=== PATIENT | female | born 1995 | race Caucasian/White ===

== ENCOUNTER 2023-04-28 04:08 | Emergency (ER) | payer MEDICAID, SELFPAY ==
--- NOTE | 2023-04-28 | ECG_ITS ---
Test Reason : CHEST PAIN Blood Pressure : / mmHG Vent. Rate : 073 BPM Atrial Rate : 073 BPM P-R Int : 162 ms QRS Dur : 076 ms QT Int : 374 ms P-R-T Axes : 048 074 026 degrees QTc Int : 412 ms Normal sinus rhythm Normal ECG No previous ECGs available Referred By: Generic ED Physician Electronically Signed By:Joel Awad
--- NOTE | ~2023-04-28 | XR_ITS ---
EXAMINATION: XR CHEST CLINICAL INFORMATION: Chest pain. COMPARISON: None available. TECHNIQUE: 2 views of the chest were obtained. FINDINGS: The cardiomediastinal silhouette is within normal limits. There is no focal lung consolidation or pleural effusion. The bony structures and soft tissues are unremarkable. XR/XR chest 2V IMPRESSION: No active cardiopulmonary disease.
[2023-04-28 04:10] VITALS: BP 114/70; BP 117/53; PULSE 74; PULSE 85; RESP 17; TEMP 36.4; O2SAT 99; BMI 36.6
[2023-04-28 04:40] LABS: MANUAL DIFF FLAG NO
[2023-04-28 04:41] LABS: Basophils Percent Auto 0.5 % (0-2); Eosinophils Absolute Auto 0.1 X10*3/uL (0.0-0.4); Eosinophils Percent Auto 0.9 % (0-4); Hemoglobin 9.5 g/dl (12.0-16.0); Imm Gran Abs Auto 0.03 X10*3/uL (0.00-0.03); Imm Gran Pct Auto 0.5 % (0.0-0.4); Lymphocytes Absolute Auto 2.3 X10*3/uL (1.2-4.9); Mean Corpuscular HGB Conc 30.6 g/dl (31.0-35.0); Mean Corpuscular Hemoglobin 21.9 pg (27.0-33.0); Mean Corpuscular Volume 71.4 fL (80.0-98.0); Monocytes Absolute Auto 0.6 X10*3/uL (0.1-1.2); Monocytes Percent Auto 9.7 % (2-11); Neutrophils Absolute Auto 3.4 x10*3/uL (2.0-8.3); Neutrophils Percent Auto 52.4 % (45-73); Platelet Count 263 X10*3/uL (160-400); Red Blood Count 4.34 X10*6/uL (4.20-5.50); Red Cell Distribution Width 16.4 % (11.0-16.0); White Blood Count 6.5 X10*3/uL (4.8-10.8)
[2023-04-28 05:01] LABS: Alanine Aminotransferase 15 U/L (0-31); Albumin Level 3.8 g/dL (3.5-5.0); Alkaline Phosphatase 89 U/L (39-117); Anion Gap 10 (12-20); Aspartate Amino Transferase 19 U/L (5-31); Bilirubin Total 0.3 mg/dL (0.0-1.0); Blood Urea Nitrogen 9 mg/dL (9-16); Calcium 9.4 mg/dL (8.4-10.2); Carbon Dioxide 26 mmol/L (22-29); Chloride 108 mmol/L (96-108); Creatinine Clr Calc Pharmacy 103.4; Estimated Glomerular Filt Rate > 60; Glucose Random 120 mg/dL (60-115); Lipase 17 U/L (8-78); Potassium 4.2 mmol/L (3.3-5.1); Sodium 140 mmol/L (135-145); Total Protein 6.9 g/dL (6.5-8.0)
[2023-04-28 05:07] LABS: Troponin-I High Sensitivity < 2.7 ng/L (<3.5-17.0)
--- NOTE | 2023-04-28 06:32 | ED_ITS ---
HPI - General Adult General Chief complaint: General Medical Stated complaint: Chest pain Time Seen by Provider: 04/28/23 06:30 Source: patient Mode of arrival: ambulatory Limitations: no limitations History of Present Illness HPI narrative: 27 yo female with history of obesity, cardiac abnormality in childhood who presents to the ER for evaluation of chest pain and abdominal pain. She states last night she developed central, non-radiating chest pain that started about 8 hours ago. It was worse with palpation and movement. About 30 mins later she developed upper abdominal pain and lower back pain. The abdominal pain radiated to the back and is ongoing. She then started vomiting. Last BM yesterday 6pm and was normal. No known sick contacts. No fever or chills. No urinary symptoms. She states the chest pain is better but her upper abdominal pain and back pain persist. Pain is mostly in the LUQ and comes and goes. MD complaint: chest pain, abd pain, vomiting Onset (ago): hour(s) Location: chest, back and abdomen Radiation: back Severity: moderate Quality: stabbing and aching Pain Consistency: intermittent Relieving factors: none Exacerbating factors: none Associated symptoms: headaches, loss of appetite, malaise, nausea/vomiting and weakness Treatments prior to arrival: none Related Data Previous Rx's Medication Instructions Recorded cefuroxime axetil 250 mg tablet 250 mg PO BID #10 tabs 04/28/23 ondansetron 4 mg disintegrating 4 mg PO Q8H PRN nausea and 04/28/23 tablet vomiting #7 tabs Allergies Allergy/AdvReac Type Severity Reaction Status Date / Time acetaminophen Allergy Unknown VOMITING Verified 04/28/23 04:40 [From DOLOGESIC] phenyltoloxamine Allergy Unknown VOMITING Verified 04/28/23 04:40 [From DOLOGESIC] Dologesic Allergy Unknown rash Uncoded 04/28/23 04:40 Review of Systems Review of Systems: Yes all other systems are reviewed and are negative PMFSH Social History Social History Alcohol intake: never Smoked in Last 30 Days: No Use of substances other than those prescribed or required for medical reasons: No Advance Directives: No Physical Exam ED Vital Signs: Vital Signs - 24 hr 04/28/23 04:10 04/28/23 07:39 Temperature 97.5 F 98.0 F Pulse Rate 74 65 Respiratory Rate 17 19 Blood Pressure 117/53 L 105/62 Pulse Oximetry 99 98 Oxygen Delivery Method Room Air Room Air BMI result Body Mass Index 36.6 Appearance: Alert. Oriented X3. No acute distress. Head: normocephalic, atraumatic. Eyes: Pupils equal, round and reactive to light. ENT: Pharynx normal. No tonsillar swelling or exudate. Neck: Normal inspection. Neck supple. CVS: Normal heart rate and rhythm. Pulses normal. tender parasternal area Respiratory: No respiratory distress. Breath sounds normal. Abdomen: Obese, Soft and nontender. +BS x4 Skin: Skin warm and dry. Normal skin color. Normal skin turgor. No rashes. Extremities: No lower extremity edema. No joint swelling. Neuro/psych: Oriented X 3. No motor deficit. No sensory deficit. CN II-XII intact. Normal speech and cognition. Medications Administered Discontinued Medications Generic Name Dose Route Start Last Admin Trade Name Freq PRN Reason Stop Dose Admin Al Hydroxide/Mg Hydroxide 30 ml 04/28/23 06:51 04/28/23 07:34 Magnesium Hydrox/Alum Hydrox 30 Ml Oral.Susp PO 04/28/23 06:52 30 ml ONCE ONE Administration Belladonna Alkaloids/Phenobarbital 10 ml 04/28/23 06:51 04/28/23 07:34 Phenobarb/Hyoscy/Atropine/Scop 10 Ml Elixir PO 04/28/23 06:52 10 ml ONCE ONE Administration Famotidine 20 mg 04/28/23 06:51 04/28/23 07:34 Famotidine 20 Mg Tablet PO 04/28/23 06:52 20 mg ONCE ONE Administration Ondansetron HCl 4 mg 04/28/23 07:09 04/28/23 07:34 Ondansetron Odt 4 Mg Tab.Rapdis TRANSLINGU 04/28/23 07:10 4 mg ONCE ONE Administration Medical Decision Making Medical Decision Making MDM Narrative: 19-year-old female presents to the ER for evaluation of chest pain, abdominal pain, back pain this started last night. She is also vomiting. She reports chest pain has resolved. She has some parasternal tenderness which is reass uring against any cardiac etiology. She has history of a ?hole in her heart, question PFO verses septal defect. No appreciated murmurs on examination. On arrival to the ER her vital signs are stable. Her lab workup is unremarkable. Her EKG did not show any ischemic changes. Chest x-ray is norm al. Troponin is negative. She was treated with a GI cocktail for some ongoing upper abdominal pain and nausea. This improved her symptoms. She was able to tolerate p.o.. Her abdomen was soft with no significant tenderness. Her urinalysis did show that she most likely has a UTI. Negative for . Will plan to treat her with antibiotics and antiemetics. At this time she is stable for discharge home. Return precautions were discussed. Results and plan were discussed with patient. All questions were answered. Stable for discharge. Differential Diagnosis Differential Diagnoses: The differential diagnosis associated with the presentation includes Gastroenteritis, viral illness, pneumonia, pyelonephritis, cholecystitis, appendicitis, myocarditis, pericarditis, doubt ACS or PE Admission/Observation Consideration of admission/observation: Escalation of care including admission/observation considered considered observation of patient with chest and abd pain Lab Data MDM Lab Attestation statement: I reviewed the patient's lab results. No leukocytosis, mild anemia, no major metabolic derangement, UA consistent with infection 04/28/23 04:35 04/28/23 04:35 Labs: Lab Results 04/28/23 04/28/23 04/28/23 Range/Units 04:35 04:35 04:35 WBC 6.5 (4.8-10.8) X10*3/uL RBC 4.34 (4.20-5.50) X10*6/uL Hgb 9.5 L (12.0-16.0) g/dl Hct 31.0 L (37.0-47.0) % MCV 71.4 L (80.0-98.0) fL MCH 21.9 L (27.0-33.0) pg MCHC 30.6 L (31.0-35.0) g/dl RDW 16.4 H (11.0-16.0) % Plt Count 263 (160-400) X10*3/uL MPV 11.0 (9.4-12.3) fL Immature Gran % (Auto) 0.5 H (0.0-0.4) % Neut % (Auto) 52.4 (45-73) % Lymph % (Auto) 36.0 (20-40) % Mitchell % (Auto) 9.7 (2-11) % Eos % (Auto) 0.9 (0-4) % Baso % (Auto) 0.5 (0-2) % Lymph # (Auto) 2.3 (1.2-4.9) X10*3/uL Mitchell # (Auto) 0.6 (0.1-1.2) X10*3/uL Eos # (Auto) 0.1 (0.0-0.4) X10*3/uL Baso # (Auto) 0.0 (0.0-0.2) X10*3/uL Abs Immat Gran (auto) 0.03 (0.00-0.03) X10*3/uL Absolute Neuts (auto) 3.4 (2.0-8.3) x10*3/uL Absolute Nucleated RBC 0.000 (0.0-0.012) X10*3/uL Nucleated RBC % (auto) 0.0 (0.0-0.2) /100WBC Sodium 140 (135-145) mmol/L Potassium 4.2 (3.3-5.1) mmol/L Chloride 108 (96-108) mmol/L Carbon Dioxide 26 (22-29) mmol/L Anion Gap 10 L (12-20) BUN 9 (9-16) mg/dL Creatinine 0.72 (0.5-1.4) mg/dL Estim Creat Clear Calc 103.4 Estimated GFR > 60 Random Glucose 120 H (60-115) mg/dL Calcium 9.4 (8.4-10.2) mg/dL Total Bilirubin 0.3 (0.0-1.0) mg/dL AST 19 (5-31) U/L ALT 15 (0-31) U/L Alkaline Phosphatase 89 (39-117) U/L Troponin I High Sens < 2.7 (<3.5-17.0) ng/L Total Protein 6.9 (6.5-8.0) g/dL Albumin 3.8 (3.5-5.0) g/dL Lipase 17 (8-78) U/L Urine Color Urine Appearance Urine pH (5.0-9.0) Ur Specific [place] (1.005-1.025) Urine Protein (Neg-Trace) mg/dL Urine Glucose (UA) (Negative) mg/dL Urine Ketones (Negative) mg/dL Urine Blood (Negative) Urine Nitrite (Negative) Ur Leukocyte Esterase (Negative) Urine RBC (0-2) /HPF Urine WBC (0-5) /HPF Ur Squamous Epith Cells (0-2) /HPF Urine Bacteria (None Seen) Hyaline Casts (0-2) /LPF Urine Test (NEGATIVE) 04/28/23 04/28/23 Range/Units 09:11 09:11 WBC (4.8-10.8) X10*3/uL RBC (4.20-5.50) X10*6/uL Hgb (12.0-16.0) g/dl Hct (37.0-47.0) % MCV (80.0-98.0) fL MCH (27.0-33.0) pg MCHC (31.0-35.0) g/dl RDW (11.0-16.0) % Plt Count (160-400) X10*3/uL MPV (9.4-12.3) fL Immature Gran % (Auto) (0.0-0.4) % Neut % (Auto) (45-73) % Lymph % (Auto) (20-40) % Mitchell % (Auto) (2-11) % Eos % (Auto) (0-4) % Baso % (Auto) (0-2) % Lymph # (Auto) (1.2-4.9) X10*3/uL Mitchell # (Auto) (0.1-1.2) X10*3/uL Eos # (Auto) (0.0-0.4) X10*3/uL Baso # (Auto) (0.0-0.2) X10*3/uL Abs Immat Gran (auto) (0.00-0.03) X10*3/uL Absolute Neuts (auto) (2.0-8.3) x10*3/uL Absolute Nucleated RBC (0.0-0.012) X10*3/uL Nucleated RBC % (auto) (0.0-0.2) /100WBC Sodium (135-145) mmol/L Potassium (3.3-5.1) mmol/L Chloride (96-108) mmol/L Carbon Dioxide (22-29) mmol/L Anion Gap (12-20) BUN (9-16) mg/dL Creatinine (0.5-1.4) mg/dL Estim Creat Clear Calc Estimated GFR Random Glucose (60-115) mg/dL Calcium (8.4-10.2) mg/dL Total Bilirubin (0.0-1.0) mg/dL AST (5-31) U/L ALT (0-31) U/L Alkaline Phosphatase (39-117) U/L Troponin I High Sens (<3.5-17.0) ng/L Total Protein (6.5-8.0) g/dL Albumin (3.5-5.0) g/dL Lipase (8-78) U/L Urine Color Other A Urine Appearance Hazy Urine pH 5.5 (5.0-9.0) Ur Specific [place] 1.020 (1.005-1.025) Urine Protein 30 (1+) H (Neg-Trace) mg/dL Urine Glucose (UA) Negative (Negative) mg/dL Urine Ketones Negative (Negative) mg/dL Urine Blood Large (3+) H (Negative) Urine Nitrite Negative (Negative) Ur Leukocyte Esterase Small (1+) H (Negative) Urine RBC >20 H (0-2) /HPF Urine WBC 21-50 H (0-5) /HPF Ur Squamous Epith Cells 3-5 (0-2) /HPF Urine Bacteria 4+ (None Seen) Hyaline Casts 0-2 (0-2) /LPF Urine Test NEGATIVE (NEGATIVE) Independent Interpretation I performed an independent interpretation of an: EKG and Plain X-Ray Interpretation: Chest x-ray reviewed, no focal infiltrate appreciated. Agree with radiologist read. EKG with normal sinus rhythm, ventricular rate 73 beats per minute, normal OR interval, normal QTC, no ST segment elevations or depressions. Radiology Impression Discussion of test interpretation with radiology: I have reviewed the radiologist's reading. Radiologist Impression: EXAMINATION: XR CHEST CLINICAL INFORMATION: Chest pain. COMPARISON: None available. TECHNIQUE: 2 views of the chest were obtained. FINDINGS: The cardiomediastinal silhouette is within normal limits. There is no focal lung consolidation or pleural effusion. The bony structures and soft tissues are unremarkable. XR/XR chest 2V IMPRESSION: No active cardiopulmonary disease. Prescription Management I considered prescription management with: Pain Medication, Antibiotic and Other (Antiemetic) Discharge Plan Discharge Clinical Impression: UTI (urinary tract infection) Patient Disposition: Home, Self-Care Instructions: Urinary Tract Infection in Women (DC) Additional Instructions: You lab workup today was unremarkable. Your urine test was positive for infection and negative for Take the prescribed antibiotics as directed, complete the entire course and do not miss any doses Recommend rest and plenty of oral hydration. Stick to a bland diet like soup and toast while you are not feeling well. Take the prescribed medication as needed for nausea. Follow up with your doctor as needed. If you develop new or worsening symptoms call 911 or come back to the ER for further evaluation. Prescriptions: New cefuroxime axetil 250 mg tablet 250 mg PO BID Qty: 10 0RF ondansetron 4 mg tablet,disintegrating 4 mg PO Q8H PRN (Reason: nausea and vomiting) Qty: 7 0RF
[2023-04-28] MEDS: Famotidine 20 MG TABLET PO (07:34)
[2023-04-28] MEDS: Ondansetron ODT 4 MG TAB.RAPDIS TRANSLINGU (07:34)
[2023-04-28] MEDS: PHENobarb/Hyoscy/Atropine/Scop 10 ML ELIXIR PO (07:34)
[2023-04-28] MEDS: Magnesium Hydrox/Alum Hydrox 30 ML ORAL.SUSP PO (07:34)
[2023-04-28 07:39] VITALS: BP 105/62; PULSE 65; RESP 19; TEMP 36.7; O2SAT 98
--- NOTE | 2023-04-28 08:00 | PC.NURSE ---
meds given as ordered, pt resting quietly, no apparent distress.
[2023-04-28 11:08] LABS: UPreg QC Valid YES; Urine Pregnancy NEGATIVE (NEGATIVE)
[2023-04-28 11:11] LABS: Appearance Urine Hazy; Color Urine Other; PH 5.5 (5.0-9.0)
[2023-04-28 11:12] LABS: Glucose Urine UA Negative (Negative); Leukocyte Esterase Urine Small (1+) (Negative); Nitrite Urine Negative (Negative); UMIC TRIGGER UACC YES; Urine Blood Large (3+) (Negative); Urine Ketones Negative (Negative); Urine Protein 30 (1+) mg/dL (Neg-Trace)
[2023-04-28 11:13] LABS: Bacteria Urine 4+ (None Seen); Hyaline Casts Urine 0-2 /LPF (0-2); RBC Urine >20 /HPF (0-2); UACC Culture Trigger YES; WBC Urine 21-50 /HPF (0-5)
== END 2023-04-28 11:53 | disposition home or self-care (01) ==
PROVIDERS: Physician Assistant; Emergency Provider Emergency Medicine Emergency Medical Services
DX: N39.0 Urinary tract infection, site not specified (principal); R07.89 Other chest pain; R51.9 Headache, unspecified; R11.2 Nausea with vomiting, unspecified; Z79.899 Other long term (current) drug therapy
CPT/HCPCS: 36415; 71046; 80053; 81001; 81003; 81025; 83690; 84484; 85025; 87086; 93005; 99284; 99285

== ENCOUNTER → 2023-04-28 04:24 | Outpatient (BNV) | payer MEDICAID, SELFPAY | PROVIDERS: Emergency Provider Emergency Medicine Emergency Medical Services; Visit Provider Internal Medicine Cardiovascular Disease | DX: R07.9 Chest pain, unspecified (principal) | CPT/HCPCS: 93010 ==

== ENCOUNTER 2023-07-11 11:21 | Emergency (ER) | payer MEDICAID, SELFPAY ==
--- NOTE | ~2023-07-11 | XR_ITS ---
EXAMINATION: XR CHEST CLINICAL INFORMATION: Shortness of breath. Cough. COMPARISON: 04/28/2023. TECHNIQUE: 2 views of the chest were obtained. FINDINGS: The lungs are well expanded. No focal consolidation. No pleural effusion. Cardiac silhouette is within normal limits. XR/XR chest 2V IMPRESSION: No acute abnormality.
--- NOTE | 2023-07-11 11:27 | ED.GENADULT ---
HPI - General Adult General Chief complaint: Upper Respiratory Symptoms Stated complaint: chest pain, cough Time Seen by Provider: 07/11/23 11:58 Source: patient Mode of arrival: ambulatory Limitations: no limitations History of Present Illness HPI narrative: 28 y/o female with history of obesity and asthma presents to the ER for evaluation of dry cough for 1.5 weeks. The cough is worse at night and has been keeping her up. She states her entire chest wall hurts when she coughs and she finds it hard to take a deep breath. She denies fever, chills, N/V/D, abdominal pain, difficulty breathing or wheezing. She has been using her albuterol inhaler with no improvement in the cough. MD complaint: dry cough Onset (ago): week(s) (1.5) Location: chest Radiation: non-radiation Severity: moderate Quality: aching Pain Consistency: intermittent Relieving factors: rest Exacerbating factors: other (coughing) Associated symptoms: chest pain and cough Treatments prior to arrival: none Related Data Previous Rx's Medication Instructions Recorded cefuroxime axetil 250 mg tablet 250 mg PO BID #10 tabs 04/28/23 ondansetron 4 mg disintegrating 4 mg PO Q8H PRN nausea and 04/28/23 tablet vomiting #7 tabs benzonatate 100 mg capsule 100 mg PO TID PRN cough #20 caps 07/11/23 hydrocodone-homatropine 5 mg-1.5 5 ml PO Q4-6H PRN cough #60 mL 07/11/23 mg/5 mL (5 mL) oral syrup (Hycodan) Allergies Allergy/AdvReac Type Severity Reaction Status Date / Time acetaminophen Allergy Unknown VOMITING Verified 04/28/23 04:40 [From DOLOGESIC] phenyltoloxamine Allergy Unknown VOMITING Verified 04/28/23 04:40 [From DOLOGESIC] Dologesic Allergy Unknown rash Uncoded 04/28/23 04:40 Review of Systems Review of Systems: Yes all other systems are reviewed and are negative [facility] Social History Social History Alcohol intake: never Advance Directives: No Physical Exam ED Vital Signs: Vital Signs - 24 hr 07/11/23 11:28 Temperature 98 F Pulse Rate 86 Respiratory Rate 18 Blood Pressure 137/76 Pulse Oximetry 98 Oxygen Delivery Method Room Air BMI result Body Mass Index 47.0 Appearance: Alert. Oriented X3. No acute distress. Head: normocephalic, atraumatic. Eyes: Pupils equal, round and reactive to light. ENT: Pharynx normal. No tonsillar swelling or exudate. Neck: Normal inspection. Neck supple. CVS: Normal heart rate and rhythm. Pulses normal. +anterior chest wall tenderness throughout Respiratory: No respiratory distress. Breath sounds normal. Abdomen: Soft and nontender. +BS x4 Skin: Skin warm and dry. Normal skin color. Normal skin turgor. No rashes. Extremities: No lower extremity edema. No joint swelling. No calf tenderness or redness Neuro/psych: Oriented X 3. Grossly normal, nonfocal. Normal speech and cognition. Course Course Course Narrative: RME- 28-year-old female presents for evaluation of a dry cough for the last week and a half. She reports chest pain while coughing. Vital signs are stable. Plan for viral swabs and chest x-ray Medical Decision Making Medical Decision Making [facility] Narrative: 28 yo female with history of obesity and asthma presenting with dry cough and reproducible chest pain for 1.5 weeks. VSS. Lungs CTAB. chest wall tender c/w chest wall/MSK pain CXR without PNA covid and flu negative likely other viral etiology stable for d/c home with anti-tussives and outpatient f/u PRN Differential Diagnosis Differential Diagnoses: The differential diagnosis associated with the presentation includes strep, covid, flu, rsv, other viral syndrome, bronchitis, pneumonia, asthma exacerbation, doubt ACS or PE - chest pain is reproducible Lab Data MDM Lab Attestation statement: I reviewed the patient's lab results. Labs: Lab Results 07/11/23 Range/Units 11:30 COVID-19 ([facility]) Negative (Negative) COVID-19 Clin Com See Note Influenza Type A ([facility]) Negative (Negative) Influenza Type B ([facility]) Negative (Negative) Influenza A & B Note See Note Independent Interpretation I performed an independent interpretation of an: Plain X-Ray Interpretation: clear lungs, no PNA or effusion Radiology Impression Discussion of test interpretation with radiology: I have reviewed the radiologist's reading. Radiologist Impression: EXAMINATION: XR CHEST CLINICAL INFORMATION: Shortness of breath. Cough. COMPARISON: 04/28/2023. TECHNIQUE: 2 views of the chest were obtained. FINDINGS: The lungs are well expanded. No focal consolidation. No pleural effusion. Cardiac silhouette is within normal limits. XR/XR chest 2V IMPRESSION: No acute abnormality. External Record Review External record reviewed: Prior outpatient labs Prescription Management I considered prescription management with: Antibiotic and Other (antitussive) Chronic Conditions Patient?s care impacted by: Other (asthma) Critical Care Time Critical Care Time Critical Care Time: No Discharge Plan Discharge Clinical Impression: Viral infection Patient Disposition: Home, Self-Care Instructions: Viral Syndrome (ED) Additional Instructions: You tested negative for COVID and Influenza today Your chest x-ray was normal, no signs of pneumonia You most likely have another viral illness. Treatment is supportive care Take the prescribed medication as needed for cough Take over the counter cold/flu medications as needed for your other symptoms Prescriptions: New benzonatate 100 mg capsule 100 mg PO TID PRN (Reason: cough) Qty: 20 0RF hydrocodone-homatropine [Hycodan] 5-1.5 mg/5 mL (5 mL) syrup 5 ml PO Q4-6H PRN (Reason: cough) Qty: 60 0RF Rx Instructions: Partial Fill upon patient request. No Action cefuroxime axetil 250 mg tablet 250 mg PO BID Qty: 10 0RF ondansetron 4 mg tablet,disintegrating 4 mg PO Q8H PRN (Reason: nausea and vomiting) Qty: 7 0RF Stand Alone Forms: Work/School Release Interventions: ED Discharge Assessment Last Done: 07/11/23 12:34 Discharge Date/Time: 07/11/23 12:36
[2023-07-11 11:28] VITALS: BP 137/76; PULSE 86; RESP 18; TEMP 36.6; O2SAT 98; BMI 47.0
[2023-07-11 11:58] LABS: COVID-19 Test Negative (Negative); IDNOW Serial# BCCEAD1C
[2023-07-11 11:59] LABS: IDNOW Serial# 08D9AD1C; Influenza A Negative (Negative); Influenza B2 Negative (Negative)
== END 2023-07-11 12:36 | disposition home or self-care (01) ==
PROVIDERS: Physician Assistant; Emergency Provider Emergency Medicine
DX: B34.9 Viral infection, unspecified (principal); R07.89 Other chest pain; R05.9 Cough, unspecified; R06.02 Shortness of breath; Z20.822 Contact with and (suspected) exposure to COVID-19; Z20.828 Contact with and (suspected) exposure to other viral communicable diseases; Z79.899 Other long term (current) drug therapy
CPT/HCPCS: 71046; 87502; 87635; 99283

== ENCOUNTER 2023-07-13 23:05 | Emergency (ER) | payer MEDICAID, SELFPAY ==
--- NOTE | 2023-07-13 | ECG_ITS ---
Test Reason : CHEST PAIN Blood Pressure : / mmHG Vent. Rate : 103 BPM Atrial Rate : 103 BPM P-R Int : 156 ms QRS Dur : 078 ms QT Int : 322 ms P-R-T Axes : 067 098 036 degrees QTc Int : 421 ms Sinus tachycardia Rightward axis Borderline ECG When compared with ECG of 28-APR-2023 04:24, Heart rate has increased Referred By: Generic ED Physician Electronically Signed By:ALEX MEEK MD
--- NOTE | ~2023-07-13 | XR_ITS ---
EXAMINATION: XR CHEST CLINICAL INFORMATION: Cough and fever COMPARISON: 07/11/2023 TECHNIQUE: 2 views of the chest were obtained. FINDINGS: No significant abnormality is noted involving the heart, lungs, mediastinum, bony thorax or soft tissues. XR/XR chest 2V IMPRESSION: Unremarkable examination.
[2023-07-13 23:09] VITALS: BP 144/87; PULSE 102; RESP 20; TEMP 37.8; O2SAT 96; BMI 46.9
--- NOTE | 2023-07-13 23:32 | ED_ITS ---
HPI - General Adult General Chief complaint: General Medical Stated complaint: fever and body pain, even after meds Time Seen by Provider: 07/13/23 23:27 Source: patient Mode of arrival: ambulatory Limitations: no limitations History of Present Illness HPI narrative: patient states that she has had a cough for 2 weeks, now has fever and vomiting over the past 2 days Onset (ago): week(s) Severity: moderate Related Data Previous Rx's Medication Instructions Recorded cefuroxime axetil 250 mg tablet 250 mg PO BID #10 tabs 04/28/23 ondansetron 4 mg disintegrating 4 mg PO Q8H PRN nausea and 04/28/23 tablet vomiting #7 tabs benzonatate 100 mg capsule 100 mg PO TID PRN cough #20 caps 07/11/23 hydrocodone-homatropine 5 mg-1.5 5 ml PO Q4-6H PRN cough #60 mL 07/11/23 mg/5 mL (5 mL) oral syrup (Hycodan) ondansetron 4 mg disintegrating 4 mg PO Q8H PRN nausea and 07/14/23 tablet vomiting 5 days #20 tabs epsuyqlexqxah-GS-oboodlsiflz 5 10 ml PO Q4H PRN cough #237 mL 07/14/23 mg-10 mg-100 mg/5 mL oral liquid Allergies Allergy/AdvReac Type Severity Reaction Status Date / Time acetaminophen Allergy Unknown VOMITING Verified 04/28/23 04:40 [From DOLOGESIC] phenyltoloxamine Allergy Unknown VOMITING Verified 04/28/23 04:40 [From DOLOGESIC] Dologesic Allergy Unknown rash Uncoded 04/28/23 04:40 Review of Systems Review of Systems: Yes all other systems are reviewed and are negative Neurologic: Denies Sensory deficit (Neuro) [facility] Social History Social History Alcohol intake: never Advance Directives: No Advance Directives Information Provided: No Physical Exam ED Vital Signs: Vital Signs - 24 hr 07/13/23 23:09 07/13/23 23:35 07/14/23 00:57 Temperature 100.1 F 103.0 F H 100.4 F Pulse Rate 102 H 104 H 91 Respiratory Rate 20 16 16 Blood Pressure 144/87 H 145/73 H 109/60 Pulse Oximetry 96 98 98 Oxygen Delivery Method Room Air Room Air BMI result Body Mass Index 46.9 Const Other: short obese female, slightly short of breath, vomiting Orientation/consciousness: oriented to person and patient oriented x3 Limitations: no limitations HENMT Head: Yes normal to inspection Ears: external ears normal General nose exam: Normal external nose present Mouth: Normal oral and palatal mucosa present and oropharynx normal Throat: Yes posterior oropharynx normal Eyes General: appearance normal, both eyes and all related structures Neck Neck: Yes normal visual inspection Chest Chest palpation & inspection: normal inspection of the chest Resp Auscultation: clear to auscultation bilaterally Cardio Jugular venous distension: no JVD Rate: regular rate Rhythm: regular rhythm Heart sounds: S1 normal heart sound present and S2 normal heart sound present GI Inspection: Yes normal to inspection Palpation (GI): Soft to palpation, nontender and No hepatosplenomegaly present Auscultation: normal bowel sounds General: Yes no CVA tenderness Back/Spine/Pelvis Back: no CVA tenderness Skin General skin exam: no rashes or lesions noted Neuro General: oriented to person and patient oriented x3 Cranial nerves: Yes CN's II-XII intact bilaterally Motor exam (neuro): 5/5 motor strength present throughout Sensory Exam: No Sensory deficit (Neuro) Extrem General: Yes normal to inspection Psych Appearance: grossly normal Course Reevaluation(s) Reevaluation #1: patient is febrile, short of breath with clear lungs, cough and vomiting, positive for COVID will dc home Time: 01:02 Medications Administered Discontinued Medications Generic Name Dose Route Start Last Admin Trade Name Freq PRN Reason Stop Dose Admin Guaifenesin 20 ml 07/14/23 00:02 07/14/23 00:31 Guaifenesin 200 Mg/10 Ml 10 Ml Liquid PO 07/14/23 00:03 20 ml ONCE ONE Administration Ibuprofen 800 mg 07/13/23 23:32 07/13/23 23:42 Ibuprofen 800 Mg Tablet PO 07/13/23 23:33 800 mg ONCE ONE Administration Ondansetron HCl 4 mg 07/13/23 23:32 07/13/23 23:42 Ondansetron Odt 4 Mg Tab.Rapdis TRANSLINGU 07/13/23 23:33 4 mg ONCE ONE Administration Medical Decision Making Differential Diagnosis Differential Diagnoses: The differential diagnosis associated with the presentation includes (Pneumonia, COVID, Flu, RSV were all considered) Admission/Observation Consideration of admission/observation: Escalation of care including admission/observation considered (upon arrival patient considered for admission) Lab Data MDM Lab Attestation statement: I reviewed the patient's lab results. (COVID pos itive) Labs: Lab Results 07/13/23 Range/Units 23:27 Influenza Type A (PCR) NEGATIVE (Negative) Influenza Type B (PCR) NEGATIVE (Negative) RSV RNA Qual (PCR) NEGATIVE (Negative) SARS-CoV-2 RNA (RT-PCR) POSITIVE A (Negative) S. pyogenes GrpA ZULEYMA Negative (Negative) Independent Interpretation I performed an independent interpretation of an: EKG (sinus [address] or twave changes) and Plain X-Ray (no infiltrate) Independent Historian Clinical information obtained from an independent historian. History obtained from or confirmed by: Spouse Prescription Management I considered prescription management with: Antibiotic (Patient with covid will not give abx) Discharge Plan Discharge Clinical Impression: COVID-19 Patient Disposition: Home, Self-Care Instructions: COVID-19 (Coronavirus Disease 2019) (ED) Prescriptions: New abmojavajvcec-TR-vonmkvbryyg 5-10-100 mg/5 mL liquid 10 ml PO Q4H PRN (Reason: cough) Qty: 237 0RF ondansetron 4 mg tablet,disintegrating 4 mg PO Q8H PRN (Reason: nausea and vomiting) 5 Days Qty: 20 0RF No Action cefuroxime axetil 250 mg tablet 250 mg PO BID Qty: 10 0RF ondansetron 4 mg tablet,disintegrating 4 mg PO Q8H PRN (Reason: nausea and vomiting) Qty: 7 0RF benzonatate 100 mg capsule 100 mg PO TID PRN (Reason: cough) Qty: 20 0RF hydrocodone-homatropine [Hycodan] 5-1.5 mg/5 mL (5 mL) syrup 5 ml PO Q4-6H PRN (Reason: cough) Qty: 60 0RF Rx Instructions: Partial Fill upon patient request. Referrals: Physician,Unknown J [Primary Care Provider] - 1 week
[2023-07-13 23:35] VITALS: BP 145/73; PULSE 104; RESP 16; TEMP 39.4; O2SAT 98
--- NOTE | 2023-07-13 23:37 | MHC.EDTECH ---
This pct just assumed care of pt ,ekg taken and was read by Provider Saw ,Provider Saw is aware of Pt high temp ,RSV /COVID and Streap swab collected and sent [facility] .
[2023-07-13] MEDS: Ibuprofen 800 MG TABLET PO (23:42)
[2023-07-13] MEDS: Ondansetron ODT 4 MG TAB.RAPDIS TRANSLINGU (23:42)
[2023-07-13 23:45] LABS: IDNOW Serial# 6674DD1D; Strep A Nucleic Acid Negative (Negative)
[2023-07-14 00:14] LABS: Influenza A PCR NEGATIVE (Negative); Influenza B PCR NEGATIVE (Negative); Resp Syncy Virus RNA Qual PCR NEGATIVE (Negative); SARS COV2 PCR INHOUSE POSITIVE (Negative)
[2023-07-14] MEDS: guaiFENesin 200 MG/10 ML 10 ML LIQUID 20 ML PO (00:31)
[2023-07-14 00:57] VITALS: BP 109/60; PULSE 91; RESP 16; TEMP 38; O2SAT 98
== END 2023-07-14 01:15 | disposition home or self-care (01) ==
PROVIDERS: Emergency Provider Emergency Medicine
DX: U07.1 COVID-19 (principal)
CPT/HCPCS: 0241U; 71046; 87651; 93005; 99283; 99284

== ENCOUNTER 2023-11-15 01:29 | Emergency (ER) | payer MEDICAID, SELFPAY ==
[2023-11-15 01:32] VITALS: BP 148/78; PULSE 74; RESP 16; TEMP 36.7; O2SAT 99; BMI 46.2
[2023-11-15 02:25] LABS: IDNOW Serial# 6674DD1D; Strep A Nucleic Acid Negative (Negative)
[2023-11-15 02:52] LABS: Influenza A PCR NEGATIVE (Negative); Influenza B PCR NEGATIVE (Negative); Resp Syncy Virus RNA Qual PCR NEGATIVE (Negative); SARS COV2 PCR INHOUSE NEGATIVE (Negative)
--- NOTE | 2023-11-15 02:54 | ED_ITS ---
HPI - General Adult General Chief complaint: General Medical Stated complaint: throat pain Time Seen by Provider: 11/15/23 02:48 Source: patient Mode of arrival: ambulatory Limitations: no limitations History of Present Illness HPI narrative: 28-year-old female with no significant past medical history who presents emergency department for evaluation of sore throat x1 week. She states pain is gotten progressively worse. She states she has having no difficulty swallowing solids or liquids. Patient denied fever, chills, rhinorrhea, cough, chest pain shortness of breath. He has been using a spray and the back of her throat with no relief for pain. Related Data Previous Rx's Medication Instructions Recorded cefuroxime axetil 250 mg tablet 250 mg PO BID #10 tabs 04/28/23 ondansetron 4 mg disintegrating 4 mg PO Q8H PRN nausea and 04/28/23 tablet vomiting #7 tabs benzonatate 100 mg capsule 100 mg PO TID PRN cough #20 caps 07/11/23 hydrocodone-homatropine 5 mg-1.5 5 ml PO Q4-6H PRN cough #60 mL 07/11/23 mg/5 mL (5 mL) oral syrup (Hycodan) ondansetron 4 mg disintegrating 4 mg PO Q8H PRN nausea and 07/14/23 tablet vomiting 5 days #20 tabs oaybhyyioywfo-FK-cqkgwuknnze 5 10 ml PO Q4H PRN cough #237 mL 07/14/23 mg-10 mg-100 mg/5 mL oral liquid acetaminophen 500 mg tablet 1,000 mg (2 x 500 mg) PO Q6H PRN 11/15/23 (Tylenol Extra Strength) fever or pain #20 tabs amoxicillin 500 mg capsule 500 mg PO TID 7 days #21 caps 11/15/23 prednisone 20 mg tablet 60 mg (3 x 20 mg) PO DAILY 5 days 11/15/23 #15 tabs Allergies Allergy/AdvReac Type Severity Reaction Status Date / Time acetaminophen Allergy Unknown VOMITING Verified 11/15/23 01:31 [From DOLOGESIC] phenyltoloxamine Allergy Unknown VOMITING Verified 11/15/23 01:31 [From DOLOGESIC] Dologesic Allergy Unknown rash Uncoded 11/15/23 01:31 Review of Systems Review of Systems: Yes all other systems are reviewed and are negative [facility] Past Medical History [facility] Narrative: Social history: She denies tobacco, alcohol and drug use. Social History Social History Alcohol intake: never Advance Directives: No Advance Directives Information Provided: No Physical Exam ED Vital Signs: Vital Signs - 24 hr 11/15/23 01:32 Temperature 98.0 F Pulse Rate 74 Respiratory Rate 16 Blood Pressure 148/78 H Pulse Oximetry 99 Oxygen Delivery Method Room Air BMI result Body Mass Index 46.2 Vital signs revealed an elevated blood pressure of 140/78 otherwise unremarkable. Exam: General: Awake, alert in no distress Head: Normocephalic, atraumatic EENT: Membranes patient does have bilateral erythema with no exudates, patient's tonsils appear to be symmetrically swollen, she has no trismus, uvula is midline Neck: Supple, no adenopathy Lung: breath sounds symmetric, no wheezing, rales or rhonchi Chest: symmetric movement, nontender Heart: regular rate and rhythm, normal S1, S2 no murmurs or rubs Abdomen: soft, non-tender, nondistended, normal bowel sounds Back: no vertebral tenderness, no CVAT Extremities: no deformities, moves all extremities symmetrically Medications Administered Discontinued Medications Generic Name Dose Route Start Last Admin Trade Name Freq PRN Reason Stop Dose Admin Acetaminophen 975 mg 11/15/23 02:54 11/15/23 03:21 Acetaminophen 325 Mg Tablet PO 11/15/23 02:55 975 mg ONCE STA Administration Amoxicillin 500 mg 11/15/23 02:54 11/15/23 03:21 Amoxicillin 500 Mg Capsule PO 11/15/23 02:55 500 mg ONCE ONE Administration Prednisone 60 mg 11/15/23 02:54 11/15/23 03:21 Prednisone 20 Mg Tablet PO 11/15/23 02:55 60 mg ONCE ONE Administration Medical Decision Making Medical Decision Making [facility] Narrative: 28-year-old female with no significant past medical history who presents emergency department for evaluation of 1 week of throat pain which is got progressively worse. Patient's vital signs revealed an elevated blood pressure otherwise unremarkable. Physical examination is consistent with acute tonsillitis. Differential diagnosis: ?Includes but is not limited to strep throat, viral pharyngitis, tonsillitis Following evaluation was ordered: Rapid strep Patient was initially treated with the following: Amoxicillin 500 mg orally, Tylenol 975 mg orally, prednisone 60 mg orally Course: 03:01 My interpretation patient's laboratory evaluation as follows: Rapid strep was negative. COVID-19, influenza and RSV were negative. Patient's presentation consistent with acute tonsillitis. She was prescribed amoxicillin 500 mg 3 times a day for 7 days, prednisone 60 mg once a day for 5 days and Tylenol as needed for pain. She was given printed and verbal instructions discharged home. She was given a work note. Lab Data [facility] Lab Attestation statement: I reviewed the patient's lab results. Labs: Lab Results 11/15/23 Range/Units 02:07 Influenza Type A (PCR) NEGATIVE (Negative) Influenza Type B (PCR) NEGATIVE (Negative) RSV RNA Qual (PCR) NEGATIVE (Negative) SARS-CoV-2 RNA (RT-PCR) NEGATIVE (Negative) S. pyogenes GrpA ZULEYMA Negative (Negative) Prescription Management I considered prescription management with: Pain Medication, Antibiotic and Other (Steroids) Discharge Plan Discharge Clinical Impression: Acute tonsillitis Qualifiers: Pharyngitis/tonsillitis etiology: other specified organisms Qualified Code(s): J03.80 - Acute tonsillitis due to other specified organisms Patient Disposition: Home, Self-Care Instructions: Tonsillitis (ED) Additional Instructions: Your rapid strep test was negative. Your COVID-19, influenza and RSV tests were also negative Your exam is consistent with tonsillitis. Take amoxicillin 500 mg pills, 1 pill 3 times a day for 7 days. Take prednisone 20 mg pills, 3 pills once a day for 5 days. While you ?are taking prednisone, do not take any NSAIDs (Motrin, Advil, ibuprofen, Aleve, naproxen). Take Tylenol (acetaminophen) 500 mg pills, 2 pills every 6 hours as needed for pain or fever. Follow-up with your doctor in 2 days. Please return to the emergency department if your symptoms get worse or if you develop any symptoms that are concerning to you. Please see work note Prescriptions: New prednisone 20 mg tablet 60 mg PO DAILY 5 Days Qty: 15 0RF acetaminophen [Tylenol Extra Strength] 500 mg tablet 1,000 mg PO Q6H PRN (Reason: fever or pain) Qty: 20 0RF amoxicillin 500 mg capsule 500 mg PO TID 7 Days Qty: 21 0RF No Action cefuroxime axetil 250 mg tablet 250 mg PO BID Qty: 10 0RF ondansetron 4 mg tablet,disintegrating 4 mg PO Q8H PRN (Reason: nausea and vomiting) Qty: 7 0RF benzonatate 100 mg capsule 100 mg PO TID PRN (Reason: cough) Qty: 20 0RF hydrocodone-homatropine [Hycodan] 5-1.5 mg/5 mL (5 mL) syrup 5 ml PO Q4-6H PRN (Reason: cough) Qty: 60 0RF Rx Instructions: Partial Fill upon patient request. lwghbywlyxpad-KZ-wiggmccsqrq 5-10-100 mg/5 mL liquid 10 ml PO Q4H PRN (Reason: cough) Qty: 237 0RF ondansetron 4 mg tablet,disintegrating 4 mg PO Q8H PRN (Reason: nausea and vomiting) 5 Days Qty: 20 0RF Stand Alone Forms: Work/School Release
[2023-11-15] MEDS: Acetaminophen 325 MG TABLET 975 MG PO (03:21)
[2023-11-15] MEDS: predniSONE 20 MG TABLET 60 MG PO (03:21)
[2023-11-15] MEDS: Amoxicillin 500 MG CAPSULE PO (03:21)
== END 2023-11-15 03:36 | disposition home or self-care (01) ==
PROVIDERS: Emergency Provider Emergency Medicine Emergency Medical Services
DX: J03.80 Acute tonsillitis due to other specified organisms (principal); Z11.52 Encounter for screening for COVID-19; Z20.828 Contact with and (suspected) exposure to other viral communicable diseases
CPT/HCPCS: 0241U; 87651; 99283

== ENCOUNTER 2023-11-24 22:47 | Emergency (ER) | payer MEDICAID, SELFPAY ==
[2023-11-24 23:20] VITALS: BP 111/75; PULSE 84; RESP 18; TEMP 36.7; O2SAT 99; BMI 38.0
[2023-11-24 23:40] LABS: MANUAL DIFF FLAG NO
[2023-11-24 23:50] LABS: Basophils Percent Auto 0.4 % (0-2); Eosinophils Absolute Auto 0.1 X10*3/uL (0.0-0.4); Eosinophils Percent Auto 0.5 % (0-4); Hematocrit 36.3 % (37.0-47.0); Hemoglobin 11.2 g/dl (12.0-16.0); Imm Gran Abs Auto 0.03 X10*3/uL (0.00-0.03); Imm Gran Pct Auto 0.3 % (0.0-0.4); Lymphocytes Absolute Auto 4.3 X10*3/uL (1.2-4.9); Lymphocytes Percent Auto 47.3 % (20-40); Mean Corpuscular HGB Conc 30.9 g/dl (31.0-35.0); Mean Corpuscular Hemoglobin 22.6 pg (27.0-33.0); Mean Corpuscular Volume 73.3 fL (80.0-98.0); Mean Platelet Volume 10.8 fL (9.4-12.3); Monocytes Absolute Auto 0.8 X10*3/uL (0.1-1.2); Monocytes Percent Auto 8.2 % (2-11); Neutrophils Percent Auto 43.3 % (45-73); Platelet Count 376 X10*3/uL (160-400); Red Blood Count 4.95 X10*6/uL (4.20-5.50); Red Cell Distribution Width 15.7 % (11.0-16.0); White Blood Count 9.2 X10*3/uL (4.8-10.8)
[2023-11-24 23:54] LABS: Alanine Aminotransferase 16 U/L (0-31); Albumin Level 3.8 g/dL (3.5-5.0); Alkaline Phosphatase 91 U/L (39-117); Anion Gap 9 (12-20); Aspartate Amino Transferase 16 U/L (5-31); Bilirubin Total 0.3 mg/dL (0.0-1.0); Blood Urea Nitrogen 6 mg/dL (9-16); Calcium 9.7 mg/dL (8.4-10.2); Carbon Dioxide 31 mmol/L (22-29); Chloride 101 mmol/L (96-108); Creatinine Clr Calc Pharmacy 95.5; Estimated Glomerular Filt Rate > 60; Glucose Random 117 mg/dL (60-115); Potassium 4.1 mmol/L (3.3-5.1); Sodium 137 mmol/L (135-145); Total Protein 6.9 g/dL (6.5-8.0)
[2023-11-25 00:16] LABS: Appearance Urine Clear; Color Urine Yellow; Glucose Urine UA Negative (Negative); Leukocyte Esterase Urine Negative (Negative); Nitrite Urine Negative (Negative); PH 7.5 (5.0-9.0); Urine Blood Negative (Negative); Urine Ketones Negative (Negative); Urine Protein Negative (Neg-Trace)
[2023-11-25 00:17] LABS: Urine Pregnancy NEGATIVE (NEGATIVE)
[2023-11-25 00:18] LABS: UPreg QC Valid YES
[2023-11-25 00:25] LABS: Influenza A PCR NEGATIVE (Negative); Influenza B PCR NEGATIVE (Negative); Resp Syncy Virus RNA Qual PCR NEGATIVE (Negative); SARS COV2 PCR INHOUSE NEGATIVE (Negative)
[2023-11-25 00:32] LABS: RBC Urine 0-2 /HPF (0-2); Squamous Epithelial Cell Urine 0-2 /HPF (0-2); Transitional Epi Cells Urine None seen; WBC Clumps Urine None seen; WBC Urine 0-5 /HPF (0-5)
[2023-11-25 00:33] LABS: Bacteria Urine None Seen (None Seen); Hyaline Casts Urine 0-2 /LPF (0-2)
--- NOTE | 2023-11-25 01:37 | ED.NAVMDI ---
HPI - Nausea/Vomiting/Diarrhea General Chief complaint: Nausea/Vomiting/Diarrhea Stated complaint: vomiting,stomach pain Time Seen by Provider: 11/25/23 01:36 Source: patient Mode of arrival: ambulatory Limitations: no limitations History of Present Illness HPI Narrative: 23-year-old female with a history of hypoglycemia who presents emergency department for evaluation of epigastric pain, nausea, and vomiting x2 weeks. Patient states that she has constant nausea. She states that she also has pain and she points to her epigastric area when asked to localize the pain. She describes the pain is a sharp, constant pain which is worse immediately after eating or drinking. The patient states she is vomiting once or twice a day, she has not noticed any blood in the emesis. She states that her last menstrual period was 10/28/2023 and she is approximately 2 days late. She states she has had similar pain in the past and has been on omeprazole and Zofran in the past for these symptoms. She denied fever, chills, cough, sore throat, chest pain, shortness of breath, diarrhea, frequency, urgency or dysuria. Related Data Previous Rx's Medication Instructions Recorded cefuroxime axetil 250 mg tablet 250 mg PO BID #10 tabs 04/28/23 ondansetron 4 mg disintegrating 4 mg PO Q8H PRN nausea and 04/28/23 tablet vomiting #7 tabs benzonatate 100 mg capsule 100 mg PO TID PRN cough #20 caps 07/11/23 hydrocodone-homatropine 5 mg-1.5 5 ml PO Q4-6H PRN cough #60 mL 07/11/23 mg/5 mL (5 mL) oral syrup (Hycodan) ondansetron 4 mg disintegrating 4 mg PO Q8H PRN nausea and 07/14/23 tablet vomiting 5 days #20 tabs pbiumbspmelam-XP-otsbxfrruat 5 10 ml PO Q4H PRN cough #237 mL 07/14/23 mg-10 mg-100 mg/5 mL oral liquid acetaminophen 500 mg tablet 1,000 mg (2 x 500 mg) PO Q6H PRN 11/15/23 (Tylenol Extra Strength) fever or pain #20 tabs amoxicillin 500 mg capsule 500 mg PO TID 7 days #21 caps 11/15/23 prednisone 20 mg tablet 60 mg (3 x 20 mg) PO DAILY 5 days 11/15/23 #15 tabs ferrous sulfate 325 mg (65 mg 325 mg PO BID 90 days #180 tabs 11/25/23 iron) tablet omeprazole 20 mg capsule,delayed 20 mg PO DAILY 30 days #30 caps 11/25/23 release ondansetron 4 mg disintegrating 4 mg PO Q6-8H PRN nausea and 11/25/23 tablet vomiting #14 tabs Allergies Allergy/AdvReac Type Severity Reaction Status Date / Time phenyltoloxamine Allergy Unknown VOMITING Verified 11/24/23 23:23 [From DOLOGESIC] Review of Systems Review of Systems: Yes all other systems are reviewed and are negative [facility] Social History Social History Alcohol intake: never Advance Directives: No Advance Directives Information Provided: No Physical Exam Vital Signs: Vital Signs: Last Vital Signs Temp 98.1 F 11/24/23 23:20 Pulse 84 11/24/23 23:20 Resp 18 11/24/23 23:20 BP 111/75 11/24/23 23:20 Pulse Ox 99 11/24/23 23:20 O2 Del Method Room Air 11/24/23 23:20 BMI result Body Mass Index 38.0 Vital signs were normal Exam: General: Awake, alert in no distress Head: Normocephalic, atraumatic EENT: PERRL, Lids normal, sclera normal, conjunctiva normal, nose normal , ears normal, throat without erythema or exudates Neck: Supple, no adenopathy Lung: breath sounds symmetric, no wheezing, rales or rhonchi Heart: regular rate and rhythm, normal S1, S2 no murmurs or rubs Abdomen: soft, moderate epigastric tenderness, no rebound, no voluntary or involuntary guarding, nondistended, normal bowel sounds Back: no vertebral tenderness, no CVAT Psych: Pleasant, cooperative Medical Decision Making Medical Decision Making MDM Narrative: 23-year-old female with a history of hypoglycemia who presents emergency department for evaluation of epigastric pain, nausea, and vomiting x2 weeks. Patient is also 2 days late for her menstrual period. Vital signs were normal. Examination did reveal that epigastric tenderness otherwise was unremarkable. Differential diagnosis: ?Includes but is not limited to related pain, viral syndrome, gastritis, GERD Following evaluation was ordered: CBC, CMP, urine test, COVID-19, influenza, RSV Patient was initially treated with the following: Zofran 4 mg ODT Course: 02:02 My interpretation patient's laboratory evaluation is as follows: WBC was normal 9200. Patient has mild microcytic anemia with an H&H of 11.2 and 36.3 with an MCV of 73. CO2 elevated 31. Glucose elevated 117. LFTs were normal. COVID-19, influenza, RSV were negative. Patient's presentation exam and laboratory evaluation is consistent with gastritis. Patient also has a microcytic anemia most likely secondary to iron deficiency caused by her monthly menstrual periods. Patient was treated with Zofran 4 mg ODT with improvement of her nausea. Patient was prescribed ferrous sulfate 324 mg twice a day for 3 months. She was also started on omeprazole 20 mg daily and Zofran 4 mg ODT Q 6-8 hours as needed for nausea. I did tell her that it list too early to detect and that she does not have a menstrual period in 2 weeks then she should take a home test were follow-up with her doctor for testing. Admission/Observation Consideration of admission/observation: Escalation of care including admission/observation considered Lab Data MDM Lab Attestation statement: I reviewed the patient's lab results. 11/24/23 23:36 11/24/23 23:36 Labs: Lab Results 11/24/23 11/25/23 Range/Units 23:36 00:04 WBC 9.2 (4.8-10.8) X10*3/uL RBC 4.95 (4.20-5.50) X10*6/uL Hgb 11.2 L (12.0-16.0) g/dl Hct 36.3 L (37.0-47.0) % MCV 73.3 L (80.0-98.0) fL MCH 22.6 L (27.0-33.0) pg MCHC 30.9 L (31.0-35.0) g/dl RDW 15.7 (11.0-16.0) % Plt Count 376 D (160-400) X10*3/uL MPV 10.8 (9.4-12.3) fL Immature Gran % (Auto) 0.3 (0.0-0.4) % Neut % (Auto) 43.3 L (45-73) % Lymph % (Auto) 47.3 H (20-40) % Beckham % (Auto) 8.2 (2-11) % Eos % (Auto) 0.5 (0-4) % Baso % (Auto) 0.4 (0-2) % Lymph # (Auto) 4.3 (1.2-4.9) X10*3/uL Beckham # (Auto) 0.8 (0.1-1.2) X10*3/uL Eos # (Auto) 0.1 (0.0-0.4) X10*3/uL Baso # (Auto) 0.0 (0.0-0.2) X10*3/uL Abs Immat Gran (auto) 0.03 (0.00-0.03) X10*3/uL Absolute Neuts (auto) 4.0 (2.0-8.3) x10*3/uL Absolute Nucleated RBC 0.000 (0.0-0.012) X10*3/uL Nucleated RBC % (auto) 0.0 (0.0-0.2) /100WBC Sodium 137 (135-145) mmol/L Potassium 4.1 (3.3-5.1) mmol/L Chloride 101 (96-108) mmol/L Carbon Dioxide 31 H (22-29) mmol/L Anion Gap 9 L (12-20) BUN 6 L (9-16) mg/dL Creatinine 0.79 (0.5-1.4) mg/dL Estim Creat Clear Calc 95.5 Estimated GFR > 60 Random Glucose 117 H (60-115) mg/dL Calcium 9.7 (8.4-10.2) mg/dL Total Bilirubin 0.3 (0.0-1.0) mg/dL AST 16 (5-31) U/L ALT 16 (0-31) U/L Alkaline Phosphatase 91 (39-117) U/L Total Protein 6.9 (6.5-8.0) g/dL Albumin 3.8 (3.5-5.0) g/dL Urine Color Yellow Urine Appearance Clear Urine pH 7.5 (5.0-9.0) Ur Specific Brodnax 1.010 (1.005-1.025) Urine Protein Negative (Neg-Trace) mg/dL Urine Glucose (UA) Negative (Negative) mg/dL Urine Ketones Negative (Negative) mg/dL Urine Blood Negative (Negative) Urine Nitrite Negative (Negative) Ur Leukocyte Esterase Negative (Negative) Urine RBC 0-2 (0-2) /HPF Urine WBC 0-5 (0-5) /HPF Urine WBC Clumps None seen Ur Squamous Epith Cells 0-2 (0-2) /HPF Ur Transition Epith Cell None seen Urine Bacteria None Seen (None Seen) Hyaline Casts 0-2 (0-2) /LPF Urine Test NEGATIVE (NEGATIVE) Influenza Type A (PCR) NEGATIVE (Negative) Influenza Type B (PCR) NEGATIVE (Negative) RSV RNA Qual (PCR) NEGATIVE (Negative) SARS-CoV-2 RNA (RT-PCR) NEGATIVE (Negative) Independent Historian Clinical information obtained from an independent historian. History obtained from or confirmed by: Spouse Prescription Management I considered prescription management with: Other (H2 kate, antiemetic) Discharge Plan Discharge Clinical Impression: Microcytic anemia Gastritis Qualifiers: Chronicity: acute Gastritis bleeding: without bleeding Patient Disposition: Home, Self-Care Instructions: Gastritis (ED), Iron Deficiency Anemia (ED) Additional Instructions: Your blood work showed that you had slightly low red blood cell count which is most likely caused by iron deficiency caused by your heavy menstrual periods. Take ferrous sulfate (iron supplement) 325 mg, 1 pill twice a day for 3 months. Your nausea and abdominal pain is caused by inflammation of your stomach (gastritis). Take Prilosec (omeprazole) 20 mg pills, 1 pill once a day for 1 month. ?This medication shuts off your acid production and lets the inflammation in your stomach and esophagus heal. Take Zofran ODT 4 mg pills, 1 pill dissolved in your mouth every 8 hours as needed for nausea and vomiting. Your test today was negative however your only several days late for your menstrual period. If you do not get your. In the next 2 weeks, then take a home test to determine if you are . Follow-up with your doctor in 2 days. Please return to the emergency department if your symptoms get worse or if you develop any symptoms that are concerning to you. Prescriptions: New omeprazole 20 mg capsule,delayed release(DR/EC) 20 mg PO DAILY 30 Days Qty: 30 0RF ondansetron 4 mg tablet,disintegrating 4 mg PO Q6-8H PRN (Reason: nausea and vomiting) Qty: 14 0RF ferrous sulfate 325 mg (65 mg iron) tablet 325 mg PO BID 90 Days Qty: 180 0RF No Action cefuroxime axetil 250 mg tablet 250 mg PO BID Qty: 10 0RF ondansetron 4 mg tablet,disintegrating 4 mg PO Q8H PRN (Reason: nausea and vomiting) Qty: 7 0RF benzonatate 100 mg capsule 100 mg PO TID PRN (Reason: cough) Qty: 20 0RF hydrocodone-homatropine [Hycodan] 5-1.5 mg/5 mL (5 mL) syrup 5 ml PO Q4-6H PRN (Reason: cough) Qty: 60 0RF Rx Instructions: Partial Fill upon patient request. okwzncvehxlpr-TK-yydynhrvvvq 5-10-100 mg/5 mL liquid 10 ml PO Q4H PRN (Reason: cough) Qty: 237 0RF ondansetron 4 mg tablet,disintegrating 4 mg PO Q8H PRN (Reason: nausea and vomiting) 5 Days Qty: 20 0RF prednisone 20 mg tablet 60 mg PO DAILY 5 Days Qty: 15 0RF acetaminophen [Tylenol Extra Strength] 500 mg tablet 1,000 mg PO Q6H PRN (Reason: fever or pain) Qty: 20 0RF amoxicillin 500 mg capsule 500 mg PO TID 7 Days Qty: 21 0RF Discharge Date/Time: 11/25/23 02:03
[2023-11-25] MEDS: Ondansetron ODT 4 MG TAB.RAPDIS TRANSLINGU (01:59)
== END 2023-11-25 02:03 | disposition home or self-care (01) ==
PROVIDERS: Emergency Provider Emergency Medicine Emergency Medical Services
DX: D50.9 Iron deficiency anemia, unspecified (principal); K29.70 Gastritis, unspecified, without bleeding; R11.2 Nausea with vomiting, unspecified; R10.13 Epigastric pain; Z11.52 Encounter for screening for COVID-19; Z20.822 Contact with and (suspected) exposure to COVID-19; Z79.899 Other long term (current) drug therapy
CPT/HCPCS: 0241U; 80053; 81001; 81025; 85025; 99282; 99283

== ENCOUNTER 2023-12-13 01:53 | Emergency (ER) | payer MEDICAID, SELFPAY ==
--- NOTE | 2023-12-13 | ECG_ITS ---
Test Reason : DIZZINESS Blood Pressure : / mmHG Vent. Rate : 078 BPM Atrial Rate : 078 BPM P-R Int : 164 ms QRS Dur : 074 ms QT Int : 370 ms P-R-T Axes : 044 090 029 degrees QTc Int : 421 ms Normal sinus rhythm Rightward axis Borderline ECG When compared with ECG of 13-JUL-2023 23:20, Inverted T waves have replaced nonspecific T wave abnormality in Anterior leads Referred By: Generic ED Physician Electronically Signed By:Joel Awad
[2023-12-13 02:00] VITALS: BP 112/53; BP 125/88; PULSE 79; PULSE 88; RESP 19; TEMP 36.2; O2SAT 99; BMI 38.7
[2023-12-13 02:37] LABS: MANUAL DIFF FLAG NO
[2023-12-13 02:38] LABS: Basophils Percent Auto 0.5 % (0-2); Eosinophils Absolute Auto 0.2 X10*3/uL (0.0-0.4); Eosinophils Percent Auto 2.7 % (0-4); Hematocrit 34.7 % (37.0-47.0); Hemoglobin 10.8 g/dl (12.0-16.0); Imm Gran Abs Auto 0.01 X10*3/uL (0.00-0.03); Imm Gran Pct Auto 0.2 % (0.0-0.4); Lymphocytes Absolute Auto 3.2 X10*3/uL (1.2-4.9); Lymphocytes Percent Auto 53.3 % (20-40); Mean Corpuscular HGB Conc 31.1 g/dl (31.0-35.0); Mean Corpuscular Hemoglobin 22.9 pg (27.0-33.0); Mean Corpuscular Volume 73.7 fL (80.0-98.0); Mean Platelet Volume 11.1 fL (9.4-12.3); Monocytes Absolute Auto 0.5 X10*3/uL (0.1-1.2); Monocytes Percent Auto 8.6 % (2-11); Neutrophils Absolute Auto 2.1 x10*3/uL (2.0-8.3); Neutrophils Percent Auto 34.7 % (45-73); Platelet Count 316 X10*3/uL (160-400); Red Blood Count 4.71 X10*6/uL (4.20-5.50); Red Cell Distribution Width 15.9 % (11.0-16.0)
[2023-12-13 02:58] LABS: Troponin-I High Sensitivity < 2.7 ng/L (<3.5-17.0)
[2023-12-13 03:02] LABS: Alanine Aminotransferase 12 U/L (0-31); Albumin Level 3.9 g/dL (3.5-5.0); Alkaline Phosphatase 106 U/L (39-117); Anion Gap 9 (12-20); Aspartate Amino Transferase 14 U/L (5-31); Bilirubin Total 0.2 mg/dL (0.0-1.0); Blood Urea Nitrogen 6 mg/dL (9-16); Calcium 9.4 mg/dL (8.4-10.2); Carbon Dioxide 26 mmol/L (22-29); Chloride 107 mmol/L (96-108); Creatinine Clr Calc Pharmacy 98.9; Estimated Glomerular Filt Rate > 60; Glucose Random 125 mg/dL (60-115); HCG Quantitative < 2 mIU/mL; Potassium 4.2 mmol/L (3.3-5.1); Sodium 138 mmol/L (135-145); Total Protein 7.1 g/dL (6.5-8.0)
[2023-12-13 03:14] LABS: Influenza A PCR NEGATIVE (Negative); Influenza B PCR NEGATIVE (Negative); Resp Syncy Virus RNA Qual PCR NEGATIVE (Negative); SARS COV2 PCR INHOUSE NEGATIVE (Negative)
[2023-12-13 04:02] LABS: Appearance Urine Clear; Color Urine Yellow; Glucose Urine UA Negative (Negative); Leukocyte Esterase Urine Negative (Negative); Nitrite Urine Negative (Negative); PH 5.5 (5.0-9.0); Specific Gravity - Urine 1.015 (1.005-1.025); Urine Blood Negative (Negative); Urine Ketones Negative (Negative); Urine Protein Negative (Neg-Trace)
--- NOTE | 2023-12-13 06:27 | ED_ITS ---
HPI - General Adult General Chief complaint: Dizziness Stated complaint: Dizziness Time Seen by Provider: 12/13/23 06:26 Source: patient, EMS and RN notes reviewed Mode of arrival: EMS Limitations: no limitations History of Present Illness HPI narrative: Patient is a 28-year-old female with history of T2DM presenting to the emergency department with complaint of feeling lightheaded while at work prior to arrival. Patient reports she was standing at the counter when she felt as though she was going to pass out, held onto the counter and lowered herself to her knees. She denies any full loss of consciousness. Denies any nausea or vomiting. Denies headache or changes in vision. States that she recently has not been getting adequate rest prior to her shifts. MD complaint: Lightheadedness Onset (ago): hour(s) Associated symptoms: denies other symptoms Treatments prior to arrival: none Related Data Previous Rx's Medication Instructions Recorded cefuroxime axetil 250 mg tablet 250 mg PO BID #10 tabs 04/28/23 ondansetron 4 mg disintegrating 4 mg PO Q8H PRN nausea and 04/28/23 tablet vomiting #7 tabs benzonatate 100 mg capsule 100 mg PO TID PRN cough #20 caps 07/11/23 hydrocodone-homatropine 5 mg-1.5 5 ml PO Q4-6H PRN cough #60 mL 07/11/23 mg/5 mL (5 mL) oral syrup (Hycodan) ondansetron 4 mg disintegrating 4 mg PO Q8H PRN nausea and 07/14/23 tablet vomiting 5 days #20 tabs vddsuktwgryhv-DD-bidqugozerx 5 10 ml PO Q4H PRN cough #237 mL 07/14/23 mg-10 mg-100 mg/5 mL oral liquid acetaminophen 500 mg tablet 1,000 mg (2 x 500 mg) PO Q6H PRN 11/15/23 (Tylenol Extra Strength) fever or pain #20 tabs amoxicillin 500 mg capsule 500 mg PO TID 7 days #21 caps 11/15/23 prednisone 20 mg tablet 60 mg (3 x 20 mg) PO DAILY 5 days 11/15/23 #15 tabs ferrous sulfate 325 mg (65 mg 325 mg PO BID 90 days #180 tabs 11/25/23 iron) tablet omeprazole 20 mg capsule,delayed 20 mg PO DAILY 30 days #30 caps 11/25/23 release ondansetron 4 mg disintegrating 4 mg PO Q6-8H PRN nausea and 11/25/23 tablet vomiting #14 tabs Allergies Allergy/AdvReac Type Severity Reaction Status Date / Time phenyltoloxamine Allergy Unknown VOMITING Verified 12/13/23 02:00 [From DOLOGESIC] Review of Systems 2 Review of Systems: As per HPI. Yes all other systems are reviewed and are negative Constitutional: Constitutional: Reports as per HPI [facility] Social History Social History Alcohol intake: never Advance Directives: No Advance Directives Information Provided: No Physical Exam ED Vital Signs: Vital Signs - 24 hr 12/13/23 02:00 Temperature 97.2 F Pulse Rate 79 Respiratory Rate 19 Blood Pressure 112/53 L Pulse Oximetry 99 Oxygen Delivery Method Room Air BMI result Body Mass Index 38.7 Vital signs have been reviewed and appear to be correct. Blood pressure normal. Heart rate normal. Respiratory rate normal. Temperature normal. Oxygen saturation normal. Const General: cooperative, healthy appearing and no acute distress Orientation/consciousness: oriented to person, oriented to place, oriented to time and patient oriented x3 Limitations: no limitations HENMT Head: Yes normocephalic and Yes atraumatic Ears: external ears normal General nose exam: Normal external nose present Face and sinus: Yes face symmetric Mouth: oropharynx normal and moist mucous membranes Throat: Yes uvula midline Eyes Pupils: Equal, round and reactive pupils present Neck Neck: Yes normal visual inspection and Yes supple Resp Effort & Inspection: normal respiratory effort and able to speak in complete sentences Auscultation: clear to auscultation bilaterally Cardio Rate: regular rate Rhythm: regular rhythm Heart sounds: S1 normal heart sound present and S2 normal heart sound present GI Palpation (GI): Soft to palpation and nontender Auscultation: normoactive bowel sounds General: Yes no CVA tenderness Back/Spine/Pelvis Back: no CVA tenderness Skin General skin exam: elasticity normal and turgor normal Neuro General: oriented to person, oriented to place, oriented to time, patient oriented x3, moves all extremities, no focal motor deficits and CN's II-XI intact bilaterally Cranial nerves: Yes Equal, round and reactive pupils present Cognition (Neuro): normal cognition Extrem General: Yes full ROM, Yes no pedal edema and Yes no calf tenderness Psych Mental Status: mental status grossly normal Affect: normal affect Thought process: Normal thought process present Medical Decision Making Medical Decision Making [facility] Narrative: Patient is a 28-year-old female with history of T2DM presenting to the emergency department with complaint of feeling lightheaded while at work prior to arrival. On exam patient is awake, A+Ox3, VS WNL, afebrile, normal neurological exam without focal deficits, physical exam findings as above. Given reported symptoms and physical exam findings, initial differential includes anemia, electrolyte abnormality, cardiac arrhythmia, dehydration, , UTI, viral illness. Labs notable for mild anemia consistent with prior not at transfusion level, no hypoglycemia or other significant electrolyte abnormalities, no evidence of CHOCO, negative HCG, no evidence of infection on urinalysis. EKG shows normal sinus rhythm. Viral swabs negative. Results discussed with patient and all questions answered. Advised patient to ensure adequate rest and adequate fluid intake. Feel patient is stable for discharge home at this time as she is currently asymptomatic. Instructed patient to follow-up with primary care provider. Return precautions discussed at bedside. Patient verbalized understanding of and agreement with plan. Differential Diagnosis Differential Diagnoses: The differential diagnosis associated with the presentation includes As per MDM. Admission/Observation Consideration of admission/observation: Escalation of care including admission/observation considered Patient would have been admitted to the hospital had their work up had any findings where hospital admission was appropriate and their clinical presentation warranted hospital admission. Lab Data [facility] Lab Attestation statement: I reviewed the patient's lab results. As per [facility]. 12/13/23 02:32 12/13/23 02:32 Labs: Lab Results 12/13/23 12/13/23 Range/Units 02:32 03:55 WBC 6.0 (4.8-10.8) X10*3/uL RBC 4.71 (4.20-5.50) X10*6/uL Hgb 10.8 L (12.0-16.0) g/dl Hct 34.7 L (37.0-47.0) % MCV 73.7 L (80.0-98.0) fL MCH 22.9 L (27.0-33.0) pg MCHC 31.1 (31.0-35.0) g/dl RDW 15.9 (11.0-16.0) % Plt Count 316 (160-400) X10*3/uL MPV 11.1 (9.4-12.3) fL Immature Gran % (Auto) 0.2 (0.0-0.4) % Neut % (Auto) 34.7 L (45-73) % Lymph % (Auto) 53.3 H (20-40) % [place] % (Auto) 8.6 (2-11) % Eos % (Auto) 2.7 (0-4) % Baso % (Auto) 0.5 (0-2) % Lymph # (Auto) 3.2 (1.2-4.9) X10*3/uL [place] # (Auto) 0.5 (0.1-1.2) X10*3/uL Eos # (Auto) 0.2 (0.0-0.4) X10*3/uL Baso # (Auto) 0.0 (0.0-0.2) X10*3/uL Abs Immat Gran (auto) 0.01 (0.00-0.03) X10*3/uL Absolute Neuts (auto) 2.1 (2.0-8.3) x10*3/uL Absolute Nucleated RBC 0.000 (0.0-0.012) X10*3/uL Nucleated RBC % (auto) 0.0 (0.0-0.2) /100WBC Sodium 138 (135-145) mmol/L Potassium 4.2 (3.3-5.1) mmol/L Chloride 107 (96-108) mmol/L Carbon Dioxide 26 (22-29) mmol/L Anion Gap 9 L (12-20) BUN 6 L (9-16) mg/dL Creatinine 0.77 (0.5-1.4) mg/dL Estim Creat Clear Calc 98.9 Estimated GFR > 60 Random Glucose 125 H (60-115) mg/dL Calcium 9.4 (8.4-10.2) mg/dL Total Bilirubin 0.2 (0.0-1.0) mg/dL AST 14 (5-31) U/L ALT 12 (0-31) U/L Alkaline Phosphatase 106 (39-117) U/L Troponin I High Sens < 2.7 (<3.5-17.0) ng/L Total Protein 7.1 (6.5-8.0) g/dL Albumin 3.9 (3.5-5.0) g/dL Beta HCG, Quant < 2 mIU/mL Urine Color Yellow Urine Appearance Clear Urine pH 5.5 (5.0-9.0) Ur Specific [place] 1.015 (1.005-1.025) Urine Protein Negative (Neg-Trace) mg/dL Urine Glucose (UA) Negative (Negative) mg/dL Urine Ketones Negative (Negative) mg/dL Urine Blood Negative (Negative) Urine Nitrite Negative (Negative) Ur Leukocyte Esterase Negative (Negative) Influenza Type A (PCR) NEGATIVE (Negative) Influenza Type B (PCR) NEGATIVE (Negative) RSV RNA Qual (PCR) NEGATIVE (Negative) SARS-CoV-2 RNA (RT-PCR) NEGATIVE (Negative) Independent Interpretation I performed an independent interpretation of an: EKG (Normal sinus rhythm, 78 bpm, normal [place] interval and QTc) External Record Review External record reviewed: Inpatient record, Office record and Outpatient record Discharge Plan Discharge Clinical Impression: Light-headedness Patient Disposition: Home, Self-Care Instructions: Lightheadedness (ED), Near Syncope (ED) Additional Instructions: You have been evaluated in the emergency department today for lightheadedness. Your evaluation suggests that your symptoms are most likely due to lack of sleep. Try to slowly increase your amount of sleep and be sure to drink plenty of fluids. Please follow up with your primary care provider within the next 3 days. Return to the emergency department immediately for worsening or uncontrolled symptoms, worsening headache, chest pain, shortness of breath, persistent vomiting, vision changes, fainting, or for any other concerning symptoms. Prescriptions: No Action cefuroxime axetil 250 mg tablet 250 mg PO BID Qty: 10 0RF ondansetron 4 mg tablet,disintegrating 4 mg PO Q8H PRN (Reason: nausea and vomiting) Qty: 7 0RF benzonatate 100 mg capsule 100 mg PO TID PRN (Reason: cough) Qty: 20 0RF hydrocodone-homatropine [Hycodan] 5-1.5 mg/5 mL (5 mL) syrup 5 ml PO Q4-6H PRN (Reason: cough) Qty: 60 0RF Rx Instructions: Partial Fill upon patient request. gefkciigobkrd-NS-xrjigopzgtp 5-10-100 mg/5 mL liquid 10 ml PO Q4H PRN (Reason: cough) Qty: 237 0RF ondansetron 4 mg tablet,disintegrating 4 mg PO Q8H PRN (Reason: nausea and vomiting) 5 Days Qty: 20 0RF prednisone 20 mg tablet 60 mg PO DAILY 5 Days Qty: 15 0RF acetaminophen [Tylenol Extra Strength] 500 mg tablet 1,000 mg PO Q6H PRN (Reason: fever or pain) Qty: 20 0RF amoxicillin 500 mg capsule 500 mg PO TID 7 Days Qty: 21 0RF omeprazole 20 mg capsule,delayed release(DR/EC) 20 mg PO DAILY 30 Days Qty: 30 0RF ondansetron 4 mg tablet,disintegrating 4 mg PO Q6-8H PRN (Reason: nausea and vomiting) Qty: 14 0RF ferrous sulfate 325 mg (65 mg iron) tablet 325 mg PO BID 90 Days Qty: 180 0RF Stand Alone Forms: Work/School Release
[2023-12-13 07:16] VITALS: BP 107/59; PULSE 69; RESP 19; TEMP 36.7; O2SAT 98
[2023-12-13 07:19] VITALS: BP 107/59; PULSE 69; RESP 16; TEMP 36.7; O2SAT 98
== END 2023-12-13 07:21 | disposition home or self-care (01) ==
PROVIDERS: Emergency Provider Emergency Medicine
DX: R42 Dizziness and giddiness (principal); Z03.818 Encounter for observation for suspected exposure to other biological agents ruled out
CPT/HCPCS: 0241U; 36415; 80053; 81003; 84484; 84702; 85025; 93005; 99283; 99285

== ENCOUNTER → 2023-12-13 02:20 | Outpatient (BNV) | payer MEDICAID, SELFPAY | PROVIDERS: Emergency Provider Emergency Medicine; Visit Provider Internal Medicine Cardiovascular Disease | DX: R42 Dizziness and giddiness (principal) | CPT/HCPCS: 93010 ==

== ENCOUNTER 2024-02-10 04:26 | Inpatient (IN) | payer MEDICAID, SELFPAY ==
[2024-02-10] VITALS (7 sets, daily range): BP systolic 107–126; BP diastolic 61–84; PULSE 66–74; RESP 16–19; TEMP 36.6–36.9; O2SAT 98–100; BMI 38.7
--- NOTE | 2024-02-10 | ECG_ITS ---
Test Reason : ABD PAIN Blood Pressure : / mmHG Vent. Rate : 069 BPM Atrial Rate : 069 BPM P-R Int : 166 ms QRS Dur : 082 ms QT Int : 382 ms P-R-T Axes : 053 083 032 degrees QTc Int : 409 ms Normal sinus rhythm Normal ECG When compared with ECG of 13-DEC-2023 02:20, Nonspecific T wave abnormality has replaced inverted T waves in Anterior leads Referred By: Generic ED Physician Electronically Signed By:Joel Awad
--- NOTE | ~2024-02-10 | CT_ITS ---
EXAMINATION: CT abdomen pelvis w IV con CLINICAL INFORMATION: Reason for Exam Right upper quadrant pain COMPARISON: No prior CT available for comparison. TECHNIQUE: Multidetector volumetric imaging was performed from the superior aspect of the liver through the pubic symphysis 85 mL Omnipaque 350 injected Sagittal and coronal reformatted images were obtained on the technologist's workstation. This CT examination was performed using dose optimization techniques as appropriate, variously including the following: *Automated exposure control *Adjustment of mA and/or kV according to patient size (this includes techniques or standardized protocols for targeted exams where dose is matched to indication/reason for exam; i.e. extremities or head) *Use of iterative reconstruction technique DLP: 811 mGy-cm FINDINGS: LOWER THORAX: Included lung bases are clear. HEPATOBILIARY: No focal hepatic lesions. No biliary ductal dilatation. GALLBLADDER: Gallbladder is contracted, there is a gallstone, there is thickening and enhancement of gallbladder wall and pericholecystic fluid, cannot rule out underlying gallbladder disease, concerning for possible cholecystitis. SPLEEN: Spleen is normal in size. PANCREAS: No focal mass or ductal dilatation. STOMACH AND GASTROINTESTINAL TRACT: Stomach is grossly unremarkable. There is no bowel distention or thickening. No CT evidence of appendicitis. ADRENALS: No adrenal nodules. KIDNEYS/URETERS: There is a 3 mm nonobstructing stone upper calyx right kidney. No obstruction or hydronephrosis. Perinephric fat are clear. URINARY BLADDER: Partially decompressed. PELVIC VISCERA: Unremarkable PERITONEUM: No free air or fluid. LYMPH NODES: No lymphadenopathy. VASCULAR:Abdominal aorta normal in size, no aneurysm found. BONES, ABDOMINAL WALL AND SOFT TISSUES: Age-appropriate changes of the spine and skeletal system, no destructive osteolytic or osteosclerotic bone lesion found CT/CT abdomen pelvis w IV con IMPRESSION: 1. Gallbladder is contracted, there is a gallstone, there is thickening and enhancement of the gallbladder wall and pericholecystic fluid, combined raising concern for possible acute cholecystitis, please correlate with patient's clinical presentation, if not already obtained surgical evaluation is warranted, HIDA scan could be utilized for further investigation. 2. Nonobstructing 3 mm stone upper calyx right kidney. No hydronephrosis.
--- NOTE | ~2024-02-10 | US_ITS ---
EXAMINATION: US ABDOMEN LIMITED CLINICAL INFORMATION: Right upper quadrant pain. COMPARISON: None available. TECHNIQUE: Real-time imaging of the right upper quadrant abdominal viscera. FINDINGS: GALLBLADDER: Gallbladder is contracted and contains an intraluminal calculus measuring up to 1.6 cm without wall thickening or pericholecystic fluid. Sonographic Brannon sign is positive. COMMON BILE DUCT: Normal in caliber measuring 0.2 cm in diameter. FREE FLUID: None. US/US abdomen limited IMPRESSION: Contracted gallbladder with cholelithiasis without sonographic evidence of acute cholecystis. Sonographic Brannon sign is however positive.
--- NOTE | ~2024-02-10 | NM_ITS ---
EXAMINATION: BILIARY TRACT IMAGING STUDY WITH CCK CLINICAL INFORMATION: Right upper quadrant abdominal pain.. COMPARISON: Right upper quadrant abdominal ultrasound and CT scan of the abdomen and pelvis done on 02/10/2024. TECHNIQUE: Serial gamma scintillation camera images were obtained over the abdomen for a total observation period of 60 minutes following the intravenous administration of 5.0 mCi Tc-99m mebrofenin. FINDINGS: There is good concentration of activity in the liver by 5 minutes post injection. Biliary activity is visualized by 8 minutes. The gallbladder is well visualized by 15 minutes. Small bowel is well visualized by 25 minutes. At 60 minutes post radiopharmaceutical injection, a 30-minute infusion of 1.7 micrograms Sincalide was then begun and an additional 40 minutes of images were obtained. There is poor emptying of the gallbladder. By the end of the study there is good clearance of activity from the liver and visualization of diffuse small bowel activity. The calculated gallbladder ejection fraction is 22% (Normal range of gallbladder ejection fraction is between 35-80%; GBEF <35% is considered biliary hypokinesia and >80% is considered biliary hyperkinesia; Ref. #1-Clinical Journal of Gastroenterology (2020) 14:1308?1317; Ref.#2-[email or web address]). NM/NM hepatobiliary w pharm IMPRESSION: Visualization of the gallbladder is evidence of a patent cystic duct and strong evidence against the diagnosis of acute cholecystitis. The common bile duct is patent. Gallbladder emptying and ejection fraction are abnormal. Liver function appears normal.
[2024-02-10 04:52] LABS: Basophils Percent Auto 0.5 % (0-2); Eosinophils Absolute Auto 0.1 X10*3/uL (0.0-0.4); Eosinophils Percent Auto 1.4 % (0-4); Hemoglobin 11.1 g/dl (12.0-16.0); Imm Gran Abs Auto 0.01 X10*3/uL (0.00-0.03); Imm Gran Pct Auto 0.2 % (0.0-0.4); Lymphocytes Absolute Auto 2.7 X10*3/uL (1.2-4.9); Lymphocytes Percent Auto 40.5 % (20-40); MANUAL DIFF FLAG NO; Mean Corpuscular HGB Conc 30.8 g/dl (31.0-35.0); Mean Corpuscular Hemoglobin 22.6 pg (27.0-33.0); Mean Corpuscular Volume 73.3 fL (80.0-98.0); Monocytes Absolute Auto 0.5 X10*3/uL (0.1-1.2); Monocytes Percent Auto 7.6 % (2-11); Neutrophils Absolute Auto 3.3 x10*3/uL (2.0-8.3); Neutrophils Percent Auto 49.8 % (45-73); Platelet Count 300 X10*3/uL (160-400); Red Blood Count 4.91 X10*6/uL (4.20-5.50); Red Cell Distribution Width 15.7 % (11.0-16.0); White Blood Count 6.6 X10*3/uL (4.8-10.8)
[2024-02-10 05:07] LABS: Alanine Aminotransferase 12 U/L (0-31); Albumin Level 4.1 g/dL (3.5-5.0); Alkaline Phosphatase 85 U/L (39-117); Anion Gap 10 (12-20); Aspartate Amino Transferase 15 U/L (5-31); Bilirubin Total 0.2 mg/dL (0.0-1.0); Blood Urea Nitrogen 7 mg/dL (9-16); Calcium 9.6 mg/dL (8.4-10.2); Carbon Dioxide 26 mmol/L (22-29); Chloride 106 mmol/L (96-108); Creatinine Clr Calc Pharmacy 104.3; Estimated Glomerular Filt Rate > 60; Glucose Random 106 mg/dL (60-115); Lipase 20 U/L (8-78); Potassium 4.2 mmol/L (3.3-5.1); Sodium 138 mmol/L (135-145); Total Protein 7.3 g/dL (6.5-8.0)
[2024-02-10 05:15] LABS: HCG Quantitative < 2 mIU/mL
--- NOTE | 2024-02-10 07:34 | ED.ABDPAIN ---
HPI - Abdominal Pain General Chief Complaint: Abdominal Pain Stated Complaint: abd pain Time Seen by Provider: 02/10/24 07:11 Source: patient Mode of arrival: ambulatory History of Present Illness ED Provider: Dr Hastings HPI narrative: 28-year-old female who presents with onset of right upper quadrant abdominal pain radiating into the back started approximately 2300 last night and was associated with nausea and vomiting but she denies any fever or chills. She continues to have pain. She endorses passing flatus but also describes some burning on urination is not sure of LMP. Related Data Previous Rx's ?Medication ?Instructions ?Recorded cefuroxime axetil 250 mg tablet 250 mg PO BID #10 tabs 04/28/23 ondansetron 4 mg disintegrating 4 mg PO Q8H PRN nausea and 04/28/23 tablet vomiting #7 tabs benzonatate 100 mg capsule 100 mg PO TID PRN cough #20 caps 07/11/23 hydrocodone-homatropine 5 mg-1.5 5 ml PO Q4-6H PRN cough #60 mL 07/11/23 mg/5 mL (5 mL) oral syrup (Hycodan) ondansetron 4 mg disintegrating 4 mg PO Q8H PRN nausea and 07/14/23 tablet vomiting 5 days #20 tabs byeaproefwzet-MI-ernowaaajle 5 10 ml PO Q4H PRN cough #237 mL 07/14/23 mg-10 mg-100 mg/5 mL oral liquid acetaminophen 500 mg tablet 1,000 mg (2 x 500 mg) PO Q6H PRN 11/15/23 (Tylenol Extra Strength) fever or pain #20 tabs amoxicillin 500 mg capsule 500 mg PO TID 7 days #21 caps 11/15/23 prednisone 20 mg tablet 60 mg (3 x 20 mg) PO DAILY 5 days 11/15/23 #15 tabs ferrous sulfate 325 mg (65 mg 325 mg PO BID 90 days #180 tabs 11/25/23 iron) tablet omeprazole 20 mg capsule,delayed 20 mg PO DAILY 30 days #30 caps 11/25/23 release ondansetron 4 mg disintegrating 4 mg PO Q6-8H PRN nausea and 11/25/23 tablet vomiting #14 tabs Allergies Allergy/AdvReac Type Severity Reaction Status Date / Time phenyltoloxamine Allergy Unknown VOMITING Verified 02/10/24 04:35 [From DOLOGESIC] Review of Systems Review of Systems Pertinent positives and negatives as stated in HPI [facility] Past Medical History Source: nursing notes reviewed Social History Social History Alcohol intake: never Use of substances other than those prescribed or required for medical reasons: No Advance Directives: No Physical Exam ED Vital Signs: Vital Signs - 24 hr 02/10/24 04:34 02/10/24 05:51 02/10/24 06:41 Temperature 98.5 F 97.8 F Pulse Rate 74 66 70 Respiratory Rate 16 18 16 Blood Pressure 107/65 118/63 120/83 Pulse Oximetry 99 100 98 Oxygen Delivery Method Room Air Room Air Room Air BMI result Body Mass Index 38.7 VITAL SIGNS: Reviewed. GENERAL: Well developed, well nourished, in no acute distress. HEAD: Normocephalic/atraumatic EYES: PERRLA, EOMI EARS: Ext canals without abnormality NOSE: Nares patent bilateral OROPHARYNX: no oral lesions noted, posterior pharynx clear NECK: Supple, no adenopathy LUNGS: Normal breath sounds. No adventitious sounds or accessory muscle use. SpO2<98> CARDIOVASCULAR: Regular rate and rhythm without noted murmurs ABDOMEN: Soft, right upper quadrant pain/Brannon's positive, non-distended with bowel sounds. MUSCULOSKELETAL: No tenderness, deformities, or effusions noted on gross inspection. EXTREMITIES: No cyanosis, clubbing or edema. SKIN: Inspection of the skin reveals no rashes NEUROLOGIC: Alert and oriented x 4. Strength and sensation to light touch were grossly intact x 4. Medical Decision Making Medical Decision Making [facility] Narrative: 0715: 28-year-old female with history and clinical presentation, DDX: Cholecystitis, constipation, UTI, ectopic/ felt to be lower likelihood. Reviewed all investigations and hematologic indices are chronically stable without leukocytosis/microcytic anemia and no thrombocytopenia. Chemistries indices negative for CHOCO/electrolyte or liver enzyme derangements. Beta hCG is undetectable. Urinalysis negative for UTI/hematuria. Ultrasound demonstrates gallstones with borderline wall thickening and no pericholecystic fluid but Brannon's positive. 1041: I discussed case with Dr. Hernandez, general surgery, who recommends patient admitted and will go to OR tomorrow and also recommends CT scan. Lactic acid/blood cultures and antibiotics ordered though patient has no evidence of SIRS at this time. Differential Diagnosis Differential Diagnoses: The differential diagnosis associated with the presentation includes Please see the discussion above Admission/Observation Consideration of admission/observation: Escalation of care including admission/observation considered Please see the discussion above Consult Healthcare Provider Management of the patient was discussed with: Specialty Sales Consultant Please see the discussion above Lab Data MDM Lab Attestation statement: I reviewed the patient's lab results. Please see the discussion above 02/10/24 04:47 02/10/24 04:47 Labs: Lab Results 02/10/24 02/10/24 Range/Units 04:47 07:27 WBC 6.6 (4.8-10.8) X10*3/uL RBC 4.91 (4.20-5.50) X10*6/uL Hgb 11.1 L (12.0-16.0) g/dl Hct 36.0 L (37.0-47.0) % MCV 73.3 L (80.0-98.0) fL MCH 22.6 L (27.0-33.0) pg MCHC 30.8 L (31.0-35.0) g/dl RDW 15.7 (11.0-16.0) % Plt Count 300 (160-400) X10*3/uL MPV 11.0 (9.4-12.3) fL Immature Gran % (Auto) 0.2 (0.0-0.4) % Neut % (Auto) 49.8 (45-73) % Lymph % (Auto) 40.5 H (20-40) % [place] % (Auto) 7.6 (2-11) % Eos % (Auto) 1.4 (0-4) % Baso % (Auto) 0.5 (0-2) % Lymph # (Auto) 2.7 (1.2-4.9) X10*3/uL [place] # (Auto) 0.5 (0.1-1.2) X10*3/uL Eos # (Auto) 0.1 (0.0-0.4) X10*3/uL Baso # (Auto) 0.0 (0.0-0.2) X10*3/uL Abs Immat Gran (auto) 0.01 (0.00-0.03) X10*3/uL Absolute Neuts (auto) 3.3 (2.0-8.3) x10*3/uL Absolute Nucleated RBC 0.000 (0.0-0.012) X10*3/uL Nucleated RBC % (auto) 0.0 (0.0-0.2) /100WBC Sodium 138 (135-145) mmol/L Potassium 4.2 (3.3-5.1) mmol/L Chloride 106 (96-108) mmol/L Carbon Dioxide 26 (22-29) mmol/L Anion Gap 10 L (12-20) BUN 7 L (9-16) mg/dL Creatinine 0.73 (0.5-1.4) mg/dL Estim Creat Clear Calc 104.3 Estimated GFR > 60 Random Glucose 106 (60-115) mg/dL Calcium 9.6 (8.4-10.2) mg/dL Total Bilirubin 0.2 (0.0-1.0) mg/dL AST 15 (5-31) U/L ALT 12 (0-31) U/L Alkaline Phosphatase 85 (39-117) U/L Total Protein 7.3 (6.5-8.0) g/dL Albumin 4.1 (3.5-5.0) g/dL Lipase 20 (8-78) U/L Beta HCG, Quant < 2 mIU/mL Urine Color Yellow Urine Appearance Clear Urine pH 6.0 (5.0-9.0) Ur Specific [place] 1.015 (1.005-1.025) Urine Protein Negative (Neg-Trace) mg/dL Urine Glucose (UA) Negative (Negative) mg/dL Urine Ketones Negative (Negative) mg/dL Urine Blood Negative (Negative) Urine Nitrite Negative (Negative) Ur Leukocyte Esterase Negative (Negative) Urine RBC 0-2 (0-2) /HPF Urine WBC 0-5 (0-5) /HPF Ur Squamous Epith Cells 0-2 (0-2) /HPF Urine Bacteria None Seen (None Seen) Hyaline Casts 0-2 (0-2) /LPF Urine Test NEGATIVE (NEGATIVE) Radiology Impression Discussion of test interpretation with radiology: I have reviewed the radiologist's reading. Radiologist Impression: Please see the discussion above External Record Review External record reviewed: Outpatient record, Prior outpatient labs and Prior outpatient radiology Critical Care Time Critical Care Time Critical Care Time: Yes Total Critical Care Time: 45 Attestation: I personally attest to this time spent taking care of the patient. Discharge Plan Discharge Clinical Impression: Biliary colic, Cholecystitis Patient Disposition: Admitted As Inpatient Print Language: Macedonian
[2024-02-10 07:37] LABS: Appearance Urine Clear; Color Urine Yellow; Glucose Urine UA Negative (Negative); Leukocyte Esterase Urine Negative (Negative); Nitrite Urine Negative (Negative); Specific Gravity - Urine 1.015 (1.005-1.025); Urine Blood Negative (Negative); Urine Ketones Negative (Negative); Urine Protein Negative (Neg-Trace)
[2024-02-10 07:39] LABS: Bacteria Urine None Seen (None Seen); Hyaline Casts Urine 0-2 /LPF (0-2); RBC Urine 0-2 /HPF (0-2); Squamous Epithelial Cell Urine 0-2 /HPF (0-2); Urine Pregnancy NEGATIVE (NEGATIVE); WBC Urine 0-5 /HPF (0-5)
[2024-02-10 07:40] LABS: UPreg QC Valid YES
[2024-02-10] MEDS: Ketorolac Tromethamine 30 MG/ML VIAL 15 MG IVPUSH (10:53)
[2024-02-10] MEDS: 0.9 % Sodium Chloride 1,000 ML 999 ML IV (11:24)
[2024-02-10] MEDS: Piperacillin Sodium/Tazobactam 3.375 GM in 0.9 % Sodium Chloride 50 ML IV (11:25)
[2024-02-10 11:46] LABS: Lactic Acid 1.1 mmol/L (0.5-2.0)
--- NOTE | 2024-02-10 11:59 | PHA.MEDREC ---
Pharmacy Consult ? Medication Reconciliation Pharmacy has completed the medication reconciliation. Spoke with patient
[2024-02-10] MEDS: fentaNYL citrate/PF 100 MCG/2 ML VIAL 25 MCG IVPUSH (12:35)
[2024-02-10] MEDS: iohexoL 350 MG/ML 100 ML INFUS..BTL IV (13:03)
--- NOTE | 2024-02-10 15:18 | P.HPGS_ITS ---
History of Present Illness History of Present Illness Date of Service: 02/12/24 Chief complaint: Gallstones Narrative: Jordana De León is a 28 year old female here in the ED for abdominal pain. She says this started late last night and is on the right side of her abdomen including her flank and back. She says this has been persistent. She describes some nausea but no vomitting. She also describes a lot of burning when she urinates. She had an US and CT scan showing gallstones. Review of Systems Constitutional: Constitutional: Denies chills and Denies fever(s) Cardiovascular: Cardiovascular: Denies chest pain, Denies dyspnea and Denies dyspnea on exertion Respiratory: Respiratory: Denies cough, Denies dyspnea and Denies dyspnea on exertion Gastrointestinal: Gastrointestinal: Denies hematochezia and Denies change in bowel habits Genitourinary: Genitourinary: Denies hematuria and Reports dysuria Musculoskeletal: Musculoskeletal: Denies back pain and Denies limited range of motion Neurologic: Denies focal weakness and Denies convulsions Psychiatric: Psychiatric: Denies depression and Denies mood swings [facility] Past Medical History Medical History (Updated 02/12/24 @ 13:38 by Mitchell Hernandez MD) Biliary dyskinesia Gallstones Morbid obesity Surgical History Surgical History (Updated 02/12/24 @ 13:36 by Erica Chun RN) History of 2 sections Social History Social History Alcohol intake: never Patient Tobacco Use Status: Never used Tobacco service: No Meds Allergies Allergy/AdvReac Type Severity Reaction Status Date / Time phenyltoloxamine Allergy Unknown VOMITING Verified 02/10/24 04:35 [From DOLOGESIC] Physical Exam Vital Signs: Vital Signs: Last Vital Signs Temp 97.8 F 02/10/24 15:04 Pulse 68 02/10/24 15:04 Resp 19 02/10/24 15:04 BP 112/61 02/10/24 15:04 Pulse Ox 99 02/10/24 15:04 O2 Del Method Room Air 02/10/24 15:04 BMI result Body Mass Index 38.7 Const: Other: morbidly obese General: comfortable and no acute distress Orientation/consciousness: patient oriented x3 Neck: Neck: Yes no lymphadenopathy Resp: Effort & Inspection: normal respiratory effort Auscultation: clear to auscultation bilaterally Cardio: Rate: regular rate Rhythm: regular rhythm GI: Other: very obese, some tenderness on entire right abdomen Palpation (GI): Soft to palpation, Tenderness to palpation present (GI) and no guarding Neuro: General: patient oriented x3 Results Results Labs: Short CBC 02/10/24 Range/Units 04:47 WBC 6.6 (4.8-10.8) X10*3/uL Hgb 11.1 L (12.0-16.0) g/dl Hct 36.0 L (37.0-47.0) % Plt Count 300 (160-400) X10*3/uL BMP 02/10/24 04:47 Sodium 138 Potassium 4.2 Chloride 106 Carbon Dioxide 26 BUN 7 L Creatinine 0.73 Calcium 9.6 Liver Function 02/10/24 Range/Units 04:47 Total Bilirubin 0.2 (0.0-1.0) mg/dL AST 15 (5-31) U/L ALT 12 (0-31) U/L Alkaline Phosphatase 85 (39-117) U/L Albumin 4.1 (3.5-5.0) g/dL Urine 02/10/24 Range/Units 07:27 Urine Color Yellow Urine Appearance Clear Urine pH 6.0 (5.0-9.0) Ur Specific [place] 1.015 (1.005-1.025) Urine Protein Negative (Neg-Trace) mg/dL Urine Glucose (UA) Negative (Negative) mg/dL Urine Test NEGATIVE (NEGATIVE) Abdomen CT scan report/results: image reviewed CT scan - pelvis: image reviewed Abdominal ultrasound report/results: report reviewed and image reviewed Assessment and Plan (1) Gallstones: Status: Acute She has right sided abdominal pain. Review of her imaging studies show that she has gallstones, but the gallbladder is not distended and there are no changes suggestive of acute cholecystitis. Her LFTs are normal and she does not have leukocytosis. She does not feel she can be discharged in view of her pain. I will admit her and monitor her closely. I did explain to her the option of cholecystectomy for persistent symptoms in the absence of other pathology on imaging. I reviewed with her the technique of laparoscopic cholecystectomy and poss. open cholecystectomy as well as the risks, benefits and alternatives. (2) Morbid obesity: Status: Acute She is morbidly obese but denies being a diabetic. She does not take medications but does not have a PCP either. Quality Stroke Does the patient have a stroke diagnosis?: No VTE Prior VTE?: No VTE Risk Level:: Medical - low VTE Device Contraindication: N/A - Device Ordered VTE Drug Contraindication: Treatment Not Indicated Procedures Date of Service Date of Service: 02/12/24
[2024-02-10] MEDS: Lactated Ringers 1,000 ML 80 ML IVCONT (16:37)
[2024-02-10] MEDS: 0.9 % Sodium Chloride Flush 3 ML SYRINGE IVFLUSH (16:38)
[2024-02-10] MEDS: Omeprazole 20 MG CAPSULE.DR PO (16:39)
[2024-02-11] MEDS: Morphine Sulfate 4 MG/ML CARTRIDGE 3 MG IVPUSH ×3 (02:56→23:08)
[2024-02-11] MEDS: Lactated Ringers 1,000 ML 80 ML IVCONT ×2 (02:57→17:00)
[2024-02-11] MEDS: ondansetron HCL 4 MG/2 ML VIAL IVPUSH ×2 (03:00→23:13)
[2024-02-11 03:02] VITALS: BP 120/91; PULSE 70; RESP 18; TEMP 36.1; O2SAT 98
[2024-02-11 04:55] VITALS: BP 112/68; PULSE 77; RESP 18; TEMP 36.4; O2SAT 99
[2024-02-11] MEDS: Omeprazole 20 MG CAPSULE.DR PO ×2 (04:58→16:59)
[2024-02-11 05:52] LABS: Hematocrit 32.4 % (37.0-47.0); Hemoglobin 10.1 g/dl (12.0-16.0); Mean Corpuscular HGB Conc 31.2 g/dl (31.0-35.0); Mean Corpuscular Volume 73.6 fL (80.0-98.0); Mean Platelet Volume 11.4 fL (9.4-12.3); Platelet Count 251 X10*3/uL (160-400); Red Cell Distribution Width 15.7 % (11.0-16.0); White Blood Count 4.8 X10*3/uL (4.8-10.8)
[2024-02-11 06:03] LABS: Alanine Aminotransferase 10 U/L (0-31); Albumin Level 3.4 g/dL (3.5-5.0); Alkaline Phosphatase 68 U/L (39-117); Anion Gap 10 (12-20); Aspartate Amino Transferase 15 U/L (5-31); Bilirubin Total 0.4 mg/dL (0.0-1.0); Blood Urea Nitrogen 5 mg/dL (9-16); Calcium 8.8 mg/dL (8.4-10.2); Carbon Dioxide 26 mmol/L (22-29); Chloride 107 mmol/L (96-108); Creatinine Clr Calc Pharmacy 124.8; Estimated Glomerular Filt Rate > 60; Glucose Random 85 mg/dL (60-115); Potassium 4.3 mmol/L (3.3-5.1); Sodium 139 mmol/L (135-145)
--- NOTE | 2024-02-11 08:27 | PM.PNGS ---
Subjective Subjective Date of Service: 02/11/24 <Gifty Conde PA-C - Last Filed: 02/11/24 08:31> 02/11/24 <Mitchell Hernandez MD - Last Filed: 02/11/24 15:53> Interval history: Reports continued RUQ abd pain, only somewhat improved. <Gifty Conde PA-C - Last Filed: 02/11/24 08:31> Physical Exam Vital Signs: Vital Signs: Last Vital Signs Temp 97.6 F 02/11/24 04:55 Pulse 77 02/11/24 04:55 Resp 18 02/11/24 04:55 BP 112/68 02/11/24 04:55 Pulse Ox 99 02/11/24 04:55 O2 Del Method Room Air 02/11/24 04:55 BMI result Body Mass Index 38.7 <OSITO Mathews Last Filed: 02/11/24 08:31> Const: General: comfortable, no acute distress and alert <Gifty Conde PA-C - Last Filed: 02/11/24 08:31> Orientation/consciousness: patient oriented x3 <Gifty Conde PA-C - Last Filed: 02/11/24 08:31> Resp: Effort & Inspection: normal respiratory effort <OSITO Mathews Last Filed: 02/11/24 08:31> GI: Other: corpulent abdomen <Gifty Conde PA-C - Last Filed: 02/11/24 08:31> Inspection: No distended <Gifty Conde PA-C - Last Filed: 02/11/24 08:31> Palpation (GI): Soft to palpation and Tenderness to palpation present (GI) in the RUQ (moderate ); Brannon's sign negative and with no rebound tenderness <OSITO Mathews Last Filed: 02/11/24 08:31> Skin: General skin exam: no rashes or lesions noted and no jaundice <OSITO Mathews Last Filed: 02/11/24 08:31> Neuro: General: patient oriented x3 and moves all extremities <OSITO Mathews Last Filed: 02/11/24 08:31> Objective Data Active Medications Lactated Ringer's (Lr) 1,000 mls @ 80 mls/hr IVCONT .[id number] [facility] Last Admin: 02/11/24 02:57 Dose: 80 mls/hr Documented By: ROMEO Morphine Sulfate (Morphine Sulfate 4 Mg/Ml Cartridge) 3 mg IVPUSH Q4H PRN; Protocol PRN Reason: pain, severe Last Admin: 02/11/24 02:56 Dose: 3 mg Documented By: ROMEO Omeprazole (Omeprazole 20 Mg Capsule.Dr) 20 mg PO BID@0630,1630 [facility] Last Admin: 02/11/24 04:58 Dose: 20 mg Documented By: ROMEO Ondansetron HCl (Ondansetron Hcl 4 Mg/2 Ml Vial) 4 mg IVPUSH Q6H PRN PRN Reason: nausea Last Admin: 02/11/24 03:00 Dose: 4 mg Documented By: ROMEO Oxycodone HCl (Oxycodone Hcl Immed Release 5 Mg Tablet) 10 mg PO Q4H PRN PRN Reason: Pain, Moderate(Pain Scale 4-6) Sodium Chloride (0.9 % Sodium Chloride Flush 3 Ml Syringe) 3 ml IVFLUSH QSHIFT [facility] Last Admin: 02/11/24 00:41 Dose: Not Given Documented By: ROMEO Non-Admin Reason: IV Running <Gifty Conde PA-C - Last Filed: 02/11/24 08:31> Labs CBC & Chem 7: 02/11/24 04:54 02/11/24 04:54 <Gifty Conde PA-C - Last Filed: 02/11/24 08:31> Labs: Laboratory Results - last 24 hr 02/10/24 02/11/24 11:18 04:54 MCV 73.6 L MCH 23.0 L MCHC 31.2 RDW 15.7 Plt Count 251 MPV 11.4 Absolute Nucleated RBC 0.000 Nucleated RBC % (auto) 0.0 Anion Gap 10 L Estim Creat Clear Calc 124.8 Estimated GFR > 60 Random Glucose 85 Lactic Acid 1.1 Calcium 8.8 D Total Bilirubin 0.4 AST 15 ALT 10 Alkaline Phosphatase 68 Total Protein 6.0 L Albumin 3.4 L <Gifty Conde PA-C - Last Filed: 02/11/24 08:31> Procedures Date of Service Date of Service: 02/11/24 <Gifty Conde PA-C - Last Filed: 02/11/24 08:31> 02/11/24 <Mitchell Hernandez MD - Last Filed: 02/11/24 15:53> Progress Note: A&P Assessment and plan (1) Gallstones: Status: Acute <Gifty Conde PA-C - Last Filed: 02/11/24 08:31> Assessment and Plan: Continues to have right upper quadrant pain Exam benign WBC normal HIDA scan ordered <Mitchell Hernandez MD - Last Filed: 02/11/24 15:53> Assessment and Plan: Continued RUQ pain this morning. She is moderately tender on exam this morning. Continues to have no leukocytosis on labs. Will therefore obtain HIDA scan to further assess. If positive or continued symptoms, can proceed with laparoscopic cholecystectomy, possible open. <Gifty Conde PA-C - Last Filed: 02/11/24 08:31> Time Spent With Patient Time: Total time managing care of this patient today ____ minutes. <Gifty Conde PA-C - Last Filed: 02/11/24 08:31> Quality Stroke Does the patient have a stroke diagnosis?: No <Gifty Conde PA-C - Last Filed: 02/11/24 08:31> VTE Prior VTE?: No <Gifty Conde PA-C - Last Filed: 02/11/24 08:31> VTE Risk Level:: Medical - low <Gifty Conde PA-C - Last Filed: 02/11/24 08:31> VTE Device Contraindication: N/A - Device Ordered <Gifty Conde PA-C - Last Filed: 02/11/24 08:31> VTE Drug Contraindication: Treatment Not Indicated <Gitfy Conde PA-C - Last Filed: 02/11/24 08:31>
--- NOTE | 2024-02-11 09:07 | MHC.CM.PN ---
PT REPORTS SHE LIVES WITH HER CHILDREN AND IS INDEPENDENT WITH CARE SHE HAS NO DME AND NO SERVICES PT DECLINES TO COMPLETE A HCP AND HAS NO PCP DCP: HOME NO SERVICES PRIVATE TRANSPORT VS [facility] [place] [facility]
--- NOTE | 2024-02-11 09:35 | PC.NURSE ---
PRN IV PAIN MED GIVEN ORDERED AND DOCUMENTED. PT CURRENTLY IN NUCLEAR MED GETTING HIDA SCAN. WILL REASSESS WHEN PT RETURNS FROM PROCEDURE.
--- NOTE | 2024-02-11 11:11 | PC.NURSE ---
PAIN NOT REASSESSED D/T PT STILL IN NUCLEAR MED.
[2024-02-11 11:57] VITALS: BP 104/53; PULSE 70; RESP 14; TEMP 36.5; O2SAT 98
--- NOTE | 2024-02-11 15:54 | PM.EVENT ---
Event Note Date of Service: 02/12/24 Event Note: HIDA scan does not reveal acute cholecystitis However ejection fraction is relatively low at 22% She says she still has some tenderness although a little better Looks well otherwise Abdomen remained soft If she continues to have pain and tenderness, proceed with laparoscopic cholecystectomy tomorrow possible open Reviewed with the technique of this procedure She understands the risks including but not limited to bleeding, infections, bowel injury, injury to other organs like the bile duct on the liver, as well as the benefits and alternatives Time Spent With Patient Time: Total time managing care of this patient today ____ minutes.
[2024-02-11 16:45] VITALS: BP 108/46; PULSE 66; RESP 14; TEMP 36.7; O2SAT 98
--- NOTE | 2024-02-11 17:50 | PC.NURSE ---
Pt currently on clear liquid diet, will be NPO after midnight. HIDA scan showed acute cholecystitis. Plan is for Laproscopic cholecystectomy if pain and tenderness persists. Pt aware of plan.
[2024-02-11 23:02] VITALS: BP 118/78; PULSE 64; RESP 16; TEMP 36.7; O2SAT 98
[2024-02-12] VITALS (15 sets, daily range): BP systolic 113–145; BP diastolic 54–94; PULSE 68–89; RESP 16–20; TEMP 36.1–36.7; O2SAT 94–100; BMI 48.8
--- NOTE | 2024-02-12 02:39 | PC.NURSE ---
assumed care at 0239
--- NOTE | 2024-02-12 03:01 | PC.NURSE ---
pt assessed, denies ay pain at this time, changed over, surgery in am
[2024-02-12] MEDS: Lactated Ringers 1,000 ML 50 ML IVCONT (07:45)
--- NOTE | 2024-02-12 13:37 | PM.PNGS ---
Subjective Subjective Date of Service: 02/12/24 Interval history: She says she still has right upper quadrant pain although better this morning Denies any nausea or vomiting Physical Exam Vital Signs: Vital Signs: Last Vital Signs Temp 97.5 F 02/12/24 12:55 Pulse 89 02/12/24 12:55 Resp 18 02/12/24 12:55 BP 124/70 02/12/24 12:55 Pulse Ox 96 02/12/24 12:55 O2 Del Method Room Air 02/12/24 12:55 BMI result Body Mass Index 38.7 Const: Other: Morbidly obese General: comfortable and no acute distress Resp: Effort & Inspection: normal respiratory effort Cardio: Rate: regular rate GI: Palpation (GI): Soft to palpation, not firm, Tenderness to palpation present (GI) (Mild right upper quadrant tenderness) and no guarding Objective Data Active Medications Lactated Ringer's (Lr) 1,000 mls @ 80 mls/hr IVCONT .[id number] [facility] Last Infusion: 02/12/24 07:44 Dose: Infused Documented By: ARIELLE Lactated Ringer's (Lr) 1,000 mls @ 50 mls/hr IVCONT .Q20H [facility] Last Infusion: 02/12/24 12:38 Dose: 0 mls/hr Documented By: FAMILIA Morphine Sulfate (Morphine Sulfate 4 Mg/Ml Cartridge) 3 mg IVPUSH Q4H PRN; Protocol PRN Reason: pain, severe Last Admin: 02/11/24 23:08 Dose: 3 mg Documented By: ELIAS Omeprazole (Omeprazole 20 Mg Capsule.) 20 mg PO BID@0630,1630 [facility] Last Admin: 02/12/24 05:31 Dose: Not Given Documented By: SIENA Non-Admin Reason: NPO Ondansetron HCl (Ondansetron Hcl 4 Mg/2 Ml Vial) 4 mg IVPUSH Q6H PRN PRN Reason: nausea Last Admin: 02/11/24 23:13 Dose: 4 mg Documented By: ELIAS Oxycodone HCl (Oxycodone Hcl Immed Release 5 Mg Tablet) 10 mg PO Q4H PRN PRN Reason: Pain, Moderate(Pain Scale 4-6) Sodium Chloride (0.9 % Sodium Chloride Flush 3 Ml Syringe) 3 ml IVFLUSH QSHIFT [facility] Last Admin: 02/12/24 07:09 Dose: Not Given Documented By: ARIELLE Non-Admin Reason: IV Running Labs 02/11/24 04:54 02/11/24 04:54 Labs: Laboratory Results WBC 4.8 X10*3/uL (4.8-10.8) 02/11/24 04:54 RBC 4.40 X10*6/uL (4.20-5.50) 02/11/24 04:54 Hgb 10.1 g/dl (12.0-16.0) L 02/11/24 04:54 Hct 32.4 % (37.0-47.0) L 02/11/24 04:54 MCV 73.6 fL (80.0-98.0) L 02/11/24 04:54 MCH 23.0 pg (27.0-33.0) L 02/11/24 04:54 MCHC 31.2 g/dl (31.0-35.0) 02/11/24 04:54 RDW 15.7 % (11.0-16.0) 02/11/24 04:54 Plt Count 251 X10*3/uL (160-400) 02/11/24 04:54 MPV 11.4 fL (9.4-12.3) 02/11/24 04:54 Immature Gran % (Auto) 0.2 % (0.0-0.4) 02/10/24 04:47 Neut % (Auto) 49.8 % (45-73) 02/10/24 04:47 Lymph % (Auto) 40.5 % (20-40) H 02/10/24 04:47 [place] % (Auto) 7.6 % (2-11) 02/10/24 04:47 Eos % (Auto) 1.4 % (0-4) 02/10/24 04:47 Baso % (Auto) 0.5 % (0-2) 02/10/24 04:47 Lymph # (Auto) 2.7 X10*3/uL (1.2-4.9) 02/10/24 04:47 [place] # (Auto) 0.5 X10*3/uL (0.1-1.2) 02/10/24 04:47 Eos # (Auto) 0.1 X10*3/uL (0.0-0.4) 02/10/24 04:47 Baso # (Auto) 0.0 X10*3/uL (0.0-0.2) 02/10/24 04:47 Abs Immat Gran (auto) 0.01 X10*3/uL (0.00-0.03) 02/10/24 04:47 Absolute Neuts (auto) 3.3 x10*3/uL (2.0-8.3) 02/10/24 04:47 Absolute Nucleated RBC 0.000 X10*3/uL (0.0-0.012) 02/11/24 04:54 Nucleated RBC % (auto) 0.0 /100WBC (0.0-0.2) 02/11/24 04:54 Sodium 139 mmol/L (135-145) 02/11/24 04:54 Potassium 4.3 mmol/L (3.3-5.1) 02/11/24 04:54 Chloride 107 mmol/L (96-108) 02/11/24 04:54 Carbon Dioxide 26 mmol/L (22-29) 02/11/24 04:54 Anion Gap 10 (12-20) L 02/11/24 04:54 BUN 5 mg/dL (9-16) L 02/11/24 04:54 Creatinine 0.61 mg/dL (0.5-1.4) 02/11/24 04:54 Estim Creat Clear Calc 124.8 02/11/24 04:54 Estimated GFR > 60 02/11/24 04:54 Random Glucose 85 mg/dL (60-115) 02/11/24 04:54 Lactic Acid 1.1 mmol/L (0.5-2.0) 02/10/24 11:18 Calcium 8.8 mg/dL (8.4-10.2) D 02/11/24 04:54 Total Bilirubin 0.4 mg/dL (0.0-1.0) 02/11/24 04:54 AST 15 U/L (5-31) 02/11/24 04:54 ALT 10 U/L (0-31) 02/11/24 04:54 Alkaline Phosphatase 68 U/L (39-117) 02/11/24 04:54 Total Protein 6.0 g/dL (6.5-8.0) L 02/11/24 04:54 Albumin 3.4 g/dL (3.5-5.0) L 02/11/24 04:54 Lipase 20 U/L (8-78) 02/10/24 04:47 Beta HCG, Quant < 2 mIU/mL 02/10/24 04:47 Urine Color Yellow 02/10/24 07:27 Urine Appearance Clear 02/10/24 07:27 Urine pH 6.0 (5.0-9.0) 02/10/24 07:27 Ur Specific [place] 1.015 (1.005-1.025) 02/10/24 07:27 Urine Protein Negative mg/dL (Neg-Trace) 02/10/24 07: Urine Glucose (UA) Negative mg/dL (Negative) 02/10/24 07: Urine Ketones Negative mg/dL (Negative) 02/10/24 07: Urine Blood Negative (Negative) 02/10/24 07: Urine Nitrite Negative (Negative) 02/10/24 07:27 Ur Leukocyte Esterase Negative (Negative) 02/10/24 07:27 Urine RBC 0-2 /HPF (0-2) 02/10/24 07:27 Urine WBC 0-5 /HPF (0-5) 02/10/24 07:27 Ur Squamous Epith Cells 0-2 /HPF (0-2) 02/10/24 07:27 Urine Bacteria None Seen (None Seen) 02/10/24 07: Hyaline Casts 0-2 /LPF (0-2) 02/10/24 07:27 Urine Test NEGATIVE (NEGATIVE) 02/10/24 07:27 Impressions Abdomen Ultrasound 02/10/24 09:45 IMPRESSION: Contracted gallbladder with cholelithiasis without sonographic evidence of acute cholecystis. Sonographic Brannon sign is however positive. Abdomen/Pelvis CT 02/10/24 13:06 IMPRESSION: 1. Gallbladder is contracted, there is a gallstone, there is thickening and enhancement of the gallbladder wall and pericholecystic fluid, combined raising concern for possible acute cholecystitis, please correlate with patient's clinical presentation, if not already obtained surgical evaluation is warranted, HIDA scan could be utilized for further investigation. 2. Nonobstructing 3 mm stone upper calyx right kidney. No hydronephrosis. Hepatobiliary Scan Nuclear Medicine 02/11/24 11:15 IMPRESSION: Visualization of the gallbladder is evidence of a patent cystic duct and strong evidence against the diagnosis of acute cholecystitis. The common bile duct is patent. Gallbladder emptying and ejection fraction are abnormal. Liver function appears normal. Microbiology Microbiology Results: Microbiology 02/10/24 11:20 Blood Culture - Preliminary Blood - Venous No growth after 48 hours. 02/10/24 11:20 Blood Culture - Preliminary Blood - Venous No growth after 48 hours. Procedures Date of Service Date of Service: 02/12/24 Progress Note: A&P Assessment and plan (1) Biliary dyskinesia: Status: Acute Assessment and Plan: She says she continues to have right upper quadrant pain although better HIDA scan consistent with biliary hypokinesia with an ejection fraction of 22% She therefore wants to proceed with laparoscopic cholecystectomy She understands the technique of the procedure as well as the risks including but not limited to bleeding, infections, injury to other organs, conversion to open procedure, inherent risks of anesthesia, as well as the benefits and alternatives She understands that because of her morbid obesity, her perioperative risks may be higher than average She is given consent Time Spent With Patient Time: Total time managing care of this patient today ____ minutes. Quality Stroke Does the patient have a stroke diagnosis?: No VTE Prior VTE?: No VTE Risk Level:: Medical - low VTE Device Contraindication: N/A - Device Ordered VTE Drug Contraindication: Treatment Not Indicated
--- NOTE | 2024-02-12 13:50 | P.CONAN_ITS ---
HPI - Anesthesia Eval Consult details Narrative: 28 yo F presenting for lap kira PMFSH Active Problems Active Problems: All Active Problems Biliary dyskinesia (Acute) Cholecystitis (Acute) Biliary colic (Acute) COVID-19 (Acute) Gallstones (Acute) Morbid obesity (Acute) Past Medical History Medical History (Updated 02/12/24 @ 13:38 by Mitchell Hernandez MD) Biliary dyskinesia Gallstones Morbid obesity Family History Family history of problems with anesthesia: No Surgical History Surgical History (Updated 02/12/24 @ 13:36 by Erica Chun RN) History of 2 sections History of Problems with Anesthesia: No Social History Social History Alcohol intake: never Patient Tobacco Use Status: Never used Tobacco service: No Meds Allergies Allergy/AdvReac Type Severity Reaction Status Date / Time phenyltoloxamine Allergy Unknown VOMITING Verified 02/10/24 04:35 [From DOLOGESIC] Active Medications: Current Medications Lactated Ringer's (Lr) 1,000 mls @ 80 mls/hr IVCONT .[id number] [facility] Last Infusion: 02/12/24 07:44 Dose: Infused Lactated Ringer's (Lr) 1,000 mls @ 50 mls/hr IVCONT .Q20H [facility] Last Infusion: 02/12/24 12:38 Dose: 0 mls/hr Morphine Sulfate (Morphine Sulfate 4 Mg/Ml Cartridge) 3 mg IVPUSH Q4H PRN; Protocol PRN Reason: pain, severe Last Admin: 02/11/24 23:08 Dose: 3 mg Omeprazole (Omeprazole 20 Mg Capsule.Dr) 20 mg PO BID@0630,1630 [facility] Last Admin: 02/12/24 05:31 Dose: Not Given Ondansetron HCl (Ondansetron Hcl 4 Mg/2 Ml Vial) 4 mg IVPUSH Q6H PRN PRN Reason: nausea Last Admin: 02/11/24 23:13 Dose: 4 mg Oxycodone HCl (Oxycodone Hcl Immed Release 5 Mg Tablet) 10 mg PO Q4H PRN PRN Reason: Pain, Moderate(Pain Scale 4-6) Sodium Chloride (0.9 % Sodium Chloride Flush 3 Ml Syringe) 3 ml IVFLUSH QSHIFT [facility] Last Admin: 02/12/24 07:09 Dose: Not Given Home Medications ?Medication ?Instructions ?Recorded ?Confirmed ?Last Taken ?Type No Known Home Meds 02/10/24 02/10/24 Unknown History Exam Exam Date and Time: February 12, 2024 1320 Height,Weight and Vital Signs: Height 4 ft 10 in Weight 83.915 kg Last Vital Signs Temp 97.5 F 02/12/24 12:55 Pulse 89 02/12/24 12:55 Resp 18 02/12/24 12:55 BP 124/70 02/12/24 12:55 Pulse Ox 96 02/12/24 12:55 O2 Del Method Room Air 02/12/24 12:55 Pertinent Lab Results Pertinent Lab Results: Laboratory Tests 02/10/24 02/10/24 02/10/24 04:47 07:27 11:18 WBC 6.6 RBC 4.91 Hgb 11.1 L Hct 36.0 L MCV 73.3 L MCH 22.6 L MCHC 30.8 L RDW 15.7 Plt Count 300 MPV 11.0 Immature Gran % (Auto) 0.2 Neut % (Auto) 49.8 Lymph % (Auto) 40.5 H [place] % (Auto) 7.6 Eos % (Auto) 1.4 Baso % (Auto) 0.5 Lymph # (Auto) 2.7 [place] # (Auto) 0.5 Eos # (Auto) 0.1 Baso # (Auto) 0.0 Abs Immat Gran (auto) 0.01 Absolute Neuts (auto) 3.3 Absolute Nucleated RBC 0.000 Nucleated RBC % (auto) 0.0 Sodium 138 Potassium 4.2 Chloride 106 Carbon Dioxide 26 Anion Gap 10 L BUN 7 L Creatinine 0.73 Estim Creat Clear Calc 104.3 Estimated GFR > 60 Random Glucose 106 Lactic Acid 1.1 Calcium 9.6 Total Bilirubin 0.2 AST 15 ALT 12 Alkaline Phosphatase 85 Total Protein 7.3 Albumin 4.1 Lipase 20 Beta HCG, Quant < 2 Urine Color Yellow Urine Appearance Clear Urine pH 6.0 Ur Specific [place] 1.015 Urine Protein Negative Urine Glucose (UA) Negative Urine Ketones Negative Urine Blood Negative Urine Nitrite Negative Ur Leukocyte Esterase Negative Urine RBC 0-2 Urine WBC 0-5 Ur Squamous Epith Cells 0-2 Urine Bacteria None Seen Hyaline Casts 0-2 Urine Test NEGATIVE 02/11/24 04:54 WBC 4.8 RBC 4.40 Hgb 10.1 L Hct 32.4 L MCV 73.6 L MCH 23.0 L MCHC 31.2 RDW 15.7 Plt Count 251 MPV 11.4 Immature Gran % (Auto) Neut % (Auto) Lymph % (Auto) [place] % (Auto) Eos % (Auto) Baso % (Auto) Lymph # (Auto) [place] # (Auto) Eos # (Auto) Baso # (Auto) Abs Immat Gran (auto) Absolute Neuts (auto) Absolute Nucleated RBC 0.000 Nucleated RBC % (auto) 0.0 Sodium 139 Potassium 4.3 Chloride 107 Carbon Dioxide 26 Anion Gap 10 L BUN 5 L Creatinine 0.61 Estim Creat Clear Calc 124.8 Estimated GFR > 60 Random Glucose 85 Lactic Acid Calcium 8.8 D Total Bilirubin 0.4 AST 15 ALT 10 Alkaline Phosphatase 68 Total Protein 6.0 L Albumin 3.4 L Lipase Beta HCG, Quant Urine Color Urine Appearance Urine pH Ur Specific [place] Urine Protein Urine Glucose (UA) Urine Ketones Urine Blood Urine Nitrite Ur Leukocyte Esterase Urine RBC Urine WBC Ur Squamous Epith Cells Urine Bacteria Hyaline Casts Urine Test Airway Mallampati Class: II TM Dist: >3cm Neck ROM: Full Loose/Missing/Broken Teeth: No (patient denies any loose or broken teeth) Heart: S1S2 Lungs: CTAB Assessment and Plan Assessment Anesthesia Assessment: Anesthesia Plan Discussed and Chart Reviewed Final Anesthetic Review Family History of Problems with Anesthesia: No History of Problems with Anesthesia: No NPO: Yes ASA Class: II Final Preanesthetic Review: No Changes in Pt Med Stat, Meds/Allgs Chart Reviewed , Consent Obtained/Reviewed and Anes Risks/Benef Reviewed Patient Risk: Low Procedure Risk: Low Anesthetic Plan Anesthetic Plan: GA and Agree w/ Assess. and Plan Disposition: Standard PACU
--- NOTE | 2024-02-12 15:07 | W.PM.OPN ---
Operative Note Operative Note Date of Service: 02/12/24 Narrative: Preop diagnosis: biliary dyskinesia, gallstones Postop diagnosis: the same Procedure: Laparoscopic cholecystectomy Surgeon: Mitchell Hernandez MD staffing assistant: SHARONA Conde The patient is a 28F admitted for right-sided abdominal pain. Her imaging studies showed gallstones without cholecystitis. She did not have leukocytosis. Her HIDA scan however showed an EF of 22%. She had persistent pain so I offered her the option of laparoscopic cholecystectomy. She understood the technique of the procedure as well as the risks, benefits and alternatives. She was brought to the operating room. She was placed supine under general anesthesia via endotracheal tube. The abdomen was prepped and draped in the usual sterile fashion. A surgical time-out was done. The patient received Cefotan IV preop. I made a short incision on the supraumbilical margin using a blade 15. This was carried down through the full-thickness of the skin and subcutaneous fat. It was noted the patient was morbidly obese and had a very thick subcutaneous fat that we had to go through until we reached the fascia. The fascia was incised. The peritoneum was entered. Through this incision Bill port was introduced. Pneumoperitoneum was introduced to a pressure of 15 mm Hg. From here on the rest of the procedure was done under vision with the 10 mm plan laparoscope. With laparoscopic visualization, I inserted a 5/12 minimal port in the epigastric area below the subcostal margin. Two 5 mm ports introduced below the subcostal margin along the anterior axillary line and the midclavicular line. Graspers were placed through these working ports. The patient was placed in head up and [id number] position. Examination of the subhepatic space revealed the gallbladder to be supple and the fundus was intrahepatic. I was able to apply a grasper on this. This was used to retract the gallbladder cephalad. By doing so was able to see the neck. I did do some careful dissection with the [place] dissector to release some thin adhesions surrounding the neck. By doing so was able to visualize what appeared to be the cystic duct. There was a lot of fatty areolar tissue surrounding this area. We carefully dissected the cystic duct circumferentially using the [place] dissector until was able to confirm its confluence with the neck of the gallbladder. By doing so was I able to achieve a critical view of the hepatocystic triangle. With confirmation of the confluence of the cystic duct and the neck, I proceeded to then apply clips on the cystic duct with 2 clips being applied distally. The cystic duct was transected between clips with Endo scissors. The cystic artery was seen and carefully dissected.This appeared to branch into two. I then applied clips separately,, with 2 clips applied distally on each branch. I transected the cystic artery between clips with Endo scissors. There were 2 clips in the distal cystic artery. With traction on the gallbladder away from the liver bed, I proceeded to then divide through the hilum using the electrocautery hook until I reach the interface with the gallbladder wall and the liver bed. I incised the peritoneum of the gallbladder with electrocautery and proceeded to define a plane of dissection between the gallbladder wall and the liver bed with a combination of blunt dissection with the tip of the hook electrocautery and electrocautery itself. The planes between the gallbladder wall and the liver bed seemed welldefined. We had to do slow and gentle dissection at the fundus as this was intrahepatic. I continued to separate the gallbladder off of the liver bed along this plane of dissection until the entire gallbladder was completely and this was retrieved through an endobag through the umbilical incision. I reinserted all ports and re-insufflated. I examined the subhepatic space. There was note of good hemostasis. The clips appeared to be intact. I irrigated copiously and suctioned out the irrigant fluid. I observed all 4 quadrants. There was no evidence of any bowel injury or any bile leak. I observed the subhepatic space and once hemostasis was confirmed, I desufflated through the port sites. I removed all ports under vision with the laparoscope. The umbilical port was removed last. The fascia of the umbilical incision was closed with a figure of 8 Polysorb 0 stitch. Skin closure was achieved on all incision with subuticular Polysorb 4-0 running sutures. Steristrips and dressings were applied. All incisions were infiltrated with Marcaine .5% for postop analgesia and the procedure was completed. She tolerated the procedure well.There were no immediate complications. Initial and final counts of sponges and instruments were correct. Estimated blood loss was 10 cc. The patient was extubated without difficulty and transferred to the PACU with stable vital signs.
[2024-02-12] MEDS: fentaNYL citrate/PF 100 MCG/2 ML VIAL 50 MCG IVPUSH (15:30)
[2024-02-12] MEDS: oxyCODONE HCl Immed Release 5 MG TABLET PO (15:59)
--- NOTE | 2024-02-12 16:25 | PM.EVENT ---
Event Note Date of Service: 02/12/24 Event Note: seen postop s/p lap kira' seems to have adequate pain control looks drowsy but comfortable pain mgt mother updated hope to dc home tomorrow Time Spent With Patient Time: Total time managing care of this patient today ____ minutes.
[2024-02-12] MEDS: Omeprazole 20 MG CAPSULE.DR PO (18:07)
[2024-02-12] MEDS: 0.9 % Sodium Chloride Flush 3 ML SYRINGE IVFLUSH (18:08)
--- NOTE | 2024-02-12 18:19 | PHA.MEDREC ---
Pharmacy Consult ? Medication Reconciliation Pharmacy has completed the medication reconciliation. Patient states they are not on any at home meds.
[2024-02-12] MEDS: oxyCODONE HCl Immed Release 5 MG TABLET 10 MG PO (22:25)
[2024-02-13 03:14] VITALS: BP 122/79; PULSE 96; RESP 18; TEMP 36.1; O2SAT 94
[2024-02-13] MEDS: Omeprazole 20 MG CAPSULE.DR PO (05:48)
[2024-02-13] MEDS: 0.9 % Sodium Chloride Flush 3 ML SYRINGE IVFLUSH (07:52)
[2024-02-13 08:00] VITALS: BP 116/72; PULSE 94; RESP 12; TEMP 36.4; O2SAT 93
--- NOTE | 2024-02-13 08:13 | PM.PNGS ---
Subjective Subjective Date of Service: 02/13/24 Interval history: She says she feels well Adequate pain control Tolerating oral intake Physical Exam Vital Signs: Vital Signs: Last Vital Signs Temp 97.5 F 02/13/24 08:00 Pulse 94 02/13/24 08:00 Resp 12 02/13/24 08:00 BP 116/72 02/13/24 08:00 Pulse Ox 93 02/13/24 08:00 O2 Del Method Room Air 02/13/24 08:00 O2 Flow Rate 2 02/12/24 19:18 BMI result Body Mass Index 48.8 Const: Other: Appears comfortable and looks well General: no acute distress Eyes: Other: Sclerae anicteric Resp: Effort & Inspection: normal respiratory effort Cardio: Rate: regular rate GI: Other: Obese but soft, dressings dry Objective Data Active Medications Acetaminophen (Acetaminophen 325 Mg Tablet) 650 mg PO Q6H PRN PRN Reason: fever, pain Melatonin (Melatonin 3 Mg Tablet) 6 mg PO BEDTIME PRN PRN Reason: insomnia Morphine Sulfate (Morphine Sulfate 4 Mg/Ml Cartridge) 4 mg IVPUSH Q4H PRN; Protocol PRN Reason: Pain, Severe (Pain Scale 7-10) Omeprazole (Omeprazole 20 Mg Capsule.Dr) 20 mg PO BID@0630,1630 [facility] Last Admin: 02/13/24 05:48 Dose: 20 mg Documented By: CHAGO Ondansetron HCl (Ondansetron Hcl 4 Mg/2 Ml Vial) 4 mg IVPUSH Q6H PRN PRN Reason: nausea Last Admin: 02/11/24 23:13 Dose: 4 mg Documented By: ELIAS Oxycodone HCl (Oxycodone Hcl Immed Release 5 Mg Tablet) 10 mg PO Q4H PRN PRN Reason: Pain, Moderate(Pain Scale 4-6) Last Admin: 02/12/24 22:25 Dose: 10 mg Documented By: SANDIP Sodium Chloride (0.9 % Sodium Chloride Flush 3 Ml Syringe) 3 ml IVFLUSH [facility] Last Admin: 02/13/24 07:52 Dose: 3 ml Documented By: GREGIC Labs 02/11/24 04:54 02/11/24 04:54 Microbiology Microbiology Results: Microbiology 02/10/24 11:20 Blood Culture - Preliminary Blood - Venous No growth after 48 hours. 02/10/24 11:20 Blood Culture - Preliminary Blood - Venous No growth after 48 hours. Procedures Date of Service Date of Service: 02/13/24 Progress Note: A&P Assessment and plan (1) Biliary dyskinesia: Status: Acute Assessment and Plan: Status post laparoscopic cholecystectomy Doing well Clinically stable She says she is ready to be discharged Discharge instructions reinforced with patient Follow-up in the office Time Spent With Patient Time: Total time managing care of this patient today ____ minutes. Quality Stroke Does the patient have a stroke diagnosis?: No VTE Prior VTE?: No VTE Risk Level:: Medical - low VTE Device Contraindication: N/A - Device Ordered VTE Drug Contraindication: Treatment Not Indicated
--- NOTE | 2024-02-13 08:36 | MHC.CM.PN ---
EMR reviewed. Patient medically cleared for dc home self care. Patient has own ride home. RN aware.
--- NOTE | 2024-02-13 15:27 | HO.POSTANES ---
Post Anesthesia Evaluation Post Anesthesia Evaluation Date of Service: 02/12/24 Vital Signs: Vital Signs Temp Pulse Resp BP Pulse Ox O2 Del Method 02/13/24 08:00 97.5 F 94 12 116/72 93 Room Air Anesthesia: General Endotracheal-GETA Mental Status: Awake Pain Control: Satisfactory Nausea/Vomiting: None Hydration: Adequate Anesthesia-Related Issues: No Anes. Related Issues
--- NOTE | 2024-02-18 14:22 | PM.DS ---
DS: Providers Provider Date of Service: 02/13/24 Date of admission: 02/10/24 15:27 Primary care physician: None Physician DS: Diagnosis Discharge Diagnosis (1) Biliary dyskinesia: Status: Acute DS: Summary Hospital Course Hospital Course: [age] year old female admitted to the ER on February 10, 2024 because of upper abdominal pain most likely on the right side, along with gallstones. Imaging studies did not suggest acute cholecystitis. She did not have leukocytosis. However because of her pain she was admitted. We ordered for a HIDA scan on 02/11/2024. This should shown a poor ejection fraction with no cholecystitis. She therefore underwent laparoscopic cholecystectomy for this on February 12, 2024. She tolerated procedure well. She had an uneventful intraop course. She was started on regular diet. She tolerated this well. She continued to do well postoperatively and she was discharged on 02/13/2024. At the time of her discharge, she was tolerating regular diet. She had good bowel movements. She was afebrile and good pain control on oral pain medications. Time Attestation Discharge Coordination Time (in mins): 30 min Quality: Safe Use of Opioids Does Pt have an Active Cancer Diagnosis on the Problem List?: No Quality: Stroke Does the patient have a stroke diagnosis?: No Physical Exam Vital Signs: Vital Signs: Last Vital Signs Temp 97.5 F 02/13/24 08:00 Pulse 94 02/13/24 08:00 Resp 12 02/13/24 08:00 BP 116/72 02/13/24 08:00 Pulse Ox 93 02/13/24 08:00 O2 Del Method Room Air 02/13/24 08:00 O2 Flow Rate 2 02/12/24 19:18 BMI result Body Mass Index 48.8 Const: Other: Morbidly obese General: comfortable and no acute distress Orientation/consciousness: patient oriented x3 Neck: Neck: Yes no lymphadenopathy Resp: Auscultation: clear to auscultation bilaterally Cardio: Rhythm: regular rhythm GI: Other: Incisions clean and dry Palpation (GI): Soft to palpation, nontender and no guarding Neuro: General: patient oriented x3 DS: Data Data Completed and Pending Completed studies during hospitalization [Text1]: Pending at discharge 02/12/24 14:58 Surgical [PTH] Routine Laboratory Results WBC 4.8 X10*3/uL (4.8-10.8) 02/11/24 04:54 RBC 4.40 X10*6/uL (4.20-5.50) 02/11/24 04:54 Hgb 10.1 g/dl (12.0-16.0) L 02/11/24 04:54 Hct 32.4 % (37.0-47.0) L 02/11/24 04:54 MCV 73.6 fL (80.0-98.0) L 02/11/24 04:54 MCH 23.0 pg (27.0-33.0) L 02/11/24 04:54 MCHC 31.2 g/dl (31.0-35.0) 02/11/24 04:54 RDW 15.7 % (11.0-16.0) 02/11/24 04:54 Plt Count 251 X10*3/uL (160-400) 02/11/24 04:54 MPV 11.4 fL (9.4-12.3) 02/11/24 04:54 Immature Gran % (Auto) 0.2 % (0.0-0.4) 02/10/24 04:47 Neut % (Auto) 49.8 % (45-73) 02/10/24 04:47 Lymph % (Auto) 40.5 % (20-40) H 02/10/24 04:47 [place] % (Auto) 7.6 % (2-11) 02/10/24 04:47 Eos % (Auto) 1.4 % (0-4) 02/10/24 04:47 Baso % (Auto) 0.5 % (0-2) 02/10/24 04:47 Lymph # (Auto) 2.7 X10*3/uL (1.2-4.9) 02/10/24 04:47 [place] # (Auto) 0.5 X10*3/uL (0.1-1.2) 02/10/24 04:47 Eos # (Auto) 0.1 X10*3/uL (0.0-0.4) 02/10/24 04:47 Baso # (Auto) 0.0 X10*3/uL (0.0-0.2) 02/10/24 04:47 Abs Immat Gran (auto) 0.01 X10*3/uL (0.00-0.03) 02/10/24 04:47 Absolute Neuts (auto) 3.3 x10*3/uL (2.0-8.3) 02/10/24 04:47 Absolute Nucleated RBC 0.000 X10*3/uL (0.0-0.012) 02/11/24 04:54 Nucleated RBC % (auto) 0.0 /100WBC (0.0-0.2) 02/11/24 04:54 Sodium 139 mmol/L (135-145) 02/11/24 04:54 Potassium 4.3 mmol/L (3.3-5.1) 02/11/24 04:54 Chloride 107 mmol/L (96-108) 02/11/24 04:54 Carbon Dioxide 26 mmol/L (22-29) 02/11/24 04:54 Anion Gap 10 (12-20) L 02/11/24 04:54 BUN 5 mg/dL (9-16) L 02/11/24 04:54 Creatinine 0.61 mg/dL (0.5-1.4) 02/11/24 04:54 Estim Creat Clear Calc 124.8 02/11/24 04:54 Estimated GFR > 60 02/11/24 04:54 Random Glucose 85 mg/dL (60-115) 02/11/24 04:54 Lactic Acid 1.1 mmol/L (0.5-2.0) 02/10/24 11:18 Calcium 8.8 mg/dL (8.4-10.2) D 02/11/24 04:54 Total Bilirubin 0.4 mg/dL (0.0-1.0) 02/11/24 04:54 AST 15 U/L (5-31) 02/11/24 04:54 ALT 10 U/L (0-31) 02/11/24 04:54 Alkaline Phosphatase 68 U/L (39-117) 02/11/24 04:54 Total Protein 6.0 g/dL (6.5-8.0) L 02/11/24 04:54 Albumin 3.4 g/dL (3.5-5.0) L 02/11/24 04:54 Lipase 20 U/L (8-78) 02/10/24 04:47 Beta HCG, Quant < 2 mIU/mL 02/10/24 04:47 Urine Color Yellow 02/10/24 07: Urine Appearance Clear 02/10/24 07: Urine pH 6.0 (5.0-9.0) 02/10/24 07: Ur Specific [place] 1.015 (1.005-1.025) 02/10/24 07: Urine Protein Negative mg/dL (Neg-Trace) 02/10/24 07: Urine Glucose (UA) Negative mg/dL (Negative) 02/10/24 07: Urine Ketones Negative mg/dL (Negative) 02/10/24 07: Urine Blood Negative (Negative) 02/10/24 07: Urine Nitrite Negative (Negative) 02/10/24 07: Ur Leukocyte Esterase Negative (Negative) 02/10/24 07: Urine RBC 0-2 /HPF (0-2) 02/10/24 07: Urine WBC 0-5 /HPF (0-5) 02/10/24 07: Ur Squamous Epith Cells 0-2 /HPF (0-2) 02/10/24 07: Urine Bacteria None Seen (None Seen) 02/10/24 07: Hyaline Casts 0-2 /LPF (0-2) 02/10/24 07: Urine Test NEGATIVE (NEGATIVE) 02/10/24 07:27 Impressions Abdomen Ultrasound 02/10/24 09:45 IMPRESSION: Contracted gallbladder with cholelithiasis without sonographic evidence of acute cholecystis. Sonographic Brannon sign is however positive. Abdomen/Pelvis CT 02/10/24 13:06 IMPRESSION: 1. Gallbladder is contracted, there is a gallstone, there is thickening and enhancement of the gallbladder wall and pericholecystic fluid, combined raising concern for possible acute cholecystitis, please correlate with patient's clinical presentation, if not already obtained surgical evaluation is warranted, HIDA scan could be utilized for further investigation. 2. Nonobstructing 3 mm stone upper calyx right kidney. No hydronephrosis. Hepatobiliary Scan Nuclear Medicine 02/11/24 11:15 IMPRESSION: Visualization of the gallbladder is evidence of a patent cystic duct and strong evidence against the diagnosis of acute cholecystitis. The common bile duct is patent. Gallbladder emptying and ejection fraction are abnormal. Liver function appears normal. Discharge Plan Discharge Anticipated Discharge Date/Time: 02/13/24 09:11 Patient Disposition: Home, Self-Care Discharge Diagnosis: s/p laparoscopic cholecystectomy Referrals: Mitchell Hernandez MD [Physician] - 2 Weeks Physician,Marlene [Primary Care Provider] - 1 Week Discharge Medications: New docusate sodium [Colace] 100 mg capsule 100 mg PO BID PRN (Reason: constipation) Qty: 30 0RF oxycodone 5 mg tablet 5 mg PO Q4H PRN (Reason: pain (scale score 7-10)) Qty: 24 0RF Rx Instructions: Partial Fill upon patient request. ibuprofen 600 mg tablet 600 mg PO Q6H PRN (Reason: pain) Qty: 30 0RF Discharge Orders: Discharge Order (Routine); Ordered 02/13/24 Ordered By: Mitchell Hernandez Diet: Low fat, low cholesterol Activity on Discharge: No heavy lifting Stand Alone Forms: Patient Portal Discharge page Print Language: Sudanese Activity Restrictions/Additional Instructions: If the incision area is tender, you may apply an ice pack for short intervals (No more than 20 minutes on, followed by at least 20 minutes off). Do not apply heat. Do not use creams, lotions, or topical antibiotics. These can cause infection or allergic reaction. Ok to shower 24 hours after your surgery. Remove bandaids in 2 days and replace. You have steri strips (small white cloth strips) covering your incision- these will fall off ~1 week. Follow up in office with Dr. Hernandez in 2 weeks. ([phone]) No heavy lifting (>10-20lbs) or strenuous activity! Call Your Doctor If: -Your temperature exceeds 101.5? F -You experience excessive pain or swelling -You have an unexpected reaction to medication -You have excessive bleeding -You experience continued vomiting/nausea -Your incision begins to separate -Your incision shows signs of infection such as increased redness, swelling, excessive pain, drainage (light blood or clear fluid is normal) or heat Care Plan Goals: Return to baseline health and resume normal activities following recovery period. Health Concerns: s/p laparoscopic cholecystectomy Plan of Treatment: pain control f/u in office in 2 weeks Assessment: Doing well post op. Discharge Date/Time: 02/13/24 10:10
== END 2024-02-13 10:10 | disposition home or self-care (01) | DRG 263 ==
LOC: HO.ED 10:45 → HO.EDOVER 15:47 → HO.S3 02-12 17:03
PROVIDERS: Admitting Provider Surgery; Emergency Provider Student in an Organized Health Care Education/Training Program; Visit Provider Surgery
PROC: 0FT44ZZ Resection of Gallbladder, Percutaneous Endoscopic Approach (ICD-10-PCS; CPT 47562; principal; 2024-02-12 14:00)
DX: K80.20 Calculus of gallbladder without cholecystitis without obstruction (principal); E66.01 Morbid (severe) obesity due to excess calories; K82.8 Other specified diseases of gallbladder; Z68.42 Body mass index [BMI] 45.0-49.9, adult
CPT/HCPCS: 36415; 74177; 76705; 78227; 80053; 81001; 81025; 83605; 83690; 84702; 85025; 85027; 87040; 88304; 93000; 99285; A9537; J1100; J1885; J2250; J2270; J2405; J2543; J2704; J2795; J2805; J3010; J7120; Q9967

== ENCOUNTER → 2024-02-10 15:27 | Outpatient (BNV) | payer MEDICAID, SELFPAY | PROVIDERS: Admitting Provider Surgery; Emergency Provider Student in an Organized Health Care Education/Training Program; Visit Provider Physician Assistant Surgical | DX: K80.20 Calculus of gallbladder without cholecystitis without obstruction (principal) | CPT/HCPCS: 47562; 99024; 99222; 99232; 99499 ==

== ENCOUNTER 2024-07-04 20:38 | Emergency (ER) | payer MEDICAID, SELFPAY ==
[2024-07-04 20:42] VITALS: BP 128/67; PULSE 84; RESP 18; TEMP 36.6; O2SAT 100; BMI 49.4
--- NOTE | 2024-07-04 20:43 | ED.PREGNANCY ---
HPI - General Chief complaint: General Medical Stated complaint: ? high bp unable to eat Time Seen by Provider: 07/04/24 23:50 Source: patient Mode of arrival: ambulatory Limitations: no limitations History of Present Illness ED Provider: hamzah DURAND Narrative: Patient is about 8 weeks with history of migraine headache been having headache for last 3 days [facility] for slightly elevated blood pressure patient was discharged from the on arrival patient's blood pressure was 128/67 repeat blood pressure was 145/80 and when I examined blood pressure was 113/64 patient did vomit 3 times earlier today no abdominal pain no vaginal bleed Related Data Previous Rx's ?Medication ?Instructions ?Recorded docusate sodium 100 mg capsule 100 mg PO BID PRN constipation #30 02/12/24 (Colace) caps ibuprofen 600 mg tablet 600 mg PO Q6H PRN pain #30 tabs 02/12/24 oxycodone 5 mg tablet 5 mg PO Q4H PRN pain (scale score 02/12/24 7-10) #24 tabs ondansetron 4 mg disintegrating 4 mg PO Q6-8H PRN nausea and 07/05/24 tablet vomiting #7 tabs oxycodone 5 mg tablet 5 mg PO Q6H PRN pain #10 tabs 07/05/24 Allergies Allergy/AdvReac Type Severity Reaction Status Date / Time phenyltoloxamine Allergy Unknown VOMITING Verified 07/04/24 20:46 [From DOLOGESIC] Review of Systems Review of Systems: Yes all other systems are reviewed and are negative PMFSH Past Medical History Medical History Biliary dyskinesia Gallstones Morbid obesity Surgical History History of 2 sections Social History Social History Household Members: Children Housing: Apartment Do you presently have visiting nurse or other home services: No Alcohol intake: never Patient Tobacco Use Status: Never used Tobacco Smoked in Last 30 Days: No Use of substances other than those prescribed or required for medical reasons: No Advance Directives: No Do you have a plan to hurt others: No Plan Patient : Yes service: No Physical Exam Vital Signs: Vital Signs: Last Vital Signs Temp 97.9 F 07/04/24 20:42 Pulse 73 07/04/24 23:42 Resp 18 07/04/24 23:42 BP 145/80 H 07/04/24 23:42 Pulse Ox 100 07/04/24 23:42 O2 Del Method Room Air 07/04/24 20:42 BMI result Body Mass Index 49.4 Appearance: Alert. Oriented X3. No acute distress. Eyes: PERRLA, No Nystagmus ENT: Pharynx normal. Oral Mucosa moist Neck: Normal inspection. Neck supple. CVS: Normal heart rate and rhythm. Pulses normal. Respiratory: No respiratory distress. Equal air entry bilateral, no wheezing/rales/rhonchi Abdomen: Soft and nontender. Bowel sounds are present, no mass palpable, no CVA tenderness Skin: Skin warm and dry. Normal skin color. Normal skin turgor. Extremities: No lower extremity edema. No calf tenderness Neuro: Oriented X 3. No motor deficit. No sensory deficit.No cerebellar signs , cranial nerves II-XII intact Course Course Course Narrative: This is a Rapid Medical Exam performed in triage by Joyce Garrett PA-C. Full HPI, ROS and PE to be performed by primary ED provider. 29yo F w/PMHx at unknown gestation obesity presenting to the ED c/o HTN (noted at PCP appt yesterday) & new > was sent to [facility] yesterday from clinic (and observed per patient). Admits took home test last week which was positive, no OB care yet. LMP 8/13. denies hx HTN. Admits to CUTLER, dizziness, N/V with decreased p.o. intake x today. denies abdominal pain or vaginal bleeding PE: BP 128/67, ambulating with steady gait. Plan: Labs, UA Medical Decision Making Medical Decision Making [facility] Narrative: Patient's history of migraine 8 weeks blood pressure 113/64 no proteinuria no history of preeclampsia multiple readings are less than 140/90 and patient is less than 20 weeks patient's slightly elevated blood pressure from migraine which improved during stay discharge patient home for migraine headache Differential Diagnosis Differential Diagnoses: The differential diagnosis associated with the presentation includes Migraine headache/tension headache Lab Data [facility] Lab Attestation statement: I reviewed the patient's lab results. 07/04/24 20:58 07/04/24 20:58 Labs: Lab Results 07/04/24 Range/Units 20:58 WBC 7.1 (4.8-10.8) X10*3/uL RBC 4.72 (4.20-5.50) X10*6/uL Hgb 11.3 L (12.0-16.0) g/dl Hct 35.2 L (37.0-47.0) % MCV 74.6 L (80.0-98.0) fL MCH 23.9 L (27.0-33.0) pg MCHC 32.1 (31.0-35.0) g/dl RDW 15.0 (11.0-16.0) % Plt Count 285 (160-400) X10*3/uL MPV 11.2 (9.4-12.3) fL Immature Gran % (Auto) 0.3 (0.0-0.4) % Neut % (Auto) 50.3 (45-73) % Lymph % (Auto) 37.1 (20-40) % [place] % (Auto) 10.4 (2-11) % Eos % (Auto) 1.3 (0-4) % Baso % (Auto) 0.6 (0-2) % Lymph # (Auto) 2.7 (1.2-4.9) X10*3/uL [place] # (Auto) 0.7 (0.1-1.2) X10*3/uL Eos # (Auto) 0.1 (0.0-0.4) X10*3/uL Baso # (Auto) 0.0 (0.0-0.2) X10*3/uL Abs Immat Gran (auto) 0.02 (0.00-0.03) X10*3/uL Absolute Neuts (auto) 3.6 (2.0-8.3) x10*3/uL Absolute Nucleated RBC 0.000 (0.0-0.012) X10*3/uL Nucleated RBC % (auto) 0.0 (0.0-0.2) /100WBC Sodium 137 (135-145) mmol/L Potassium 3.8 (3.3-5.1) mmol/L Chloride 106 (96-108) mmol/L Carbon Dioxide 25 (22-29) mmol/L Anion Gap 10 L (12-20) BUN 7 L (9-16) mg/dL Creatinine 0.65 (0.5-1.4) mg/dL Estim Creat Clear Calc 134.6 Estimated GFR > 60 Random Glucose 118 H (60-115) mg/dL Calcium 8.9 (8.4-10.2) mg/dL Magnesium 2.0 (1.6-2.6) mg/dL Total Bilirubin 0.2 (0.0-1.0) mg/dL Direct Bilirubin < 0.2 (0.0-0.5) mg/dL AST 15 (5-31) U/L ALT 12 (0-31) U/L Alkaline Phosphatase 78 (39-117) U/L Total Protein 6.9 (6.5-8.0) g/dL Albumin 3.7 (3.5-5.0) g/dL Lipase 20 (8-78) U/L Beta HCG, Quant 405576 mIU/mL Urine Color Yellow Urine Appearance Cloudy Urine pH 6.0 (5.0-9.0) Ur Specific [place] 1.025 (1.005-1.025) Urine Protein Negative (Neg-Trace) mg/dL Urine Glucose (UA) Negative (Negative) mg/dL Urine Ketones Negative (Negative) mg/dL Urine Blood Negative (Negative) Urine Nitrite Negative (Negative) Ur Leukocyte Esterase Negative (Negative) Discharge Plan Discharge Clinical Impression: Headache, migraine Patient Disposition: Home, Self-Care Instructions: Migraine Headache (ED) Additional Instructions: Rest at home Take medication for severe headache as prescribed Tylenol for mild headache Medicine for nausea Prescriptions: New ondansetron 4 mg tablet,disintegrating 4 mg PO Q6-8H PRN (Reason: nausea and vomiting) Qty: 7 0RF oxycodone 5 mg tablet 5 mg PO Q6H PRN (Reason: pain) Qty: 10 0RF Rx Instructions: Partial Fill upon patient request. No Action docusate sodium [Colace] 100 mg capsule 100 mg PO BID PRN (Reason: constipation) Qty: 30 0RF oxycodone 5 mg tablet 5 mg PO Q4H PRN (Reason: pain (scale score 7-10)) Qty: 24 0RF Rx Instructions: Partial Fill upon patient request. ibuprofen 600 mg tablet 600 mg PO Q6H PRN (Reason: pain) Qty: 30 0RF Print Language: Tajik
[2024-07-04 21:03] LABS: MANUAL DIFF FLAG NO
[2024-07-04 21:05] LABS: Basophils Percent Auto 0.6 % (0-2); Eosinophils Absolute Auto 0.1 X10*3/uL (0.0-0.4); Eosinophils Percent Auto 1.3 % (0-4); Hematocrit 35.2 % (37.0-47.0); Hemoglobin 11.3 g/dl (12.0-16.0); Imm Gran Abs Auto 0.02 X10*3/uL (0.00-0.03); Imm Gran Pct Auto 0.3 % (0.0-0.4); Lymphocytes Absolute Auto 2.7 X10*3/uL (1.2-4.9); Lymphocytes Percent Auto 37.1 % (20-40); Mean Corpuscular HGB Conc 32.1 g/dl (31.0-35.0); Mean Corpuscular Hemoglobin 23.9 pg (27.0-33.0); Mean Corpuscular Volume 74.6 fL (80.0-98.0); Mean Platelet Volume 11.2 fL (9.4-12.3); Monocytes Absolute Auto 0.7 X10*3/uL (0.1-1.2); Monocytes Percent Auto 10.4 % (2-11); Neutrophils Absolute Auto 3.6 x10*3/uL (2.0-8.3); Neutrophils Percent Auto 50.3 % (45-73); Platelet Count 285 X10*3/uL (160-400); Red Blood Count 4.72 X10*6/uL (4.20-5.50); White Blood Count 7.1 X10*3/uL (4.8-10.8)
[2024-07-04 21:06] LABS: Appearance Urine Cloudy; Color Urine Yellow; Glucose Urine UA Negative (Negative); Leukocyte Esterase Urine Negative (Negative); Nitrite Urine Negative (Negative); Specific Gravity - Urine 1.025 (1.005-1.025); Urine Blood Negative (Negative); Urine Ketones Negative (Negative); Urine Protein Negative (Neg-Trace)
[2024-07-04 21:25] LABS: Alanine Aminotransferase 12 U/L (0-31); Albumin Level 3.7 g/dL (3.5-5.0); Alkaline Phosphatase 78 U/L (39-117); Anion Gap 10 (12-20); Aspartate Amino Transferase 15 U/L (5-31); Bilirubin Direct < 0.2 mg/dL (0.0-0.5); Bilirubin Total 0.2 mg/dL (0.0-1.0); Blood Urea Nitrogen 7 mg/dL (9-16); Calcium 8.9 mg/dL (8.4-10.2); Carbon Dioxide 25 mmol/L (22-29); Chloride 106 mmol/L (96-108); Creatinine Clr Calc Pharmacy 134.6; Estimated Glomerular Filt Rate > 60; Glucose Random 118 mg/dL (60-115); Lipase 20 U/L (8-78); Potassium 3.8 mmol/L (3.3-5.1); Sodium 137 mmol/L (135-145); Total Protein 6.9 g/dL (6.5-8.0)
[2024-07-04 21:51] LABS: HCG Quantitative 139365 mIU/mL
[2024-07-04 23:42] VITALS: BP 145/80; PULSE 73; RESP 18; O2SAT 100
--- NOTE | 2024-07-04 23:45 | PC.NURSE ---
pt states her BP is elevated, c/o of CUTLER, and blurred vision. States she did not have this problem, with her other pregancies
[2024-07-05] MEDS: oxyCODONE HCl Immed Release 5 MG TABLET 10 MG PO (00:26)
[2024-07-05] MEDS: Ondansetron ODT 4 MG TAB.RAPDIS TRANSLINGU (00:26)
[2024-07-05 00:27] VITALS: BP 113/64
[2024-07-05 00:31] VITALS: BP 113/64; PULSE 73; RESP 18; TEMP 36.6; O2SAT 100
== END 2024-07-05 00:32 | disposition home or self-care (01) ==
PROVIDERS: Physician Assistant; Emergency Provider Internal Medicine
DX: O26.891 Other specified pregnancy related conditions, first trimester (principal); G43.909 Migraine, unspecified, not intractable, without status migrainosus; Z3A.08 8 weeks gestation of pregnancy
CPT/HCPCS: 36415; 80048; 80076; 81003; 83690; 83735; 84702; 85025; 99283; 99284

== ENCOUNTER 2024-09-02 16:27 | Emergency (ER) | payer MEDICAID, SELFPAY ==
[2024-09-02 16:29] VITALS: BP 139/82; PULSE 100; RESP 16; TEMP 36.9; O2SAT 100; BMI 52.9
[2024-09-02 16:52] LABS: MANUAL DIFF FLAG NO
[2024-09-02 16:59] LABS: Basophils Percent Auto 0.3 % (0-2); Eosinophils Absolute Auto 0.1 X10*3/uL (0.0-0.4); Eosinophils Percent Auto 1.1 % (0-4); Hematocrit 34.8 % (37.0-47.0); Hemoglobin 11.3 g/dl (12.0-16.0); Imm Gran Abs Auto 0.03 X10*3/uL (0.00-0.03); Imm Gran Pct Auto 0.4 % (0.0-0.4); Lymphocytes Absolute Auto 2.3 X10*3/uL (1.2-4.9); Lymphocytes Percent Auto 32.8 % (20-40); Mean Corpuscular HGB Conc 32.5 g/dl (31.0-35.0); Mean Corpuscular Hemoglobin 24.5 pg (27.0-33.0); Mean Corpuscular Volume 75.3 fL (80.0-98.0); Monocytes Absolute Auto 0.6 X10*3/uL (0.1-1.2); Monocytes Percent Auto 8.6 % (2-11); Neutrophils Percent Auto 56.8 % (45-73); Platelet Count 239 X10*3/uL (160-400); Red Blood Count 4.62 X10*6/uL (4.20-5.50); Red Cell Distribution Width 16.9 % (11.0-16.0)
[2024-09-02 17:14] LABS: Anion Gap 11 (12-20); Blood Urea Nitrogen 7 mg/dL (9-16); Calcium 10.1 mg/dL (8.4-10.2); Carbon Dioxide 25 mmol/L (22-29); Chloride 105 mmol/L (96-108); Creatinine Clr Calc Pharmacy 145.2; Estimated Glomerular Filt Rate > 60; Glucose Random 124 mg/dL (60-115); Potassium 3.9 mmol/L (3.3-5.1); Sodium 137 mmol/L (135-145)
[2024-09-02 17:37] LABS: HCG Quantitative 21432 mIU/mL
--- NOTE | 2024-09-02 21:04 | ED_ITS ---
HPI - Female Genitourinary General Chief complaint: Urogenital-Female Stated complaint: 17 weeks prego, unable to pass bowel Time Seen by Provider: 09/02/24 19:53 Source: patient Limitations: no limitations History of Present Illness ED Provider: Tanya Lund PA-C HPI Narrative: 29-year-old female with a history of morbid obesity who is currently 17 weeks presents with constipation x3 days. Patient states she struggles constipation she has been using Colace twice a day. Denies abdominal distention inability to pass flatus or nausea vomiting. No vaginal discharge or bleeding. Related Data Previous Rx's ?Medication ?Instructions ?Recorded docusate sodium 100 mg capsule 100 mg PO BID PRN constipation #30 02/12/24 (Colace) caps ibuprofen 600 mg tablet 600 mg PO Q6H PRN pain #30 tabs 02/12/24 oxycodone 5 mg tablet 5 mg PO Q4H PRN pain (scale score 02/12/24 7-10) #24 tabs ondansetron 4 mg disintegrating 4 mg PO Q6-8H PRN nausea and 07/05/24 tablet vomiting #7 tabs oxycodone 5 mg tablet 5 mg PO Q6H PRN pain #10 tabs 07/05/24 Allergies Allergy/AdvReac Type Severity Reaction Status Date / Time phenyltoloxamine Allergy Unknown VOMITING Verified 09/02/24 16:37 [From DOLOGESIC] Review of Systems 2 Review of Systems: Yes all other systems are reviewed and are negative Constitutional: Constitutional: Denies fatigue and Denies fever(s) Cardiovascular: Cardiovascular: Denies chest pain and Denies dyspnea Respiratory: Respiratory: Denies dyspnea Gastrointestinal: Gastrointestinal: Reports abdominal pain, Reports constipation, Denies diarrhea, Denies nausea and Denies vomiting Endocrine: Endocrine: Denies fatigue PMFSH Past Medical History Attestation statement: The following information was validated with the patient. Medical History Biliary dyskinesia Gallstones Morbid obesity Surgical History History of 2 sections Social History Social History Household Members: Children Housing: Apartment Do you presently have visiting nurse or other home services: No Alcohol intake: never Patient Tobacco Use Status: Never used Tobacco Advance Directives: No Advance Directives Information Provided: Yes Do you have a plan to hurt others: No Plan service: No Physical Exam 2 Vital Signs: Vital Signs: Last Vital Signs Temp 98.5 F 09/02/24 16:29 Pulse 100 09/02/24 16:29 Resp 16 09/02/24 16:29 BP 139/82 09/02/24 16:29 Pulse Ox 100 09/02/24 16:29 O2 Del Method Room Air 09/02/24 16:29 BMI result Body Mass Index 52.9 Const: Other: Alert, overall well-appearing Orientation/consciousness: patient oriented x3 Resp: Other: Nonlabored respiration Cardio: Other: Normal peripheral perfusion GI: Other: Abdomen is soft, nondistended nontender obese, no fecal impaction on rectal exam Skin: Other: Warm dry no rash Neuro: General: patient oriented x3, no focal motor deficits and CN's II-XI intact bilaterally Psych: Other: Calm cooperative Medical Decision Making Medical Decision Making MDM Narrative: 29-year-old female with a history of morbid obesity who is currently 17 weeks presents with constipation x3 days. Patient states she struggles constipation she has been using Colace twice a day. Denies abdominal distention inability to pass flatus or nausea vomiting. No vaginal discharge or bleeding. Problem: and constipation History: Per patient I have considered the following differential diagnoses: Obstipation, constipation, fecal impaction, bowel obstruction Plan: The patient is constipated without evidence of fecal impaction, she has no obstructive symptoms. We will advised she can use milk of magnesia in it is safe in we will send with dosing instructions. She can continue to follow up with her car starter and primary care. Screening labs were ordered from triage I have independently reviewed the following tests: Labs: No leukocytosis, not anemic, no electrolyte abnormality, quant [id number] Lab Data 09/02/24 16:46 09/02/24 16:46 Labs: Lab Results 09/02/24 Range/Units 16:46 WBC 7.0 (4.8-10.8) X10*3/uL RBC 4.62 (4.20-5.50) X10*6/uL Hgb 11.3 L (12.0-16.0) g/dl Hct 34.8 L (37.0-47.0) % MCV 75.3 L (80.0-98.0) fL MCH 24.5 L (27.0-33.0) pg MCHC 32.5 (31.0-35.0) g/dl RDW 16.9 H (11.0-16.0) % Plt Count 239 (160-400) X10*3/uL MPV 11.0 (9.4-12.3) fL Immature Gran % (Auto) 0.4 (0.0-0.4) % Neut % (Auto) 56.8 (45-73) % Lymph % (Auto) 32.8 (20-40) % [place] % (Auto) 8.6 (2-11) % Eos % (Auto) 1.1 (0-4) % Baso % (Auto) 0.3 (0-2) % Lymph # (Auto) 2.3 (1.2-4.9) X10*3/uL [place] # (Auto) 0.6 (0.1-1.2) X10*3/uL Eos # (Auto) 0.1 (0.0-0.4) X10*3/uL Baso # (Auto) 0.0 (0.0-0.2) X10*3/uL Abs Immat Gran (auto) 0.03 (0.00-0.03) X10*3/uL Absolute Neuts (auto) 4.0 (2.0-8.3) x10*3/uL Absolute Nucleated RBC 0.000 (0.0-0.012) X10*3/uL Nucleated RBC % (auto) 0.0 (0.0-0.2) /100WBC Sodium 137 (135-145) mmol/L Potassium 3.9 (3.3-5.1) mmol/L Chloride 105 (96-108) mmol/L Carbon Dioxide 25 (22-29) mmol/L Anion Gap 11 L (12-20) BUN 7 L (9-16) mg/dL Creatinine 0.63 (0.5-1.4) mg/dL Estim Creat Clear Calc 145.2 Estimated GFR > 60 Random Glucose 124 H (60-115) mg/dL Calcium 10.1 D (8.4-10.2) mg/dL Beta HCG, Quant 60377 mIU/mL Discharge Plan Discharge Clinical Impression: Constipation, and not yet delivered in first trimester Patient Disposition: Home, Self-Care Instructions: Constipation (ED) Additional Instructions: In addition to the Colace that you use, you need to use milk of Mag, you can purchase this [id number]. You can use this medication several times a day, I will write down the dosing for you. 30 ml 2-3 times a day Prescriptions: No Action docusate sodium [Colace] 100 mg capsule 100 mg PO BID PRN (Reason: constipation) Qty: 30 0RF oxycodone 5 mg tablet 5 mg PO Q4H PRN (Reason: pain (scale score 7-10)) Qty: 24 0RF Rx Instructions: Partial Fill upon patient request. ibuprofen 600 mg tablet 600 mg PO Q6H PRN (Reason: pain) Qty: 30 0RF ondansetron 4 mg tablet,disintegrating 4 mg PO Q6-8H PRN (Reason: nausea and vomiting) Qty: 7 0RF oxycodone 5 mg tablet 5 mg PO Q6H PRN (Reason: pain) Qty: 10 0RF Rx Instructions: Partial Fill upon patient request. Print Language: English
[2024-09-02 21:39] VITALS: BP 139/82; PULSE 100; RESP 16; TEMP 36.9; O2SAT 100
== END 2024-09-02 21:39 | disposition home or self-care (01) ==
PROVIDERS: Emergency Provider Emergency Medicine; PCP Emergency Medicine
DX: O26.92 Pregnancy related conditions, unspecified, second trimester (principal); K59.00 Constipation, unspecified; Z3A.17 17 weeks gestation of pregnancy; Z79.899 Other long term (current) drug therapy
CPT/HCPCS: 36415; 80048; 84702; 85025; 99283

== ENCOUNTER 2025-02-12 09:41 | Emergency (ER) | payer MEDICAID, SELFPAY ==
--- NOTE | ~2025-02-12 | CT_ITS ---
EXAMINATION: CT ABDOMEN AND PELVIS WITH CONTRAST CLINICAL INFORMATION: 3 weeks with abdominal pain. COMPARISON: CT abdomen and pelvis 02/10/2024 TECHNIQUE: Multidetector volumetric images were obtained from the superior aspect of the liver through the pubic symphysis following administration 85 mL of Omnipaque 350 intravenous contrast. Sagittal and coronal reformatted images were obtained on the technologist's workstation. Oral contrast: No This CT examination was performed using dose optimization techniques as appropriate, variously including the following: *Automated exposure control *Adjustment of mA and/or kV according to patient size (this includes techniques or standardized protocols for targeted exams where dose is matched to indication/reason for exam; i.e. extremities or head) *Use of iterative reconstruction technique DLP: 720 mGy/cm. FINDINGS: LUNG BASES: The visualized lung bases are unremarkable. LIVER, GALLBLADDER, AND BILIARY TREE: The liver is normal in size, shape, and attenuation. No focal hepatic lesion or biliary ductal dilatation is present. The gallbladder has been surgically removed. PANCREAS: Unremarkable. SPLEEN: Unremarkable. ADRENAL GLANDS: Unremarkable. KIDNEYS AND URETERS: The kidneys are normal in size, shape, and attenuation. There is a 3 mm nonobstructive radiopaque calculi upper pole right kidney minimally increased in size. No focal caliectasis seen. No additional radiopaque calculi seen. There is no hydronephrosis. The left kidney appears free of radiopaque calculi. There is a calyceal cyst measuring BLADDER: Unremarkable. GASTROINTESTINAL TRACT: There is scattered stool and gas seen throughout the colon without distention. The small bowel loops are normal caliber. Appendix is not visualized. No free air or free fluid. ABDOMINAL WALL: Midline postsurgical changes are seen. No evidence of hernia. LYMPH NODES: Normal. VASCULAR: Unremarkable. PELVIC VISCERA: The post gravid uterus is anteverted and unremarkable. No adnexal mass or free fluid seen. OSSEOUS STRUCTURES: No aggressive lytic or sclerotic process seen. CT/CT abdomen pelvis w IV con IMPRESSION: Nonobstructive radiopaque calculi upper pole right kidney slightly increased in size from previous study. Mild constipation. Interval Cholecystectomy with no change in right kidney No acute intra-abdominal process seen. Fleischner guidelines were followed. Electronically signed by: Vince Newell MD 02/12/2025 11:55 AM EDT
[2025-02-12 09:43] VITALS: BP 131/77; PULSE 85; RESP 20; TEMP 37; O2SAT 98; BMI 45.5
--- NOTE | 2025-02-12 09:54 | ED.GENADULT ---
HPI - General Adult General Chief complaint: Abdominal Pain Stated complaint: Nausea Cramping L Side Time Seen by Provider: 02/12/25 09:54 Source: patient Mode of arrival: ambulatory Limitations: no limitations History of Present Illness ED Provider: Steph Salas PA-C HPI narrative: 29-year-old female medical history of obesity, asthma presents to the ED today due to 2 days of abdominal pain and nausea. Patient is 3 weeks she had a (01/18/25) due to hypertension in at [facility]. Upon [facility] chart review, patient was not officially diagnosed with pre-eclampsia was not discharged with anti hypertensive medication. Patient reports she had also had a salpingectomy at the time of . 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 She has not vomited. She also reports daily frontal headaches which she is taking Tylenol without effect. Patient is not . Denies chest pain, shortness of breath, visual changes, vomiting, diarrhea, vaginal discharge/bleeding, fever, chills. Onset (ago): day(s) (2) Location: abdomen (Left-sided epigastric) Radiation: non-radiation Severity: moderate Quality: aching Pain Consistency: constant Relieving factors: none Exacerbating factors: none Associated symptoms: nausea/vomiting (No vomiting) Treatments prior to arrival: none Related Data Previous Rx's ?Medication ?Instructions ?Recorded docusate sodium 100 mg capsule 100 mg PO BID PRN constipation #30 02/12/24 (Colace) caps ibuprofen 600 mg tablet 600 mg PO Q6H PRN pain #30 tabs 02/12/24 oxycodone 5 mg tablet 5 mg PO Q4H PRN pain (scale score 02/12/24 7-10) #24 tabs ondansetron 4 mg disintegrating 4 mg PO Q6-8H PRN nausea and 07/05/24 tablet vomiting #7 tabs oxycodone 5 mg tablet 5 mg PO Q6H PRN pain #10 tabs 07/05/24 Allergies Allergy/AdvReac Type Severity Reaction Status Date / Time phenyltoloxamine Allergy Unknown VOMITING Verified 02/12/25 09:47 [From DOLOGESIC] Review of Systems Review of Systems: CONST: Negative for fever, body aches and chills. HENT: Negative for neck pain/stiffness, congestion, sore throat, swelling. POS headache EYES: Negative for discharge/pain or vision changes. RESP: Negative for cough/hemoptysis and shortness of breath. CV: Negative chest pain, difficulty breathing, palpitations. ABD: Negative, vomiting. POS abdominal pain, nausea. : Negative increase frequency, dysuria, blood in urine or stool. MUSC: Negative for muscle aches, edema. SKIN: Negative rash, lesions/sores. NEURO: Negative lightheadedness, dizziness, weakness. Yes all other systems are reviewed and are negative [facility] Past Medical History Attestation statement: The following information was validated with the patient. Source: unable to obtain, old records reviewed and nursing notes reviewed Medical History Biliary dyskinesia Gallstones Morbid obesity Surgical History History of 2 sections Social History Social History Household Members: Children Housing: Apartment Do you presently have visiting nurse or other home services: No Alcohol intake: never Patient Tobacco Use Status: Never used Tobacco Advance Directives: No Advance Directives Information Provided: Yes Do you have a plan to hurt others: No Plan service: No Physical Exam ED Vital Signs: Vital Signs - 24 hr 02/12/25 09:43 02/12/25 11:57 Temperature 98.6 F 98.0 F Pulse Rate 85 72 Respiratory Rate 20 16 Blood Pressure 131/77 111/54 L Pulse Oximetry 98 99 Oxygen Delivery Method Room Air Room Air BMI result Body Mass Index 45.5 GENERAL APPEARANCE: ?AxOx4, generally well-appearing, no acute distress. HEENT: ?NC, AT. MMM. EOMI, clear conjunctiva, oropharynx clear. HEART:? Normal rate and regular rhythm, normal S1/S1, no m/r/g LUNGS:? CTAB, moving air well. No crackles or wheezes are heard. ABDOMEN: ?Soft, nondistended, bowel sounds in 4 quads. TTP over left epigastric aspect of abdomen. Cesarian section scar well approximated, intact without erythema,edema, warmth, active bleeding or exudates. BACK: No CVAT, no obvious deformity. EXTREMITIES: ?Without cyanosis, clubbing or edema. NEUROLOGICAL: ?Grossly nonfocal. Alert and oriented, moving all 4 extremities. Observed to ambulate with normal gait. Skin: ?Warm and dry without any rash. Medications Administered Generic Name Dose Route Start Last Admin Trade Name Freq PRN Reason Stop Dose Admin Lactated Ringer's 1,000 mls @ 999 mls/hr 02/12/25 12:15 02/12/25 12:21 Lr IV 02/12/25 13:15 999 mls/hr .Q1H1M ONE Administration Discontinued Medications Generic Name Dose Route Start Last Admin Trade Name Freq PRN Reason Stop Dose Admin Acetaminophen 1,000 mg in 100 mls @ 400 mls/hr 02/12/25 10:28 02/12/25 11:14 Ofirmev IV 02/12/25 10:42 Infused ONCE ONE Infusion Iohexol 100 ml 02/12/25 11:30 02/12/25 11:31 Iohexol 350 Mg/Ml 100 Ml Infus..Btl IV 02/12/25 11:31 85 ml ONCE ONE Administration Ondansetron HCl 4 mg 02/12/25 10:28 02/12/25 10:58 Ondansetron Hcl 4 Mg/2 Ml Vial IVPUSH 02/12/25 10:29 4 mg ONCE ONE Administration Medical Decision Making Medical Decision Making [facility] Narrative: 29-year-old female medical history of obesity, asthma presents to the ED today due to 2 days of abdominal pain and nausea. Patient is 3 weeks she had a (01/18/25) due to hypertension in at [facility]. Upon [facility] chart review, patient was not officially diagnosed with pre-eclampsia was not discharged with anti hypertensive medication. Patient reports she had also had a salpingectomy at the time of . Patient not breast-feeding VSS, current BP is 102/53. Patient has an active headache without visual changes. On physical exam TTP over left epigastric aspect, section scar is well approximated, intact, without warmth, erythema, no active bleeding or exudates, uterus palpated approximately 3cm below umbilicus without atony. Patient had cholecystectomy 02/06 no concerns for biliary disease. No rebound tenderness, guarding. No vaginal bleeding, vaginal discharge. EKG reveals right axis deviation with T wave inversion is V1-V2, no ST elevations or depressions, Troponin WNL- low suspicion of ACS. Low suspicion for preeclampsia as BP is 102/53 without medications, there are no visual changes with headache. Currently awaiting UA to evaluate for protein in the urine. Awaiting labs. Awaiting abdominal CT with IV contrast to evaluate for abdominal pain. Patient medicated with IV Tylenol, 4 mg ondansetron IV. Course 11:24- UA reveals no infection, or signs of end organ damage (negative protein). Current BP is 102/53, headache relieved with IV tylenol. low suspicion for post- preeclampsia, post- HTN. 12:04- Labs unremarkable. Viral swabs negative. CT abdomen/pelvis does not reveal acute abdominal process, uterus unremarkable. Observes Nonobstructive radiopaque calculi upper pole right kidney slightly increased in size from previous study with mild constipation- low suspicion for pancreatitis, appendicitis, post- endometritis. Current BP is 91/40. Will start IV fluids, oral hydration. Currently contacting [facility] at [facility] for consultation/recommendations. 12:45- CT abdomen and pelvis does not reveal any acute intra-abdominal processes, does reveal nonobstructive calculi of the upper pole of the right kidney. These results were discussed with the patient and recommended that she follow up with her primary care physician. Additionally, I spoke with the covering OB physician at [facility] for recommendations. He agreed with the plan that patient is safe for discharge home with close follow up with OBGYN, and to return to [facility] for any additional symptoms or concerns after discharge. Patient states she has an appointment 02/22/25 for follow up. I recommended her to call her OB Saturday AM to see if she is able to get an appointment sooner. At this time I suspect her abdominal pain is due to after pains with organs settling back into their original locations which can cause mild abdominal cramping. Differential Diagnosis Differential Diagnoses: The differential diagnosis associated with the presentation includes pre-eclampsia hypertension ACS Pancreatitis Appendicitis endometritis after pains Admission/Observation Consideration of admission/observation: Escalation of care including admission/observation considered Lab Data MDM Lab Attestation statement: I reviewed the patient's lab results. 02/12/25 10:53 02/12/25 10:53 Labs: Lab Results 02/12/25 02/12/25 Range/Units 10:53 10:57 WBC 5.4 (4.8-10.8) X10*3/uL RBC 4.54 (4.20-5.50) X10*6/uL Hgb 9.4 L (12.0-16.0) g/dl Hct 31.5 L (37.0-47.0) % MCV 69.4 L (80.0-98.0) fL MCH 20.7 L (27.0-33.0) pg MCHC 29.8 L (31.0-35.0) g/dl RDW 17.7 H (11.0-16.0) % Plt Count 286 (160-400) X10*3/uL MPV 11.1 (9.4-12.3) fL Immature Gran % (Auto) 0.6 H (0.0-0.4) % Neut % (Auto) 49.6 (45-73) % Lymph % (Auto) 35.7 (20-40) % [place] % (Auto) 9.7 (2-11) % Eos % (Auto) 3.7 (0-4) % Baso % (Auto) 0.7 (0-2) % Lymph # (Auto) 1.9 (1.2-4.9) X10*3/uL [place] # (Auto) 0.5 (0.1-1.2) X10*3/uL Eos # (Auto) 0.2 (0.0-0.4) X10*3/uL Baso # (Auto) 0.0 (0.0-0.2) X10*3/uL Abs Immat Gran (auto) 0.03 (0.00-0.03) X10*3/uL Absolute Neuts (auto) 2.7 (2.0-8.3) x10*3/uL Absolute Nucleated RBC 0.000 (0.0-0.012) X10*3/uL Nucleated RBC % (auto) 0.0 (0.0-0.2) /100WBC Sodium 142 (135-145) mmol/L Potassium 4.1 (3.3-5.1) mmol/L Chloride 107 (96-108) mmol/L Carbon Dioxide 28 (22-29) mmol/L Anion Gap 11 L (12-20) BUN 9 (9-16) mg/dL Creatinine 0.66 (0.5-1.4) mg/dL Estim Creat Clear Calc 125.9 Estimated GFR > 60 Random Glucose 99 (60-115) mg/dL Calcium 9.5 (8.4-10.2) mg/dL Total Bilirubin 0.6 (0.0-1.0) mg/dL Direct Bilirubin 0.2 (0.0-0.5) mg/dL AST 23 (5-31) U/L ALT 17 (0-31) U/L Alkaline Phosphatase 120 H (39-117) U/L Troponin I High Sens < 2.7 (<3.5-17.0) ng/L Total Protein 7.2 (6.5-8.0) g/dL Albumin 4.2 (3.5-5.0) g/dL Lipase 16 (8-78) U/L Beta HCG, Quant < 2 mIU/mL Urine Color Yellow Urine Appearance Clear Urine pH 5.5 (5.0-9.0) Ur Specific [place] 1.020 (1.005-1.025) Urine Protein Negative (Neg-Trace) mg/dL Urine Glucose (UA) Negative (Negative) mg/dL Urine Ketones Negative (Negative) mg/dL Urine Blood Negative (Negative) Urine Nitrite Negative (Negative) Ur Leukocyte Esterase Trace H (Negative) Urine RBC 0-2 (0-2) /HPF Urine WBC 6-10 H (0-5) /HPF Ur Squamous Epith Cells 6-10 (0-2) /HPF Urine Bacteria Trace (None Seen) Hyaline Casts 0-2 (0-2) /LPF Influenza Type A (PCR) NEGATIVE (Negative) Influenza Type B (PCR) NEGATIVE (Negative) RSV RNA Qual (PCR) NEGATIVE (Negative) SARS-CoV-2 RNA (RT-PCR) NEGATIVE (Negative) Independent Interpretation I performed an independent interpretation of an: EKG and CT Scan Interpretation: I independently interpreted the EKG as follows: EKG with right axis deviation, and T wave inversions in V1-V2. Does not show ST elevation/depression. Vent. Rate : 76 BPM Atrial Rate : 76 BPM P-R Int : 156 ms QRS Dur : 74 ms QT Int : 386 ms P-R-T Axes : 53 90 35 degrees QTcB Int : 434 ms Normal sinus rhythm Rightward axis Borderline ECG Radiology Impression Discussion of test interpretation with radiology: I have reviewed the radiologist's reading. External Record Review External record reviewed: Inpatient record and Outpatient record Chronic Conditions Patient?s care impacted by: Other (Hypertension of ) Discharge Plan Discharge Clinical Impression: Elevated blood pressure reading without diagnosis of hypertension Patient Disposition: Home, Self-Care Instructions: How to Take a Blood Pressure Reading (ED) Additional Instructions: You were evaluated in the ED today due to abdominal pain and concerns of hypertension after your section delivery on 01/18. Your lab work was normal. Your EKG was normal. Your urine sample did not show any evidence of infection or protein which can be a concern of hypertension after . Your CT of your abdomen/pelvis did not show any emergent processes. However it did observe non-obstructive stones within your upper kidney. I do not believe that this is causing her abdominal pain as kidney stones do not start causing pain until they reached the ureters which yours are not. You were started on IV fluids, given 4 mg of Zofran, and IV Tylenol to manage your pain and nausea. you reported these medications reduced your pain. You should follow up with your PCP to review your CT results of the non-obstructing kidney stones in the upper kidney. I spoke with the covering OB physician physician at [facility] for a consult and recommendations. They agree that you were safe for discharge home, and encourage you to do home blood pressure checks, with close follow-up with your OBGYN. You stated you have a appointment coming up with your OBGYN 02/22 however you should call the office on Saturday morning to see if you can get an appointment sooner. You can alternate Tylenol/Motrin every 6 hours to manage your headaches at home. But as we discussed you should closely watch your home blood pressures. Per the [facility] OB provider who I discussed your case with today, recommended you to go to [facility] for any emergent concerns. However, you are more than welcome to return to the ED if you have any worsening or new concerns. Please return to the ED if you are experiencing worsening headache/visual changes, fever over 100.4, increased abdominal pain, vomiting, vaginal discharge or vaginal bleeding, or a blood pressure with the top number (systolic) of 140 or greater or the bottom number (diastolic) of 90 or greater. Prescriptions: No Action docusate sodium [Colace] 100 mg capsule 100 mg PO BID PRN (Reason: constipation) Qty: 30 0RF oxycodone 5 mg tablet 5 mg PO Q4H PRN (Reason: pain (scale score 7-10)) Qty: 24 0RF Rx Instructions: Partial Fill upon patient request. ibuprofen 600 mg tablet 600 mg PO Q6H PRN (Reason: pain) Qty: 30 0RF ondansetron 4 mg tablet,disintegrating 4 mg PO Q6-8H PRN (Reason: nausea and vomiting) Qty: 7 0RF oxycodone 5 mg tablet 5 mg PO Q6H PRN (Reason: pain) Qty: 10 0RF Rx Instructions: Partial Fill upon patient request. Print Language: Tajik
--- NOTE | 2025-02-12 09:57 | ECG_ITS ---
Test Reason : HTN/POST PREECLAMPSIA Blood Pressure : */* mmHG Vent. Rate : 76 BPM Atrial Rate : 76 BPM P-R Int : 156 ms QRS Dur : 74 ms QT Int : 386 ms P-R-T Axes : 53 90 35 degrees QTcB Int : 434 ms Normal sinus rhythm Rightward axis Borderline ECG When compared with ECG of 10-Feb-2024 04:43, Inverted T waves have replaced nonspecific T wave abnormality in Anterior leads Referred By: Maritza Choi Electronically Signed By: TRAVON ESTEVEZ MD
[2025-02-12] MEDS: ondansetron HCL 4 MG/2 ML VIAL IVPUSH (10:58)
--- OUTSIDE RECORDS SUMMARY | 2025-02-12 10:58 | XMS_ITS | Clinical Summary ---
Author Organization [employer] Address [address] [facility] [address] [place] [address] Care Team Providers Care Candy Packer Name Role Phone Stephie Ellis AIRCRAFT MANAGER Primary Care Provider [phone] Allergies Active Allergy Reactions Criticality Noted Date Comments Dexbromphen-Acetaminophen Unknown 09/12/2016 From [facility] records Dizziness, nausea hives Lidocaine Hcl Unknown 07/03/2024 From [facility] records Medications * This document contains information received from the source organization and may not represent a complete record from that organization. albuterol 108 (90 Base) MCG/ACT inhaler Inhale 2 puffs every 4 (four) hours if needed for wheezing or shortness of breath. 18 g 1 08/21/20 24 025 Active albuterol (2.5 MG/3ML) 0.083% nebulizer solution Take 3 mL (2.5 mg) by nebulization every 6 (six) hours if needed for wheezing or shortness of breath. 75 mL 1 08/21/20 24 025 Active amoxicillin (Amoxil) 500 MG capsule Take 1 capsule (500 mg) by mouth every 12 (twelve) hours. 20 capsule 08/21/20 24 Active MV-Min-Fe Fum-FA-DHA ( Multivitamin + DHA) 28-0.8 & 200 MG misc Take by mouth. 04/02/20 17 Active ondansetron ODT (Zofran-ODT) [address] 4 mg into mouth between cheek and gum every 8 (eight) hours if needed. 08/25/20 24 Active docusate sodium (Colace) 100 MG capsule Take 1 capsule by mouth if needed in the morning and at bedtime for constipation. 02/13/20 24 Active Aspirin 81 MG capsule Take 81 mg by mouth. 09/07/20 24 Active doxylamine (Unisom) 25 MG tabletIndications: Nausea and vomiting, unspecified vomiting type Take 1 tablet (25 mg) by mouth if needed at bedtime for sleep. 30 tablet 10/14/19 25 Active pyridoxine (Vitamin B-6) 25 MG tablet Take 25 mg by mouth if needed in the morning, at noon, in the evening, and at bedtime (before meals). Active Active Problems Problem Noted Date Diagnosed Date Headache in 02/10/2025 Nausea and vomiting 10/14/2024 Assessment & Plan (10/14/2024 3:00 PM EST): Pt will continue to eat smaller more frequent meals Pt will ensure adequate hydration Will send unisom to take at bedtime Hypothyroidism 10/14/2024 Assessment & Plan (10/14/2024 3:02 PM EST): There are discrepancies between the two notes from [facility] and [facility], per pt's most recent TSH level of 5.58 she has hypothyroidism. However, these notes have both diagnosed the patient with hyperthyroidism. Pt will follow up with OB on 10/23/24 and we will continue with OB's plan to recheck TSH level in third trimester At this time it would be very important to initiate levothyroxine to avoid complications in and congenital hypothyroidism. Routine health maintenance 10/14/2024 Assessment & Plan (10/14/2024 3:04 PM EST): Will send referrals to vision center and dental for routine examinations Dietary counseling 10/14/2024 Assessment & Plan (10/14/2024 3:05 PM EST): Dietary Recommendations: Fruits, vegetables, whole grains, protein foods, and fat-free or low-fat dairy products are healthy choices. Eat different types of protein foods in your diet. This can include seafood, lean meats, poultry, beans, peas, lentils, nuts, seeds, soy products, and eggs. Limit foods and beverages higher in added sugars, saturated fat, and sodium. Exercise counseling 10/14/2024 Assessment & Plan (10/14/2024 3:05 PM EST): Exercise Recommendations: At least 150 minutes of moderate-intensity physical activity per week, or an equivalent combination of moderate- and vigorous-intensity activity Class 3 severe obesity with body mass index (BMI) of 45.0 to 49.9 in adult 10/14/2024 Assessment & Plan (10/14/2024 3:06 PM EST): Pt plans to diet and exercise Pt plans to drink plenty of water Pt plans to eat smaller more frequent meals Migraine headache 10/12/2024 Constipation 10/12/2024 Anxiety disorder 10/12/2024 Abnormal glucose level 10/12/2024 Nausea and vomiting in 08/25/2024 Previous section complicating 08/06/2024 Overview (10/12/2024): 2018 and 2019 @ [facility] Morbid obesity 08/06/2024 Overview (10/12/2024): HgbA1C and 1 hour GTT at initial labs ASA 162mg at 12 weeks until delivery Detailed anatomy ultrasound Repeat GTT 24-28 weeks if early is normal Pre-preg BMI 35-39.9: NST weekly at 37 weeks Pre-preg BMI >40: NST weekly at 34 weeks Pre-preg BMI >45: NST weekly at 32 weeks Growth US at 32 and 36 weeks for BMI >40 BMI of 50 by 28wks transfer to [facility] DVT prophylaxis- Lovenox if CS and BMI >35 Hyperthyroidism 08/06/2024 Heart murmur 08/06/2024 Asthma 08/06/2024 H/O cardiac murmur 07/03/2024 Mild intermittent asthma without complication 07/03/2024 Esotropia of right eye 07/03/2024 Vitamin D insufficiency 09/14/2016 Chronic 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 09/12/2016 Estimated Date of Delivery Comme nts Yes 02/07/2025 Based on [facility] ISA, [facility] OBGYN transferred to [facility] clinic Encounters * This document contains information received from the source organization and may not represent a complete record from that organization. Date Type Department Care Team Description 02/12/2025 Patient Outreach [address] [address] Stephie Ellis CNP CHW-Instructor [employer] PPD (Follow up call/PPD Program ) 02/09/[address] [address] Tru Tran MA Chartprep 02/09/[address] [address] Stephie Ellis CNP Care Management (C3 TC #1-lvm) 02/03/2025 Telephone [facility] [address] [place] [id number] Beverley Melton MD triage 02/02/2025 Patient Outreach [facility] [address] [place] [address] [phone] Stephie Ellis CNP Pre-visit Planning ([facility] unable to reach LV) 01/29/2025 Patient Outreach [address] [address] Stpehie Ellis CNP Care Coordination (C3DELIA/MOUNIKA Li#1- Follow up call-LVM) 01/25/[address] [address] Stephie Ellis CNP Care Management (C3CM follow up call) 01/15/2025 Patient Outreach [address] [address] Stephie Ellis CNP Care Coordination (C3/MOUNIKA Li- Follow up call) 01/15/[address] [address] Stephie Ellis CNP Care Management (C3CM follow up call) 01/12/2025 Orders Only [facility] [address] [place] [phone] Sujatha Barakat 12/25/2024 Patient Outreach [address] [address] Stephie Ellis CNP Care Coordination (C3CM/MOUNIKA Li#2- Follow up call- LVM) 12/18/2024 Telephone [facility] [address] [place] [address] Stephie Ellis CNP Care Management (C3CM follow up call) 12/04/2024 Patient Outreach [facility] [address] [place] [address] Stephie Elils CNP Care Coordination ([facility]/W MOUNIKA Landers#1- Follow up call-LVM) 12/01/2024 1:45 PM EDT Office Visit [facility] [address] [place] [address] Jose Guadalupe, Zarina, OD Myopia, bilateral (Primary Dx) 11/27/2024 Population Health Risk Score Community [facility] (C3) [address] [id number] Provider, Population Health Generic 11/20/2024 Patient Outreach [facility] [address] [place] [address] Stephie Ellis CNP Care Coordination ([facility]/W MOUNIKA Miles- Follow up call) 11/20/2024 Telephone [facility] [address] [place] [address] Stephie Ellis CNP Care Management (C3 follow up call) from Last 3 Months Immunizations Immunization Administration Dates Next Due Hep A, Adult 10/08/2016 Hep B, adult 10/08/2016 Influenza injectable quadrivalent preservative f ree 10/08/2016 Influenza, seasonal, injectable, preservative fr ee 07/08/2024 Tdap 10/04/2017 Family History Medical History Relation Name Comments Diabetes Father Glaucoma Maternal Grandmother Breast cancer Mother Diabetes Mother Glaucoma Mother Hypertension Mother cardiac disease Paternal Grandfather Relation Name Status Comments Father Maternal Grandmother Mother Paternal Grandfather Social History Tobacco Use Types Packs/Day Years Used Date Smoking Tobacco: Never Smokeless Tobacco: Never Tobacco Cessation:Counseling Given: Not Answered Depression Answer Date Recorded Patient Health Questionnaire-9 Score 5 10/14/2024 Patient Health Questionnaire-9 Score 5 10/14/2024 Last PHQ-9: Questionnaire Data Not on file 0 10/14/2024 Housing Stability Answer Date Recorded What is your housing situation today? I have housing today, but I am worried about losing housing in the future 09/08/[address] you li ve. Do you have problems with any of the following? None of the above 09/08/2024 Food Insecurity Answer Date Recorded Within the past 12 months, y ou worried that your food would run out before you got money to buy more: Never True 09/08/2024 Within the past 12 months,th e food you bought just didn't last and you didn't have enough money to get more: Never True Transportation Answer Date Recorded In the past 12 months, has l ack of transportation kept you from medical appts, meetings, work or from getting things needed for daily living? Yes, it has kept me from medical appointments or getting medications. 09/08/2024 Utilities Answer Date Recorded In the past 12 months, has t he electric, gas, oil or water company threatened to shut off services in your home? Yes 09/08/2024 Depression Answer Date Recorded Patient Health Questionnaire-2 Score 1 10/14/2024 Internet Access Answer Date Recorded Internet Access Q1 Yes 09/08/2024 Internet Access Q2 Not on file 09/08/2024 Estimated Date of Delivery Comme nts Yes 02/07/2025 Based on [facility] ISA, [facility] OBGYN transferred to [facility] Sex and Gender Information Value Date Recorded Sex Assigned at Female 07/16/2022 10:16 AM EDT Legal Sex Female 10:16 AM EDT Gender Identity Male 07/17/2022 7:01 PM EDT Sexual Orientation Lesbian or Moss 07/17/2022 7: 01 PM EDT Last Filed Vital Signs Vital Sign Reading Time Taken Comments Blood Pressure 137/83 02/03/2025 11:18 AM EDT Pulse 64 02/03/2025 11:18 AM EDT Temperature 36.3 ??C (97.4 ??F) 02/03/2025 11:18 AM E DT Respiratory Rate 20 02/03/2025 11:18 AM EDT Oxygen Saturation 98% 02/03/2025 11:18 AM EDT Inhaled Oxygen Concentration - - Weight 106 kg (233 lb 9.6 oz) 10/14/2024 1:27 PM EST Height 147.3 cm (4' 10 ) 10/14/2024 1:27 PM EST Body Mass Index 48.82 10/14/2024 1:27 PM EST Plan of Treatment Health Maintenance Due Date Last Done Comments Lipid Panel 1994 Disability Screening 1994 Family Planning (PISQ) 2009 Pneumococcal Vaccine: Pediatrics (0 to 5 Years) and At-Risk Patients (6 to 49) Years) (1 of 2 - PCV) 2013 Hepatitis B Vaccines (2 of 3 - 19+ 3-dose series) 11/05/2016 10/08/2016 COVID-19 Vaccine (1 - 2023-2 5 season) 2024 SDOH Screening 09/08/2025 09/08/2024 Alcohol/Substance Use Screening 10/14/2025 10/14/2024 Depression Screening 10/14/2025 10/14/2024, 10/14/2024 Tobacco Screening 10/20/2025 10/20/2024 Cervical Cancer Screening 08/25/2027 HPV/Cotest 08/25/2027 Pap Smear 08/25/2027 08/25/2024 DTaP/Tdap/Td Vaccines (3 - T d or Tdap) 11/17/2034 11/17/2024, 10/04/2017 Zoster Vaccines (1 of 2) 2044 Hepatitis A Vaccines Aged Out 10/08/2016 No long er eligible based on patient's age to complete this topic Influenza Vaccine Completed 07/08/2024, 10/08/2016 HIB Vaccines Aged Out No longer eligi ble based on patient's age to complete this topic HIV Screening Discontinued HPV Vaccines Aged Out No longer eligi ble based on patient's age to complete this topic Hepatitis C Screening Discontinued IPV Vaccines Aged Out No longer eligi ble based on patient's age to complete this topic Meningococcal B Vaccine Aged Out No l onger eligible based on patient's age to complete this topic Meningococcal Vaccine Aged Out No margoth janie eligible based on patient's age to complete this topic RSV Patients and Patients Aged 60 years or older (No Doses Required) Completed RSV under 20 months Aged Out No longe r eligible based on patient's age to complete this topic Rotavirus Vaccines Aged Out No longer eligible based on patient's age to complete this topic Procedures Procedure Name Priority Date/Time Associated Diagnosis Comments HM PAP/HPV Routine 08/25/2024 12:00 AM EST from Last 3 Months or Most Recently Relevant to Health Maintenance Results * PAP/HPV (08/25/2024 12:00 AM EST) us Historical Provider HEALTH MAINTENANCE Final Result from Last 3 Months or Most Recently Relevant to Health Maintenance Insurance [employer] C3 Care Teams Candy Packer Relationship Specialty Start Date End Date Stephie Ellis CNP [address] [place] [address] PCP - General Family Medicine 10/14/24 Margoth Lo Fitter / Welder 09/10/24
[2025-02-12] MEDS: Acetaminophen 1,000 MG/100 ML PIGGYBACK 400 MG IV (10:59)
[2025-02-12 11:03] LABS: MANUAL DIFF FLAG NO
[2025-02-12 11:06] LABS: Basophils Percent Auto 0.7 % (0-2); Eosinophils Absolute Auto 0.2 X10*3/uL (0.0-0.4); Eosinophils Percent Auto 3.7 % (0-4); Hematocrit 31.5 % (37.0-47.0); Hemoglobin 9.4 g/dl (12.0-16.0); Imm Gran Abs Auto 0.03 X10*3/uL (0.00-0.03); Imm Gran Pct Auto 0.6 % (0.0-0.4); Lymphocytes Absolute Auto 1.9 X10*3/uL (1.2-4.9); Lymphocytes Percent Auto 35.7 % (20-40); Mean Corpuscular HGB Conc 29.8 g/dl (31.0-35.0); Mean Corpuscular Hemoglobin 20.7 pg (27.0-33.0); Mean Corpuscular Volume 69.4 fL (80.0-98.0); Mean Platelet Volume 11.1 fL (9.4-12.3); Monocytes Absolute Auto 0.5 X10*3/uL (0.1-1.2); Monocytes Percent Auto 9.7 % (2-11); Neutrophils Absolute Auto 2.7 x10*3/uL (2.0-8.3); Neutrophils Percent Auto 49.6 % (45-73); Platelet Count 286 X10*3/uL (160-400); Red Blood Count 4.54 X10*6/uL (4.20-5.50); Red Cell Distribution Width 17.7 % (11.0-16.0); White Blood Count 5.4 X10*3/uL (4.8-10.8)
[2025-02-12 11:16] LABS: Appearance Urine Clear; Color Urine Yellow; Glucose Urine UA Negative (Negative); Leukocyte Esterase Urine Trace (Negative); Nitrite Urine Negative (Negative); PH 5.5 (5.0-9.0); UMIC TRIGGER UACC YES; Urine Blood Negative (Negative); Urine Ketones Negative (Negative); Urine Protein Negative (Neg-Trace)
[2025-02-12 11:20] LABS: Alanine Aminotransferase 17 U/L (0-31); Albumin Level 4.2 g/dL (3.5-5.0); Alkaline Phosphatase 120 U/L (39-117); Anion Gap 11 (12-20); Aspartate Amino Transferase 23 U/L (5-31); Bilirubin Direct 0.2 mg/dL (0.0-0.5); Bilirubin Total 0.6 mg/dL (0.0-1.0); Blood Urea Nitrogen 9 mg/dL (9-16); Calcium 9.5 mg/dL (8.4-10.2); Carbon Dioxide 28 mmol/L (22-29); Chloride 107 mmol/L (96-108); Creatinine Clr Calc Pharmacy 125.9; Estimated Glomerular Filt Rate > 60; Glucose Random 99 mg/dL (60-115); Lipase 16 U/L (8-78); Potassium 4.1 mmol/L (3.3-5.1); Sodium 142 mmol/L (135-145); Total Protein 7.2 g/dL (6.5-8.0)
[2025-02-12 11:30] LABS: HCG Quantitative < 2 mIU/mL; Troponin-I High Sensitivity < 2.7 ng/L (<3.5-17.0)
[2025-02-12] MEDS: iohexoL 350 MG/ML 100 ML INFUS..BTL IV (11:31)
[2025-02-12 11:45] LABS: Bacteria Urine Trace (None Seen); Hyaline Casts Urine 0-2 /LPF (0-2); Influenza A PCR NEGATIVE (Negative); Influenza B PCR NEGATIVE (Negative); RBC Urine 0-2 /HPF (0-2); Resp Syncy Virus RNA Qual PCR NEGATIVE (Negative); SARS COV2 PCR INHOUSE NEGATIVE (Negative); UACC Culture Trigger YES
[2025-02-12 11:57] VITALS: BP 111/54; PULSE 72; RESP 16; TEMP 36.7; O2SAT 99
[2025-02-12] MEDS: Lactated Ringers 1,000 ML 999 ML IV (12:21)
[2025-02-12 13:16] VITALS: BP 111/54; PULSE 72; RESP 16; TEMP 36.7; O2SAT 99
== END 2025-02-12 13:22 | disposition home or self-care (01) ==
PROVIDERS: Emergency Provider Emergency Medicine
DX: R30.0 Dysuria (principal); R03.0 Elevated blood-pressure reading, without diagnosis of hypertension; R10.9 Unspecified abdominal pain; R51.9 Headache, unspecified; Z03.818 Encounter for observation for suspected exposure to other biological agents ruled out
CPT/HCPCS: 0241U; 36415; 74177; 80048; 80076; 81001; 83690; 84484; 84702; 85025; 87086; 93005; 96374; 96375; 99284; 99285; J0131; J2405; J7120; Q9967

== ENCOUNTER → 2025-02-12 09:57 | Outpatient (BNV) | payer MEDICAID, SELFPAY | PROVIDERS: Emergency Provider Emergency Medicine; Visit Provider Internal Medicine Cardiovascular Disease | DX: I10 Essential (primary) hypertension (principal) | CPT/HCPCS: 93010 ==

== ENCOUNTER → 2025-02-12 10:27 | Outpatient (BNV) | payer MEDICAID, SELFPAY | PROVIDERS: Visit Provider Radiology Diagnostic Radiology | DX: N20.0 Calculus of kidney (principal) | CPT/HCPCS: 74177 ==

== ENCOUNTER 2025-02-22 09:30 | Outpatient (AMB) | payer MEDICAID, SELFPAY ==
[2025-02-22 09:35] VITALS: BP 110/70; PULSE 66; O2SAT 98; BMI 47.2
--- NOTE | 2025-02-22 09:35 | MHC.OFFVIS ---
Vital Signs 02/22/25 09:35 Height 4 ft 10 in Weight 225 lb 12.054 oz BMI 47.2 BP 110/70 Blood Pressure Location Lt brachial Position Sitting Pulse 66 Pulse Source Pulse Oximeter Pulse Oximetry (%) 98 Oxygen Delivery Method Room Air Intake Visit Reasons: Hypothyroidism Intake Note: New patient present today for Hypothyroidism. Home Health Care Respiratory Therapist Required: No Accompanied by: Spouse Allergies phenyltoloxamine [From [facility]] Allergy (Unknown, Verified 02/22/25 09:44) VOMITING Medication List - Last Reconciled 02/22/25 by Sweta Arango MD oxycodone 5 mg PO Q4H PRN oxycodone 5 mg PO Q6H PRN HPI Comments Details: 29-year-old female coming in today for initial evaluation of hypothyroidism. Here today with partner. Was diagnosed with hypothyroidism per patient during 2019, was following with OB, per patient was never prescribed med, and then lost to follow up Post 1 month . Baby born 01/18/25, baby girl , healthy baby, 3rd c section and salpingectomy? Has a 5 years old and 7 years old also . For primary care physician's notes there has been some discrepancy in her diagnosis as previously notes say from [facility] and [place] that she was diagnosed with hyperthyroidism during however was actually noted to have elevated TSH levels in the past. From what I could gather from the PCP notes: 08/06/2024: TSH: 2.38 09/04/2024: TSH 2.4 Patient currently denies heat or cold intolerance, diarrhea or constipation, hair loss, palpitation, anxiety, changes in appearance of eyes or vision changes, tremors, increased diaphoresis or dry skin. ? No major mood or energy changes, losing weight after the delivery. Patient denies any difficulty swallowing, pain on swallowing or voice changes or difficulty breathing. Patient denies any history of childhood neck radiation. Denies having ever used lithium, amiodarone or biotin supplements. Patient denies any family history of thyroid cancer or thyroid disease. Physical exam General: sitting comfortably in no acute distress HEENT: normocephalic/atraumatic, moist oral mucosa Neck: supple, symmetrical, no thyromegaly , Cardiac: normal heart sounds Pulm: normal breath sounds B/L, no added breath sounds Abd: not distended, no tenderness Extremities: no edema, no signs of myxedema Labs reviewed 08/06/2024: TSH: 2.38 09/04/2024: TSH 2.4 [facility] Medical History Biliary dyskinesia Gallstones Morbid obesity Surgical History History of 2 sections Social History Household Members: Children Housing: Apartment Do you presently have visiting nurse or other home services: No Alcohol intake: never Patient Tobacco Use Status: Never used Tobacco service: No Physical Exam Vital Signs: Last Vital Signs Pulse 66 02/22/25 09:35 BP 110/70 02/22/25 09:35 Pulse Ox 98 02/22/25 09:35 Oxygen Delivery Method Room Air 02/22/25 09:35 BMI result Body Mass Index 47.2 Assessment & Plan Assessment & Plan (1) Hypothyroidism: Code(s): E03.9 - Hypothyroidism, unspecified Category: Medical Qualifiers: 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 Per patient she was diagnosed back 6 years ago in 2019 while she was however was not started on any medication and has never been on any thyroid medication. Currently she is 1 month . No recent TFTs in the chart. Apparently there was some concern whether she has hyperthyroidism or hypothyroidism. She does not have any major symptoms of hypo or hyperthyroidism. At this time I have asked her to do repeat blood work and follow up with me in 4-5 weeks to discuss results. I will also check her antibodies. 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
--- OUTSIDE RECORDS SUMMARY | 2025-02-22 10:06 | XMS_ITS | Clinical Summary ---
Author Organization [employer] Address [address] [facility] [address] [place] [address] Care Team Providers Care Administrative Assistant Office Manager Name Role Phone Stephie Ellsi CLOTH BLEACHING SUPERVISOR Primary Care Provider [phone] Allergies Active Allergy Reactions Criticality Noted Date Comments Dexbromphen-Acetaminophen Unknown 09/12/2016 From [facility] records Dizziness, nausea hives Lidocaine Hcl Unknown 07/03/2024 From [facility] records Medications * This document contains [...] are discrepancies between the two notes from [facility] and [facility], per pt's most recent TSH level [...] 08/06/2024 Overview (10/12/2024): 2018 and 2019 @ [facility] Morbid obesity 08/06/2024 Overview (10/12/2024): HgbA1C and [...] BMI of 50 by 28wks transfer [place] [facility] DVT prophylaxis- Lovenox if CS and BMI >35 Hyperthyroidism 08/06/2024 Heart murmur 08/06/2024 Asthma 08/06/2024 H/O cardiac murmur 07/03/2024 Mild intermittent asthma without complication 07/03/2024 Esotropia of right eye 07/03/2024 Vitamin D insufficiency 09/14/2016 Chronic 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 09/12/2016 Estimated Date of Delivery Comme nts Yes 02/07/2025 Based on [facility] ISA, [facility] OBGYN transferred to [facility] clinic Encounters * This document contains information received from the source organization and may not represent a complete record from that organization. Date Type Department Care Team Description 02/19/2025 Patient Outreach [address] [phone] Stephie Ellis CNP Care Coordination ([facility]/MOUNIKA Li#3- Last attempt at Follow [id number]) 02/15/[address] [address] Stephie Ellis CNP 02/12/2025 Orders Only GENERIC EXTERNAL DATA DEPARTMENT Provider, Generic External Data 02/12/2025 Patient Outreach [address] [address] Stephie Ellis CNP [employer] PPD (Follow up call/PPD Program ) 02/09/[address] [address] Tru Tran [place] Chartprep 02/09/[address] [address] Stephie Ellis CNP Care Management ([facility] TC #1-lvm) 02/03/2025 Telephone [facility] [address] [place] [phone] Beverley Melton MD triage 02/02/2025 Patient Outreach [facility] [address] [place], [place] [phone] Stephie Ellis CNP Pre-visit Planning ([facility] unable to reach LVM) 01/29/2025 Patient Outreach [address] [address] Stephie Ellis CNP Care Coordination ([facility] Li#1- Follow up call-LVM) 01/25/[address] [address] Stephie Ellis CNP Care Management (C3 follow up call) 01/15/2025 Patient Outreach [address] [address] Stephie Ellis CNP Care Coordination ([facility]KA Li- Follow up call) 01/15/[address] [place] [address] Stephie Ellis CNP Care Management (C3CM follow up call) 01/12/2025 Orders Only [facility] CHC MED & PEDS [address] [place], [place] [phone] RoshniDemarcusba 12/25/2024 Patient Outreach [facility] [address] [place] [address] Stephie Ellis CNP Care Coordination ([facility] MOUNIKA Landers#2- Follow up call- LVM) 12/18/2024 Telephone [facility] MEDICINE [address] [place] [address] Stephie Ellis CNP Care Management (C3CM follow up call) 12/04/2024 Patient Outreach [address] [address] Stephie Ellis CNP Care Coordination ([facility] Briones#1- Follow up call-LVM) 12/01/2024 1:45 PM EDT Office Visit [facility] OPTOMETRY [address] [place] [address] Jose Guadalupe, Zarina, OD Myopia, bilateral (Primary Dx) 11/27/2024 Population Health Risk Score [facility] () [address] [phone] Provider, Population Health Generic from Last 3 Months Immunizations Immunization Administration [...] Delivery Comme nts Yes 02/07/2025 Based on [facility] ISA, [facility] OBGYN transferred to [facility] Sex and Gender Information Value Date Recorded [...] Procedure Name Priority Date/Time Associated Diagnosis Comments CT ABDOMEN PELVIS W CONTRAST Routine 02/12/2025 11:27 AM EDT URINALYSIS, COMPLETE, WITH REFLEX TO CULTURE Routine 02/12/2025 10:57 AM EDT SARS COV2/INFLUENZA A/B AND RSV RNA QL NAAT Routine 02/12/2025 10:57 AM EDT HCG, TOTAL, QN Routine 02/12/2025 10:53 AM EDT HIGH SENSITIVITY TROPONIN I Routine 02/12/2025 10:53 AM EDT LIPASE Routine 02/12/2025 10:53 AM EDT BASIC METABOLIC PANEL Routine 02/12/2025 10:53 AM EDT HEPATIC FUNCTION PANEL Routine 02/12/2025 10:53 AM EDT CBC WITH AUTO DIFFERENTIAL Routine 02/12/2025 10:53 AM EDT CULTURE, URINE, ROUTINE Routine 02/12/2025 12:00 AM EDT HM PAP/HPV Routine 08/25/2024 12:00 AM EST from Last 3 Months or Most Recently Relevant to Health Maintenance Results * CT Abdomen Pelvis w/ Contrast (02/12/2025 11:27 AM EDT) Anatomical Region Laterality Modality Body, Pelvis, Abdomen Computed T omography 02/12/2025 11:2 7 AM EDT Narrative 02/12/2025 11:58 AM EDT ? [facility] ?[address] ?[place] [address] ? CT Scan Report ? Signed ? Patient: Sarthak,Jordana ?MR#: [id number] ?? [id number] ? : 1995 ?Acct:[id number] ? Age/Sex: 29 / F ?ADM Date: 05/30/25 ? Loc: HO.ED ? Attending Dr: ? Ordering Physician: Maritza Choi PA-C ?? Date of Service: 02/12/25 ?? Procedure(s): CT abdomen pelvis w IV con ?? Accession Number(s): [id number] ? cc: Maritza Choi PA-C; Stephie Ellis ? Report Number: ?? [id number]: Total DLP = ??720.00 mGy-cm ?? EXAMINATION: ?? CT ABDOMEN AND PELVIS WITH CONTRAST ? CLINICAL INFORMATION: ?? 3 weeks with abdominal pain. ? COMPARISON: ?? CT abdomen and pelvis 02/10/2024 ? TECHNIQUE: ?? Multidetector volumetric images were obtained from the superior aspect ?? of the liver through the pubic symphysis following administration 85 mL ?? of Omnipaque 350 intravenous contrast. Sagittal and coronal reformatted ?? images were obtained on the technologist's workstation. ? Oral contrast: No ? This CT examination was performed using dose optimization techniques as ?? appropriate, variously including the following: ?? *Automated exposure control ?? *Adjustment of mA and/or kV according to patient size (this includes ?? techniques or standardized protocols for targeted exams where dose is ?? matched to indication/reason for exam; i.e. extremities or head) ?? *Use of iterative reconstruction technique ?? DLP: 720 mGy/cm. ? FINDINGS: ?? LUNG BASES: The visualized lung bases are unremarkable. ? LIVER, GALLBLADDER, AND BILIARY TREE: The liver is normal in size, ?? shape, and attenuation. No focal hepatic lesion or biliary ductal ?? dilatation is present. The gallbladder has been surgically removed. ? PANCREAS: Unremarkable. ? SPLEEN: Unremarkable. ? ADRENAL GLANDS: Unremarkable. ? KIDNEYS AND URETERS: The kidneys are normal in size, shape, and ?? attenuation. There is a 3 mm nonobstructive radiopaque calculi upper ?? pole right kidney minimally increased in size. No focal caliectasis ?? seen. No additional radiopaque calculi seen. There is no ?? hydronephrosis. The left kidney appears free of radiopaque calculi. ?? There is a calyceal cyst measuring ? BLADDER: Unremarkable. ? GASTROINTESTINAL TRACT: There is scattered stool and gas seen ?? throughout the colon without distention. The small bowel loops are ?? normal caliber. Appendix is not visualized. No free air or free fluid. ? ABDOMINAL WALL: Midline postsurgical changes are seen. No evidence of ?? hernia. ? LYMPH NODES: Normal. ? VASCULAR: Unremarkable. ? PELVIC VISCERA: The post gravid uterus is anteverted and unremarkable. ?? No adnexal mass or free fluid seen. ? OSSEOUS STRUCTURES: No aggressive lytic or sclerotic process seen. ? CT/CT abdomen pelvis w IV con ?? IMPRESSION: ?? Nonobstructive radiopaque calculi upper pole right kidney slightly ?? increased in size from previous study. ? Mild constipation. ? Interval Cholecystectomy with no change in right kidney ? No acute intra-abdominal process seen. ? Fleischner guidelines were followed. ? Electronically signed by: ??Vince Newell MD ??02/12/2025 11:55 AM EDT RP ? Dictated By: ?Vince Newell MD ? Signed By: ?<Electronically signed by Vince Rafat Newell MD in OV> ?02/12/25 1155 ? DD/ 1127 ? TD/TT: 02/12/25 1138 ? Fusion Operator: MSM ? Procedure Note Ozzy Mojica - 02/12/[address] [address] [address] Scan Report Signed Patient: Jordana De LeónMR#: [id number] : 1995Acct:[id number] Age/Sex: 29 / FADM Date: 02/12/25 Loc: HO.ED Attending Dr: Ordering Physician: Maritza Choi PA-C Date of Service: 02/12/25 Procedure(s): CT abdomen pelvis w IV con Accession Number(s): [id number] cc: Maritza Choi PA-C; Stephie Ellis Report Number: [id number]: Total DLP = 720.00 mGy-cm EXAMINATION: CT ABDOMEN AND PELVIS WITH CONTRAST CLINICAL INFORMATION: 3 weeks with abdominal pain. COMPARISON: CT abdomen and pelvis 02/10/2024 TECHNIQUE: Multidetector volumetric images were obtained from the superior aspect of the liver through the pubic symphysis following administration 85 mL of Omnipaque 350 intravenous contrast. Sagittal and coronal reformatted images were obtained on the technologist's workstation. Oral contrast: No This CT examination was performed using dose optimization techniques as appropriate, variously including the following: *Automated exposure control *Adjustment of mA and/or kV according to patient size (this includes techniques or standardized protocols for targeted exams where dose is matched to indication/reason for exam; i.e. extremities or head) *Use of iterative reconstruction technique DLP: 720 mGy/cm. FINDINGS: LUNG BASES: The visualized lung bases are unremarkable. LIVER, GALLBLADDER, AND BILIARY TREE: The liver is normal in size, shape, and attenuation. No focal hepatic lesion or biliary ductal dilatation is present. The gallbladder has been surgically removed. PANCREAS: Unremarkable. SPLEEN: Unremarkable. ADRENAL GLANDS: Unremarkable. KIDNEYS AND URETERS: The kidneys are normal in size, shape, and attenuation. There is a 3 mm nonobstructive radiopaque calculi upper pole right kidney minimally increased in size. No focal caliectasis seen. No additional radiopaque calculi seen. There is no hydronephrosis. The left kidney appears free of radiopaque calculi. There is a calyceal cyst measuring BLADDER: Unremarkable. GASTROINTESTINAL TRACT: There is scattered stool and gas seen throughout the colon without distention. The small bowel loops are normal caliber. Appendix is not visualized. No free air or free fluid. ABDOMINAL WALL: Midline postsurgical changes are seen. No evidence of hernia. LYMPH NODES: Normal. VASCULAR: Unremarkable. PELVIC VISCERA: The post gravid uterus is anteverted and unremarkable. No adnexal mass or free fluid seen. OSSEOUS STRUCTURES: No aggressive lytic or sclerotic process seen. CT/CT abdomen pelvis w IV con IMPRESSION: Nonobstructive radiopaque calculi upper pole right kidney slightly increased in size from previous study. Mild constipation. Interval Cholecystectomy with no change in right kidney No acute intra-abdominal process seen. Fleischner guidelines were followed. Electronically signed by: Vince Newell MD 02/12/2025 11:55 AM EDT Dictated By: Vince Newell MD Signed By: <Electronically signed by Vince Newell MD in OV> 02/12/25 1155 DD/ 1127 TD/TT: 02/12/25 1138 Fusion Operator: ARMEN [facility] External Provider IMG CT PROCEDURES Edited Result - Final * (ABNORMAL) Urinalysis, Complete, with Reflex to Culture (02/12/2025 10:57 AM EDT) Color Urine Yellow [facility] Appearance Urine Clear [facility] PH 5.5 5.0 - 9.0 [facility] Glucose Urine UA Negative Negative mg/dL [facility] Urine Blood Negative Negative [facility] Specific Tatum - Urine 1.020 1.005 - 1.025 [facility] Urine Protein Negative Neg-Trace mg/dL [facility] Urine Ketones Negative Negative mg/dL [facility] Nitrite Urine Negative Negative [facility] Leukocyte Esterase Urine Trace(A) Negative [facility] RBC Urine 0-2 0 - 2 /HPF [facility] Urine WBC 6-10(A) 0 - 5 /HPF [facility] Urine Squamous Epithelial Cell 6-10 0 - 2 /HPF [facility] Urine Bacteria Trace None Seen [facility] Hyaline Casts, Urine 0-2 0 - 2 /LPF [facility] 02/12/2025 10:5 7 AM EDT 02/12/2025 11:06 AM EDT Narrative [facility] - 02/12/2025 11:48 AM EDT Urine, Clean Catch Generic External Data Provider LAB URINE ORDERAB LES Final Result [facility] [address] [place] [phone] * SARS-CoV-2 RNA, Influenza A/B, and RSV RNA, Ql NAAT (02/12/2025 10:57 AM EDT) Pathologist [facility] Influenza A PCR NEGATIVE Negative [facility] Influenza B PCR NEGATIVE Negative [facility] Resp Syncy Virus RNA Qual PCR NEGATIVE Negative [facility] SARS COV2 PCR NEGATIVE Negative [facility] Comment:All test results mus t be correlated with clinical findings.Negative results do not preclude SARS-CoV2, influenza Avirus, influenza B virus and/or RSV infectionand should not be used as the sole basis for treatment orother patient management decisions. Negative results must becombined with clinical observations, patient history, andepidemiological information.This test has not been evaluated for monitoring treatment ofinfection.This test has been authorized by the FDA under an EmergencyUse Authorization (EUA) for use by authorized laboratories.Testing performed on the [employer] GeneXpert utilizingreal-time RT-PCR.All SARS CoV2 and positive influenza A/B results arereported to [facility]. 02/12/2025 10:5 7 AM EDT 02/12/2025 11:06 AM EDT Generic External Data Provider LAB MICROBIOLOGY - GENERAL ORDERABLES Final Result [facility] [address] [place] [phone] * High Sensitivity Troponin I (02/12/2025 10:53 AM EDT) Pathologist [facility] TROPONIN I HIGH SENSITIVITY <2.7 <3.5 - 17.0 ng/L [facility] Comment:The Copeland high sens itivity Troponin-I results should beused in conjunction with other diagnostic information suchas ECG, clinical observations and information, and patientsymptoms to aid in the diagnosis of AK. 02/12/2025 10:5 3 AM EDT 02/12/2025 11:01 AM EDT us Generic External Data Provider LAB BLOOD ORDERAB LES Final Result [facility] [address] [place], [place] [phone] * (ABNORMAL) CBC auto differential (02/12/2025 10:53 AM EDT) White Blood Count 5.4 4.8 - 10.8 X10*3/uL [facility] Red Blood Count 4.54 4.20 - 5.50 X10*6/uL [facility] Hemoglobin 9.4(L) 12.0 - 16.0 g/dl [facility] Hematocrit 31.5(L) 37.0 - 47.0 % [facility] Mean Corpuscular Volume 69.4(L) 80.0 - 98.0 fL [facility] Mean Corpuscular Hemoglobin 20.7(L) 27.0 - 33.0 pg [facility] Mean Corpuscular HGB Conc 29.8(L) 31.0 - 35.0 g/dl [facility] Red Cell Distribution Width 17.7(H) 11.0 - 16.0 % [facility] Platelet Count 286 160 - 400 X10*3/uL [facility] Mean Platelet Volume 11.1 9.4 - 12.3 fL [facility] Neutrophils Percent Auto 49.6 45 - 73 % [facility] Imm Gran Pct Auto 0.6(H) 0.0 - 0.4 % [facility] Lymphocytes Percent Auto 35.7 20 - 40 % [facility] Monocytes Percent Auto 9.7 2 - 11 % [facility] Eosinophils Percent Auto 3.7 0 - 4 % [facility] Basophils Percent Auto 0.7 0 - 2 % [facility] NRBC Pct Auto 0.0 0.0 - 0.2 /100WBC [facility] Neutrophils Absolute Auto 2.7 2.0 - 8.3 x10*3/uL [facility] Imm Gran Abs Auto 0.03 0.00 - 0.03 X10*3/uL [facility] Lymphocytes Absolute Auto 1.9 1.2 - 4.9 X10*3/uL [facility] Monocytes Absolute Auto 0.5 0.1 - 1.2 X10*3/uL [facility] Eosinophils Absolute Auto 0.2 0.0 - 0.4 X10*3/uL [facility] Basophils Absolute Auto 0.0 0.0 - 0.2 X10*3/uL [facility] NRBC Abs Auto 0.000 0.0 - 0.012 X10*3/uL [facility] 02/12/2025 10:5 3 AM EDT 02/12/2025 11:01 AM EDT us Generic External Data Provider LAB BLOOD ORDERAB LES Final Result [facility] [address] [place] [phone] * hCG, Total, Quantitative (02/12/2025 10:53 AM EDT) HCG Quantitative <2 mIU/mL [facility] Comment:Weeks post LMP Appro ximate hCG(Last Menstrual Period) Range (mIU/ml)3 - 4 weeks 9 - 1304 - 5 weeks 75 - 2,6005 - 6 weeks 850 - 20,8006 - 7 weeks 4000 - 100,2007 - 12 weeks 11,500 - 289,84880 - 16 weeks 18,300 - 137,70233 - 29 weeks (2nd trimester) 1,400 - 53,98190 - 41 weeks (3rd trimester) 940 - 60,000The Copeland B- hCG assay is used for the early detection ofpregnancy; it cannot be used to diagnose any conditionunrelated to . If a B-hCG level is not supportedby the clinical evidence, results should be confirmed by analternative method (qualitative urine hCG, for example). 02/12/2025 10:5 3 AM EDT 02/12/2025 11:01 AM EDT us Generic External Data Provider LAB BLOOD ORDERAB LES Final Result Performing Organization Address [facility]/ZIP Co de Phone Number [facility] [address] [place] [phone] * Lipase (02/12/2025 10:53 AM EDT) Pathologist [facility] Lipase 16 8 - 78 U/L [facility] 02/12/2025 10:5 3 AM EDT 02/12/2025 11:01 AM EDT Generic External Data Provider LAB BLOOD ORDERAB LES Final Result Performing Organization Address [facility] de Phone Number [facility] [address] [place] [phone] * (ABNORMAL) Hepatic Function Panel (02/12/2025 10:53 AM EDT) Pathologist [facility] Bilirubin, Total 0.6 0.0 - 1.0 mg/dL [facility] Bilirubin, Direct 0.2 0.0 - 0.5 mg/dL [facility] Aspartate Amino Transferase 23 5 - 31 U/L [facility] Alanine Aminotransferase 17 0 - 31 U/L [facility] Total Protein 7.2 6.5 - 8.0 g/dL [facility] Albumin Level 4.2 3.5 - 5.0 g/dL [facility] Alkaline Phosphatase 120(H) 39 - 117 U/L [facility] 02/12/2025 10:5 3 AM EDT 02/12/2025 11:01 AM EDT Generic External Data Provider LAB BLOOD ORDERAB LES Final Result Performing Organization Address [facility] Co de Phone Number [facility] [address] [place] [phone] * (ABNORMAL) Basic Metabolic Panel (02/12/2025 10:53 AM EDT) Sodium 142 135 - 145 mmol/L [facility] Potassium 4.1 3.3 - 5.1 mmol/L [facility] Chloride 107 96 - 108 mmol/L [facility] Carbon Dioxide 28 22 - 29 mmol/L [facility] Anion Gap 11(L) 12 - 20 [facility] Urea Nitrogen (BUN) 9 9 - 16 mg/dL [facility] Creatinine, Serum 0.66 0.5 - 1.4 mg/dL [facility] Creatinine Clr Calc Pharmacy 125.9 [facility] Comment:Provided height and weight: 147.32 cm,98.7 kg.eGFR (calculated from the MDRD study equation) and eCrCl(calculated from the Cockcroft-Gault equation) are based ondifferent parameters and may not yield comparable results.If eCrCl result is absurd, please check patient'sheight/weight. Estimated Glomerular Filt Rate >60 [facility] Comment:Chronic Kidney Disea se: Estimated GFR < 60 mL/min/1.77m8Ypdhhq Kidney Disease: Estimated GFR < 15 mL/min/1.73m2 Glucose 99 60 - 115 mg/dL [facility] Calcium 9.5 8.4 - 10.2 mg/dL [facility] 02/12/2025 10:5 3 AM EDT 02/12/2025 11:01 AM EDT us Generic External Data Provider LAB BLOOD ORDERAB LES Final Result [facility] [address] [place] [phone] * Culture, Urine, Routine (02/12/2025 12:00 AM EDT) Urine Urine specimen obtained by clean catch procedure / Unknown 02/12/2025 02/12/2025 Comment:UACC Narrative [facility] - 02/13/2025 12:51 PM EDT Urine Culture Report Result Urine Culture > 100,000 cfu/ml Urine Culture Mixed bacterial venancio characteristic of Urine Culture urogenital contamination. Specimen Source: Urine clean catch us Generic External Data Provider LAB MICROBIOLOGY - GENERAL ORDERABLES Final Result [facility] [address] [place] [phone] * HM PAP/HPV (08/25/2024 12:00 AM EST) Historical Provider HEALTH MAINTENANCE Final Result from Last 3 Months or Most Recently Relevant to Health Maintenance Insurance [id number] Care Teams Administrative Assistant Office Manager Relationship Specialty Start Date End Date Stephie Ellis CNP [address] [place] [address] PCP - General Family Medicine 10/14/24 Margoth Lo Head Greenskeeper 09/10/24
== END 2025-02-22 10:17 | disposition home or self-care (01) ==
LOC: HO.ENCR 09:31
PROVIDERS: PCP Emergency Medicine; Visit Provider Student in an Organized Health Care Education/Training Program
DX: E06.3 Autoimmune thyroiditis (principal)
CPT/HCPCS: 99203

== ENCOUNTER → 2025-02-22 09:30 | Outpatient (BNVA) | payer MEDICAID, SELFPAY | PROVIDERS: PCP Emergency Medicine; Visit Provider Student in an Organized Health Care Education/Training Program | DX: E06.3 Autoimmune thyroiditis (principal) | CPT/HCPCS: 99202 ==

== ENCOUNTER 2025-04-08 13:57 | Emergency (ER) | payer MEDICAID, SELFPAY ==
--- NOTE | 2025-04-08 | ECG_ITS ---
Test Reason : fever Blood Pressure : */* mmHG Vent. Rate : 87 BPM Atrial Rate : 87 BPM P-R Int : 158 ms QRS Dur : 80 ms QT Int : 344 ms P-R-T Axes : 52 110 24 degrees QTcB Int : 413 ms Normal sinus rhythm Left posterior fascicular block T wave abnormality, consider anterior ischemia Abnormal ECG When compared with ECG of 12-Feb-2025 10:18, No significant change was found Referred By: Zach De Oliveira Electronically Signed By: Joel Awad
--- NOTE | ~2025-04-08 | XR_ITS ---
EXAMINATION: XR CHEST CLINICAL INFORMATION: weakness COMPARISON: 07/14/2023. TECHNIQUE: Frontal view of the chest was obtained. FINDINGS: Prominent cardiac silhouette. Mediastinal and hilar contours appear normal. The lungs are clear bilaterally. No pneumothorax or effusion. No focal osseous or soft tissue abnormality. Cholecystectomy clips are noted. XR/XR chest 1V IMPRESSION: No active pulmonary disease. Electronically signed by: Ethan Ronquillo MD 04/08/2025 03:54 PM EDT
[2025-04-08 14:09] VITALS: BP 103/54; PULSE 90; RESP 26; TEMP 38.2; O2SAT 96
[2025-04-08 14:18] VITALS: BP 155/65; PULSE 63; O2SAT 96; BMI 28.1
--- NOTE | 2025-04-08 14:23 | ED_ITS ---
HPI - General Adult General Chief complaint: General Medical Stated complaint: ?MENINGITIS FROM [facility],FEVER,[place] PER EMS Time Seen by Provider: 04/08/25 14:23 Source: patient and EMS Mode of arrival: EMS Limitations: no limitations History of Present Illness ED Provider: HPI narrative: 29-year-old female presenting with reports of fever at home and neck pain and upper back pain for the past 3 days, she states neck and back pain developed at the same time and she started develop fevers, she did not have any cough or ear pain, has had no rashes, has had no chest pain, difficulty breathing abdominal pain or dysuria or diarrhea. She has been using Tylenol. No recent travels, no sick contacts. She reports otherwise her immunizations are up-to-date. She presented to [facility] clinic and because of her upper back and neck pain and fever she was sent to the emergency department to rule out meningitis. Of note, transporting paramedics also commented on the fact that she has positive meningeal signs. Which is not very typical for [facility] to comment on this type of physical exam not commonly utilized in their practice.But this was documented, hence my comment on this. Patient reports she has significant back pain for many years, this is a daily occurrence for her. Related Data Previous Rx's ?Medication ?Instructions ?Recorded oxycodone 5 mg tablet 5 mg PO Q4H PRN pain (scale score 02/12/24 7-10) #24 tabs oxycodone 5 mg tablet 5 mg PO Q6H PRN pain #10 tab s 07/05/24 Medrol (Helder) 4 mg tablets in a 4 mg PO DAILY #21 ea dose pack (methylprednisolone) diazepam 5 mg tablet (Valium) 5 mg PO TID PRN muscle s pasm 3 04/08/25 days #10 tabs Allergies Allergy/AdvReac Type Severity Reaction Status Date / Time phenyltoloxamine (From Allergy Unknown VOMITING Verified 04/08/25 14:21 DOLOGESIC) Review of Systems 2 Constitutional: Constitutional: Reports as per HPI [facility] Past Medical History Medical History Hypothyroidism Biliary dyskinesia Gallstones Morbid obesity Surgical History History of 2 sections Social History Social History Household Members: Children Housing: Apartment Do you presently have visiting nurse or other home services: No Alcohol intake: never Patient Tobacco Use Status: Never used Tobacco Smoked in Last 30 Days: No Use of substances other than those prescribed or required for medical reasons: No Advance Directives: No Advance Directives Information Provided: Yes service: No Physical Exam ED Vital Signs: Vital Signs - 24 hr 04/08/25 14:09 04/08/25 16:10 Temperature 100.8 F H 99.1 F Pulse Rate 90 88 Respiratory Rate 26 H 20 Blood Pressure 103/54 L 106/56 L Pulse Oximetry 96 96 Oxygen Delivery Method Room Air Room Air BMI result Body Mass Index 28.1 Const Other: * Gen: ?Overall well-appearing patient, lying flat on the gurney * HEENT: No conjunctival injection, no erythema of the TMs, uvula is midline, she has exudate on the left tonsil, unremarkable right tonsil with slight injection bilaterally * Neck: Patient has no neck rigidity, she has paraspinal tenderness as well as tenderness along her bilateral trapezii * CV: RRR, no obvious murmurs appreciated * Resp: ?No wheezing rales rhonchi no stridor moving air well * Abd: ?Bowel sounds are present, no tenderness no rebound no rigidity * MSK: FROM, strength 5/5 all extremities * Skin: Warm, dry, intact, * Neuro: ?Alert and oriented x3, moving upper and lower extremities symmetrically, no obvious facial asymmetry noted, patient had negative Kernig's sign ( ?inability or reluctance to allow full extension of the knee when the hip is flexed 90 degrees.), and negative Brudzinski ( refers to spontaneous flexion of the hips during attempted passive flexion of the neck.) Medications Administered Discontinued Medications Generic Name Dose Route Start Last Admin Trade Name Freq PRN Reason Stop Dose Admin Sodium Chloride 1,000 mls @ 999 mls/hr 04/08/25 14:45 04/08/25 15:00 Ns IV 04/08/25 15:45 999 mls/hr .Q1H1M JAMILAH Administration Acetaminophen 1,000 mg in 100 mls @ 400 mls/hr 04/08/25 14:43 04/08/25 15:00 Ofirmev IV 04/08/25 14:57 400 mls/hr ONCE ONE Administration Ketorolac Tromethamine 15 mg 04/08/25 14:43 04/08/25 15:00 Ketorolac Tromethamine 15 Mg/Ml Vial IVPUSH 04/08/25 14:44 15 mg ONCE ONE Administration Morphine Sulfate 4 mg 04/08/25 14:41 04/08/25 15:00 Morphine Sulfate 4 Mg/Ml Cartridge IVPUSH 04/08/25 14:42 4 mg ONCE ONE Administration Protocol Medical Decision Making Medical Decision Making MDM Narrative: 15:00 29-year-old woman, has been having fevers, and back pain for the past 3 days, and [facility] and was sent to the ER understandably there was concern for meningitis with the association and fever and neck discomfort. With that said, patient is nontoxic appearing, she is definitely does not feel well and she is having discomfort in her neck upper back, which I suspect is musculoskeletal, bacterial meningitis is extremely unlikely in the 3 day. 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 With that said if her workup is negative and she does not feel better I will re-evaluate her and we will determine whether LP is indicated, but at this time shared decision-making with the patient she understands my thought process and I did not feel LP is indicated at least at this time. 16:04 patient is ambulating to the bathroom unassisted, feeling better 16:50: Shared decision-making: I have had a shared decision-making with the patient regarding LP, she states she has always had issues with epidurals in the past during childbirth and it is not an easy procedure for her, currently she has her back pain at 4/10, I re-examined her, she continues to not have meningeal signs, and overall she just looks well, she is ambulatory and I do not expect this from a person with viral let alone bacterial meningitis of 3 days. I will give her strict return precautions, and if LP is to be performing this patient I believe IR would need to be involved giving her history. Differential Diagnosis Differential Diagnoses: The differential diagnosis associated with the presentation includes Musculoskeletal pain, pneumonia, UTI, viral infection, ENT infections, meningitis, encephalitis, tick-borne illness Admission/Observation Consideration of admission/observation: Escalation of care including admission/observation considered 2022 Emergency Medicine Coding Guide from [employer] on 04/08/2025 All calculations should be rechecked by clinician prior to use RESULT SUMMARY: 5 Estimated Level of Service Problems: Moderate (4) Risk: High (5) Data: Extensive (5) NARRATIVE MDM: This patient's problem complexity is Moderate as patient: has a new undiagnosed problem with uncertain prognosis but that could be serious. This patient's risk is High due to: overall presentation requiring evaluation for a potentially High-risk process. This patient's data complexity is Extensive due to: -multiple tests ordered/reviewed -independent interpretation of imaging or EKG INPUTS: Number and Complexity ?> 5 = 4: undiagnosed new problem, uncertain outcome (e) Risk level ?> 4 = High Tests ordered ?> 3 = >= Tests results reviewed (excluding labs) ?> 3 = >= Prior external notes reviewed ?> 0 = 0 Assessment requiring and independent historian ?> 0 = No Independent interpretation of tests ?> 1 = Yes Discussed management/test interpretation w/external professional ?> 0 = No Lab Data MDM Lab Attestation statement: I reviewed the patient's lab results. 04/08/25 14:32 04/08/25 15:30 Labs: Lab Results 04/08/25 04/08/25 04/08/25 Range/Units 14:32 15:22 15:30 WBC 3.2 L (4.8-10.8) X10*3/uL RBC 4.63 (4.20-5.50) X10*6/uL Hgb 10.2 L (12.0-16.0) g/dl Hct 32.5 L (37.0-47.0) % MCV 70.2 L (80.0-98.0) fL MCH 22.0 L (27.0-33.0) pg MCHC 31.4 (31.0-35.0) g/dl RDW 18.1 H (11.0-16.0) % Plt Count 162 D (160-400) X10*3/uL MPV Not Reportable Immature Gran % (Auto) 0.9 H (0.0-0.4) % Neut % (Auto) 46.6 (45-73) % Lymph % (Auto) 38.5 (20-40) % [place] % (Auto) 13.7 H (2-11) % Eos % (Auto) 0.0 (0-4) % Baso % (Auto) 0.3 (0-2) % Lymph # (Auto) 1.2 (1.2-4.9) X10*3/uL [place] # (Auto) 0.4 (0.1-1.2) X10*3/uL Eos # (Auto) 0.0 (0.0-0.4) X10*3/uL Baso # (Auto) 0.0 (0.0-0.2) X10*3/uL Abs Immat Gran (auto) 0.03 (0.00-0.03) X10*3/uL Absolute Neuts (auto) 1.5 L (2.0-8.3) x10*3/uL Absolute Nucleated RBC 0.000 (0.0-0.012) X10*3/uL Nucleated RBC % (auto) 0.0 (0.0-0.2) /100WBC ESR 12 (0-20) MM/HR Sodium 136 136 (135-145) mmol/L Potassium 3.6 3.7 (3.3-5.1) mmol/L Chloride 103 104 (96-108) mmol/L Carbon Dioxide 26 24 (22-29) mmol/L Anion Gap 11 L 12 (12-20) BUN 8 L 8 L (9-16) mg/dL Creatinine 0.84 0.74 (0.5-1.4) mg/dL Estim Creat Clear Calc 118.5 134.5 Estimated GFR > 60 > 60 Random Glucose 95 100 (60-115) mg/dL Lactic Acid 0.6 (0.5-2.0) mmol/L Calcium 8.8 D 8.2 L D (8.4-10.2) mg/dL Magnesium 2.1 (1.6-2.6) mg/dL Total Bilirubin 0.7 0.6 (0.0-1.0) mg/dL AST 63 H 58 H (5-31) U/L ALT 43 H 37 H (0-31) U/L Alkaline Phosphatase 82 75 (39-117) U/L C-Reactive Protein 4.95 H (< or = 0.50) mg/dL Total Protein 7.2 6.5 (6.5-8.0) g/dL Albumin 4.3 3.8 (3.5-5.0) g/dL Lipase 26 (8-78) U/L TSH 2.45 (0.32-4.0) uIU/mL Monoscreen Negative (Negative) Independent Interpretation I performed an independent interpretation of an: EKG (87 beats per minute otherwise normal ECG without dysrhythmia, AV lila blocks or ST-T changes to suspect underlying ACS, my independent interpretation) and Plain X-Ray (My independent chest xray interpretation: Lungs: Lungs are clear bilaterally without evidence of focal consolidation, pleural effusion, or pneumothorax. Cardiac silhouette is unremarkable, no obvious mediastinal widening, no obvious bony abnormalities such as fractures. Impression: Normal chest X-r) Discharge Plan Discharge Clinical Impression: Chronic upper back pain Fever Qualifiers: Fever type: unspecified Qualified Code(s): R50.9 - Fever, unspecified Patient Disposition: Home, Self-Care Prescriptions: New diazepam [Valium] 5 mg tablet 5 mg PO TID PRN (Reason: muscle spasm) 3 Days Qty: 10 0RF methylprednisolone [Medrol (Helder)] 4 mg tablets,dose pack 4 mg PO DAILY Qty: 21 0RF Rx Instructions: Day 1: 24 mg on day 1 administered as 8 mg before breakfast, 4 mg after lunch, 4 mg after supper, and 8 mg at bedtime or 24 mg as a single dose or divided into 2 or 3 doses upon initiation. Day 2: 20 mg on day 2 administered as 4 mg before breakfast, 4 mg after lunch, 4 mg after supper, and 8 mg at bedtime. Day 3: 16 mg on day 3 administered as 4 mg before breakfast, 4 mg after lunch, 4 mg after supper, and 4 mg at bedtime. Day 4: 12 mg on day 4 administered as 4 mg before breakfast, 4 mg after lunch, and 4 mg at bedtime. Day 5: 8 mg on day 5 administered as 4 mg before breakfast and 4 mg at bedtime. Day 6: 4 mg on day 6 administered as 4 mg before breakfast. No Action oxycodone 5 mg tablet 5 mg PO Q4H PRN (Reason: pain (scale score 7-10)) Qty: 24 0RF Rx Instructions: Partial Fill upon patient request. oxycodone 5 mg tablet 5 mg PO Q6H PRN (Reason: pain) Qty: 10 0RF Rx Instructions: Partial Fill upon patient request. Print Language: Macanese
--- OUTSIDE RECORDS SUMMARY | 2025-04-08 14:36 | XMS_ITS | Clinical Summary ---
Author Organization [facility] Address [address] [place] [address] Care Team Providers Care Senior Clinical Consultant Name Role Phone Mamta Tripathi PA-C Primary Care Provider [phone] Source Comments PLEASE NOTE, if this patient is a minor, it may be UNLAWFUL to discuss sensitive information that is contained in these records (such as FAMILY PLANNING, MENTAL HEALTH or SUBSTANCE ABUSE) with the minor patient's parent or other person without the patient's specific authorization.[facility] Allergies Active Allergy Reactions Criticality Noted Date Comments Acetaminophen/D-Brompheniramin 09/12 Dizziness, nausea Medications vitamin D3 1,000 unit capsuleIndications :Vitamin D insufficiency Take 1 Cap by mouth once daily 90 Cap 3 6 Active prenat.vits,dennys,mi [id number]-[id number] per tabletIndications: Missed menses Take 1 Tablet by mouth once daily 90 Tablet 4 4 Active Active Problems Problem Noted Date Diagnosed Date Vitamin D insufficiency 09/14/2016 Chronic 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 09/12/2016 Immunizations Immunization Administration Dates Next Due Flu, Preservative Free 10/08/2016 Hep A, adult 10/08/2016 Hep B, Adult/Adol ([id number] ULT) 10/08/2016 Family History Medical History Relation Name Comments Cancer Mother breast Relation Name Status Comments Father Alive Mother Alive Social History Tobacco Use Types Packs/Day Years Used Date Smoking Tobacco: Former Cigarettes 1 11/13/2008 - 07/13/2016 Smokeless Tobacco: Never Alcohol Use Standard Drinks/Week Comments No 0 (1 standard drink = 0.6 oz pur e alcohol) Social Connections Answer Date Recorded Connectedness 0 07/01/2024 Financial Resource Strain Answer Date R ecorded Financial Resource Strain 0 2023 Stress Answer Date Recorded Stress 0 07/01/2024 Physical Activity Answer Date Recorded Physical Activity 0 07/01/2024 Food Insecurity Answer Date Recorded Food 0 07/01/2024 Transportation Needs Answer Date Record ed Transportation 0 07/01/2024 Housing Stability Answer Date Recorded Housing 0 07/01/2024 Safety and Environment Answer Date Hunter rded Safety 0 07/01/2024 Utilities Answer Date Recorded Utilities 0 07/01/2024 Employment Answer Date Recorded Stress 0 07/01/2024 Comments No Sex and Gender Information Value Date Recorded Sex Assigned at Not on file Legal Sex Female 8:43 AM PDT Gender Identity Not on file Sexual Orientation Not on file Occupation Industry Job Start Date Job End Date unemployed Not on file Not on file Not on file Last Filed Vital Signs Vital Sign Reading Time Taken Comments Blood Pressure 115/70 09/12/2016 9:55 AM EST Pulse 56 09/12/2016 9:55 AM EST Temperature 37 C (98.6 F) 09/12/2016 9:55 AM EST Respiratory Rate 16 09/12/2016 9:55 AM EST Oxygen Saturation - - Inhaled Oxygen Concentration - - Weight 74.8 kg (165 lb) 09/12/2016 9:55 AM EST Height 149.9 cm (4' 11 ) 09/12/2016 9:55 AM EST Body Mass Index 33.33 09/12/2016 9:55 AM EST Plan of Treatment Health Maintenance Due Date Last Done Comments Anxiety Screening 1994 HPV Screening 1994 Pap + HPV 1994 Relationship Safety Screening/Counseling 2009 Imm-DTaP/Tdap/Td (1 - Tdap) 2013 Cervical Cancer Screening 2015 Pap Smear 2015 Imm-Hepatitis B (2 of 3 - 19 + 3-dose series) 11/05/2016 10/08/2016 Annual Wellness (Adult): Ind icated (All Coverage) 09/12/2017 09/12/2016 Hypertension Screening (#1) 09/12/2019 [id number] ( season) 2024 Alcohol and Drug Screen 09/16/2024 Depression Annual Screen 09/16/2024 Imm-Influenza (#1) 2025 07/08/2024, 10/08/2016 Tobacco Screening 07/01/2025 07/01/2024 HIV Screening Completed 08/06/2024, 09/12/2016 Hepatitis C Screening Completed 08/06/2024, 016 Cervical Ablation/Cold-Knife Conization Discontinued Cervical Cryotherapy Discontinued Colposcopy Discontinued Endometrial Biopsy Discontinued Excision/Leep Discontinued HPV Genotyping Discontinued Vaginal Pap Discontinued Vulvoscopy Discontinued Procedures Procedure Name Priority Date/Time Associated Diagnosis Comments ANTIBODY HIV-1&HIV-2 SINGLE RESULT Routine 09/12/2016 11:23 AM EST Routine general medical examination at a health care facility HEPATITIS A,B,C PANEL Routine 09/12/2016 11:23 AM EST Routine general medical examination at a health care facility from Last 3 Months or Most Recently Relevant to Health Maintenance Results * HEPATITIS A,B,C PANEL (09/12/2016 11:23 AM EST) HEPATITIS B SURFACE ANTIBODY NEGATIVE NEGATIVE [facility] HEPATITIS B SURFACE ANTIGEN NEGATIVE NEGATIVE [facility] HEPATITIS C VIRUS DIAGNOSTIC NEGATIVE NEGATIVE [facility] HEPATITIS A ANTIBODY TOTAL NEGATIVE NEGATIVE [facility] HEPATITIS B CORE ANTIBODY NEGATIVE NEGATIVE [facility] Blood specimen (specimen) Blood / Unknown 09/12/2016 11:23 AM EST 09/12/2016 11:24 AM EST Narrative [facility] [employer] - 09/12/2016 4:19 PM EST [employer] [address] [place] [address] PT ID [id number] ORD# [id number] us [facility] - BLOOD DRAW Edited Jessica quiroga - Final [facility] [employer] [address], * HIV-1 & HIV-2 ANTIBODIES (09/12/2016 11:23 AM EST) HIV 1 AND 2 ANTIBODY SCREEN NEGATIVE NEGATIVE [facility] Comment: This assay is a 4th generation assay allowing for earlier detection of HIV infection by detecting the presence of the HIV-1 p24 antigen as well as the traditional antibodies to HIV type 1 (including group O) and type 2. Use of a 4th generation assay is the current CDC recommendation for HIV screening. Blood specimen (specimen) Blood / Unknown 09/12/2016 11:23 AM EST 09/12/2016 11:24 AM EST Narrative [facility] [employer] - 09/12/2016 4:48 PM EST [employer] [address] [place] [address] PT ID [id number] ORD# [id number] us [facility] - BLOOD DRAW Final Res ult [facility] [address] [place] [address], from Last 3 Months or Most Recently Relevant to Health Maintenance Insurance [employer] Care Teams Senior Clinical Consultant Relationship Specialty Start Date End Date Mamta Tripathi PA-C [address] [place] [address] PCP - General 11/11/18
--- OUTSIDE RECORDS SUMMARY | 2025-04-08 14:36 | XMS_ITS | Clinical Summary ---
Author Organization [facility] Address [address] [place] [address] Phone Care Team Providers Care Nurse Behavioral Health Care Name Role Phone Austin, Viji Primary Care Provider [phone] Allergies No known active allergies Medications no115/iron/folic acid ( 19 ORAL) Take 1 Tablet by mouth daily. - Oral Active pyridoxine (VITAMIN B-6) 25 mg tablet Take 1 Tablet by mouth 4 times daily (before meals and nightly). - Oral Active albuterol HFA (PROAIR HFA ; PROVENTIL HFA ; VENTOLIN HFA) 90 mcg/actuation inhaler Inhale 2 puffs by mouth every 6 (six) hours if needed for wheezing. Active ondansetron ODT (ZOFRAN-ODT) 4 mg disintegrating tablet Dissolve 1 tablet (4 mg total) on top of the tongue every 8 (eight) hours if needed for nausea or vomiting. 30 tablet 4 Active aspirin 81 mg EC tablet Take 2 tablets (162 mg total) by mouth 1 (one) time each day. 60 tablet 3 4 08/25/20 25 Active Active Problems Problem Noted Date Diagnosed Date Nausea and vomiting in 08/25/2024 Assessment & Plan (08/25/2024 11:06 AM EST): Offered Zofran to take prior to getting out of bed in the AM. She will do this. care, [facility] 08/06/2024 Overview (08/06/2024): 1. [facility] site: [facility]: [address] [place] [address] ([phone]) 2. Delivery site: [facility] 3. Mobile Mommas: No 4. Dating criteria: early ultrasound 5. Blood type: 6. Genetic screening: Date: Result: Panorama: Ordered Horizon: Ordered Nuchal: Scheduled Survey: MSAFP: 6. GBS: Date: 7. FOB name: Pradeep 8. Plans A. Epidural or other pain management - B. Labor support identified - C. Tdap - Date: Flu - Date: D. Breast or Bottle feed: Both Breast and Bottle feeding E. Baby's name - F. Circumcision - No 9. Hospital Course: Obesity, morbid (CMS/FORMER[facility] V24, [facility] V28) 08/06 Overview (08/06/2024): HgbA1C and 1 hour GTT at initial [...] BMI of 50 by 28wks transfer to [facility] DVT prophylaxis- Lovenox if CS and BMI >35 Previous section complicating 08/06/2024 Overview (08/06/2024): 2017 and 2018 @ [facility] Heart murmur 08/06/2024 Asthma 08/06/2024 Hyperthyroidism 08/06/2024 Assessment & Plan (08/25/2024 11:06 AM EST): Labs sent for levels and also for thyroid antibodies. Estimated Date of Delivery Comme nts Yes 02/07/2025 Date entered akin or to episode creation Immunizations Name Administration Dates Next Due Influenza, Unspecified 07/08/2024 Surgical History Surgery Date Site/Laterality Comments SECTION 2017 and 2019 CHOLECYSTECTOMY 12/16/2023 Medical History Medical History Date Comments Asthma Hyperthyroidism Heart murmur Migraine Family History Medical History Relation Name Comments Asthma Brother gunshot 2017 Father Alzheimer's disease Maternal Grandmother Diabetes Maternal Grandmother Hypertension Maternal Grandmother Breast cancer Mother Diabetes Mother Hypertension Mother Heart disease Paternal Grandfather Hypertension Paternal Grandmother Asthma Sister Relation Name Status Comments Brother Alive Father Maternal Grandfather Maternal Grandmother Alive Mother Alive Paternal Grandfather Paternal Grandmother Alive Sister Alive Social History Tobacco Use Types Packs/Day Years Used Date Smoking Tobacco: Never Smokeless Tobacco: Never Tobacco Cessation:Counseling Given: Not Answered Alcohol Use Standard Drinks/Week Comments Never 0 (1 standard drink = 0.6 oz pur e alcohol) Estimated Date of Delivery Comme nts Yes 02/07/2025 Date entered akin or to episode creation Sex and Gender Information Value Date Recorded Sex Assigned at Female 07/20/2024 12:44 PM EST Legal Sex Female 5:37 AM EST Gender Identity Female 07/20/2024 12:44 PM EST Sexual Orientation Straight 07/20/2024 12 :44 PM EST 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 Not on file Not on file Not on file Obstetrics History Para Term AB IAB SAB Ectopic Multiple Livin g Live Births 5 2 2 2 2 2 2 Date Outcome GA Total Labor Labor/2nd/3rd Weight Sex Type Anes PTL Gena A1 A5 Name Clin 2017 Term 3827 g (135 oz) F CS-LT ranv Living Complications:None 2018 Term M CS-LT ranv Living Complications:None 2019 SAB Current Summary Episode Dates Number of Fetuses Estimated Date of Delivery 08/06/2024 - Present (04/08/2025) 1 02/07/2025 (based on Alternate ISA Entry) Dating Summary Based On ISA GA Diff Last Menstrual Period on 04/24/2024 (Exact Date) 01/29/2025 +1w2d Alternate ISA Entry 02/07/2025 Working Comment:Date entered prior t o episode creation Overview and Plan :Lewsi Delivery Plans Post-Delivery Plans Planned delivery method: Feedin g intentions:Breast and Formula Feeding Acceptable blood products:All Circumcisi on requested:No Vitals Pregravid Weight Height TWG (As of 04/08/2025) Pregrav id BMI 106 kg (233 lb 11 oz) 1.473 m (58 ) -0.493 kg (-1 lb 1 .4 oz) 48.85 Notes Progress Notes - Initial Pre - 08/25/2024 - GA:16w2d 08/25/2024 - 16w2d - Bonnie Segal MD 08/25/2024 Chief Complaint Patient presents with Subjective: Jordana De León IUP 16w2d here for IP visit with self. Her is planned She and the partner of the baby are happy. Has hyperthyroidism and was last seen during 5 years ago with Endocrine. Never took meds. Not sure if antibody positive. Patient Patient's last menstrual period was 04/24/2024 (exact date).. She is certain of her LMP with regular cycles. is currently dated by ultrasound only She complains of vomiting and nausea. Taking B6. Not helping. Keeps down smaller meals in the AM and fluids. 2-3 time emesis in the AM. She denies vaginal bleeding or cramping. Flu vaccine is not indicated at today's visit. Had it here. Review of Systems- As in HPI Objective Physical Exam Vitals: 08/25/24 0931 BP: 110/68 Pulse: 89 Resp: 16 Vitals BP: 110/68 Weight: 106 kg (232 lb 9.6 oz) Fundal Height (cm): 16 cm Heart Rate: 150 [place] Depression Scale: In the Past 7 Days I have been able to laugh and see the funny side of things.: As much as I always could I have looked forward with enjoyment to things.: As much as I ever did I have blamed myself unnecessarily when things went wrong.: No, never I have been anxious or worried for no good reason.: No, not at all I have felt scared or panicky for no good reason.: No, not at all Things have been getting on top of me.: No, I have been coping as well as ever I have been so unhappy that I have had difficulty sleeping.: Not at all I have felt sad or miserable.: Not very often I have been so unhappy that I have been crying.: No, never The thought of harming myself has occurred to me.: Never [place] Depression Scale Total: 1 PN Check List: Pap is indicated at today's visit Std screening was collected at today's visit Panorama screening neg Depression screen negative Anatomy ultrasound to be scheduled at [facility] once established. Assessment/Plan care, subsequent in first trimester (Primary) - Alpha fetoprotein, maternal; Future Screen for STD (sexually transmitted disease) - Chlamydia trachomatis and Neisseria gonorrhoeae molecular study Screening for cervical cancer - Pap smear Hyperthyroidism Assessment & Plan: Labs sent for levels and also for thyroid antibodies. Orders: - Thyroid stimulating hormone; Future - Thyroid stimulating hormone with reflex free T4; Future - Triiodothyronine free; Future - Thyroid stimulating immunoglobulin; Future - Thyroid peroxidase and thyroglobulin antibodies; Future Nausea and vomiting in Assessment & Plan: Offered Zofran to take prior to getting out of bed in the AM. She will do this. Other orders - ondansetron ODT (ZOFRAN-ODT) 4 mg disintegrating tablet; Dissolve 1 tablet (4 mg total) on top of the tongue every 8 (eight) hours if needed for nausea or vomiting. Dispense: 30 tablet; Refill: 0 - aspirin 81 mg EC tablet; Take 2 tablets (162 mg total) by mouth 1 (one) time each day. Dispense: 60 tablet; Refill: 3 Patient has intake visit at [facility] next week due to BMI likely to be 50 at 28 weeks and will have PNC thereafter. Bonnie Barajas MD Progress Notes - Clinical Crews pport - 08/06/2024 - GA:13w4d 08/06/2024 - 13w4d - Dayan Ribeiro RN Jordana De León is a 29 y.o. old female at 13w4d. This is Planned. The patient feels happy about the . The FOB is happy. This is their first child together he has 4 other children Patient's last menstrual period was 04/24/2024 (exact date). (exact date)., which would make her currently 13w4d with an Estimated Date of Delivery: 02/07/25. She is certain of her date. An ultrasound has been ordered to confirm dating on 07/09/24 ISA 02/07/25 Patient has significant history of: (classical vs low transverse) X 2 [id number] SAB x 2 Hyperthroidism, Heart murmur, Obesity , asthma Jordana De León has been instructed on the following: random urine drug screening due to policy and an initial urine drug screen has been ordered., She has been counseled regarding avoiding hazards, litter boxes, smoking, drug and alcohol use during Jordana De León has also been informed of the hemmer lockstitch provider recommendation for first trimester nuchal lucency testing to be performed during her . Jordana De León has also been made aware of the time sensitive nature for this testing to be completed. . The patient now has a gestational age of 13w4d. The patient would be due for this testing prior to 14 weeks gestation which would be on 08/09/24 Nuchal u/s on 08/07/24 @1100am Ethnicity Based Genetic Testing has been reviewed and the [employer] information sheet has been provided to the patient in their After Visit Summary. The patient was also advised that genetic testing may not be covered by all insurances. The patients states that they understand this information. The patient states that she has not had the genetic screening for Horizon 14 done in the past during a previous . . The patient has agreed that she does want genetic testing for Horizon 14 The following Labs have been ordered: Obstetric Panel, HgA1c, Early Glucose Screen, HIV with verbal Consent, Urine Culture, and Panorama with gender She is aware that her insurance may or may not cover Panorama and/or Horizon 14 test and discussed mendieta only mabry for test(s) - info given today in her after visit summary . She would like to proceed with testing. Pt advised BMI 49.12 and possibility of transfer care to [facility] Plans on TBL with scheduled C/S Electronically signed by: Dayan Ribeiro RN 08/06/24 10:30 AM EST Last Filed Vital Signs Vital Sign Reading Time Taken Comments Blood Pressure 110/68 08/25/2024 9:31 AM EST Pulse 89 08/25/2024 9:31 AM EST Temperature - - Respiratory Rate 16 08/25/2024 9:31 AM EST Oxygen Saturation - - Inhaled Oxygen Concentration - - Weight 106 kg (232 lb 9.6 oz) 08/25/2024 9:31 AM EST Height 147.3 cm (4' 10 ) 08/06/2024 10:00 AM EST Body Mass Index 48.61 08/06/2024 10:00 AM EST Plan of Treatment Health Maintenance Due Date Last Done Comments Pneumococcal Vaccine: Pediatrics (0 to 5 Years) and At-Risk Patients (6 to 49 Years) (1 of 2 - PCV) 2013 Hepatitis B Vaccines (2 of 3 - 19+ 3-dose series) 11/05/2016 10/08/2016 COVID-19 Vaccine ( - 2023-2 5 season) 2024 Cholesterol Screening (Lipid Panel) 07/16/2024 Social Influencers of Health Screening 07/16/2024 Depression Screening 09/16/2024 08/04/2024 Influenza Vaccine (#1) 2025 , 10/08/2016 Cervical Cancer Screening: P ap Smear 08/25/2027 08/25/2024 DTaP,Tdap,and Td Vaccines (2 - Td or Tdap) 10/04/2027 10/04/2017 Hepatitis A Vaccines Aged Out 10/08/2016 No long er eligible based on patient's age to complete this topic HIV Screening Completed 08/06/2024, 09/12/2016 Hepatitis C Screening Completed 08/06/2024 HIB Vaccines Aged Out No longer eligi ble based on patient's age to complete this topic HPV Vaccines Aged Out No longer eligi ble based on patient's age to complete this topic IPV Vaccines Aged Out No longer eligi ble based on patient's age to complete this topic Meningococcal ACWY Vaccine Aged Out N o longer eligible based on patient's age to complete this topic Meningococcal B Vaccine Aged Out No l onger eligible based on patient's age to complete this topic RSV Immunization Patients Under 20 months Aged Out No longer eligible b ased on patient's age to complete this topic Procedures Procedure Name Priority Date/Time Associated Diagnosis Comments PAP SMEAR Routine 08/25/2024 9:56 AM EST Screening for cervical cancer HEPATITIS C ANTIBODY Routine 08/06/2024 12:36 PM EST care, subsequent in first trimester HIV 1, 2 ANTIBODY, P24 ANTIGEN WITH REFLEX TO DIFFERENTIATION Routine 08/06/2024 12:36 PM EST care, subsequent in first trimester from Last 3 Months or Most Recently Relevant to Health Maintenance Results * Pap smear (08/25/2024 9:56 AM EST) Interpretation Negative for intraepithelial lesion or malignancy 09/01/2024 3:14 PM EST [facility] General Categorization Negative 09/01/2024 3:14 PM EST [facility] LMP 04/24/2024 09/01/2024 3:14 PM [facility] Specimen Adequacy Satisfactory for evaluation, endocervical/mitchell sformation zone component absent 09/01/2024 3:14 PM [facility] Pap Methodology Liquid Based Pap Test 09/01/2024 3:14 PM [facility] Disclaimer The Pap test is a screening test which carries an inherent false negative rate. These test results should be correlated with the patient's clinical findings and history. This Pap test was processed using an automated screening system. Technical cytopathology services provided by [facility], at [address] [place] [address] (CLIA # [id number]/Clarita Moseley MD, Building Wrecker.) 09/01/2024 3:14 PM [facility] Console Pap Interpretation Reported 09/01/2024 3:14 PM [facility] Brushing/Spatula Cervix uteri structure / Unknown 08/25/2024 9:56 AM EST 08/25/2024 9:56 AM EST us Bonnie Barajas MD LAB CYTOLOGY ORDERABLES Fin al Result [facility] [address] [place] [address], [place] [phone] * Hepatitis C antibody (08/06/2024 12:36 PM EST) [facility] Hepatitis C Antibody Negative Negative LAB CHEMISTRY METHOD 08/06/2024 6:24 PM EST [facility] Blood Venous blood specimen / Unknown Venipuncture / Unknown 08/06/2024 12:36 PM EST 08/06/2024 12:36 PM EST Carlee Ordaz [facility] LAB BLOOD ORDERABLES Final Res ult Performing Organization Address [facility]/ZIP Co de Phone Number [facility] [address] [place] [address], [place] [phone] * HIV 1,2 antibody, p24 antigen with reflex to differentiation (08/06/2024 12:36 PM EST) [facility] HIV Combo AB/AG Negative Negative LAB CHEMISTRY METHOD 08/06/2024 6:24 PM EST [facility] Blood Venous blood specimen / Unknown Venipuncture / Unknown 08/06/2024 12:36 PM EST 08/06/2024 12:36 PM EST Narrative [facility] - 08/06/2024 6:24 PM EST This assay is a 4th generation assay allowing for earlier detection of HIV infection by detecting the presence of the HIV-1 p24 antigen as well as the traditional antibodies to HIV type 1 (including group O) and type 2. Use of a 4th generation assay is the current CDC recommendation for HIV screening. us Carlee Ordaz [facility] LAB BLOOD ORDERABLES Final Res ult Performing Organization Address City/[facility]/ZIP Co de Phone Number [facility] [address] [place] [address], [place] [phone] from Last 3 Months or Most Recently Relevant to Health Maintenance Insurance MEDICAID - [place] Care Teams Nurse Behavioral Health Care Relationship Specialty Start Date End Date Viji Austin [address] [place] [address] PCP - General 09/30/24
[2025-04-08 14:37] LABS: MANUAL DIFF FLAG NO
[2025-04-08 14:44] LABS: Hematocrit 32.5 % (37.0-47.0); Hemoglobin 10.2 g/dl (12.0-16.0); Imm Gran Abs Auto 0.03 X10*3/uL (0.00-0.03); Imm Gran Pct Auto 0.9 % (0.0-0.4); Lymphocytes Absolute Auto 1.2 X10*3/uL (1.2-4.9); Mean Corpuscular HGB Conc 31.4 g/dl (31.0-35.0); Mean Corpuscular Hemoglobin 22.0 pg (27.0-33.0); Mean Corpuscular Volume 70.2 fL (80.0-98.0); NRBC Abs Auto 0.000 X10*3/uL (0.0-0.012); NRBC Pct Auto 0.0 /100WBC (0.0-0.2); Red Blood Count 4.63 X10*6/uL (4.20-5.50); White Blood Count 3.2 X10*3/uL (4.8-10.8)
[2025-04-08 14:54] LABS: Platelet Count 162 X10*3/uL (160-400)
[2025-04-08 15:46] LABS: Alanine Aminotransferase 43 U/L (0-31); Albumin Level 4.3 g/dL (3.5-5.0); Alkaline Phosphatase 82 U/L (39-117); Anion Gap 11 (12-20); Aspartate Amino Transferase 63 U/L (5-31); Blood Urea Nitrogen 8 mg/dL (9-16); Calcium 8.8 mg/dL (8.4-10.2); Carbon Dioxide 26 mmol/L (22-29); Chloride 103 mmol/L (96-108); Creatinine Clr Calc Pharmacy 118.5; Estimated Glomerular Filt Rate > 60; Lipase 26 U/L (8-78); Potassium 3.6 mmol/L (3.3-5.1); Sodium 136 mmol/L (135-145); Total Protein 7.2 g/dL (6.5-8.0)
[2025-04-08 15:57] LABS: Alanine Aminotransferase 37 U/L (0-31); Albumin Level 3.8 g/dL (3.5-5.0); Alkaline Phosphatase 75 U/L (39-117); Anion Gap 12 (12-20); Aspartate Amino Transferase 58 U/L (5-31); Blood Urea Nitrogen 8 mg/dL (9-16); Calcium 8.2 mg/dL (8.4-10.2); Carbon Dioxide 24 mmol/L (22-29); Chloride 104 mmol/L (96-108); Creatinine Clr Calc Pharmacy 134.5; Estimated Glomerular Filt Rate > 60; Magnesium 2.1 mg/dL (1.6-2.6); Potassium 3.7 mmol/L (3.3-5.1); Sodium 136 mmol/L (135-145); Total Protein 6.5 g/dL (6.5-8.0)
--- NOTE | 2025-04-08 16:00 | PC.NURSE ---
Patient is a 29-year-old female presenting with reports of fever at home and neck pain and upper back pain for the past 3 days, she states neck and back pain developed at the same time and she started develop fevers, she did not have any cough or ear pain, has had no rashes, has had no chest pain, difficulty breathing abdominal pain or dysuria or diarrhea. She has been using Tylenol. No recent travels, no sick contacts. She presented to [facility] clinic and because of her upper back and neck pain and fever she was sent to the emergency department to rule out meningitis. Patient alert and oriented. appears uncomfortable but non toxic. c/o CUTLER, body aches and neck pain. No neck stiffness noted. Lungs clear bilat. Respirations even and non-labored. Abdomen large soft, non-tender with positive bowel sounds. Positive pedal pulses with no edema.
--- NOTE | 2025-04-08 16:01 | PC.NURSE ---
Acetaminophen IV was completed at 15:15 and 1000cc of Normal saline was completed at 16:01
[2025-04-08 16:10] VITALS: BP 106/56; PULSE 88; RESP 20; TEMP 37.3; O2SAT 96
[2025-04-08 16:22] LABS: Appearance Urine Clear; Glucose Urine UA Negative (Negative); PH 5.5 (5.0-9.0); Specific Gravity - Urine 1.020 (1.005-1.025)
[2025-04-08 17:29] VITALS: BP 106/56; PULSE 88; RESP 20; TEMP 37.3; O2SAT 96
[2025-04-09 10:23] LABS: Lyme Abs Screen <0.90 index
[2025-04-09 12:23] LABS: Chlamydia pneumoniae PCR Not Detected (Not Detect.); Coronavirus 229E PCR Not Detected (Not Detect.); Coronavirus HKU1 PCR Not Detected (Not Detect.); Coronavirus NL63 PCR Not Detected (Not Detect.); Coronavirus OC43 PCR Not Detected (Not Detect.); RSV PCR Not Detected (Not Detect.); Rhino/Enterovirus PCR Not Detected (Not Detect.)
[2025-04-09 13:22] LABS: Influenza A H1 PCR Not Detected (Not Detect.); Influenza A H1-2009 PCR Not Detected (Not Detect.); Influenza A H3 PCR Not Detected (Not Detect.); SARS-CoV-2 PCR Not Detected (Not Detect.)
[2025-04-10 02:03] LABS: A. Phagocytphilium DNA,RT-PCR NOT DETECTED (NOT DETECTED); Babesia Microti DNA, RT-PCR NOT DETECTED (NOT DETECTED); Borrelia Miyamotoi,DNA RT-PCR NOT DETECTED (NOT DETECTED); E.Chaffeensis DNA RT-PCR NOT DETECTED (NOT DETECTED); Lyme(Borrelia ssp)DNA RT-PCR NOT DETECTED (NOT DETECTED)
== END 2025-04-08 17:31 | disposition home or self-care (01) ==
PROVIDERS: Physician Assistant Medical; Emergency Provider Emergency Medicine
DX: M54.89 Other dorsalgia (principal); R50.9 Fever, unspecified
CPT/HCPCS: 36415; 71045; 80053; 81003; 83605; 83690; 83735; 84443; 85025; 85652; 86140; 86308; 86617; 86618; 87040; 87468; 87469; 87478; 87484; 87633; 87798; 93005; 96361; 96374; 96375; 99284; 99285; J0131; J1885; J2270

== ENCOUNTER → 2025-04-08 14:36 | Outpatient (BNV) | payer MEDICAID, SELFPAY | PROVIDERS: Emergency Provider Emergency Medicine; Visit Provider Internal Medicine Cardiovascular Disease | DX: I44.5 Left posterior fascicular block (principal) | CPT/HCPCS: 93010 ==

== ENCOUNTER → 2025-04-08 14:41 | Outpatient (BNV) | payer MEDICAID, SELFPAY | PROVIDERS: Emergency Provider Emergency Medicine; Visit Provider Radiology Diagnostic Radiology | DX: R53.1 Weakness (principal) | CPT/HCPCS: 71045 ==

== ENCOUNTER 2025-06-20 12:14 | Emergency (ER) | payer MEDICAID, SELFPAY ==
--- NOTE | ~2025-06-20 | XR_ITS ---
CLINICAL HISTORY: ankle pain. Exam: AP, lateral, and oblique views of the left foot. Comparison: Left ankle radiographs from same time. Findings: Alignment of the Lisfranc articulation is anatomic. No acute fracture. No erosions. Mild spurring of both the posterior and plantar calcaneus. There is soft tissue swelling over the plantar aspect of the forefoot. Impression: Plantar soft tissue swelling over the forefoot without acute bony abnormality. This document has been electronically signed by: Amos Garcia MD on 06/20/2025 15:26:45
--- NOTE | ~2025-06-20 | US_ITS ---
CLINICAL HISTORY: left ankle pain swelling. DVT Venous duplex ultrasound left lower extremity Comparison: CR - XR ANKLE LT MIN 3V - 06/20/25 12:56 EDT CR - XR FOOT LT 2V - 06/20/25 12:56 EDT Findings: The visualized deep veins are fully compressible with normal Doppler color flow and spectral tracings. Left peroneal vein not visualized. No popliteal cyst. IMPRESSION: 1. Negative for left lower extremity deep vein thrombosis. This document has been electronically signed by: Amos Garcia MD on 06/20/2025 15:24:50
--- NOTE | ~2025-06-20 | XR_ITS ---
CLINICAL HISTORY: ankle pain Exam: AP, lateral, and mortise views of the left ankle. Comparison: Left foot radiographs from same time. Findings: Bony alignment is anatomic. No acute fracture. Ankle mortise is intact. There is a well corticated ossification adjacent to the medial malleolus indicative of remote injury. Mild spurring of the posterior and plantar calcaneus. Impression: No acute fracture. This document has been electronically signed by: Amos Garcia MD on 06/20/2025 15:26:29
[2025-06-20 12:20] VITALS: BP 144/86; PULSE 95; O2SAT 98
[2025-06-20 12:39] VITALS: BP 126/74; PULSE 82; RESP 16; TEMP 36.2; O2SAT 99; BMI 47.0
--- NOTE | 2025-06-20 12:45 | ED_ITS ---
HPI - General Adult General Chief complaint: Extremity Problem Stated complaint: LEFT ANKLE PAIN Time Seen by Provider: 06/20/25 13:52 Source: patient, EMS and RN notes reviewed Mode of arrival: EMS Limitations: no limitations History of Present Illness ED Provider: OSITO Choi HPI narrative: 30-year-old female with medical history of hypothyroidism, gestational diabetes, gestational hypertension, presents to the ED due to 1 day of left ankle pain. Patient is 5 months post which required with her baby being born 4 weeks early due to elevated blood pressure. Patient does not recall if she had preeclampsia. Patient has had gestational diabetes but was able to management with diet and exercise did not need insulin. Patient is following her rn clinical documentation specialist and primary care doctor for evaluation of hypertension, and diabetes. Patient states yesterday she noticed pain in her L ankle when walking with worsening pain as day progressed. Patient states she became concerned as she had recent history of DVT in the left leg while in the hospital at [facility] having her baby. Patient was on anticoagulation therapy for approximately 1-1/2 months, and stop taking this medication in March per her doctor. Patient states this left ankle pain feels similar to the ankle pain she had on DVT was found. Patient states she has been taking Tylenol without relief. Additionally, patient states she has had daily headaches since giving that is sometimes associated with blurry vision. Patient states she has headache today but does not have any visual changes today and headache is mild. Denies chest pain, shortness of breath, abdominal pain, nausea, vomiting, MD complaint: L ankle pain Related Data Previous Rx's ?Medication ?Instructions ?Recorded oxycodone 5 mg tablet 5 mg PO Q4H PRN pain (scale score 02/12/24 7-10) #24 tabs oxycodone 5 mg tablet 5 mg PO Q6H PRN pain #10 tab s 07/05/24 Medrol (Helder) 4 mg tablets in a 4 mg PO DAILY #21 ea dose pack (methylprednisolone) diazepam 5 mg tablet (Valium) 5 mg PO TID PRN muscle s pasm 3 04/08/25 days #10 tabs ketorolac 10 mg tablet 10 mg PO Q8H PRN pain 3 days #9 06/20/25 tabs Allergies Allergy/AdvReac Type Severity Reaction Status Date / Time phenyltoloxamine (From Allergy Unknown VOMITING Verified 06/20/25 12:41 DOLOGESIC) Review of Systems 2 Review of Systems: CONST: Negative for fever, body aches and chills. HENT: Negative for neck pain/stiffness, headache, congestion, sore throat, swelling. EYES: Negative for discharge/pain or vision changes. RESP: Negative for cough/hemoptysis and shortness of breath. CV: Negative chest pain, difficulty breathing, palpitations. ABD: Negative pain, nausea, vomiting. : Negative increase frequency, dysuria, blood in urine or stool. MUSC: Negative for muscle aches, edema. POS L ankle pain SKIN: Negative rash, lesions/sores. NEURO: Negative headache, dizziness, weakness. Yes all other systems are reviewed and are negative [facility] Past Medical History Medical History Hypothyroidism Biliary dyskinesia Gallstones Morbid obesity Surgical History History of 2 sections Social History Social History Household Members: Children Housing: Apartment Do you presently have visiting nurse or other home services: No Alcohol intake: never Patient Tobacco Use Status: Never used Tobacco service: No Physical Exam ED Vital Signs: Vital Signs - 24 hr 06/20/25 12:39 06/20/25 16:26 06/20/25 17:38 Temperature 97.1 F 98.2 F 98.2 F Pulse Rate 82 72 72 Respiratory Rate 16 16 16 Blood Pressure 126/74 130/73 130/73 Pulse Oximetry 99 98 98 Oxygen Delivery Method Room Air Room Air Room Air BMI result Body Mass Index 47.0 GENERAL APPEARANCE: ?AxOx4, no acute distress. HEENT: ?NC, AT. MMM. EOMI, clear conjunctiva, oropharynx clear. NECK: ?Supple without lymphadenopathy.? No stiffness or restricted ROM. HEART:? Normal rate and regular rhythm, normal S1/S2, no m/r/g LUNGS:? CTAB, moving air well. No crackles or wheezes are heard. ABDOMEN: ?Soft, nontender, nondistended, no rigidity, no guarding. BACK: No CVAT, no obvious deformity. EXTREMITIES: ?Without cyanosis, clubbing. TTP of L calf, posterior ankle with mild non pitting edema, no erythema or warmth, positive Homans sign, DP pulse 2+, ROM intact but does have pain when ranging. NEUROLOGICAL: ?Grossly nonfocal. Alert and oriented, moving all 4 extremities. Skin: ?Warm and dry without any rash. Course Course Course Narrative: RME: 30-year-old female history of left leg DVT status post 5 months presents to ED for left ankle pain swelling without any trauma. On exam positive for left foot ankle swelling with calf tenderness without any calf swelling. Labs ultrasound x-ray ordered Medications Administered Discontinued Medications Generic Name Dose Route Start Last Admin Trade Name Freq PRN Reason Stop Dose Admin Acetaminophen 975 mg 06/20/25 17:12 06/20/25 17:34 Acetaminophen 325 Mg Tablet PO 06/20/25 17:13 975 mg ONCE ONE Administration Ketorolac Tromethamine 30 mg 06/20/25 17:12 06/20/25 17:35 Ketorolac Tromethamine 30 Mg/Ml Vial IM 06/20/25 17:13 30 mg ONCE ONE Administration Medical Decision Making Medical Decision Making MDM Narrative: 30-year-old female with medical history of hypothyroidism, gestational diabetes, gestational hypertension, presents to the ED due to 1 day of left ankle pain. Patient is 5 months post which required with her baby being born 4 weeks early due to elevated blood pressure. Patient does not recall if she had preeclampsia. Patient has had gestational diabetes but was able to management with diet and exercise did not need insulin. Patient is following her rn clinical documentation specialist and primary care doctor for evaluation of hypertension, and diabetes. 1 day of L ankle pain worse with weight bearing and with walking. Physical exam reveals TTP of L calf, posterior ankle, and plantar aspect of calcaneus with mild non pitting edema, no erythema or warmth, positive Homans sign, DP pulse 2+, ROM intact but does have pain when ranging. Labs without leukocytosis/leukopenia, mild microcytic anemia with a hemoglobin of 10.6, and hematocrit of 33.0, however on chart review these values have increased from 04/08/2025. XR L foot negative for acute fracture or dislocation however does reveal mild spurring of both the posterior and plantar calcaneus, with soft tissue swelling over the plantar aspect of the forefoot. XR L ankle negative for acute fracture or dislocation however does reveal a well corticated off suffocation adjacent to the medial malleolus indicative of remote injury, again with mild spurring of the posterior and plantar calcaneus. Venous duplex ultrasound negative for DVT. Patient's symptoms most likely due to plantar fasciitis. Imaging negative for fracture, dislocation or DVT. Patient afebrile, able to range the foot, Tran sign negative, Achilles tendon intact, less likely tenosynovitis, septic arthritis, or Achilles tendon rupture. Patient with history of gestational hypertension however was not hypertensive while in the department today most recent BP is 130/73. Patient was medicated with 30mg IM toradol and 975mg po tylenol. Patient will be discharged with 3 days of toradol for pain management. Referral placed to podiatry for follow up. I counseled patient to follow up with her primary care doctor to ensure resolution of symptoms and to discuss evaluation for diabetes as serum glucose was elevated at 231 without anion gap and anemia. Patient is in agreement with the plan. Differential Diagnosis Differential Diagnoses: The differential diagnosis associated with the presentation includes Foot fracture Ankle fracture DVT Plantar fasciitis Achilles tendon rupture Admission/Observation Consideration of admission/observation: Escalation of care including admission/observation considered Lab Data MDM Lab Attestation statement: I reviewed the patient's lab results. 06/20/25 12:58 06/20/25 12:58 Labs: Lab Results 06/20/25 Range/Units 12:58 WBC 4.8 (4.8-10.8) X10*3/uL RBC 4.77 (4.20-5.50) X10*6/uL Hgb 10.6 L (12.0-16.0) g/dl Hct 33.0 L (37.0-47.0) % MCV 69.2 L (80.0-98.0) fL MCH 22.2 L (27.0-33.0) pg MCHC 32.1 (31.0-35.0) g/dl RDW 14.6 (11.0-16.0) % Plt Count 288 D (160-400) X10*3/uL MPV 11.0 (9.4-12.3) fL Immature Gran % (Auto) 0.4 (0.0-0.4) % Neut % (Auto) 42.4 L (45-73) % Lymph % (Auto) 45.9 H (20-40) % Parmer % (Auto) 9.4 (2-11) % Eos % (Auto) 1.5 (0-4) % Baso % (Auto) 0.4 (0-2) % Lymph # (Auto) 2.2 (1.2-4.9) X10*3/uL Parmer # (Auto) 0.5 (0.1-1.2) X10*3/uL Eos # (Auto) 0.1 (0.0-0.4) X10*3/uL Baso # (Auto) 0.0 (0.0-0.2) X10*3/uL Abs Immat Gran (auto) 0.02 (0.00-0.03) X10*3/uL Absolute Neuts (auto) 2.0 (2.0-8.3) x10*3/uL Absolute Nucleated RBC 0.000 (0.0-0.012) X10*3/uL Nucleated RBC % (auto) 0.0 (0.0-0.2) /100WBC PT 12.0 (10.9-12.4) SEC INR 1.0 (0.9-1.1) APTT 31.4 (26.7-34.1) SEC Sodium 137 (135-145) mmol/L Potassium 4.0 (3.3-5.1) mmol/L Chloride 104 (96-108) mmol/L Carbon Dioxide 27 (22-29) mmol/L Anion Gap 10 L (12-20) BUN 7 L (9-16) mg/dL Creatinine 0.64 (0.5-1.4) mg/dL Estim Creat Clear Calc 131.4 Estimated GFR > 60 Random Glucose 231 H (60-115) mg/dL Calcium 9.4 D (8.4-10.2) mg/dL Total Bilirubin 0.4 (0.0-1.0) mg/dL AST 26 (5-31) U/L ALT 21 (0-31) U/L Alkaline Phosphatase 116 (39-117) U/L Total Protein 6.9 (6.5-8.0) g/dL Albumin 4.1 (3.5-5.0) g/dL Independent Interpretation I performed an independent interpretation of an: Plain X-Ray Interpretation: I personally interpreted the XR L foot which was negative for fracture or dislocation, however does reveal calcaneal spurs, I agree with the radiologist's interpretation I personally interpreted the XR L ankle which was negative for fracture or dislocation, however does reveal calcaneal spurs, I agree with the radiologist's interpretation I personally interpreted the venous duplex ultrasound which was negative for DVT, I agree with the radiologist's interpretation Radiology Impression Discussion of test interpretation with radiology: I have reviewed the radiologist's reading. Radiologist Impression: XR L foot Findings: Alignment of the Lisfranc articulation is anatomic. No acute fracture. No erosions. Mild spurring of both the posterior and plantar calcaneus. There is soft tissue swelling over the plantar aspect of the forefoot. Impression: Plantar soft tissue swelling over the forefoot without acute bony abnormality. This document has been electronically signed by: Amos Garcia MD on 06/20/2025 15:26:45 Dictated By: Amos Garcia MD Signed By: <Electronically signed by Amos Garcia MD in OV> 06/20/25 1528 XR L ankle Findings: Bony alignment is anatomic. No acute fracture. Ankle mortise is intact. There is a well corticated ossification adjacent to the medial malleolus indicative of remote injury. Mild spurring of the posterior and plantar calcaneus. Impression: No acute fracture. This document has been electronically signed by: Amos Garcia MD on 06/20/2025 15:26:29 Dictated By: Amos Garcia MD Signed By: <Electronically signed by Amos Garcia MD in OV> 06/20/25 1527 Venous duplex ultrasound Findings: The visualized deep veins are fully compressible with normal Doppler color flow and spectral tracings. Left peroneal vein not visualized. No popliteal cyst. IMPRESSION: 1. Negative for left lower extremity deep vein thrombosis. This document has been electronically signed by: Amos Garcia MD on 06/20/2025 15:24:50 Dictated By: Amos Garcia MD Signed By: <Electronically signed by Amos Garcia MD in OV> 06/20/25 1526 External Record Review External record reviewed: Inpatient record, Office record and Outpatient record Chronic Conditions Patient?s care impacted by: Other (Hypothyroidism, gestational diabetes, gestational hypertension) Social Determinants Patient?s care significantly limited by Social Determinants of Health including: Other Social Determinant of Health Discharge Plan Discharge Clinical Impression: Calcaneal spur Patient Disposition: Home, Self-Care Instructions: Heel Spur (ED) Additional Instructions: You were evaluated in the ED today due to left ankle and foot pain. Your x-ray was negative for fracture or dislocation however does show bone spur of your heel that is causing inflammation and irritation of the soft tissue surrounding it. I have placed referral to Podiatry for you. Call their office Saturday morning as they will not call you. You were medicated in the department with 30 mg IM Toradol, 975 mg of Tylenol. You are being prescribed a 3 day course of Toradol. While taking this medication do not take any other NSAIDs such as ibuprofen, Motrin, Aleve, Advil. Additionally you can take 500 mg of Tylenol every 6 hours while on this medication. Once you finish your course of Toradol, you can begin taking 400 mg of ibuprofen with 500 mg of Tylenol every 6 hours to manage pain. You can ice the area, elevate the foot to alleviate pain. Please return to the emergency department if you experience fevers over 100.4?, worsening pain of your left foot, redness or swelling of your left foot, decreased sensation or inability to move the left foot, or any new/worsening/concerning symptoms. Prescriptions: New ketorolac 10 mg tablet 10 mg PO Q8H PRN (Reason: pain) 3 Days Qty: 9 0RF No Action oxycodone 5 mg tablet 5 mg PO Q4H PRN (Reason: pain (scale score 7-10)) Qty: 24 0RF Rx Instructions: Partial Fill upon patient request. oxycodone 5 mg tablet 5 mg PO Q6H PRN (Reason: pain) Qty: 10 0RF Rx Instructions: Partial Fill upon patient request. diazepam [Valium] 5 mg tablet 5 mg PO TID PRN (Reason: muscle spasm) 3 Days Qty: 10 0RF methylprednisolone [Medrol (Helder)] 4 mg tablets,dose pack 4 mg PO DAILY Qty: 21 0RF Rx Instructions: Day 1: 24 mg on day 1 administered as 8 mg before breakfast, 4 mg after lunch, 4 mg after supper, and 8 mg at bedtime or 24 mg as a single dose or divided into 2 or 3 doses upon initiation. Day 2: 20 mg on day 2 administered as 4 mg before breakfast, 4 mg after lunch, 4 mg after supper, and 8 mg at bedtime. Day 3: 16 mg on day 3 administered as 4 mg before breakfast, 4 mg after lunch, 4 mg after supper, and 4 mg at bedtime. Day 4: 12 mg on day 4 administered as 4 mg before breakfast, 4 mg after lunch, and 4 mg at bedtime. Day 5: 8 mg on day 5 administered as 4 mg before breakfast and 4 mg at bedtime. Day 6: 4 mg on day 6 administered as 4 mg before breakfast. [place]: [facility] [place]Provider Group, Podiatry] Interventions: ED Discharge Assessment Last Done: 06/20/25 17:38 Discharge Date/Time: 06/20/25 17:40 Print Language: Sierra Leonean
[2025-06-20 13:03] LABS: MANUAL DIFF FLAG NO
[2025-06-20 13:08] LABS: Hematocrit 33.0 % (37.0-47.0); Hemoglobin 10.6 g/dl (12.0-16.0); Imm Gran Abs Auto 0.02 X10*3/uL (0.00-0.03); Imm Gran Pct Auto 0.4 % (0.0-0.4); Lymphocytes Absolute Auto 2.2 X10*3/uL (1.2-4.9); Mean Corpuscular HGB Conc 32.1 g/dl (31.0-35.0); Mean Corpuscular Hemoglobin 22.2 pg (27.0-33.0); Mean Corpuscular Volume 69.2 fL (80.0-98.0); NRBC Abs Auto 0.000 X10*3/uL (0.0-0.012); NRBC Pct Auto 0.0 /100WBC (0.0-0.2); Platelet Count 288 X10*3/uL (160-400); Red Blood Count 4.77 X10*6/uL (4.20-5.50); White Blood Count 4.8 X10*3/uL (4.8-10.8)
[2025-06-20 13:16] LABS: INTERNATIONAL NORM RATIO 1.0 (0.9-1.1); Prothrombin Time 12.0 SEC (10.9-12.4)
[2025-06-20 13:19] LABS: Partial Thromboplastin Time 31.4 SEC (26.7-34.1)
[2025-06-20 13:23] LABS: Alanine Aminotransferase 21 U/L (0-31); Albumin Level 4.1 g/dL (3.5-5.0); Alkaline Phosphatase 116 U/L (39-117); Anion Gap 10 (12-20); Aspartate Amino Transferase 26 U/L (5-31); Blood Urea Nitrogen 7 mg/dL (9-16); Calcium 9.4 mg/dL (8.4-10.2); Carbon Dioxide 27 mmol/L (22-29); Chloride 104 mmol/L (96-108); Creatinine Clr Calc Pharmacy 131.4; Estimated Glomerular Filt Rate > 60; Potassium 4.0 mmol/L (3.3-5.1); Sodium 137 mmol/L (135-145); Total Protein 6.9 g/dL (6.5-8.0)
--- OUTSIDE RECORDS SUMMARY | 2025-06-20 14:13 | XMS_ITS | Clinical Summary ---
Author Organization [facility] Address [address] [place] [address] Phone Care Team Providers Care Motor And Generator Brush Cutter Name Role Phone Austin, Viji Primary Care Provider [phone] Allergies No known active allergies Medications no115/iron/folic [...] She will do this. care, subsequent in 08/06/2024 Overview (08/06/2024): 1. [facility] site: [facility]: [address] [place] [address] ([phone]) 2. Delivery site: [facility] 3. Mobile Mommas: No 4. [...] - No 9. Hospital Course: Obesity, morbid (CMS/[facility] V24, [facility] V28) 08/06 Overview (08/06/2024): HgbA1C and 1 [...] 08/06/2024 Overview (08/06/2024): 2017 and 2018 @ [facility] Heart murmur 08/06/2024 Asthma 08/06/2024 Hyperthyroidism 08/06/2024 Assessment & Plan (08/25/2024 11:06 AM EST): Labs sent for levels and also for thyroid antibodies. 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 Para Term AB IAB SAB Ectopic Multiple Livin g Live Births 5 2 2 2 2 Date Outcome GA Total Labor Labor/2nd/3rd Weight Sex Type Anes PTL Gena A1 A5 Name Clin 2017 Term 3827 g (135 oz) F CS-LT ranv Living Complications:None 2018 Term M CS-LT ranv Living Complications:None 2019 2021 Last Filed Vital Signs Vital Sign Reading [...] 3 - 19+ 3-dose series) 11/05/2016 10/08/2016 HPV Vaccines (1 - 3-dose SCD M series) 2021 Cholesterol Screening (Lipid Panel) 07/16/2024 Social Influencers of Health Screening 07/16/2024 Depression Screening 09/16/2024 08/04/2024 COVID-19 Vaccine (1 - 2023-2 5 season) 2025 Influenza Vaccine (#1) 2025 , 10/08/2016 Cervical Cancer Screening: P ap Smear 08/25/2027 08/25/2024 DTaP,Tdap,and Td Vaccines (2 - Td or Tdap) 10/04/2027 10/04/2017 RSV Immunization Adult Patients (1 - 1-dose 75+ series) 2069 Hepatitis A Vaccines Aged Out 10/08/2016 No long er eligible based on patient's age to complete this topic HIV Screening Completed 08/06/2024, 09/12/2016 Hepatitis C Screening Completed 08/06/2024 HIB Vaccines Aged Out No longer eligi ble based on patient's age to complete this topic IPV Vaccines Aged Out No longer eligi ble based on patient's age to complete this topic MMR Vaccines Aged Out No longer eligi ble [...] on patient's age to complete this topic Varicella Vaccines Aged Out No longer eligible based [...] intraepithelial lesion or malignancy 09/01/2024 3:14 PM [facility] General Categorization Negative 09/01/2024 3:14 PM [facility] LMP 04/24/2024 09/01/2024 3:14 PM [facility] Specimen Adequacy Satisfactory for evaluation, endocervical/mitchell sformation zone component absent 09/01/2024 3:14 PM [facility] Pap Methodology Liquid Based Pap Test 09/01/2024 3:14 PM [facility] Disclaimer The Pap test is a screening test which carries an inherent false negative rate. These test results should be correlated with the patient's clinical findings and history. This Pap test was processed using an automated screening system. Technical cytopathology services provided by [facility], at [address] [place] [address] (CLIA # [id number]/Clarita Moseley MD, Filter Helper.) 09/01/2024 3:14 PM [facility] Console Pap Interpretation Reported 09/01/2024 3:14 PM [facility] Brushing/Spatula Cervix uteri structure / Unknown 08/25/2024 9:56 AM EST 08/25/2024 9:56 AM EST us Bonnie Barajas MD LAB CYTOLOGY ORDERABLES Fin al Result [facility] [address] [place] [address], * Hepatitis C antibody (08/06/2024 12:36 PM EST) Hepatitis C Antibody Negative Negative LAB CHEMISTRY METHOD 08/06/2024 6:24 PM [facility] Blood Venous blood specimen / Unknown Venipuncture / Unknown 08/06/2024 12:36 PM EST 08/06/2024 12:36 PM EST Carlee Ordaz [facility] BLOOD ORDERABLES Final Res ult Performing Organization Address [facility]/ZIP Co de Phone Number [facility] [address] [place] [address], [place] [phone] * HIV 1,2 antibody, p24 antigen with reflex to differentiation (08/06/2024 12:36 PM EST) HIV Combo AB/AG Negative Negative LAB CHEMISTRY METHOD 08/06/2024 6:24 PM EST [facility] Blood Venous blood specimen / Unknown Venipuncture / Unknown 08/06/2024 12:36 PM EST 08/06/2024 12:36 PM EST Narrative [facility] - 08/06/2024 6:24 PM EST This assay is a 4th generation assay allowing for earlier detection of HIV infection by detecting the presence of the HIV-1 p24 antigen as well as the traditional antibodies to HIV type 1 (including group O) and type 2. Use of a 4th generation assay is the current CDC recommendation for HIV screening. Carlee Ordaz [facility] BLOOD ORDERABLES Final Res ult Performing Organization Address [facility] Co de Phone Number [facility] [address] [place] [address], [place] [phone] from Last 3 Months or Most Recently Relevant to Health Maintenance Insurance MEDICAID - [place] Care Teams Motor And Generator Brush Cutter Relationship Specialty Start Date End Date Viji Austin [address] [place] [address] PCP - General 09/30/24
--- OUTSIDE RECORDS SUMMARY | 2025-06-20 14:13 | XMS_ITS | Encounter Summary ---
Author Organization [employer] Address [address] [place] [address] Care Team Providers Care Underground Heavy Equipment Operator Name Role Phone Caleb Laureanorehan MELTON Primary Care Provider [phone] Encounter Details Date Type Department Care Team (Late st Contact Info) Description 01/12/2025 Orders Only [facility] [address] [place], [place] [id number] Sujatha Barakat Social History Tobacco Use Types Packs/Day Years Used Date Smoking Tobacco: Never Smokeless Tobacco: Never Depression Answer Date Recorded Patient Health Questionnaire-9 [...] Internet Access Q2 Not on file 09/08/2024 Comments Yes Sex and Gender Information Value Date Recorded Sex Assigned at Female 07/16/2022 10:16 AM EDT Legal Sex Female 10:16 AM EDT Gender Identity Male 07/17/2022 7:01 PM EDT Sexual Orientation Lesbian or Moss 07/17/2022 7: 01 PM EDT documented as of this encounter Plan of Treatment Not on file documented as of this encounter Procedures Procedure Name Priority Date/Time Associated Diagnosis Comments HM PAP/HPV Routine 08/25/2024 12:00 AM EST documented in this encounter Results * HM PAP/HPV (08/25/2024 12:00 AM EST) us Historical Provider HEALTH MAINTENANCE Final Result documented in this encounter Visit Diagnoses Not on filedocumented in this encounter Additional Health Concerns Assessment Noted Time PHQ-9 Depression Total Score: 5 10/14/19 25 2:16 PM EST documented as of this encounter Care Teams Underground Heavy Equipment Operator Relationship Specialty Start Date End Date Stephie Ellis CNP PCP - General Family Medicine 10/14/24 Margoth Lo Tie Loader 09/10/24 documented as of this encounter
--- OUTSIDE RECORDS SUMMARY | 2025-06-20 14:13 | XMS_ITS | Clinical Summary ---
Author Organization [facility] Address [address] [place] [address] Care Team Providers Care Sales Floor Team Leader Name Role Phone Unavailable Primary Care Provider Unavailabl e Source Comments PLEASE NOTE, if this patient [...] daily 90 Cap 3 6 Active prenat.vits,dennys,mi o-gpzh-iamct per tabletIndications: Missed menses Take 1 Tablet by mouth once daily 90 Tablet 4 4 Active Active Problems Problem Noted Date Diagnosed Date Vitamin D insufficiency 09/14/2016 Chronic 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 09/12/2016 Encounters Date Type Department Care Team Description 05/25/2025 OB Abstract/Interim [facility] [address] [place] [id number] Mamta Tripathi PA-C from Last 3 Months Immunizations Immunization Administration Dates Next Due Flu, Preservative Free 10/08/2016 Hep A, adult 10/08/2016 Hep B, Adult/Adol ([id number] ULT) 10/08/2016 Family History Medical History Relation [...] Coverage) 09/12/2017 09/12/2016 Hypertension Screening (#1) 09/12/2019 Imm-HPV (1 - 3-dose SCDM series) 2021 Alcohol and Drug Screen 09/16/2024 Depression Annual Screen 09/16/2024 [id number] ( season) 2025 Imm-Influenza (#1) 2025 07/08/2024, 10/08/2016 Tobacco Screening [...] EST) HEPATITIS B SURFACE ANTIBODY NEGATIVE NEGATIVE [facility] HEPATITIS B SURFACE ANTIGEN NEGATIVE NEGATIVE [facility] HEPATITIS C VIRUS DIAGNOSTIC NEGATIVE NEGATIVE [facility] HEPATITIS A ANTIBODY TOTAL NEGATIVE NEGATIVE [facility] HEPATITIS B CORE ANTIBODY NEGATIVE NEGATIVE [facility] Blood specimen (specimen) Blood / Unknown 09/12/2016 11:23 AM EST 09/12/2016 11:24 AM EST Narrative [facility] 09/12/2016 4:19 PM EST [employer] [address] [place] [id number] PT ID [id number] ORD# [id number] us [facility] - BLOOD DRAW Edited Re junaid - Final [facility] [address] [place] [address], [place] [phone] * HIV-1 & HIV-2 ANTIBODIES (09/12/2016 11:23 AM EST) HIV 1 AND 2 ANTIBODY SCREEN NEGATIVE NEGATIVE [facility] Comment: This assay is a 4th generation [...] AM EST 09/12/2016 11:[address] [facility] - 09/12/2016 4:48 PM EST [employer] [address] [place] [address] PT ID [id number] ORD# [id number] [facility] - BLOOD DRAW Final Res ult [facility] [address] [place] [address], [place] [phone] from Last 3 Months or Most Recently Relevant to Health Maintenance Insurance [id number]
--- OUTSIDE RECORDS SUMMARY | 2025-06-20 14:13 | XMS_ITS | Clinical Summary ---
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 02/13/20 24 Active doxylamine (Unisom) 25 MG tabletIndications: Nausea and vomiting, unspecified vomiting type Take 1 tablet (25 mg) by mouth if needed at bedtime for sleep. 30 tablet 10/14/19 25 Active pyridoxine (Vitamin B-6) 25 MG tablet Take 25 mg by mouth if needed in the morning, at noon, in the evening, and at bedtime (before meals). Active baclofen (Lioresal) 10 MG tabletIndications: Neck pain Take one tablet TID PRN 30 tablet 04/12/20 25 Active hydrocortisone 2.5 % creamIndications:R kin Apply topically 2 times daily. 30 g 1 04/12/20 25 Active budesonide-formote rol (Symbicort) 160-4.5 MCG/ACT inhaler Inhale 2 puffs in the morning and at bedtime. Rinse mouth with water after use to reduce aftertaste and incidence of candidiasis. Do not swallow. 30 Inhaler 2 05/21/20 25 026 Active predniSONE (Deltasone) 20 MG tablet Take 1 tablet (20 mg) by mouth Once per day for 5 days. 5 tablet 05/21/20 25 025 Active Problems Problem Noted Date Diagnosed Date Cough in adult patient 05/21/2025 Assessment & Plan (05/21/2025 2:50 PM EDT): Orders: Influenza A (ID NOW Rapid Molecular) Influenza B (ID NOW Rapid Molecular) POCT Rapid COVID Ag Mild intermittent allergic asthma with acute exa cerbation 05/21/2025 Assessment & Plan (05/21/2025 2:50 PM EDT): Headache in 02/10/2025 Nausea and vomiting 10/14/2024 Assessment & Plan (10/14/2024 3:00 PM EST): Pt will continue to eat smaller more frequent meals Pt will ensure adequate hydration Will send unisom to take at bedtime Hypothyroidism 10/14/2024 Assessment & Plan (10/14/2024 3:02 PM EST): There are discrepancies between the two notes from [facility] and [facility], per pt's most recent TSH [...] 3:04 PM EST): Will send referrals to [facility] for routine examinations Dietary [...] 08/06/2024 Overview (10/12/2024): 2018 and 2019 @ [facility] Morbid obesity ([facility]/HCC) 08/06/2024 Overview (10/12/2024): HgbA1C and 1 hour [...] BMI of 50 by 28wks transfer [place] [facility] DVT prophylaxis- Lovenox if CS and BMI >35 Hyperthyroidism 08/06/2024 Heart murmur 08/06/2024 Asthma 08/06/2024 H/O cardiac murmur 07/03/2024 Mild intermittent asthma without complication 07/03/2024 Esotropia of right eye 07/03/2024 Vitamin D insufficiency 09/14/2016 Chronic 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 09/12/2016 Encounters Date Type Department Care Team Description 06/02/2025 Telephone [facility] [address] [place] [address] Stephie Ellis CNP 05/26/2025 Telephone [facility] [address] [place] [phone] Stephie Ellis CNP Care Management (C3CM follow up call) 05/21/2025 1:00 PM EDT Office Visit [facility] [address] [place] [phone] Erum Hernández NP Mild intermittent allergic asthma with acute exacerbation (Primary Dx); Cough in adult patient 05/21/2025 Travel 04/27/2025 Telephone [facility] [address] [place] [phone] Stephie Ellis CNP Care Management (C3CM follow up call) 04/12/2025 11:15 AM EDT Office Visit [facility] [address] [place] [phone] Birgit Morales NP Rash (Primary Dx); Neck pain 04/12/2025 Travel 04/09/[address] [address] Stephie Ellis CNP Nurse Triage 04/08/2025 1:40 PM EDT Office Visit [facility] [address] [place] [address] Beverley Melton MD Fever, unspecified fever cause (Primary Dx); Suspected infective meningitis; Chest discomfort 04/08/2025 Orders Only GENERIC EXTERNAL DATA DEPARTMENT Provider, Generic External Data 04/08/2025 Travel 04/01/2025 Telephone [facility] [address] [place] [address] Stephie Ellis CNP Care Management ([facility] TC #1-lvm) 03/25/2025 Patient Outreach [facility] [address] [place], [place] [phone] Stephie Ellis CNP Pre-visit Planning ([facility] unable to reach [facility] ) 03/22/2025 Telephone [facility] [address] [place] [address] Stephie Ellis CNP March recall from Last 3 Months Immunizations Immunization Administration [...] Access Q2 Not on file 09/08/2024 Comments No Sex and Gender Information Value Date Recorded Sex Assigned at Female 07/16/2022 10:16 AM EDT Legal Sex Female 10:16 AM EDT Gender Identity Male 07/17/2022 7:01 PM EDT Sexual Orientation Lesbian or Moss 07/17/2022 7: 01 PM EDT Last Filed Vital Signs Vital Sign Reading Time Taken Comments Blood Pressure 151/90 05/21/2025 1:03 PM EDT Pulse 90 05/21/2025 1:03 PM EDT Temperature 36.7 C (98 F) 05/21/2025 1:03 PM EDT Respiratory Rate 18 05/21/2025 1:03 PM EDT Oxygen Saturation 98% 05/21/2025 1:03 PM EDT Inhaled Oxygen Concentration - - Weight 111 kg (245 lb) 05/21/2025 1:03 PM EDT Height 147.3 cm (4' 10 ) 04/12/2025 11:03 AM EDT Body Mass Index 51.21 04/12/2025 11:03 AM EDT Plan of Treatment Health Maintenance Due Date Last Done Comments Lipid Panel 1995 Disability Screening 1995 Family Planning (PISQ) 2009 HPV Vaccines (1 - 3-dose series) 2009 Pneumococcal Vaccine: Pediatrics (0 to 5 Years) and At-Risk Patients (6 to 49) Years (1 of 2 - PCV) 2013 Hepatitis B Vaccines (2 of 3 - 19+ 3-dose series) 11/05/2016 10/08/2016 COVID-19 Vaccine (1 - 2023-2 5 season) 2025 Influenza Vaccine (#1) 2025 , 10/08/2016 SDOH Screening 09/08/2025 09/08/2024 Alcohol/Substance Use Screening 10/14/2025 10/14/2024 Depression Screening 10/14/2025 10/14/2024, 10/14/2024 Tobacco Screening 05/21/2026 05/21/2025 Cervical Cancer Screening 08/25/2027 HPV/Cotest 08/25/2027 Pap Smear 08/25/2027 08/25/2024 DTaP/Tdap/Td Vaccines (3 - T d or Tdap) 11/17/2034 11/17/2024, 10/04/2017 Zoster Vaccines (1 of 2) 2044 RSV Patients and Patients Aged 60 years or older (1 - 1-dose 75+ series) 2069 HIV Screening Discontinued 09/12/2016 Hepatitis A Vaccines Aged Out 10/08/2016 No long er eligible based on patient's age to complete this topic HIB Vaccines Aged Out No longer eligi [...] patient's age to complete this topic RSV under 20 months Aged Out No longe r eligible based on patient's age to complete this topic Rotavirus Vaccines Aged Out No longer eligible based on patient's age to complete this topic Procedures Procedure Name Priority Date/Time Associated Diagnosis Comments POCT RAPID COVID ANTIGEN Routine 05/21/2025 1:14 PM EDT Cough in adult patient POCT INFLUENZA B (ID NOW RAPID MOLECULAR) Routine 05/21/2025 1:14 PM EDT Cough in adult patient POCT INFLUENZA A (ID NOW RAPID MOLECULAR) Routine 05/21/2025 1:14 PM EDT Cough in adult patient RESPIRATORY VIRAL PANEL PCR Routine 04/08/2025 4:09 PM EDT URINALYSIS WITH REFLEX MICROSCOPIC Routine 04/08/2025 4:09 PM EDT XR CHEST 1 VIEW Routine 04/08/2025 3:40 PM EDT TSH W/REFLEX TO FT4 Routine 04/08/2025 3 :30 PM EDT C-REACTIVE PROTEIN Routine 04/08/2025 3: 30 PM EDT MAGNESIUM Routine 04/08/2025 3:30 PM EDT COMPREHENSIVE METABOLIC PANEL Routine 04/08/2025 3:30 PM EDT LACTIC ACID Routine 04/08/2025 3:30 PM EDT BLOOD CULTURE (SECOND) Routine 3:30 PM EDT LIPASE Routine 04/08/2025 3:22 PM EDT COMPREHENSIVE METABOLIC PANEL Routine 04/08/2025 3:22 PM EDT BLOOD CULTURE (FIRST) Routine 04/08/2025 3:22 PM EDT ECG 12-LEAD Routine 04/08/2025 2:32 PM EDT Chest discomfort TICK BORNE DISEASE BY PCR Routine 04/08/2025 2:32 PM EDT LYME DISEASE AB W/REFL TO BLOT (IGG, IGM) Routine 04/08/2025 2:32 PM EDT SED RATE BY MODIFIED WESTERGREN Routine 04/08/2025 2:32 PM EDT CBC WITH AUTO DIFFERENTIAL Routine 04/08/2025 2:32 PM EDT MONONUCLEOSIS TEST, QUALITATIVE Routine 04/08/2025 2:32 PM EDT POCT RAPID STREP A Routine 04/08/2025 1: 36 PM EDT Fever, unspecified fever cause POCT COVID-19 AG MENDEZ ID NOW Routine 04/08/2025 1:36 PM EDT Fever, unspecified fever cause POCT INFLUENZA B (ID NOW RAPID MOLECULAR) Routine 04/08/2025 1:36 PM EDT Fever, unspecified fever cause POCT INFLUENZA A (ID NOW RAPID MOLECULAR) Routine 04/08/2025 1:36 PM EDT Fever, unspecified fever cause HM PAP/HPV Routine 08/25/2024 12:00 AM EST from Last 3 Months or Most Recently Relevant to Health Maintenance Results * Influenza B (ID NOW Rapid Molecular) (05/21/2025 1:14 PM EDT) Only the most recent of2 resultswithin the time period is included. Influenza B Negative Negative, Indeterminate [facility] Swab 05/21/2025 1:14 PM EDT Erum Hernández TRACTOR OPERATOR HELPER POINT OF CARE TEST ENTER/EDIT OR DERABLES Final Result Performing Organization Address [facility] Co de Phone Number [facility] [address] [place] [phone] * Influenza A (ID NOW Rapid Molecular) (05/21/2025 1:14 PM EDT) Only the most recent of2 resultswithin the time period is included. Influenza A Negative Negative, Indeterminate [facility] Swab 05/21/2025 1:14 PM EDT us Erum Hernández TRACTOR OPERATOR HELPER POINT OF CARE TEST ENTER/EDIT OR DERABLES Final Result Performing Organization Address [facility]/ZIP Co de Phone Number [facility] [address] [place] [phone] * POCT Rapid COVID Ag (05/21/2025 1:14 PM EDT) Pathologist [facility] Rapid COVID Ag Negative Swab 05/21/2025 1:14 PM EDT Erum Hernández TRACTOR OPERATOR HELPER POINT OF CARE TEST ENTER/EDIT OR DERABLES Final Result * Respiratory Viral Panel PCR (04/08/2025 4:09 PM EDT) [facility] Adenovirus PCR Not Detected Not Detect. [facility] Bordetella pertussis PCR Not Detected Not Detect. [facility] Comment:Interpret results wi th caution. If B. pertussis isspecifically suspected, additional testing using analternate method is recommended. Bordetella parapertussis PCR Not Detected Not Detect. [facility] Chlamydia pneumoniae PCR Not Detected Not Detect. [facility] Coronavirus 229E PCR Not Detected Not Detect. [facility] Coronavirus HKU1 PCR Not Detected Not Detect. [facility] Coronavirus NL63 PCR Not Detected Not Detect. [facility] Coronavirus OC43 PCR Not Detected Not Detect. [facility] SARS-CoV-2 PCR Not Detected Not Detect. [facility] Comment:SARS-CoV-2 not detec margaret by real-time RT-PCR.Note: If clinical suspicion for Sars-CoV-2 is high, continueto maintain precautions and consider repeat testing.Test results should be interpreted in the context ofclinical findings and other laboratory data.Rare polymorphisms exist that could lead to false-negativeor false-positive results. If results do not match theclinical findings, additional testing should be considered.Results reported to [facility].This test has been authorized by the FDA under the EmergencyUse Authorization (EUA) for use by authorized laboratories. Influenza A PCR Not Detected Not Detect. [facility] Influenza A Subtype H1 Not Detected Not Detect. [facility] Influenza A H1-2009 PCR Not Detected Not Detect. [facility] Influenza A Subtype H3 Not Detected Not Detect. [facility] Influenza B PCR Not Detected Not Detect. [facility] Human metapneumovirus PCR Not Detected Not Detect. [facility] Rhino/Enterovirus PCR Not Detected Not Detect. [facility] Mycoplasma pneumoniae PCR Not Detected Not Detect. [facility] Parainfluenza 1 PCR Not Detected Not Detect. [facility] Parainfluenza 2 PCR Not Detected Not Detect. [facility] Parainfluenza 3 PCR Not Detected Not Detect. [facility] Parainfluenza 4 PCR Not Detected Not Detect. [facility] RSV PCR Not Detected Not Detect. [facility] Resp Panel NA Note See Note H [facility] Comment:All results must be correlated with clinical findings.Negative results should not be used as the sole basis fordiagnosis, treatment, or other management decisions.A negative result does not exclude the possibility of viralor bacterial infection. Negative results may occur from thepresence of sequence variants in the region targeted by theassay, the presence of inhibitors, an infection caused by anorganism not detected by the panel, or lower respiratorytract infections that are not detected by a nasopharyngealswab specimen. Test results may also be affected byconcurrent antiviral/antibacterial therapy or levels oforganism in the specimen that are below the limit ofdetection for this test.This assay is performed by Multiplexed PCR, utilizing [employer] Film Array. 04/08/2025 4:09 PM EDT 04/08/2025 4:19 PM EDT us Generic External Data Provider LAB BLOOD ORDERAB LES Final Result [facility] [address] [place] [phone] * Urinalysis w/reflex microscopic (04/08/2025 4:09 PM EDT) Color Urine Yellow [facility] Appearance Urine Clear [facility] PH 5.5 5.0 - 9.0 [facility] Glucose Urine UA Negative Negative mg/dL [facility] Urine Blood Negative Negative [facility] Specific Center [place] - Urine 1.020 1.005 - 1.025 [facility] Urine Protein Negative Neg-Trace mg/dL [facility] Urine Ketones Negative Negative mg/dL [facility] Nitrite Urine Negative Negative [facility] Leukocyte Esterase Urine Negative Negative [facility] 04/08/2025 4:09 PM EDT 04/08/2025 4:19 PM EDT Narrative [facility] - 04/08/2025 4:39 PM EDT Urine, Clean Catch us Generic External Data Provider LAB URINE ORDERAB LES Final Result Performing Organization Address City/State/[facility] Co de Phone Number [facility] [address] [place] [phone] * XR Chest 1 View (04/08/2025 3:40 PM EDT) Anatomical Region Laterality Modality Chest Radiographic Cheryl ging 04/08/2025 3:40 PM EDT Narrative 04/08/2025 3:57 PM EDT [address] [address] XRay Report Signed Patient: Jordana De León MR#: [id number] : 1995 Acct:[id number] Age/Sex: 29 / F ADM Date: 04/08/25 Loc: .ED Attending Dr: Ordering Physician: Zach De Oliveira DO Date of Service: 04/08/25 Procedure(s): XR chest 1V Accession Number(s): [id number] cc: [facility]; Zach De Oliveira DO EXAMINATION: XR CHEST CLINICAL INFORMATION: weakness COMPARISON: 07/14/2023. TECHNIQUE: Frontal view of the chest was obtained. FINDINGS: Prominent cardiac silhouette. Mediastinal and hilar contours appear normal. The lungs are clear bilaterally. No pneumothorax or effusion. No focal osseous or soft tissue abnormality. Cholecystectomy clips are noted. XR/XR chest 1V IMPRESSION: No active pulmonary disease. Electronically signed by: Ethan Ronquillo MD 04/08/2025 03:54 PM EDT RP Dictated By: Ethan Ronquillo MD Signed By: <Electronically signed by Ethan Ronquillo MD in OV> 04/08/25 1554 DD/ 1540 TD/TT: 04/08/25 155 Coverage Specialist: Procedure Note Donotuseinterpreter, Image - 04/09/[address] [address] XRay Report Signed Patient: Jordana De LeónMR#: [id number] : 1995Acct:[id number] Age/Sex: 29 / FADM Date: 04/08/25 Loc: .ED Attending Dr: Ordering Physician: Zach De Oliveira DO Date of Service: 04/08/25 Procedure(s): XR chest 1V Accession Number(s): [id number] cc: [facility]; Zach De Oliveira DO EXAMINATION: XR CHEST CLINICAL INFORMATION: weakness COMPARISON: 07/14/2023. TECHNIQUE: Frontal view of the chest was obtained. FINDINGS: Prominent cardiac silhouette. Mediastinal and hilar contours appear normal. The lungs are clear bilaterally. No pneumothorax or effusion. No focal osseous or soft tissue abnormality. Cholecystectomy clips are noted. XR/XR chest 1V IMPRESSION: No active pulmonary disease. Electronically signed by: Ethan Ronquillo MD 04/08/2025 03:54 PM EDT RP Dictated By: Ethan Ronquillo MD Signed By: <Electronically signed by Ethan Ronquillo MD in OV> 04/08/25 1554 DD/ 1540 TD/TT: 04/08/25 155 Coverage Specialist: [facility] External Provider IMG XR PROCEDURES Edited Result - Final * Blood Culture (Second) (04/08/2025 3:30 PM EDT) Blood Venous blood specimen / Unknown 04/08/2025 3:30 PM EDT 04/08/2025 3:34 PM EDT Comment:Blood Narrative [facility] - 04/13/2025 5:34 PM EDT Blood Culture (Second) No growth after 5 days. Specimen Source: Blood Generic External Data Provider LAB MICROBIOLOGY - GENERAL ORDERABLES Final Result Performing Organization Address [facility] Co de Phone Number [facility] [address] [place] [phone] * TSH with Reflex to Free T4 (04/08/2025 3:30 PM EDT) TSH reflex Free T4 2.45 0.32 - 4.0 uIU/mL [facility] 04/08/2025 3:30 PM EDT 04/08/2025 3:34 PM EDT Generic External Data Provider LAB BLOOD ORDERAB LES Final Result Performing Organization Address [facility] Co de Phone Number [facility] [address] [place] [phone] * (ABNORMAL) C-reactive Protein (04/08/2025 3:30 PM EDT) C Reactive Protein 4.95(H) < or = 0.50 mg/dL [facility] 04/08/2025 3:30 PM EDT 04/08/2025 3:34 PM EDT Generic External Data Provider LAB BLOOD ORDERAB LES Final Result Performing Organization Address [facility] Co de Phone Number [facility] [address] [place] [phone] * Magnesium (04/08/2025 3:30 PM EDT) Magnesium 2.1 1.6 - 2.6 mg/dL [facility] 04/08/2025 3:30 PM EDT 04/08/2025 3:34 PM EDT us Generic External Data Provider LAB BLOOD ORDERAB LES Final Result Performing Organization Address City/[facility]/ZIP Co de Phone Number [facility] [address] [place] [phone] * Lactic Acid (04/08/2025 3:30 PM EDT) Lactic Acid 0.6 0.5 - 2.0 mmol/L [facility] 04/08/2025 3:30 PM EDT 04/08/2025 3:34 PM EDT Generic External Data Provider LAB BLOOD ORDERAB LES Final Result Performing Organization Address [facility] de Phone Number [facility] [address] [place] [phone] * (ABNORMAL) Comprehensive Metabolic Panel (04/08/2025 3:30 PM EDT) Only the most recent of2 resultswithin the time period is included. Pathologist [facility] Sodium 136 135 - 145 mmol/L [facility] Potassium 3.7 3.3 - 5.1 mmol/L [facility] Chloride 104 96 - 108 mmol/L [facility] Carbon Dioxide 24 22 - 29 mmol/L [facility] Anion Gap 12 12 - 20 [facility] Urea Nitrogen (BUN) 8(L) 9 - 16 mg/dL [facility] Creatinine, Serum 0.74 0.5 - 1.4 mg/dL [facility] Creatinine Clr Calc Pharmacy 134.5 [facility] Comment:Provided height and weight: 177.8 cm,88.9 kg.eGFR (calculated from the MDRD study equation) and eCrCl(calculated from the Cockcroft-Gault equation) are based ondifferent parameters and may not yield comparable results.If eCrCl result is absurd, please check patient'sheight/weight. Estimated Glomerular Filt Rate >60 [facility] Comment:Chronic Kidney Disea se: Estimated GFR < 60 mL/min/1.21y9Hcothh Kidney Disease: Estimated GFR < 15 mL/min/1.73m2 Glucose 100 60 - 115 mg/dL [facility] Calcium 8.2(L) 8.4 - 10.2 mg/dL [facility] Bilirubin, Total 0.6 0.0 - 1.0 mg/dL [facility] Aspartate Amino Transferase 58(H) 5 - 31 U/L [facility] Alanine Aminotransferase 37(H) 0 - 31 U/L [facility] Total Protein 6.5 6.5 - 8.0 g/dL [facility] Albumin Level 3.8 3.5 - 5.0 g/dL [facility] Alkaline Phosphatase 75 39 - 117 U/L [facility] 04/08/2025 3:30 PM EDT 04/08/2025 3:34 PM EDT Generic External Data Provider LAB BLOOD ORDERAB LES Final Result Performing Organization Address City/[facility]/ZIP Co de Phone Number [facility] [address] [place] [phone] * Blood Culture (First) (04/08/2025 3:22 PM EDT) Blood Venous blood specimen / Unknown 04/08/2025 3:22 PM EDT 04/08/2025 3:24 PM EDT Comment:Blood Narrative [facility] - 04/13/2025 5:24 PM EDT Blood Culture (First) No growth after 5 days. Specimen Source: Blood Generic External Data Provider LAB MICROBIOLOGY - GENERAL ORDERABLES Final Result Performing Organization Address [facility] Co de Phone Number [facility] [address] [place] [phone] * Lipase (04/08/2025 3:22 PM EDT) Lipase 26 8 - 78 U/L [facility] 04/08/2025 3:22 PM EDT 04/08/2025 3:24 PM EDT us Generic External Data Provider LAB BLOOD ORDERAB LES Final Result [facility] [address] [place] [phone] * ECG 12 lead (04/08/2025 2:32 PM EDT) Narrative Beverley Melton MD - 04/08/2025 2:32 PM EDT 92 bpm, NSR No evidence of ischemia or infarction us Beverley Melton MD ECG ORDERABLES Final Resu lt * Tick-borne Disease, Acute Molecular Panel (04/08/2025 2:32 PM EDT) Babesia microti DNA, Real Time PCR NOT DETECTED NOT DETECTED [facility] Comment:This test was [employer] ped and its analytical performancecharacteristics have been determined by [employer]. It has not been cleared or approved by theFDA. This assay has been validated pursuant to the CLIAregulations and is used for clinical purposes.THIS TEST WAS PERFORMED AT:[employer] [place] [phone] MARINELLI MD Ehrlichia chaffensis DNA Real Time PCR NOT DETECTED NOT DETECTED [facility] Comment:This test was develo ped and its analytical performancecharacteristics have been determined by [employer]. It has not been cleared or approved by theFDA. This assay has been validated pursuant to the CLIAregulations and is used for clinical purposes.THIS TEST WAS PERFORMED AT:[facility] [place] [phone] MARINELLI MD Anaplasma phagocytophilum DNA, QL Real Time PCR NOT DETECTED NOT DETECTED [facility] Comment:This test was develo ped and its analytical performancecharacteristics have been determined by [employer]. It has not been cleared or approved by theFDA. This assay has been validated pursuant to the CLIAregulations and is used for clinical purposes. Borrelia Species DNA, Ql Real Time PCR NOT DETECTED NOT DETECTED [facility] Comment:This test was develo ped and its analytical performancecharacteristics have been determined by [employer]. It has not been cleared or approved by theFDA. This assay has been validated pursuant to the CLhintegulations and is used for clinical purposes.For additional information, please refer tohttps://education.[employer].com/faq/pkv755(This link is being provided for informational/educational purposes only.)THIS TEST WAS PERFORMED AT:[facility] [place] [phone] MARINELLI MD Borrelia Miyamotoi DNA, Ql Real Time PCR NOT DETECTED NOT DETECTED [facility] Comment:This test was develo ped and its analytical performancecharacteristics have been determined by [employer]. It has not been cleared or approved by theFDA. This assay has been validated pursuant to the CLIAregulations and is used for clinical purposes.THIS TEST WAS PERFORMED AT:[employer] [address] [phone] MARINELLI MD Comment SEE NOTE [facility] Comment:A negative result do es not exclude Borrelia infectionas the concentration of the organism in blood may be lowor non-existent in patients with Lyme disease, and maydepend on timing of specimen collection from onset ofsymptoms. Clinical correlation is recommended andadditional studies such as serologic testing may beindicated.THIS TEST WAS PERFORMED AT:[facility] [place] [phone] MARINELLI MD 04/08/2025 2:32 PM EDT 04/08/2025 2:36 PM EDT us Generic External Data Provider LAB BLOOD ORDERAB LES Final Result [facility] [address] [place] [phone] * Lyme Disease Ab with Reflex to Blot (IgG, IgM) (04/08/2025 2:32 PM EDT) [facility] Lyme Antibody Screen <0.90 index [facility] Comment:Index Interpretation ----- < 0.90 Negative 0.90-1.09 Equivocal > 1.09 PositiveAs recommended by the Food and Drug Administration(FDA), all samples with positive or equivocalresults in a Borrelia burgdorferi antibody screenwill be tested using a blot method. Positive orequivocal screening test results should not beinterpreted as truly positive until verified as suchusing a supplemental assay (e.g., B. burgdorferi blot).The screening test and/or blot for B. burgdorferiantibodies may be falsely negative in early stagesof Lyme disease, including the period when erythemamigrans is apparent.THIS TEST WAS PERFORMED AT:[facility] [place] [phone] MARINELLI MD Lyme Blot [facility] 04/08/2025 2:32 PM EDT 04/08/2025 2:36 PM EDT us Generic External Data Provider LAB BLOOD ORDERAB LES Final Result [facility] [address] [place] [phone] * (ABNORMAL) CBC auto differential (04/08/2025 2:32 PM EDT) [facility] White Blood Count 3.2(L) 4.8 - 10.8 X10*3/uL [facility] Red Blood Count 4.63 4.20 - 5.50 X10*6/uL [facility] Hemoglobin 10.2(L) 12.0 - 16.0 g/dl [facility] Hematocrit 32.5(L) 37.0 - 47.0 % [facility] Mean Corpuscular Volume 70.2(L) 80.0 - 98.0 fL [facility] Mean Corpuscular Hemoglobin 22.0(L) 27.0 - 33.0 pg [facility] Mean Corpuscular HGB Conc 31.4 31.0 - 35.0 g/dl [facility] Red Cell Distribution Width 18.1(H) 11.0 - 16.0 % [facility] Platelet Count 162 160 - 400 X10*3/uL [facility] Comment:Test was verified by repeat analysis. Neutrophils Percent Auto 46.6 45 - 73 % [facility] Imm Gran Pct Auto 0.9(H) 0.0 - 0.4 % [facility] Lymphocytes Percent Auto 38.5 20 - 40 % [facility] Monocytes Percent Auto 13.7(H) 2 - 11 % [facility] Eosinophils Percent Auto 0.0 0 - 4 % [facility] Basophils Percent Auto 0.3 0 - 2 % [facility] NRBC Pct Auto 0.0 0.0 - 0.2 /100WBC [facility] Neutrophils Absolute Auto 1.5(L) 2.0 - 8.3 x10*3/uL [facility] Imm Gran Abs Auto 0.03 0.00 - 0.03 X10*3/uL [facility] Lymphocytes Absolute Auto 1.2 1.2 - 4.9 X10*3/uL [facility] Monocytes Absolute Auto 0.4 0.1 - 1.2 X10*3/uL [facility] Eosinophils Absolute Auto 0.0 0.0 - 0.4 X10*3/uL [facility] Basophils Absolute Auto 0.0 0.0 - 0.2 X10*3/uL [facility] NRBC Abs Auto 0.000 0.0 - 0.012 X10*3/uL [facility] 04/08/2025 2:32 PM EDT 04/08/2025 2:36 PM EDT us Generic External Data Provider LAB BLOOD ORDERAB LES Final Result [facility] [address] [place] [phone] * Mononucleosis Test, Qualitative (04/08/2025 2:32 PM EDT) [facility] Monotest Negative Negative [facility] 04/08/2025 2:32 PM EDT 04/08/2025 2:36 PM EDT Generic External Data Provider LAB BLOOD ORDERAB LES Final Result Performing Organization Address [facility] Co de Phone Number [facility] [address] [place] [phone] * Sed Rate by Modified Jacergren (04/08/2025 2:32 PM EDT) [facility] Erythrocyte Sedimentation Rate 12 0 - 20 MM/HR [facility] Comment:Patients with polycy themia and many hemoglobin abnormalitiesmay have depressed sed rates whereas patients with anemiamay have elevated sed rates. 04/08/2025 2:32 PM EDT 04/08/2025 2:36 PM EDT Generic External Data Provider LAB BLOOD ORDERAB LES Final Result Performing Organization Address [facility] Co de Phone Number [facility] [address] [place] [phone] * POCT COVID-19 Ag Mendez ID NOW (04/08/2025 1:36 PM EDT) [facility] Coronavirus Antigen PCR Negative Negative, Indeterminate, None Detected, Invalid, Specimen unsatisfactory for evaluation, Weakly Positive, 2+ Swab 04/08/2025 1:36 PM EDT Beverley Melton MD POINT OF CARE TEST ENTER/E DIT ORDERABLES Final Result * POCT rapid strep A manually resulted (04/08/2025 1:36 PM EDT) [facility] Rapid Strep A Screen Negative Negative, None Detected Swab 04/08/2025 1:36 PM EDT Beverley Melton MD POINT OF CARE TEST ENTER/E DIT ORDERABLES Final Result * HM PAP/HPV (08/25/2024 12:00 AM EST) Historical Provider HEALTH MAINTENANCE Final Result from Last 3 Months or Most Recently Relevant to Health Maintenance Insurance [employer] MD C3 Care Teams Tax Examiner Relationship Specialty Start Date End Date Stephie Ellis CNP PCP - General Family Medicine 10/14/24 Margoth Lo [employer] Carpenter 09/10/24
[2025-06-20 16:26] VITALS: BP 130/73; PULSE 72; RESP 16; TEMP 36.8; O2SAT 98
[2025-06-20 17:38] VITALS: BP 130/73; PULSE 72; RESP 16; TEMP 36.8; O2SAT 98
== END 2025-06-20 17:40 | disposition home or self-care (01) ==
PROVIDERS: Physician Assistant; Emergency Provider Emergency Medicine
DX: M77.32 Calcaneal spur, left foot (principal); R60.0 Localized edema; M25.572 Pain in left ankle and joints of left foot; Z79.899 Other long term (current) drug therapy
CPT/HCPCS: 36415; 73610; 73620; 80053; 85025; 85610; 85730; 93971; 96372; 99284; J1885

== ENCOUNTER → 2025-06-20 12:43 | Outpatient (BNV) | payer MEDICAID, SELFPAY | PROVIDERS: Emergency Provider Emergency Medicine; Visit Provider Radiology Diagnostic Radiology | DX: M25.472 Effusion, left ankle (principal); R22.42 Localized swelling, mass and lump, left lower limb; M79.89 Other specified soft tissue disorders | CPT/HCPCS: 73610; 73620; 93971 ==

== ENCOUNTER 2025-07-05 07:51 | Outpatient (AMB) | payer MEDICAID, SELFPAY ==
--- OUTSIDE RECORDS SUMMARY | 2025-07-05 07:55 | XMS_ITS | Clinical Summary ---
Author Organization [facility] Address [address] [place] [address] Care Team Providers Care Forest Botany Instructor Name Role Phone Unavailable Primary Care Provider [...] daily 90 Cap 3 6 Active prenat.vits,dennys,mi v-bmpk-hutax per tabletIndications: Missed menses Take 1 Tablet by mouth once daily 90 Tablet 4 4 Active Active Problems Problem Noted Date Diagnosed Date Vitamin D insufficiency 09/14/2016 Chronic 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 09/12/2016 Encounters Date Type Department Care Team Description 05/25/2025 OB Abstract/Interim [facility] [address] [place] [phone] Mamta Tripathi PA-C from Last 3 Months Immunizations Immunization Administration Dates Next Due Flu, Preservative Free 10/08/2016 Hep A, adult 10/08/2016 Hep B, Adult/Adol ([id number]/RECOMBIVAX-AD ULT) 10/08/2016 Family History Medical History Relation [...] 09/12/2016 9:55 AM EST Plan of Treatment Not on file Insurance [address] [employer]
--- OUTSIDE RECORDS SUMMARY | 2025-07-05 07:55 | XMS_ITS | Encounter Summary ---
Author Organization [employer] Address [address] [place] [address] Care Team Providers Care Actuarial Associate Name Role Phone Caleb Laureanorehan MELTON Primary Care Provider [phone] Encounter Details Date Type Department Care Team (Late st Contact Info) Description 01/12/2025 Orders Only [facility] [address] [place], [place] [phone] Sujatha Barakat Social History Tobacco Use Types [...] documented as of this encounter Care Teams Actuarial Associate Relationship Specialty Start Date End Date Stephie Ellis CNP PCP - General Family Medicine 10/14/24 Margoth Lo Extermination Inspector 09/10/24 documented as of this encounter
--- OUTSIDE RECORDS SUMMARY | 2025-07-05 07:55 | XMS_ITS | Clinical Summary ---
Author Organization [facility] Address [address] [place] [address] Phone Care Team Providers Care Wet Cleaner Machine Name Role Phone Austin, Viji Primary Care Provider [phone] Allergies No known active allergies Medications no115/iron/folic [...] She will do this. care, subsequent in [facility] 08/06/2024 Overview (08/06/2024): 1. [facility] site: [facility]: [address] [place] [address] ([phone]) 2. Delivery site: [facility] 3. Mobile Mommas: No 4. Dating criteria: [...] No 9. Hospital Course: Obesity, morbid (CMS/[facility] V24, [facility] V28) 08/06 Overview (08/06/2024): HgbA1C and [...] 08/06/2024 Overview (08/06/2024): 2017 and 2018 @ [facility] Heart murmur 08/06/2024 Asthma 08/06/2024 Hyperthyroidism [...] intraepithelial lesion or malignancy 09/01/2024 3:14 PM [facility] General Categorization Negative 09/01/2024 3:14 PM [facility] LMP 04/24/2024 09/01/2024 3:14 PM [facility] Specimen Adequacy Satisfactory for evaluation, endocervical/mitchell sformation zone component absent 09/01/2024 3:14 PM [facility] Pap Methodology Liquid Based Pap Test 09/01/2024 3:14 PM [facility] Disclaimer The Pap test is a screening test which carries an inherent false negative rate. These test results should be correlated with the patient's clinical findings and history. This Pap test was processed using an automated screening system. Technical cytopathology services provided by [facility], at [address] [place] [address] (CLIA # [id number]/Clarita Moseley MD, Oxyacetylene Torch Operator.) 09/01/2024 3:14 PM [facility] Console Pap Interpretation Reported 09/01/2024 3:14 PM [facility] Brushing/Spatula Cervix uteri structure / Unknown 08/25/2024 9:56 AM EST 08/25/2024 9:56 AM EST us Bonnie Barajas MD LAB CYTOLOGY ORDERABLES Fin al Result [facility] [address] [place] [address], * Hepatitis C antibody (08/06/2024 12:36 PM EST) Hepatitis C Antibody Negative Negative LAB CHEMISTRY METHOD 08/06/2024 6:24 PM [facility] Blood Venous blood specimen / Unknown Venipuncture / Unknown 08/06/2024 12:36 PM EST 08/06/2024 12:36 PM EST Carlee Ordaz [facility] BLOOD ORDERABLES Final Res ult Performing Organization Address [facility]/ZIP Co de Phone Number [facility] [address] [place] [address], [place] [phone] * HIV 1,2 antibody, p24 antigen with reflex to differentiation (08/06/2024 12:36 PM EST) HIV Combo AB/AG Negative Negative LAB CHEMISTRY METHOD 08/06/2024 6:24 PM EST [facility] Blood Venous blood specimen / Unknown Venipuncture / Unknown 08/06/2024 12:36 PM EST 08/06/2024 12:36 PM EST Narrative [facility] - 08/06/2024 6:24 PM EST This assay is a 4th generation assay allowing for earlier detection of HIV infection by detecting the presence of the HIV-1 p24 antigen as well as the traditional antibodies to HIV type 1 (including group O) and type 2. Use of a 4th generation assay is the current CDC recommendation for HIV screening. Carlee Ordaz [facility] BLOOD ORDERABLES Final Res ult Performing Organization Address [facility] Co de Phone Number [facility] [address] [place] [address], [place] [phone] from Last 3 Months or Most Recently Relevant to Health Maintenance Insurance MEDICAID - [place] Care Teams Wet Cleaner Machine Relationship Specialty Start Date End Date Viji Austin [address] [place] [address] PCP - General 09/30/24
--- OUTSIDE RECORDS SUMMARY | 2025-07-05 07:55 | XMS_ITS | Clinical Summary ---
Author Organization [employer] Address [address] [place] [address] Care Team Providers Care Flag Signaler Name Role Phone Stephie Ellis SAP BI ARCHITECT Primary Care Provider [phone] Allergies Active Allergy Reactions Criticality Noted Date Comments Dexbromphen-Acetaminophen Unknown 09/12/2016 From [facility] records Dizziness, nausea hives Lidocaine Hcl Unknown 07/03/2024 From [facility] records Medications * This document [...] 30 Inhaler 2 05/21/20 25 026 Active Active Problems Problem Noted Date Diagnosed [...] are discrepancies between the two notes from [facility] and [facility], per pt's most recent TSH level of [...] 08/06/2024 Overview (10/12/2024): 2018 and 2019 @ [facility] Morbid obesity ([facility]/HCC) 08/06/2024 Overview (10/12/2024): HgbA1C and 1 hour [...] BMI of 50 by 28wks transfer to [facility] DVT prophylaxis- Lovenox if CS and BMI >35 Hyperthyroidism 08/06/2024 Heart murmur 08/06/2024 Asthma 08/06/2024 H/O cardiac murmur 07/03/2024 Mild intermittent asthma without complication 07/03/2024 Esotropia of right eye 07/03/2024 Vitamin D insufficiency 09/14/2016 Chronic 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 09/12/2016 Encounters Date Type Department Care Team Description 06/30/2025 Telephone [facility] [address] [place] [phone] Stephei Ellis CNP Care Management (C3 TC #1-lvm) 06/22/2025 Telephone [facility] [address] [place] [address] Stephie Ellis CNP Chart Prep 06/21/2025 Telephone [facility] [address] [place] [address] Stephie Ellis CNP Nurse Triage 06/20/2025 Orders Only GENERIC EXTERNAL DATA DEPARTMENT Provider, Generic External Data 06/02/2025 Telephone [facility] [address] [place] [phone] Stephie Ellis CNP 05/26/2025 Telephone [facility] [address] [place] [phone] Stephie Ellis CNP Care Management (C3CM follow up call) 05/21/2025 1:00 PM EDT Office Visit [facility] [address] [place] [phone] Erum Hernández NP Mild intermittent allergic asthma with acute exacerbation (Primary Dx); Cough in adult patient 05/21/2025 Travel 04/27/2025 Telephone [facility] [address] [place] [phone] Stephie Ellis CNP Care Management (C3CM follow up call) 04/12/2025 11:15 AM EDT Office Visit [facility] [address] [place] [address] Birgit Morales NP Rash (Primary Dx); Neck pain 04/12/2025 Travel 04/09/2025 Telephone [facility] [address] [place] [address] Stephie Ellis CNP Nurse Triage 04/08/2025 1:40 PM EDT Office Visit [facility] [address] [place] [address] Beverley Melton MD Fever, unspecified fever cause (Primary Dx); Suspected infective meningitis; Chest discomfort 04/08/2025 Orders Only GENERIC EXTERNAL DATA DEPARTMENT Provider, Generic External Data 04/08/2025 Travel from Last 3 Months Immunizations Immunization Administration Dates Next Due Hep A, Adult 10/08/2016 Hep B, adult 10/08/2016 Influenza injectable quadrivalent preservative f ree 10/08/2016 Influenza, seasonal, injectable, preservative fr ee 07/08/2024 Tdap 11/17/2024,10/04/2017 Family History Medical History Relation Name Comments [...] COVID-19 Vaccine ( - 2023-2 5 season) 2025 Influenza Vaccine (#1) 2025 4, 10/08/2016 SDOH Screening 09/08/2025 09/08/2024 Alcohol/Substance Use [...] Procedure Name Priority Date/Time Associated Diagnosis Comments XR FOOT 1-2 VIEWS LEFT Routine 5 3:26 PM EDT XR ANKLE 3+ VIEWS LEFT Routine 5 3:26 PM EDT LOWER EXTREMITY VENOUS DUPLEX LEFT Routine 06/20/2025 3:24 PM EDT COMPREHENSIVE METABOLIC PANEL Routine 06/20/2025 12:58 PM EDT APTT Routine 06/20/2025 12:58 PM EDT PROTHROMBIN TIME-INR Routine 06/20/2025 12:58 PM EDT CBC WITH AUTO DIFFERENTIAL Routine 06/20/2025 12:58 PM EDT POCT RAPID COVID ANTIGEN Routine 05/21/2025 1:14 [...] Recently Relevant to Health Maintenance Results * XR Foot 1-2 Views Left (06/20/2025 3:26 PM EDT) Anatomical Region Laterality Modality Lower Extremities, Foot Left Radiogra phic Imaging 06/20/2025 3:26 PM EDT Narrative 06/20/2025 3:28 PM EDT [address] [address] XRay Report Signed Patient: Jordana De León MR#: [id number] 1764 : 1995 Acct:[id number] Age/Sex: 30 / F ADM Date: 06/20/25 Loc: HO.ED Attending Dr: Ordering Physician: Herrera Hua Date of Service: 06/20/25 Procedure(s): XR foot LT 2V Accession Number(s): [id number] cc: Herrera Hua; Stephie Ellis CUTTER INSPECTOR Reason for Exam: ankle pain. CLINICAL HISTORY: ankle pain. Exam: AP, lateral, and oblique views of the left foot. Comparison: Left ankle radiographs from same time. Findings: Alignment of the Lisfranc articulation is anatomic. No acute fracture. No erosions. Mild spurring of both the posterior and plantar calcaneus. There is soft tissue swelling over the plantar aspect of the forefoot. Impression: Plantar soft tissue swelling over the forefoot without acute bony abnormality. This document has been electronically signed by: Amos Garcia MD on 06/20/2025 15:26:45 Dictated By: Amos Garcia MD Signed By: <Electronically signed by Amos Garcia MD in OV> 06/20/25 1528 DD/ 1526 TD/TT: 06/20/25 1526 Manager Party: Procedure Note Donotuseinterpreter, Image - 06/21/[address] [address] XRay Report Signed Patient: Jordana De LeónMR#: [id number] 1764 : 1995Acct:[id number] Age/Sex: 30 / FADM Date: 06/20/25 Loc: .ED Attending Dr: Ordering Physician: Herrera Hua Date of Service: 06/20/25 Procedure(s): XR foot LT 2V Accession Number(s): [id number] cc: Herrera Hua; Stephie Ellis CUTTER INSPECTOR Reason for Exam: ankle pain. CLINICAL HISTORY: ankle pain. Exam: AP, lateral, and oblique views of the left foot. Comparison: Left ankle radiographs from same time. Findings: Alignment of the Lisfranc articulation is anatomic. No acute fracture. No erosions. Mild spurring of both the posterior and plantar calcaneus. There is soft tissue swelling over the plantar aspect of the forefoot. Impression: Plantar soft tissue swelling over the forefoot without acute bony abnormality. This document has been electronically signed by: Amos Garcia MD on 06/20/2025 15:26:45 Dictated By: Amos Garcia MD Signed By: <Electronically signed by Amos Garcia MD in OV> 06/20/25 1528 DD/ 1526 TD/TT: 06/20/25 1526 Manager Party: [facility] External Provider IMG XR PROCEDURES Edited Result - Final * XR Ankle 3+ Views Left (06/20/2025 3:26 PM EDT) Anatomical Region Laterality Modality Lower Extremities, Ankle Left Radiogr aphic Imaging 06/20/2025 3:26 PM EDT Narrative 06/20/2025 3:27 PM EDT [place] [address] XRay Report Signed Patient: Jordana De León MR#: [id number] 1764 : 1995 Acct:[id number] Age/Sex: 30 / F ADM Date: 06/20/25 Loc: .ED Attending Dr: Ordering Physician: Herrera Hua Date of Service: 06/20/25 Procedure(s): XR ankle LT min 3V Accession Number(s): [id number] cc: Herrera Hua; Stephie Ellis NP Reason for Exam: ankle pain CLINICAL HISTORY: ankle pain Exam: AP, lateral, and mortise views of the left ankle. Comparison: Left foot radiographs from same time. Findings: Bony alignment is anatomic. No acute fracture. Ankle mortise is intact. There is a well corticated ossification adjacent to the medial malleolus indicative of remote injury. Mild spurring of the posterior and plantar calcaneus. Impression: No acute fracture. This document has been electronically signed by: Amos Garcia MD on 06/20/2025 15:26:29 Dictated By: Amos Garcia MD Signed By: <Electronically signed by Amos Garcia MD in OV> 06/20/25 1527 DD/ 1526 TD/TT: 06/20/25 152 Manager Party: Procedure Note Galina, Image - 06/21/[address] [address] XRay Report Signed Patient: Jordana De LeónMR#: [id number] 1764 : 1995Acct:[id number] Age/Sex: 30 / FADM Date: 06/20/25 Loc: HO.ED Attending Dr: Ordering Physician: Herrera Hua Date of Service: 06/20/25 Procedure(s): XR ankle LT min 3V Accession Number(s): [id number] cc: Herrera Hua; Stephie Ellis NP Reason for Exam: ankle pain CLINICAL HISTORY: ankle pain Exam: AP, lateral, and mortise views of the left ankle. Comparison: Left foot radiographs from same time. Findings: Bony alignment is anatomic. No acute fracture. Ankle mortise is intact. There is a well corticated ossification adjacent to the medial malleolus indicative of remote injury. Mild spurring of the posterior and plantar calcaneus. Impression: No acute fracture. This document has been electronically signed by: Amos Garcia MD on 06/20/2025 15:26:29 Dictated By: Amos Garcia MD Signed By: <Electronically signed by Amos Garcia MD in OV> 06/20/25 1527 DD/ 1526 TD/TT: 06/20/25 1526 Manager Party: us [facility] External Provider IMG XR PROCEDURES Edited Result - Final * Lower Extremity Venous Duplex (06/20/2025 3:24 PM EDT) 06/20/2025 3:24 PM EDT Narrative [facility] - 06/20/2025 3:26 PM EDT [address] [address] Ultrasound Report Signed Patient: Jordana De León MR#: [id number] 1764 : 1995 Acct:[id number] Age/Sex: 30 / F ADM Date: 06/20/25 Loc: .ED Attending Dr: Ordering Physician: Herrera Hua Date of Service: 06/20/25 Procedure(s): US venous duplex LE LT Accession Number(s): [id number] cc: Herrera Hua; [facility] Hospital[facility] CUTTER INSPECTOR Reason for Exam: left ankle pain/swelling. DVT CLINICAL HISTORY: left ankle pain swelling. DVT Venous duplex ultrasound left lower extremity Comparison: CR - XR ANKLE LT MIN 3V - 06/20/25 12:56 EDT CR - XR FOOT LT 2V - 06/20/25 12:56 EDT Findings: The visualized deep veins are fully compressible with normal Doppler color flow and spectral tracings. Left peroneal vein not visualized. No popliteal cyst. IMPRESSION: 1. Negative for left lower extremity deep vein thrombosis. This document has been electronically signed by: Amos Garcia MD on 06/20/2025 15:24:50 Dictated By: Amos Garcia MD Signed By: <Electronically signed by Amos Garcia MD in OV> 06/20/25 1526 DD/ 1524 TD/TT: 06/20/25 1524 Manager Party: Procedure Note Donfiorter, Image - 06/21/2025 [place] [address] Ultrasound Report Signed Patient: Jordana De LeónMR#: [id number] 1764 : 1995Acct:[id number] Age/Sex: 30 / FADM Date: 06/20/25 Loc: .ED Attending Dr: Ordering Physician: Herrera Hua Date of Service: 06/20/25 Procedure(s): US venous duplex LE LT Accession Number(s): [id number] cc: Herrera Hua; Stephie Ellis CUTTER INSPECTOR Reason for Exam: left ankle pain/swelling. DVT CLINICAL HISTORY: left ankle pain swelling. DVT Venous duplex ultrasound left lower extremity Comparison: CR - XR ANKLE LT MIN 3V - 06/20/25 12:56 EDT CR - XR FOOT LT 2V - 06/20/25 12:56 EDT Findings: The visualized deep veins are fully compressible with normal Doppler color flow and spectral tracings. Left peroneal vein not visualized. No popliteal cyst. IMPRESSION: 1. Negative for left lower extremity deep vein thrombosis. This document has been electronically signed by: Amos Garcia MD on 06/20/2025 15:24:50 Dictated By: Amos Garcia MD Signed By: <Electronically signed by Amos Garcia MD in OV> 06/20/25 1526 DD/ 1524 TD/TT: 06/20/25 1524 Manager Party: us [facility] External Provider CV VASC ULAR PROCEDURES Edited Result - Final [facility] [address] [place] [phone] * (ABNORMAL) CBC auto differential (06/20/2025 12:58 PM EDT) Only the most recent of2 resultswithin the time period is included. White Blood Count 4.8 4.8 - 10.8 X10*3/uL [facility] Red Blood Count 4.77 4.20 - 5.50 X10*6/uL [facility] Hemoglobin 10.6(L) 12.0 - 16.0 g/dl [facility] Hematocrit 33.0(L) 37.0 - 47.0 % [facility] Mean Corpuscular Volume 69.2(L) 80.0 - 98.0 fL [facility] Mean Corpuscular Hemoglobin 22.2(L) 27.0 - 33.0 pg [facility] Mean Corpuscular HGB Conc 32.1 31.0 - 35.0 g/dl [facility] Red Cell Distribution Width 14.6 11.0 - 16.0 % [facility] Platelet Count 288 160 - 400 X10*3/uL [facility] Mean Platelet Volume 11.0 9.4 - 12.3 fL [facility] Neutrophils Percent Auto 42.4(L) 45 - 73 % [facility] Imm Gran Pct Auto 0.4 0.0 - 0.4 % [facility] Lymphocytes Percent Auto 45.9(H) 20 - 40 % [facility] Monocytes Percent Auto 9.4 2 - 11 % [facility] Eosinophils Percent Auto 1.5 0 - 4 % [facility] Basophils Percent Auto 0.4 0 - 2 % [facility] NRBC Pct Auto 0.0 0.0 - 0.2 /100WBC [facility] Neutrophils Absolute Auto 2.0 2.0 - 8.3 x10*3/uL [facility] Imm Gran Abs Auto 0.02 0.00 - 0.03 X10*3/uL [facility] Lymphocytes Absolute Auto 2.2 1.2 - 4.9 X10*3/uL [facility] Monocytes Absolute Auto 0.5 0.1 - 1.2 X10*3/uL [facility] Eosinophils Absolute Auto 0.1 0.0 - 0.4 X10*3/uL [facility] Basophils Absolute Auto 0.0 0.0 - 0.2 X10*3/uL [facility] NRBC Abs Auto 0.000 0.0 - 0.012 X10*3/uL [facility] 06/20/2025 12:5 8 PM EDT 06/20/2025 1:02 PM EDT us Generic External Data Provider LAB BLOOD ORDERAB LES Final Result [facility] [address] [place] [phone] * Partial Thromboplastin Time, Activated (APTT) (06/20/2025 12:58 PM EDT) Partial Thromboplastin Time 31.4 26.7 - 34.1 SEC [facility] 06/20/2025 12:5 8 PM EDT 06/20/2025 1:02 PM EDT Generic External Data Provider LAB BLOOD ORDERAB LES Final Result Performing Organization Address [facility]/ZIP Co de Phone Number [facility] [address] [place] [phone] * Prothrombin Time-INR (06/20/2025 12:58 PM EDT) Prothrombin Time 12.0 10.9 - 12.4 SEC [facility] INTERNATIONAL NORM RATIO 1.0 0.9 - 1.1 [facility] Comment:INTERNATIONAL NORMAL IZED RATIO (INR) REFERENCE RANGES Reference RangeFor patients not on anticoagulant therapy: 0.9 - 1.1INR ranges for oral anticoagulanttherapy:For prevention and treatment of venous thrombosis and pulmonary embolism: 2.0 - 3.0For acute myocardial infarction with aspirin therapy: 2.0 - 3.0For acute myocardial infarction without aspirin therapy: 3.0 - 4.0For patients with mechanical prosthetic heart valves: 2.5 - 3.5 06/20/2025 12:5 8 PM EDT 06/20/2025 1:02 PM EDT Generic External Data Provider LAB BLOOD ORDERAB LES Final Result Performing Organization Address [facility] de Phone Number [facility] [address] [place] [phone] * (ABNORMAL) Comprehensive Metabolic Panel (06/20/2025 12:58 PM EDT) Only the most recent of3 resultswithin the time period is included. Sodium 137 135 - 145 mmol/L [facility] Potassium 4.0 3.3 - 5.1 mmol/L [facility] Chloride 104 96 - 108 mmol/L [facility] Carbon Dioxide 27 22 - 29 mmol/L [facility] Anion Gap 10(L) 12 - 20 [facility] Urea Nitrogen (BUN) 7(L) 9 - 16 mg/dL [facility] Creatinine, Serum 0.64 0.5 - 1.4 mg/dL [facility] Creatinine Clr Calc Pharmacy 131.4 [facility] Comment:Provided height and weight: 147.32 cm,102.058 kg.eGFR (calculated from the MDRD study equation) and eCrCl(calculated from the Cockcroft-Gault equation) are based ondifferent parameters and may not yield comparable results.If eCrCl result is absurd, please check patient'sheight/weight. Estimated Glomerular Filt Rate >60 [facility] Comment:Chronic Kidney Disea se: Estimated GFR < 60 mL/min/1.81p8Bjjgcy Kidney Disease: Estimated GFR < 15 mL/min/1.73m2 Glucose 231(H) 60 - 115 mg/dL [facility] Calcium 9.4 8.4 - 10.2 mg/dL [facility] Bilirubin, Total 0.4 0.0 - 1.0 mg/dL [facility] Aspartate Amino Transferase 26 5 - 31 U/L [facility] Alanine Aminotransferase 21 0 - 31 U/L [facility] Total Protein 6.9 6.5 - 8.0 g/dL [facility] Albumin Level 4.1 3.5 - 5.0 g/dL [facility] Alkaline Phosphatase 116 39 - 117 U/L [facility] 06/20/2025 12:5 8 PM EDT 06/20/2025 1:02 PM EDT us Generic External Data Provider LAB BLOOD ORDERAB LES Final Result [facility] [address] [place] [phone] * Influenza B (ID NOW Rapid Molecular) (05/21/2025 1:14 PM EDT) Only the most recent of2 resultswithin the time period is included. Influenza B Negative Negative, Indeterminate [facility] Swab 05/21/2025 1:14 PM EDT us Erum Hernández CUTTER INSPECTOR POINT OF CARE TEST ENTER/EDIT OR DERABLES Final Result [facility] [address] [place] [phone] [phone] * Influenza A (ID NOW Rapid Molecular) (05/21/2025 1:14 PM EDT) Only the most recent of2 resultswithin the time period is included. [facility] Influenza A Negative Negative, Indeterminate [facility] Swab 05/21/2025 1:14 PM EDT Erum Betty CUTTER INSPECTOR POINT OF CARE TEST ENTER/EDIT OR DERABLES Final Result Performing Organization Address City/[facility]/ZIP Co de Phone Number [facility] [address] [place] [phone] * POCT Rapid COVID Ag (05/21/2025 1:14 PM EDT) [facility] Rapid COVID Ag Negative Swab 05/21/2025 1:14 PM EDT Erum Hernández CUTTER INSPECTOR POINT OF CARE TEST ENTER/EDIT OR DERABLES Final Result * Respiratory Viral Panel PCR (04/08/2025 4:09 PM EDT) [facility] Adenovirus PCR Not Detected Not Detect. [facility] Bordetella pertussis PCR Not Detected Not Detect. [facility] Comment:Interpret results wi th caution. If B. pertussis isspecifically suspected, additional testing using analternate method is recommended. Bordetella parapertussis PCR Not Detected Not Detect. [facility] Chlamydia pneumoniae PCR Not Detected Not Detect. [facility] Coronavirus 229E PCR Not Detected Not Detect. [facility] Coronavirus HKU1 PCR Not Detected Not Detect. [facility] Coronavirus NL63 PCR Not Detected Not Detect. [facility] Coronavirus OC43 PCR Not Detected Not Detect. [facility] SARS-CoV-2 PCR Not Detected Not Detect. [facility] Comment:SARS-CoV-2 not detec magraret by real-time RT-PCR.Note: If clinical suspicion for Sars-CoV-2 is high, continueto maintain precautions and consider repeat testing.Test results should be interpreted in the context ofclinical findings and other laboratory data.Rare polymorphisms exist that could lead to false-negativeor false-positive results. If results do not match theclinical findings, additional testing should be considered.Results reported to [facility].This test has been authorized by the FDA under the EmergencyUse Authorization (EUA) for use by authorized laboratories. Influenza A PCR Not Detected Not Detect. [facility] Influenza A Subtype H1 Not Detected Not Detect. [facility] Influenza A H1-2009 PCR Not Detected Not Detect. [facility] Influenza A Subtype H3 Not Detected Not Detect. [facility] Influenza B PCR Not Detected Not Detect. [facility] Human metapneumovirus PCR Not Detected Not Detect. [facility] Rhino/Enterovirus PCR Not Detected Not Detect. [facility] Mycoplasma pneumoniae PCR Not Detected Not Detect. [facility] Parainfluenza 1 PCR Not Detected Not Detect. [facility] Parainfluenza 2 PCR Not Detected Not Detect. [facility] Parainfluenza 3 PCR Not Detected Not Detect. [facility] Parainfluenza 4 PCR Not Detected Not Detect. [facility] RSV PCR Not Detected Not Detect. [facility] Resp Panel NA Note See Note H [facility] Comment:All results must be correlated [...] assay is performed by Multiplexed PCR, utilizing Recroup Array. 04/08/2025 4:09 PM EDT 04/08/2025 4:19 PM EDT us Generic External Data Provider LAB BLOOD ORDERAB LES Final Result Performing Organization Address [facility] Co de Phone Number [facility] [address] [place] [phone] * Urinalysis w/reflex microscopic (04/08/2025 4:09 PM EDT) Color Urine Yellow [facility] Appearance Urine Clear [facility] PH 5.5 5.0 - 9.0 [facility] Glucose Urine UA Negative Negative mg/dL [facility] Urine Blood Negative Negative [facility] Specific [place] - Urine 1.020 1.005 - 1.025 [facility] Urine Protein Negative Neg-Trace mg/dL [facility] Urine Ketones Negative Negative mg/dL [facility] Nitrite Urine Negative Negative [facility] Leukocyte Esterase Urine Negative Negative [facility] 04/08/2025 4:09 PM EDT 04/08/2025 4:19 PM EDT Narrative [facility] - 04/08/2025 4:39 PM EDT Urine, Clean Catch us Generic External Data Provider LAB URINE ORDERAB LES Final Result Performing Organization Address [facility] Co de Phone Number [facility] [address] [place] [phone] * XR Chest 1 View (04/08/2025 3:40 PM EDT) Anatomical Region Laterality Modality Chest Radiographic Cheryl ging 04/08/2025 3:40 PM EDT Narrative 04/08/2025 3:57 PM EDT [address] [address] XRay Report Signed Patient: Jordana De León MR#: [id number] 1764 : 1995 Acct:[id number] Age/Sex: 29 / F ADM Date: 04/08/25 Loc: HO.ED Attending Dr: Ordering Physician: Zach De Oliveira DO Date of Service: 04/08/25 Procedure(s): XR chest 1V Accession Number(s): [id number] cc: [facility]; Zach De Oliveira DO EXAMINATION: XR [...] OV> 04/08/25 1554 DD/ 1540 TD/TT: 04/08/25 1550 Manager Party: Procedure Note Donotuseinterpreter, Image - 04/09/2025 [place] [address] XRay Report Signed Patient: Jordana De LeónMR#: [id number] 1764 : 1995Acct:[id number] Age/Sex: 29 / FADM Date: 04/08/25 Loc: HO.ED Attending Dr: Ordering Physician: Zach De Oliveira DO Date of Service: 04/08/25 Procedure(s): XR chest 1V Accession Number(s): [id number] cc: [facility]; Zach De Oliveira DO EXAMINATION: XR [...] OV> 04/08/25 1554 DD/ 1540 TD/TT: 04/08/25 1550 Manager Party: [facility] External Provider IMG XR PROCEDURES Edited Result - Final * Blood Culture (Second) (04/08/2025 3:30 PM EDT) Blood Venous blood specimen / Unknown 04/08/2025 3:30 PM EDT 04/08/2025 3:34 PM EDT Comment:Blood Narrative [facility] - 04/13/2025 5:34 PM EDT Blood Culture (Second) No growth after 5 days. Specimen Source: Blood Generic External Data Provider LAB MICROBIOLOGY - GENERAL ORDERABLES Final Result Performing Organization Address [facility] Co de Phone Number [facility] [address] [place] [address] [phone] * TSH with Reflex to Free T4 (04/08/2025 3:30 PM EDT) TSH reflex Free T4 2.45 0.32 - 4.0 uIU/mL [facility] 04/08/2025 3:30 PM EDT 04/08/2025 3:34 PM EDT Generic External Data Provider LAB BLOOD ORDERAB LES Final Result Performing Organization Address [facility] Co de Phone Number [facility] [address] [place] [phone] * (ABNORMAL) C-reactive Protein (04/08/2025 3:30 PM EDT) C Reactive Protein 4.95(H) < or = 0.50 mg/dL [facility] 04/08/2025 3:30 PM EDT 04/08/2025 3:34 PM EDT Generic External Data Provider LAB BLOOD ORDERAB LES Final Result Performing Organization Address [facility] Co de Phone Number [facility] [address] [place] [phone] * Magnesium (04/08/2025 3:30 PM EDT) Magnesium 2.1 1.6 - 2.6 mg/dL [facility] 04/08/2025 3:30 PM EDT 04/08/2025 3:34 PM EDT Generic External Data Provider LAB BLOOD ORDERAB LES Final Result Performing Organization Address [facility] Co de Phone Number [facility] [address] [place] [phone] * Lactic Acid (04/08/2025 3:30 PM EDT) Lactic Acid 0.6 0.5 - 2.0 mmol/L [facility] 04/08/2025 3:30 PM EDT 04/08/2025 3:34 PM EDT Generic External Data Provider LAB BLOOD ORDERAB LES Final Result Performing Organization Address [facility] de Phone Number [facility] [address] [place] [phone] * Blood Culture (First) (04/08/2025 3:22 PM EDT) Blood Venous blood specimen / Unknown 04/08/2025 3:22 PM EDT 04/08/2025 3:24 PM EDT Comment:Blood Narrative [facility] - 04/13/2025 5:24 PM EDT Blood Culture (First) No growth after 5 days. Specimen Source: Blood us Generic External Data Provider LAB MICROBIOLOGY - GENERAL ORDERABLES Final Result Performing Organization Address City/[facility]/ZIP Co de Phone Number [facility] [address] [place] [phone] * Lipase (04/08/2025 3:22 PM EDT) Pathologist [facility] Lipase 26 8 - 78 U/L [facility] 04/08/2025 3:22 PM EDT 04/08/2025 3:24 PM EDT Generic External Data Provider LAB BLOOD ORDERAB LES Final Result Performing Organization Address [facility] Co de Phone Number [facility] [address] [place] [phone] [phone] * ECG 12 lead (04/08/2025 2:32 PM EDT) Beverley Farfan MD - 04/08/2025 2:32 PM EDT 92 bpm, NSR No evidence of ischemia or infarction us Beverley Melton MD ECG ORDERABLES Final Resu lt * Tick-borne Disease, Acute Molecular Panel (04/08/2025 2:32 PM EDT) Pathologist [facility] Babesia microti DNA, Real Time PCR NOT DETECTED NOT DETECTED [facility] Comment:This test was develo ped and its analytical performancecharacteristics have been determined by [employer]. It has not been cleared or approved by theFDA. This assay has been validated pursuant to the CLIAregulations and is used for clinical purposes.THIS TEST WAS PERFORMED AT:[employer] [place] [phone] MARINELLI MD Ehrlichia chaffensis DNA Real Time PCR NOT DETECTED NOT DETECTED [facility] Comment:This test was develo ped and its analytical performancecharacteristics have been determined by [employer]. It has not been cleared or approved by theFDA. This assay has been validated pursuant to the CLIAregulations and is used for clinical purposes.THIS TEST WAS PERFORMED AT:[employer] [address] [phone] MARINELLI MD Anaplasma phagocytophilum DNA, QL Real Time PCR NOT DETECTED NOT DETECTED [facility] Comment:This test was develo ped and its analytical performancecharacteristics have been determined by [employer]. It has not been cleared or approved by theFDA. This assay has been validated pursuant to the CLIAregulations and is used for clinical purposes. Borrelia Species DNA, Ql Real Time PCR NOT DETECTED NOT DETECTED [facility] Comment:This test was develo ped and its analytical performancecharacteristics have been determined by [employer]. It has not been cleared or approved by theFDA. This assay has been validated pursuant to the CLIAregulations and is used for clinical purposes.For additional information, please refer totps://education.[employer]/faq/kmb178(This link is being provided for informational/educational purposes only.)THIS TEST WAS PERFORMED AT:[employer] [address] [phone] MARINELLI MD Borrelia Miyamotoi DNA, Ql Real Time PCR NOT DETECTED NOT DETECTED [facility] Comment:This test was develo ped and its analytical performancecharacteristics have been determined by [employer]. It has not been cleared or approved by theFDA. This assay has been validated pursuant to the [employer] (?) and is used for clinical purposes.THIS TEST WAS PERFORMED AT:[employer] [address] [phone] MARINELLI MD Comment SEE NOTE [facility] Comment:A negative result do es not exclude Borrelia infectionas the concentration of the organism in blood may be lowor non-existent in patients with Lyme disease, and maydepend on timing of specimen collection from onset ofsymptoms. Clinical correlation is recommended andadditional studies such as serologic testing may beindicated.THIS TEST WAS PERFORMED AT:[employer] [address] [phone] MARINELLI MD 04/08/2025 2:32 PM EDT 04/08/2025 2:36 PM EDT Generic External Data Provider LAB BLOOD ORDERAB LES Final Result Performing Organization Address [facility]/ZIP Co de Phone Number [facility] [address] [place] [phone] * Lyme Disease Ab with Reflex to Blot (IgG, IgM) (04/08/2025 2:32 PM EDT) Pathologist [facility] Lyme Antibody Screen <0.90 index [facility] Comment:Index Interpretation ----- < 0.90 [...] when erythemamigrans is apparent.THIS TEST WAS PERFORMED AT:[facility] [place] [phone] MARINELLI MD Lyme Blot TNP [facility] 04/08/2025 2:32 PM EDT 04/08/2025 2:36 PM EDT us Generic External Data Provider LAB BLOOD ORDERAB LES Final Result Performing Organization Address [facility]/ZIP Co de Phone Number [facility] [address] [place] [phone] * Mononucleosis Test, Qualitative (04/08/2025 2:32 PM EDT) Pathologist [facility] Monotest Negative Negative [facility] 04/08/2025 2:32 PM EDT 04/08/2025 2:36 PM EDT Generic External Data Provider LAB BLOOD ORDERAB LES Final Result Performing Organization Address [facility] Co de Phone Number [facility] [address] [place] [phone] * Sed Rate by Modified Westergren (04/08/2025 2:32 PM EDT) [facility] Erythrocyte Sedimentation Rate 12 0 - 20 MM/HR [facility] Comment:Patients with polycy themia and many hemoglobin abnormalitiesmay have depressed sed rates whereas patients with anemiamay have elevated sed rates. 04/08/2025 2:32 PM EDT 04/08/2025 2:36 PM EDT Generic External Data Provider LAB BLOOD ORDERAB LES Final Result Performing Organization Address [facility] Co de Phone Number [facility] [address] [place] [phone] * POCT COVID-19 Ag Mendez ID NOW (04/08/2025 1:36 PM EDT) [facility] Coronavirus Antigen PCR Negative Negative, Indeterminate, None Detected, Invalid, Specimen unsatisfactory for evaluation, Weakly Positive, 2+ Swab 04/08/2025 1:36 PM EDT Result [facility] Beverley Melton MD POINT OF CARE TEST ENTER/E DIT ORDERABLES Final Result * POCT rapid strep A manually resulted (04/08/2025 1:36 PM EDT) [facility] Rapid Strep A Screen Negative Negative, None Detected Swab 04/08/2025 1:36 PM EDT Beverley Melton MD POINT OF CARE TEST ENTER/E DIT ORDERABLES Final Result * HM PAP/HPV (08/25/2024 12:00 AM EST) us Historical Provider HEALTH MAINTENANCE Final Result from Last 3 Months or Most Recently Relevant to Health Maintenance Insurance [facility] C3 Care Teams Flag Signaler Relationship Specialty Start Date End Date Stephie Ellis CNP PCP - General Family Medicine 10/14/24 Margoth Lo Signal Operator 09/10/24
--- OUTSIDE RECORDS SUMMARY | 2025-07-05 07:55 | XMS_ITS | Encounter Summary ---
Author Organization [employer] Address [address] [place] [address] Care Team Providers Care Tuber Operator Name Role Phone Stephie Ellis CNP Primary Care Provider [phone] Reason for Visit * Reason Onset Date Comments Care Management 06/30/2025 [facility] TC #1-lvm Encounter Details Date Type Department Care Team ([facility] st Contact Info) Description 06/30/[address] [facility] MEDICINE [address] [place] [phone] Stephie Ellis CNP [address] [place] [address] Care Management ([facility] TC #1-lvm) Social History Tobacco Use Types Packs/Day Years [...] PM EDT documented as of this encounter Miscellaneous Notes * Telephone Encounter - Margoth Lo - 06/30/2025 11:51 AM EDT CM Margoth Lo RN placed outbound call to patient for follow up call. No answer at this time.LVM introducing herself from [facility] CM Department. Requested call back. CM reinforced direct contact information or CHW for any additional questions or concerns. Education provided on [facility] located in [facility]. Patient provided with after-hours line for [facility], , which offer night time triage service and option to transfer toon call provider if needed. CM will attempt another follow up call within 1 month. documented in this encounter Plan of Treatment Not on file documented as of this encounter Visit Diagnoses Not on filedocumented in this encounter Additional Health Concerns Assessment Noted Time PHQ-9 Depression Total Score: 5 10/14/19 25 2:16 PM EST documented as of this encounter Care Teams Tuber Operator Relationship Specialty Start Date End Date Stephie Ellis CNP PCP - General Family Medicine 10/14/24 Margoth Lo Personal Lines Appraiser 09/10/24 documented as of this encounter
[2025-07-05 08:30] VITALS: BMI 38.7
--- NOTE | 2025-07-05 08:30 | A.OFFVIS_ITS ---
Vital Signs 07/05/25 08:30 Height 4 ft 10 in Weight 185 lb BMI 38.7 Intake Visit Reasons: calcaneal spur/ED referral Intake Note: Jordana is a 30 year old female who presents today as a new patient for an evaluation of her calcaneal spur of the left foot. Pt reports she was seen at the ED on 06/20/25 and there she was prescribed Toradol to relieve her pain symptoms but found no relief. Patient reports she has no tried any other treatment and she states this has been going on for about 1 month. Foot X ray Impression: Plantar soft tissue swelling over the forefoot without acute bony abnormality. Ankle X-ray Impression: No acute fracture Allergies phenyltoloxamine (From [facility]) Allergy (Unknown, Verified 07/05/25 08:31) VOMITING HPI HPI calcaneal spur/ED referral: Details: 30 y/o female past medical history of hypothyroidism presents for left foot and ankle pain. She states the pain has been present for over 1 month. She has tried stretching exercises with frozen water bottle therapy and over the counter NSAIDs which have not helped. She is unable to weight-bear without pain. 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 She also notes a history of heel pain that has been intermittent for the past 15 - 16 years. [facility] Medical History Hypothyroidism Biliary dyskinesia Gallstones Morbid obesity Surgical History History of 2 sections Social History Household Members: Children Housing: Apartment Do you presently have visiting nurse or other home services: No Alcohol intake: never Patient Tobacco Use Status: Never used Tobacco service: No Review of Systems Const All systems reviewed & are unremarkable except as noted in HPI and below; No unobtainable due to endotracheal tube, Unobtainable due to mental condition, Unobtainable due to mental status or Other Physical Exam Vital Signs: BMI result Body Mass Index 38.7 Extrem Other: *Bilateral Lower Extremity Focused Exam Vascular: DP/PT 2/4, CFT less than 3 seconds all digits. Temperature gradient warm to cool. No pedal edema. Derm: Dry xerosis bilateral feet. No clinical signs of infection. No ecchymosis. Neuro: Protective sensation grossly intact to bilateral lower extremities MSK: Left foot - Moderate tenderness on palpation of the plantar medial calcaneal tubercle and radiates to the medial and central bands of the plantar fascia. Moderate tenderness on palpation of the Achilles tendon insertion. No dollar defect along the Achilles tendon. Plantar flexion intact. Results Reviewed Results Reviewed: Podiatry X-ray Read: 06/20/2025 X-ray left foot 3 views (AP, MO, Lateral) reviewed which shows mild plantar calcaneal spur, no fractures, dislocations, or gross abnormalities. Bone density is within normal limits. Normal anatomy. No evidence of swelling, foreign body, or calcifications. I personally reviewed the imaging and my findings are listed above. Podiatry X-ray Read: 06/20/2025 X-ray left ankle 3 views (AP, Mortise, Lateral) reviewed which shows we will circumscribed ossicle over the dorsal aspect of the navicular. no fractures, dislocations, osteochondral defects, or gross abnormalities. Anatomic alignment of the tibiotalar joint. Bone density is within normal limits. No evidence of swelling, foreign body, or calcifications. I personally reviewed the imaging and my findings are listed above. Assessment & Plan Assessment & Plan (1) Achilles tendinitis of left lower extremity: Code(s): M76.62 - Achilles tendinitis, left leg Category: Medical Plan: * Discussed wear and tear etiology of her tendinitis and plantar fasciitis. * Reviewed left foot and ankle x-rays with the patient. * Rx Medrol dose pack * Dispensed CAM boot * Instructed to perform range of motion and stretching exercises * Dispensed note to be out of work until 07/20/25 * Follow up in 2 weeks (2) Plantar fasciitis of left foot: Code(s): M72.2 - Plantar fascial fibromatosis Category: Medical Plan: * Discussed possible cortisone injection next visit Medications: New methylprednisolone (Medrol (Helder)) Take 6 tablets on day 1, 5 tablets on day 2, 4 tablets on day 3, 3 tablets on day 4, 2 tablets on day 5, and 1 tablet on day 6. 4 mg PO DAILY 21 ea 0RF achill es tendinitis M76.62 - Achilles tendinitis, left leg Coding Level of Care Code Est Pt Level 3 (54751) Diagnoses Achilles tendinitis of left lower extremity M76.62 Plantar fasciitis of left foot M72.2 Time Spent (min) 25
== END 2025-07-05 09:00 | disposition home or self-care (01) ==
PROVIDERS: Visit Provider Student in an Organized Health Care Education/Training Program
DX: M76.62 Achilles tendinitis, left leg (principal); M72.2 Plantar fascial fibromatosis
CPT/HCPCS: 99213

== ENCOUNTER → 2025-07-05 07:51 | Outpatient (BNVA) | payer MEDICAID, SELFPAY | PROVIDERS: Visit Provider Student in an Organized Health Care Education/Training Program | DX: M76.62 Achilles tendinitis, left leg (principal); M72.2 Plantar fascial fibromatosis | CPT/HCPCS: 99212 ==

== ENCOUNTER 2025-07-13 12:08 | Outpatient (AMB) | payer MEDICAID, SELFPAY ==
--- NOTE | 2025-07-13 12:28 | A.OFFVIS_ITS ---
Intake Visit Reasons: Ankle pain, swollen and turning black Intake Note: Jordana is a 30 year old female who presents today for a follow up on her left ankle/foot pain, swelling and discoloration. Pt reports the pain has not improved since the last time she was seen patient believes the pain has actually worsened and the prescribed medication provided no relief for her symptoms. She states her had noticed the discoloration of her foot this morning. Allergies phenyltoloxamine (From [facility]) Allergy (Unknown, Verified 07/13/25 13:54) VOMITING HPI HPI Ankle pain, swollen and turning black: Details: 30 y/o female past medical history of hypothyroidism returns 1 week for worsening left foot and ankle pain. She states the pain has worsened significantly and now has spread to above her knee. She states she is feeling tingling sensation down her leg. She also notes she is unable to bend her knee or flexor toes or ankle without severe pain. Patient endorses shortness of breath, however believes she may be attributing it to her anxiety and pain. She completed the Medrol Dosepak, finding no relief from it. She is using her cam boot to ambulate, which has not helped her pain at all. Patient denies chest pain, dizziness, nausea, vomiting. BP 124/62 O2 Sat 98% HR 78 PFSH Medical History Hypothyroidism Biliary dyskinesia Gallstones Morbid obesity Surgical History History of 2 sections Social History Household Members: Children Housing: Apartment Do you presently have visiting nurse or other home services: No Alcohol intake: never Patient Tobacco Use Status: Never used Tobacco Advance Directives: No Advance Directives Information Provided: No service: No Review of Systems Const All systems reviewed & are unremarkable except as noted in HPI and below Physical Exam Extrem Other: *Bilateral Lower Extremity Focused Exam Vascular: Left foot DP/PT 2/4 intact. CFT less than 3 seconds all digits. Temperature gradient warm to cool. No pedal edema. Derm: Dry xerosis bilateral feet. No clinical signs of infection. No ecchymosis. Neuro: Protective sensation grossly intact to bilateral lower extremities MSK: Moderate tenderness on palpation of the left calf, lateral and anterior muscle compartment of the leg. The left calf is indurated. Pain on dorsiflexion and plantar flexion of the ankle. Pain on flexion of the digits. Pain on attempted flexion of the left knee. Pain on attempted elevation of the leg. Still persistent tenderness on palpation of the plantar medial calcaneal tubercle and radiates to the medial and central bands of the plantar fascia. Tenderness on palpation of the Achilles tendon insertion. No dell/defect along the Achilles tendon. Results Reviewed Results Reviewed: Venous duplex 06/20/2025: Negative for left lower extremity deep vein thrombosis. Podiatry X-ray Read: 06/20/2025 X-ray left foot 3 views (AP, MO, Lateral) reviewed which shows mild plantar calcaneal spur, no fractures, dislocations, or gross abnormalities. Bone density is within normal limits. Normal anatomy. No evidence of swelling, foreign body, or calcifications. I personally reviewed the imaging and my findings are listed above. Podiatry X-ray Read: 06/20/2025 X-ray left ankle 3 views (AP, Mortise, Lateral) reviewed which shows we will circumscribed ossicle over the dorsal aspect of the navicular. no fractures, dislocations, osteochondral defects, or gross abnormalities. Anatomic alignment of the tibiotalar joint. Bone density is within normal limits. No evidence of swelling, foreign body, or calcifications. I personally reviewed the imaging and my findings are listed above. Assessment & Plan Assessment & Plan (1) Pain of left calf: Code(s): M79.662 - Pain in left lower leg Category: Medical Plan: * The patient may have left leg DVT. Ddx includes symptoms that near compartment syndrome, unclear etiology at this time. * An ambulance was called to transport the patient to the emergency room to rule out DVT. * Recommended repeat Doppler to rule out DVT. Pending her symptoms and response to analgesics/muscle relaxant, she may require compartment pressure testing of her left leg to rule out compartment syndrome. (2) Achilles tendinitis of left lower extremity: Code(s): M76.62 - Achilles tendinitis, left leg Category: Medical Plan: * Rx left leg MRI, left ankle MRI (3) Plantar fasciitis of left foot: Code(s): M72.2 - Plantar fascial fibromatosis Category: Medical Plan: * Will plan for cortisone injection Orders: Orders US venous duplex LE LT Today M79.662 - Pain in left lower leg PT Evaluation and Treatment Today M72.2 - Plantar fascial fibromatosis, M76.62 - Achilles tendinitis, left leg, S86.119A - Strain of other muscle(s) and tendon(s) of posterior muscle group at lower leg level, unspecified leg, initial encounter Medications: New cyclobenzaprine ER 15 mg PO DAILY PRN 14 caps 0RF muscle spasm Coding Level of Care Code Est Pt Level 5 (76528) Diagnoses Pain of left calf M79.662 Achilles tendinitis of left lower extremity M76.62 Plantar fasciitis of left foot M72.2 Time Spent (min) 30 Comment Patient was sent to the ER to rule out DVT
--- OUTSIDE RECORDS SUMMARY | 2025-07-13 15:28 | XMS_ITS | Clinical Summary ---
Author Organization [facility] Address [address] [place] [address] Phone Care Team Providers Care Car Oiler Name Role Phone Austin, Viji Primary Care Provider [phone] Allergies No known active allergies Medications no115/iron/folic [...] She will do this. care, subsequent in [facility] 08/06/2024 Overview (08/06/2024): 1. [facility] site: [facility]: [address] [place] [address] ([phone]) 2. Delivery site: [facility] 3. Mobile Mommas: No 4. Dating criteria: [...] - No 9. Hospital Course: Obesity, morbid (CMS/[facility] V24, [facility] V28) 08/06 Overview (08/06/2024): HgbA1C and 1 [...] 08/06/2024 Overview (08/06/2024): 2017 and 2018 @ [facility] Heart murmur 08/06/2024 Asthma 08/06/2024 Hyperthyroidism 08/06/2024 [...] intraepithelial lesion or malignancy 09/01/2024 3:14 PM [facility] General Categorization Negative 09/01/2024 3:14 PM [facility] LMP 04/24/2024 09/01/2024 3:14 PM [facility] Specimen Adequacy Satisfactory for evaluation, endocervical/mitchell sformation zone component absent 09/01/2024 3:14 PM [facility] Pap Methodology Liquid Based Pap Test 09/01/2024 3:14 PM [facility] Disclaimer The Pap test is a screening test which carries an inherent false negative rate. These test results should be correlated with the patient's clinical findings and history. This Pap test was processed using an automated screening system. Technical cytopathology services provided by [facility], at [address] [place] [address] (CLIA # [id number]/Clarita Moseley MD, Manufacturing Engineering Professor.) 09/01/2024 3:14 PM [facility] Console Pap Interpretation Reported 09/01/2024 3:14 PM [facility] Brushing/Spatula Cervix uteri structure / Unknown 08/25/2024 9:56 AM EST 08/25/2024 9:56 AM EST us Bonnie Barajas MD LAB CYTOLOGY ORDERABLES Fin al Result [facility] [address] [place] [address], * Hepatitis C antibody (08/06/2024 12:36 PM EST) Hepatitis C Antibody Negative Negative LAB CHEMISTRY METHOD 08/06/2024 6:24 PM [facility] Blood Venous blood specimen / Unknown Venipuncture / Unknown 08/06/2024 12:36 PM EST 08/06/2024 12:36 PM EST Carlee Ordaz [facility] BLOOD ORDERABLES Final Res ult Performing Organization Address [facility]/ZIP Co de Phone Number [facility] [address] [place] [address], [place] [phone] * HIV 1,2 antibody, p24 antigen with reflex to differentiation (08/06/2024 12:36 PM EST) HIV Combo AB/AG Negative Negative LAB CHEMISTRY METHOD 08/06/2024 6:[address] [facility] Blood Venous blood specimen / Unknown Venipuncture / Unknown 08/06/2024 12:36 PM EST 08/06/2024 12:[address] [facility] - 08/06/2024 6:24 PM EST This assay is a 4th generation assay allowing for earlier detection of HIV infection by detecting the presence of the HIV-1 p24 antigen as well as the traditional antibodies to HIV type 1 (including group O) and type 2. Use of a 4th generation assay is the current CDC recommendation for HIV screening. Carlee Ordaz [facility] BLOOD ORDERABLES Final Res ult Performing Organization Address [facility] Co de Phone Number [facility] [address] [place] [address], [place] [phone] from Last 3 Months or Most Recently Relevant to Health Maintenance Insurance MEDICAID - [place] Care Teams Car Oiler Relationship Specialty Start Date End Date Viji Austin [address] [place] [address] PCP - General 09/30/24
--- OUTSIDE RECORDS SUMMARY | 2025-07-13 15:28 | XMS_ITS | Clinical Summary ---
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
== END 2025-07-13 13:11 | disposition home or self-care (01) ==
LOC: HO.HPODS 12:08
PROVIDERS: Visit Provider Student in an Organized Health Care Education/Training Program
DX: M79.662 Pain in left lower leg (principal); M76.62 Achilles tendinitis, left leg; M72.2 Plantar fascial fibromatosis
CPT/HCPCS: 99215

== ENCOUNTER → 2025-07-13 12:08 | Outpatient (BNVA) | payer MEDICAID, SELFPAY | PROVIDERS: Visit Provider Student in an Organized Health Care Education/Training Program | DX: M79.662 Pain in left lower leg (principal); M76.62 Achilles tendinitis, left leg; M72.2 Plantar fascial fibromatosis | CPT/HCPCS: 99212 ==

== ENCOUNTER 2025-07-13 13:21 | Emergency (ER) | payer MEDICAID, SELFPAY ==
--- NOTE | ~2025-07-13 | XR_ITS ---
EXAMINATION: XR FOOT, LEFT CLINICAL INFORMATION: pain COMPARISON: June 20, 2025 TECHNIQUE: AP, lateral, and oblique views of the left foot. FINDINGS: There is mild widening between the base of the first metatarsal and adjacent second metatarsal . It measures 3 mm. This was present on the prior study. There is mild degenerative sclerosis and small osteophytes associated with the medial aspect of the medial cuneiform-navicular articulation. No fracture line is identified. XR/XR foot LT min 3V IMPRESSION: Mild chronic widening of the intermetatarsal space between the base of the first and second ray raises question of a prior Lisfranc ligament injury. There is no offset or malalignment across the tarsometatarsal articulations. 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 Electronically signed by: Trent Hamilton MD 07/13/2025 02:45 PM EDT
--- NOTE | ~2025-07-13 | US_ITS ---
EXAMINATION: US LOWER EXTREMITY VEINS LIMITED LEFT HISTORY: left leg swelling COMPARISON: There are no prior studies available for comparison. TECHNIQUE: Duplex and color Doppler sonographic examination of the deep venous system of the left lower extremity was performed. FINDINGS: The common femoral, superficial femoral, and popliteal veins are patent demonstrating normal compressibility, spontaneous flow, and augmentation. There is a normal color and spectral Doppler waveform appearance of the visualized deep venous system above the knee. The posterior tibial veins are patent. The peroneal veins are not well visualized. US/US venous duplex LE LT IMPRESSION: No evidence of acute DVT in the left lower extremity. Electronically signed by: Lance Bunn MD 07/13/2025 03:39 PM EDT
--- NOTE | ~2025-07-13 | XR_ITS ---
EXAMINATION: XR TIBIA AND FIBULA, LEFT CLINICAL INFORMATION: Pain COMPARISON: None available. TECHNIQUE: AP and lateral views of the left tibia and fibula were obtained. FINDINGS: No acute cortical disruption. No lytic or blastic lesions. No subcutaneous emphysema. No metallic or radiopaque foreign body. No periosteal bone reaction. XR/XR tibia fibula LT 2V IMPRESSION: No acute fracture. Negative x-ray. Electronically signed by: Alex Alvarado MD 07/13/2025 02:32 PM EDT
--- NOTE | ~2025-07-13 | XR_ITS ---
EXAMINATION: XR ANKLE, left CLINICAL INFORMATION: pain COMPARISON: April 20, 2025 TECHNIQUE: AP, lateral, and mortise views lower extremity joint, ankle. FINDINGS: There is subtle widening of the medial aspect of the superior clear space. There is no widening of the syndesmosis. Talar dome is intact. There are small calcaneal enthesophyte(s) at the Achilles tendon and plantar fascia attachments. There is a small ossification projecting inferior to the superficial aspect of the medial malleolus that is unchanged. XR/XR ankle LT min 3V IMPRESSION: There is nonspecific subtle widening of the medial aspect of the superior clear space of the ankle mortise raising question of a deltoid ligament sprain. There are small calcaneal spurs, a nonspecific finding. Electronically signed by: Trent Hamilton MD 07/13/2025 02:36 PM EDT
[2025-07-13 13:29] VITALS: BP 128/82; PULSE 80; O2SAT 97
[2025-07-13 13:51] VITALS: BP 119/56; PULSE 75; RESP 18; TEMP 36.5; O2SAT 97; BMI 49.1
--- NOTE | 2025-07-13 13:58 | ED_ITS ---
HPI - General Adult General Chief complaint: Extremity Problem Stated complaint: lt foot pain Time Seen by Provider: 07/13/25 17:09 History of Present Illness ED Provider: Padma DURAND narrative: The patient is a 30-year-old female who was sent to the emergency room from the podiatry office. The patient has been having problems with pain in her left foot and left lower leg for a few weeks. The patient was seen in the emergency room here a proximally 3 weeks ago on June 20 because of pain in the left ankle and in the left heel. She had x-rays that showed a heel spur. She was discharged from the emergency room to follow up with Podiatry. She followed up with the [facility] on July 05, 1 week ago. She was given an orthopedic boot. Today she had a follow up appointment at which she complained that her pain is no better and that she feels the pain is moving up her leg into her calf. The in flight crew member felt that she needed to have T excluded and she was sent back to the emergency room. The patient is very nonspecific and describing the symptoms of her syndrome. When asked where she his having the greatest amount of pain she has trouble answering the left heel although she says she also has pain on the top of the left foot. When asked if the pain is worse in the morning or at any other time of day she had 1st was very nonspecific but ultimately she said that the pain is worst at night. She has had no fever, sweats, chills. According to old records the patient previously reported that she has a history of a DVT in the left leg and that this occurred while she was . She told me that she actually was at one point thought to have a DVT but in fact never did. The patient has 3 small children at home. She has been trying to manage with the orthopedic boot. She has not had any crutches. Related Data Previous Rx's ?Medication ?Instructions ?Recorded oxycodone 5 mg tablet 5 mg PO Q4H PRN pain (scale score 02/12/24 7-10) #24 tabs oxycodone 5 mg tablet 5 mg PO Q6H PRN pain #10 tab s 07/05/24 Medrol (Helder) 4 mg tablets in a 4 mg PO DAILY #21 ea dose pack (methylprednisolone) diazepam 5 mg tablet (Valium) 5 mg PO TID PRN muscle s pasm 3 04/08/25 days #10 tabs ketorolac 10 mg tablet 10 mg PO Q8H PRN pain 3 days #9 06/20/25 tabs methylprednisolone 4 mg tablets in 4 mg PO DAILY achil les tendinitis 07/05/25 a dose pack (Medrol (Helder)) #21 ea acetaminophen 500 mg capsule 1,000 mg (2 x 500 mg) PO Q8H PRN 07/13/25 fever or pain #14 caps ibuprofen 400 mg tablet 400 mg PO Q6H PRN pain #14 t abs 07/13/25 cyclobenzaprine 5 mg tablet 5 mg PO TID PRN muscle spa sm #30 07/14/25 tabs Allergies Allergy/AdvReac Type Severity Reaction Status Date / Time phenyltoloxamine (From Allergy Unknown VOMITING Verified 07/13/25 13:54 DOLOGESIC) Review of Systems 2 Review of Systems: Yes all other systems are reviewed and are negative [facility] Past Medical History Medical History Hypothyroidism Biliary dyskinesia Gallstones Morbid obesity Surgical History History of 2 sections Social History Social History Household Members: Children Housing: Apartment Do you presently have visiting nurse or other home services: No Alcohol intake: never Patient Tobacco Use Status: Never used Tobacco Advance Directives: No Advance Directives Information Provided: No service: No Physical Exam ED Vital Signs: Vital Signs - 24 hr 07/13/25 13:51 07/13/25 18:50 Temperature 97.7 F 97.7 F Pulse Rate 75 75 Respiratory Rate 18 18 Blood Pressure 119/56 L 119/56 L Pulse Oximetry 97 97 Oxygen Delivery Method Room Air Room Air BMI result Body Mass Index 49.1 Const Other: The patient is a 30-year-old female who was awake and alert. She did not seem in acute distress. HENMT Other: The face is symmetrical. ?Mucous membranes moist. Eyes Other: Pupils are round. There is some mild asymmetry to the alignment of the eyes. I believe there is some mild esotropia of the right eye. Otherwise the eyes are unremarkable. Neck Neck: Yes normal visual inspection, Yes full ROM and Yes no lymphadenopathy Resp Effort & Inspection: normal respiratory effort Auscultation: clear to auscultation bilaterally Cardio Rate: regular rate Rhythm: regular rhythm Heart sounds: S1 normal heart sound present and S2 normal heart sound present Neuro Other: The patient is awake and alert with a normal mental status. The patient has a mild esotropia of the right eye but otherwise cranial nerves are intact. She seems to have intact strength and sensation in her extremities although she has pain in the left ankle and foot which limits movement. Extrem Other: The appearance of the left lower leg, ankle, and foot is not very remarkable. No gross asymmetry between the legs. No erythema. I do not really appreciate any asymmetry of size of the calves. The compartments of the left calf seem soft. The patient is able to move her left ankle although she says it is painful. She reports tenderness with palpation of the ankle, the heel and the foot generally. She seems to have maximal tenderness near the heel but she also says she has pain on the dorsum of the foot. The foot seems well-perfused. Course Course Course Narrative: RME: 30 yold female presents to the left lower exgtremity pain. patient sent by Dr. Hebert podiatry to rule king DVT, compartment syndrome. paeitn states no new trauma. labs US, and xray orys odered. patient win walking boot. popiteal pusls intact. patient for 3 weeks. Medical Decision Making Medical Decision Making MDM Narrative: The patient is a 30-year-old female. She has a BMI of 49. She has had atraumatic pain of her left foot, ankle, and heel for the past several weeks. She has been seen by Podiatry. She has been using a walking boot for the last week and this has not seemed to help. She is complaining of pain going up to the calf. Previous records indicated that she might have a history of a left leg DVT but the patient tells me that at 1 point while she was she was thought to possibly have a DVT but ultimately she did not seem to have a DVT. Today the patient has a negative DVT ultrasound. A CBC and BNP are unremarkable. X-rays of the foot and ankle shows some subtle findings of uncertain significance. No gross findings on x-rays. My overall impression is that the patient is not having any acutely dangerous process. She clearly has some kind of foot pain syndrome that is very nonspecific. This does not seem to clearly be plantar fasciitis. The patient has not been using crutches. She will be supplied with the crutches. I contacted her in flight crew member. He said she should stop using the walking boot if she does not feel it is helping. The patient will be advised to use the crutches to try to keep weight off the left foot as much as possible. Also she should try to rest and keep the foot elevated. She should follow up with her in flight crew member. Lab Data 07/13/25 14:44 07/13/25 14:44 Labs: Lab Results 07/13/25 Range/Units 14:44 WBC 5.5 (4.8-10.8) X10*3/uL RBC 5.16 (4.20-5.50) X10*6/uL Hgb 11.3 L (12.0-16.0) g/dl Hct 36.8 L (37.0-47.0) % MCV 71.3 L (80.0-98.0) fL MCH 21.9 L (27.0-33.0) pg MCHC 30.7 L (31.0-35.0) g/dl RDW 15.2 (11.0-16.0) % Plt Count 282 (160-400) X10*3/uL MPV 11.1 (9.4-12.3) fL Immature Gran % (Auto) 0.2 (0.0-0.4) % Neut % (Auto) 42.2 L (45-73) % Lymph % (Auto) 47.8 H (20-40) % Will % (Auto) 8.2 (2-11) % Eos % (Auto) 1.1 (0-4) % Baso % (Auto) 0.5 (0-2) % Lymph # (Auto) 2.6 (1.2-4.9) X10*3/uL Will # (Auto) 0.5 (0.1-1.2) X10*3/uL Eos # (Auto) 0.1 (0.0-0.4) X10*3/uL Baso # (Auto) 0.0 (0.0-0.2) X10*3/uL Abs Immat Gran (auto) 0.01 (0.00-0.03) X10*3/uL Absolute Neuts (auto) 2.3 (2.0-8.3) x10*3/uL Absolute Nucleated RBC 0.000 (0.0-0.012) X10*3/uL Nucleated RBC % (auto) 0.0 (0.0-0.2) /100WBC PT 11.7 (10.9-12.4) SEC INR 1.0 (0.9-1.1) APTT 31.5 (26.7-34.1) SEC Sodium 138 (135-145) mmol/L Potassium 4.3 (3.3-5.1) mmol/L Chloride 105 (96-108) mmol/L Carbon Dioxide 29 (22-29) mmol/L Anion Gap 8 L (12-20) BUN 7 L (9-16) mg/dL Creatinine 0.65 (0.5-1.4) mg/dL Estim Creat Clear Calc 132.9 Estimated GFR > 60 Random Glucose 227 H (60-115) mg/dL Calcium 10.0 D (8.4-10.2) mg/dL Total Bilirubin 0.3 (0.0-1.0) mg/dL AST 24 (5-31) U/L ALT 21 (0-31) U/L Alkaline Phosphatase 120 H (39-117) U/L Total Creatine Kinase 54 (26-140) U/L Total Protein 7.4 (6.5-8.0) g/dL Albumin 4.3 (3.5-5.0) g/dL Discharge Plan Discharge Clinical Impression: Pain of left heel, Difficulty walking Patient Disposition: Home, Self-Care Additional Instructions: Your testing today seems reassuring. At this point you has been given crutches to help you keep weight off the foot. As much as you can try to rest and take it easy and keep the foot elevated. When you are up and about please use the crutches to keep weight off the foot. I spoke to your in flight crew member who said that if you do not feel that the boot is helpful you may get around using the crutches and without the boot. However if the boot is helpful you may continue to wear the boot. Please follow up with the in flight crew member. I believe he is trying to arrange an MRI for you. Also follow up with your regular doctor. Return to the emergency room if significantly worse. Prescriptions: New ibuprofen 400 mg tablet 400 mg PO Q6H PRN (Reason: pain) Qty: 14 0RF acetaminophen 500 mg capsule 1,000 mg PO Q8H PRN (Reason: fever or pain) Qty: 14 0RF No Action cyclobenzaprine 5 mg tablet 5 mg PO TID PRN (Reason: muscle spasm) Qty: 30 1RF oxycodone 5 mg tablet 5 mg PO Q4H PRN (Reason: pain (scale score 7-10)) Qty: 24 0RF Rx Instructions: Partial Fill upon patient request. oxycodone 5 mg tablet 5 mg PO Q6H PRN (Reason: pain) Qty: 10 0RF Rx Instructions: Partial Fill upon patient request. diazepam [Valium] 5 mg tablet 5 mg PO TID PRN (Reason: muscle spasm) 3 Days Qty: 10 0RF methylprednisolone [Medrol (Heledr)] 4 mg tablets,dose pack 4 mg PO DAILY Qty: 21 0RF Rx Instructions: Day 1: 24 mg on day 1 administered as 8 mg before breakfast, 4 mg after lunch, 4 mg after supper, and 8 mg at bedtime or 24 mg as a single dose or divided into 2 or 3 doses upon initiation. Day 2: 20 mg on day 2 administered as 4 mg before breakfast, 4 mg after lunch, 4 mg after supper, and 8 mg at bedtime. Day 3: 16 mg on day 3 administered as 4 mg before breakfast, 4 mg after lunch, 4 mg after supper, and 4 mg at bedtime. Day 4: 12 mg on day 4 administered as 4 mg before breakfast, 4 mg after lunch, and 4 mg at bedtime. Day 5: 8 mg on day 5 administered as 4 mg before breakfast and 4 mg at bedtime. Day 6: 4 mg on day 6 administered as 4 mg before breakfast. ketorolac 10 mg tablet 10 mg PO Q8H PRN (Reason: pain) 3 Days Qty: 9 0RF methylprednisolone [Medrol (Helder)] 4 mg tablets,dose pack 4 mg PO DAILY Qty: 21 0RF Rx Instructions: Take 6 tablets on day 1, 5 tablets on day 2, 4 tablets on day 3, 3 tablets on day 4, 2 tablets on day 5, and 1 tablet on day 6. Referrals: Marcio Hebert DPM [[facility], Podiatry] Stephie Ellis NP [Primary Care Provider, Primary Care] Interventions: ED Discharge Assessment Last Done: 07/13/25 18:50 Discharge Date/Time: 07/13/25 18:57 Print Language: Macanese
[2025-07-13 14:48] LABS: MANUAL DIFF FLAG NO
[2025-07-13 14:49] LABS: Hematocrit 36.8 % (37.0-47.0); Hemoglobin 11.3 g/dl (12.0-16.0); Imm Gran Abs Auto 0.01 X10*3/uL (0.00-0.03); Imm Gran Pct Auto 0.2 % (0.0-0.4); Lymphocytes Absolute Auto 2.6 X10*3/uL (1.2-4.9); Mean Corpuscular HGB Conc 30.7 g/dl (31.0-35.0); Mean Corpuscular Hemoglobin 21.9 pg (27.0-33.0); Mean Corpuscular Volume 71.3 fL (80.0-98.0); NRBC Abs Auto 0.000 X10*3/uL (0.0-0.012); NRBC Pct Auto 0.0 /100WBC (0.0-0.2); Platelet Count 282 X10*3/uL (160-400); Red Blood Count 5.16 X10*6/uL (4.20-5.50); White Blood Count 5.5 X10*3/uL (4.8-10.8)
[2025-07-13 14:54] LABS: INTERNATIONAL NORM RATIO 1.0 (0.9-1.1); Prothrombin Time 11.7 SEC (10.9-12.4)
[2025-07-13 14:57] LABS: Partial Thromboplastin Time 31.5 SEC (26.7-34.1)
[2025-07-13 15:07] LABS: Alanine Aminotransferase 21 U/L (0-31); Albumin Level 4.3 g/dL (3.5-5.0); Alkaline Phosphatase 120 U/L (39-117); Anion Gap 8 (12-20); Aspartate Amino Transferase 24 U/L (5-31); Blood Urea Nitrogen 7 mg/dL (9-16); Calcium 10.0 mg/dL (8.4-10.2); Carbon Dioxide 29 mmol/L (22-29); Chloride 105 mmol/L (96-108); Creatinine Clr Calc Pharmacy 132.9; Estimated Glomerular Filt Rate > 60; Potassium 4.3 mmol/L (3.3-5.1); Sodium 138 mmol/L (135-145); Total Protein 7.4 g/dL (6.5-8.0)
[2025-07-13 18:50] VITALS: BP 119/56; PULSE 75; RESP 18; TEMP 36.5; O2SAT 97
--- OUTSIDE RECORDS SUMMARY | 2025-07-13 20:17 | XMS_ITS | Clinical Summary ---
Author Organization [employer] Address [address] [facility] [address] [place] [address] Care Team Providers Care Finance Professor Name Role Phone Stephie Ellis ONCOLOGY NAVIGATOR Primary Care Provider [phone] Allergies Active Allergy Reactions Criticality Noted Date Comments Dexbromphen-Acetaminophen Unknown 09/12/2016 From [facility] records Dizziness, nausea hives Lidocaine Hcl Unknown 07/03/2024 From [facility] records Medications * This document contains [...] are discrepancies between the two notes from [facility] and [facility], per pt's most recent TSH level of [...] 08/06/2024 Overview (10/12/2024): 2018 and 2019 @ [facility] Morbid obesity ([facility]/HCC) 08/06/2024 Overview (10/12/2024): HgbA1C and 1 hour [...] BMI of 50 by 28wks transfer to [facility] DVT prophylaxis- Lovenox if CS and BMI >35 Hyperthyroidism 08/06/2024 Heart murmur 08/06/2024 Asthma 08/06/2024 H/O cardiac murmur 07/03/2024 Mild intermittent asthma without complication 07/03/2024 Esotropia of right eye 07/03/2024 Vitamin D insufficiency 09/14/2016 Chronic 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 09/12/2016 Encounters Date Type Department Care Team Description 06/30/2025 Telephone [facility] MEDICINE [address] [place] [address] Stephie Ellis CNP Care Management (C3 TC #1-lvm) 06/22/2025 Telephone [facility] [address] [place] [address] Stephie Ellis CNP Chart Prep 06/21/2025 Telephone [facility] [address] [place] [address] Stephie Ellis CNP Nurse Triage 06/20/2025 Orders Only GENERIC EXTERNAL DATA DEPARTMENT Provider, Generic External Data 06/02/2025 Telephone [facility] [address] [place] [address] Stephie Ellis CNP 05/26/2025 Telephone [facility] MEDICINE [address] [place] [phone] Stephie Ellis CNP Care Management (C3CM follow up call) 05/21/2025 1:00 PM EDT Office Visit [facility] [address] [place] [address] Erum Hernández NP Mild intermittent allergic asthma with acute exacerbation (Primary Dx); Cough in adult patient 05/21/2025 Travel 04/27/2025 Telephone [facility] MEDICINE [address] [place] [address] Stephie Ellis CNP Care Management (C3CM follow up call) 04/12/2025 11:15 AM EDT Office Visit [facility] MEDICINE [address] [place] [address] Birgit Morales NP Rash (Primary Dx); Neck pain 04/12/2025 Travel from Last 3 Months Immunizations Immunization [...] Comments XR FOOT 1-2 VIEWS LEFT Routine 3:26 PM EDT XR ANKLE 3+ VIEWS LEFT Routine 3:26 PM EDT LOWER EXTREMITY VENOUS DUPLEX [...] 1:14 PM EDT Cough in adult patient HM PAP/HPV Routine 08/25/2024 12:00 AM EST from Last 3 Months or Most Recently Relevant to Health Maintenance Results * XR Foot 1-2 Views Left (06/20/2025 3:26 PM EDT) Anatomical Region Laterality Modality Lower Extremities, Foot Left Radiogra phic Imaging 06/20/2025 3:26 PM EDT Narrative 06/20/2025 3:28 PM EDT [address] [address] XRay Report Signed Patient: Jordana De León MR#: [id number] 1764 : 1995 Acct:[id number] Age/Sex: 30 / F ADM Date: 06/20/25 Loc: HO.ED Attending Dr: Ordering Physician: Herrera Hua Date of Service: 06/20/25 Procedure(s): XR foot LT 2V Accession Number(s): [id number] cc: Herrera Hua; Stephie Ellis NP Reason for Exam: ankle pain. CLINICAL HISTORY: [...] 1528 DD/ 1526 TD/TT: 06/20/25 1526 Manager Exchange: Procedure Note Donotuseinterpreter, Image - 06/21/[address] [address] XRay Report Signed Patient: Jordana De LeónMR#: [id number] 1764 : 1995Acct:[id number] Age/Sex: 30 / FADM Date: 06/20/25 Loc: HO.ED Attending Dr: Ordering Physician: Herrera Hua Date of Service: 06/20/25 Procedure(s): XR foot LT 2V Accession Number(s): [id number] cc: Herrera Hua; Stephie Ellis NP Reason for Exam: ankle pain. CLINICAL HISTORY: [...] 1528 DD/ 1526 TD/TT: 06/20/25 1526 Manager Exchange: [facility] External Provider IMG XR PROCEDURES Edited Result - Final * XR Ankle 3+ Views Left (06/20/2025 3:26 PM EDT) Anatomical Region Laterality Modality Lower Extremities, Ankle Left Radiogr aphic Imaging 06/20/2025 3:26 PM EDT Narrative 06/20/2025 3:27 PM EDT [address] [address] XRay Report Signed Patient: Jordana De León MR#: [id number] 1764 : 1995 Acct:[id number] Age/Sex: 30 / F ADM Date: 06/20/25 Loc: HO.ED Attending Dr: Ordering Physician: Herrera Hua Date of Service: 06/20/25 Procedure(s): XR ankle LT min 3V Accession Number(s): [id number] cc: Herrera Hua; Stephie Ellis NP Reason [...] 1527 DD/ 1526 TD/TT: 06/20/25 1526 Manager Exchange: Procedure Note Donotricardointerpreter, Image - 06/21/[address] [address] XRay Report Signed Patient: Jordana De LeónMR#: [id number] 1764 : 1995Acct:[id number] Age/Sex: 30 / FADM Date: 06/20/25 Loc: HO.ED Attending Dr: Ordering Physician: Herrera Hua Date of Service: 06/20/25 Procedure(s): XR ankle LT min 3V Accession Number(s): [id number] cc: Herrera Hua; Stephie Ellis NP Reason [...] Garcia MD in OV> 06/20/25 1527 DD/ 25 TD/TT: 06/20/251525 Manager Exchange: [facility] External Provider IMG XR PROCEDURES Edited Result - Final * Lower Extremity Venous Duplex (06/20/2025 3:24 PM EDT) 06/20/2025 3:24 PM EDT Narrative [facility] - 06/20/2025 3:26 PM EDT [place] [address] Ultrasound Report Signed Patient: Jordana De León MR#: [id number] 1764 : 1995 Acct:[id number] Age/Sex: 30 / F ADM Date: 06/20/25 Loc: .ED Attending Dr: Ordering Physician: Herrera Hua Date of Service: 06/20/25 Procedure(s): US venous duplex LE LT Accession Number(s): [id number] cc: Herrera Hua; Stephie Ellis NP Reason for Exam: left ankle pain/swelling. DVT [...] Garcia MD in OV> 06/20/25 1526 DD/ 152 TD/TT: 06/20/251523 Manager Exchange: Procedure Note Declanter, Image - 06/21/[address] [address] Ultrasound Report Signed Patient: Jordana De LeónMR#: [id number] 1764 : 1995Acct:[id number] Age/Sex: 30 / FADM Date: 06/20/25 Loc: HO.ED Attending Dr: Ordering Physician: Herrera Hua Date of Service: 06/20/25 Procedure(s): US venous duplex LE LT Accession Number(s): [id number] cc: Herrera Hua; Stephie Ellis NP Reason for Exam: left ankle pain/swelling. DVT [...] 1526 DD/ 1524 TD/TT: 06/20/25 1524 Manager Exchange: [facility] External Provider CV VASC ULAR PROCEDURES Edited Result - Final [facility] [address] [place] [address] * (ABNORMAL) CBC auto differential (06/20/2025 12:58 PM EDT) White Blood Count 4.8 4.8 - 10.8 X10*3/uL [facility] Red Blood Count 4.77 4.20 - 5.50 X10*6/uL [facility] Hemoglobin 10.6(L) 12.0 - 16.0 g/dl [facility] Hematocrit 33.0(L) 37.0 - 47.0 % [facility] Mean Corpuscular Volume 69.2(L) 80.0 - 98.0 fL [facility] Mean Corpuscular Hemoglobin 22.2(L) 27.0 - 33.0 pg [facility] Mean Corpuscular HGB Conc 32.1 31.0 - 35.0 g/dl [facility] Red Cell Distribution Width 14.6 11.0 - 16.0 % [facility] Platelet Count 288 160 - 400 X10*3/uL [facility] Mean Platelet Volume 11.0 9.4 - 12.3 fL [facility] Neutrophils Percent Auto 42.4(L) 45 - 73 % [facility] Imm Gran Pct Auto 0.4 0.0 - 0.4 % [facility] Lymphocytes Percent Auto 45.9(H) 20 - 40 % [facility] Monocytes Percent Auto 9.4 2 - 11 % [facility] Eosinophils Percent Auto 1.5 0 - 4 % [facility] Basophils Percent Auto 0.4 0 - 2 % [facility] NRBC Pct Auto 0.0 0.0 - 0.2 /100WBC [facility] Neutrophils Absolute Auto 2.0 2.0 - 8.3 x10*3/uL [facility] Imm Gran Abs Auto 0.02 0.00 - 0.03 X10*3/uL [facility] Lymphocytes Absolute Auto 2.2 1.2 - 4.9 X10*3/uL [facility] Monocytes Absolute Auto 0.5 0.1 - 1.2 X10*3/uL [facility] Eosinophils Absolute Auto 0.1 0.0 - 0.4 X10*3/uL [facility] Basophils Absolute Auto 0.0 0.0 - 0.2 X10*3/uL [facility] NRBC Abs Auto 0.000 0.0 - 0.012 X10*3/uL [facility] 06/20/2025 12:5 8 PM EDT 06/20/2025 1:02 PM EDT us Generic External Data Provider LAB BLOOD ORDERAB LES Final Result Performing Organization Address [facility] Co de Phone Number [facility] [address] [place] [phone] * Partial Thromboplastin Time, Activated (APTT) (06/20/2025 12:58 PM EDT) Partial Thromboplastin Time 31.4 26.7 - 34.1 SEC [facility] 06/20/2025 12:5 8 PM EDT 06/20/2025 1:02 PM EDT Generic External Data Provider LAB BLOOD ORDERAB LES Final Result Performing Organization Address [facility] Phone Number [facility] [address] [place] [phone] * Prothrombin Time-INR (06/20/2025 12:58 PM EDT) Prothrombin Time 12.0 10.9 - 12.4 SEC [facility] INTERNATIONAL NORM RATIO 1.0 0.9 - 1.1 [facility] Comment:INTERNATIONAL NORMAL IZED RATIO (INR) REFERENCE [...] Final Result Performing Organization Address [facility] Co de Phone Number [facility] [address] [place] [phone] * (ABNORMAL) Comprehensive Metabolic Panel (06/20/2025 12:58 PM EDT) Sodium 137 135 - 145 mmol/L [facility] Potassium 4.0 3.3 - 5.1 mmol/L [facility] Chloride 104 96 - 108 mmol/L [facility] Carbon Dioxide 27 22 - 29 mmol/L [facility] Anion Gap 10(L) 12 - 20 [facility] Urea Nitrogen (BUN) 7(L) 9 - 16 mg/dL [facility] Creatinine, Serum 0.64 0.5 - 1.4 mg/dL [facility] Creatinine Clr Calc Pharmacy 131.4 [facility] Comment:Provided height and weight: 147.32 cm,102.058 kg.eGFR (calculated from the MDRD study equation) and eCrCl(calculated from the Cockcroft-Gault equation) are based ondifferent parameters and may not yield comparable results.If eCrCl result is absurd, please check patient'sheight/weight. Estimated Glomerular Filt Rate >60 [facility] Comment:Chronic Kidney Disea se: Estimated GFR < 60 mL/min/1.57c5Blvxsa Kidney Disease: Estimated GFR < 15 mL/min/1.73m2 Glucose 231(H) 60 - 115 mg/dL [facility] Calcium 9.4 8.4 - 10.2 mg/dL [facility] Bilirubin, Total 0.4 0.0 - 1.0 mg/dL [facility] Aspartate Amino Transferase 26 5 - 31 U/L [facility] Alanine Aminotransferase 21 0 - 31 U/L [facility] Total Protein 6.9 6.5 - 8.0 g/dL [facility] Albumin Level 4.1 3.5 - 5.0 g/dL [facility] Alkaline Phosphatase 116 39 - 117 U/L [facility] 06/20/2025 12:5 8 PM EDT 06/20/2025 1:02 PM EDT us Generic External Data Provider LAB BLOOD ORDERAB LES Final Result Performing Organization Address City/[facility]/ZIP Co de Phone Number [facility] [address] [place] [phone] * Influenza B (ID NOW Rapid Molecular) (05/21/2025 1:14 PM EDT) Influenza B Negative Negative, Indeterminate [facility] Swab 05/21/2025 1:14 PM EDT Erum Hernández FINANCIAL SYSTEMS DIRECTOR POINT OF CARE TEST ENTER/EDIT OR DERABLES Final Result Performing Organization Address [facility] Co de Phone Number [facility] [address] [place] [phone] * Influenza A (ID NOW Rapid Molecular) (05/21/2025 1:14 PM EDT) Pathologist [facility] Influenza A Negative Negative, Indeterminate [facility] Swab 05/21/2025 1:14 PM EDT Erum Hernández FINANCIAL SYSTEMS DIRECTOR POINT OF CARE TEST ENTER/EDIT OR DERABLES Final Result Performing Organization Address [facility] Co de Phone Number [facility] [address] [place] [phone] * POCT Rapid COVID Ag (05/21/2025 1:14 PM EDT) Rapid COVID Ag Negative Swab 05/21/2025 1:14 PM EDT us Erum Hernández FINANCIAL SYSTEMS DIRECTOR POINT OF CARE TEST ENTER/EDIT OR DERABLES Final Result * HM PAP/HPV (08/25/2024 12:00 AM EST) us Historical Provider MD HEALTH MAINTENANCE Final Result from Last 3 Months or Most Recently Relevant to Health Maintenance Insurance [facility] C3 Care Teams Finance Professor Relationship Specialty Start Date End Date Stephie Ellis CNP PCP - General Family Medicine 10/14/24 Margoth Lo [employer] Application Developer 09/10/24
--- OUTSIDE RECORDS SUMMARY | 2025-07-13 20:17 | XMS_ITS | Encounter Summary ---
Author Organization [employer] Address [address] [facility] [address] [place] [address] Care Team Providers Care Slide Fastener Repairer Name Role Phone Caleb Larueanorehan MELTON Primary Care Provider [phone] Encounter Details Date Type Department Care Team (Late st Contact Info) Description 01/12/2025 Orders Only [facility] [address], [place] [phone] Sujatha Barakat Social History Tobacco Use Types [...] documented as of this encounter Care Teams Slide Fastener Repairer Relationship Specialty Start Date End Date Stephie Ellis CNP PCP - General Family Medicine 10/14/24 Margoth Lo Healthcare Recruiter 09/10/24 documented as of this encounter
== END 2025-07-13 18:57 | disposition home or self-care (01) ==
PROVIDERS: Physician Assistant; Emergency Provider Emergency Medicine
DX: M79.672 Pain in left foot (principal); R26.2 Difficulty in walking, not elsewhere classified; H50.00 Unspecified esotropia; Z68.42 Body mass index [BMI] 45.0-49.9, adult; Z79.899 Other long term (current) drug therapy
CPT/HCPCS: 36415; 73590; 73610; 73630; 80053; 82550; 85025; 85610; 85730; 93971; 99282; 99284

== ENCOUNTER → 2025-07-13 13:56 | Outpatient (BNV) | payer MEDICAID, SELFPAY | PROVIDERS: Visit Provider Radiology Diagnostic Radiology | DX: R22.42 Localized swelling, mass and lump, left lower limb (principal); M77.32 Calcaneal spur, left foot; M19.072 Primary osteoarthritis, left ankle and foot; M79.662 Pain in left lower leg | CPT/HCPCS: 73590; 73610; 73630; 93971 ==

== ENCOUNTER 2025-07-14 15:54 | Outpatient (REF) | payer MEDICAID, SELFPAY ==
--- OUTSIDE RECORDS SUMMARY | 2025-07-14 20:03 | XMS_ITS | Encounter Summary ---
Author Organization [employer] Address [address] [facility] [address] [place] [address] Care Team Providers Care Industrial Security Analyst Name Role Phone Caleb Laureanorehan MELTON Primary Care Provider [phone] Reason for Visit * Reason Onset Date Comments Nurse Triage 07/14/2025 Encounter Details Date Type Department Care Team ([facility] st Contact Info) Description 07/14/2025 Telephone C [facility] [address] [place], [place] [phone] Caleb LaureanoLINH van [address] [place] [address] Nurse Triage Social History Tobacco Use Types Packs/Day Years [...] encounter Miscellaneous Notes * Telephone Encounter - Daly Flanagan RN - 07/14/2025 2:30 PM EDT Return call to pt. Pt states she was seen at [facility] for left foot pain, states she is still having pain , states foot is slightly swollen . States she is waiting to see if an MRI will be scheduled . Pt states she does not need follow up for ED visit but is requesting follow up appointment for feeling weak, thinks it is secondary to anemia. Appointment scheduled with Gilbert schafer SUPPORT TEACHER for 2:30 pm * Telephone Encounter - Bishop Santiago - 07/14/2025 12:41 PM EDT Patient calling to report ED visit on : Date: 07/13 Hospital: [facility] Seen for: injury on left foot Symptomatic Yes *if yes message should go to Triage Patient advised will forward to team nurse for follow up Contact pt at [phone] documented in this encounter Plan of Treatment Upcoming Encounters Date Type Department Care Team ([facility] st Contact Info) Description 07/16/2025 2:30 PM EDT Office Visit [facility]S [address] [place] [address] Stephie Schafer CNP [address] [place] [address] documented as of this encounter Visit Diagnoses Not on filedocumented in this encounter Additional Health Concerns Assessment Noted Time PHQ-9 Depression Total Score: 5 10/14/19 25 2:16 PM EST documented as of this encounter Care Teams Industrial Security Analyst Relationship Specialty Start Date End Date Stephie Schafer CNP PCP - General Family Medicine 10/14/24 Margoth Lo Plate Painter Apprentice 09/10/24 documented as of this encounter
--- OUTSIDE RECORDS SUMMARY | 2025-07-14 20:03 | XMS_ITS | Clinical Summary ---
Author Organization [employer] Address [address] [facility] 7[address] [place] [address] Care Team Providers Care Finishing Range Feeder Name Role Phone Stephie Ellis TOWER TRUCK DRIVER Primary Care Provider [phone] Allergies Active Allergy Reactions Criticality Noted Date Comments Dexbromphen-Acetaminophen Unknown 09/12/2016 From [facility] records Dizziness, nausea hives Lidocaine Hcl Unknown 07/03/2024 From [facility] records Medications * This document contains information [...] are discrepancies between the two notes from [facility] and [facility], per pt's most recent TSH level [...] 08/06/2024 Overview (10/12/2024): 2018 and 2019 @ [facility] Morbid obesity ([facility]/HCC) 08/06/2024 Overview (10/12/2024): HgbA1C and 1 hour [...] BMI of 50 by 28wks transfer to [facility] DVT prophylaxis- Lovenox if CS and BMI >35 Hyperthyroidism 08/06/2024 Heart murmur 08/06/2024 Asthma 08/06/2024 H/O cardiac murmur 07/03/2024 Mild intermittent asthma without complication 07/03/2024 Esotropia of right eye 07/03/2024 Vitamin D insufficiency 09/14/2016 Chronic 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 09/12/2016 Encounters Date Type Department Care Team Description 07/14/2025 Telephone [facility] [address] [place] [address] Stephie Ellis CNP Nurse Triage 06/30/[address] [address] Stephie Ellis CNP Care Management (C3 TC #1-lvm) 06/22/2025 Telephone [facility] [address] [place] [address] Stephie Ellis CNP Chart Prep 06/21/2025 Telephone [facility] [address] [place] [address] Stephie Ellis CNP Nurse Triage 06/20/2025 Orders Only GENERIC EXTERNAL DATA DEPARTMENT Provider, Generic External Data 06/02/2025 Telephone [facility] [address] [place] [address] Stephie Ellis CNP 05/26/[address] [address] Stephie Ellis CNP Care Management (C3CM follow up call) 05/21/2025 1:00 PM EDT Office Visit [facility] [address] [place] [address] Erum Hernández NP Mild intermittent allergic asthma with acute exacerbation (Primary Dx); Cough in adult patient 05/21/2025 Travel 04/27/2025 Telephone [facility] [address] [place] [address] Stephie Ellis CNP Care Management (C3CM follow up call) from Last 3 Months [...] 04/12/2025 11:03 AM EDT Plan of Treatment Upcoming Encounters Date Type Department Care Team (Late st Contact Info) Description 07/16/2025 2:30 PM EDT Office Visit [facility] [address] [place] [address] Stephie Ellis, [facility] [address] [place] [address] Health Maintenance Due Date Last Done Comments [...] PM EDT Narrative 06/20/2025 3:28 PM EDT [place] [address] XRay Report Signed Patient: Jordana De León MR#: [id number] 1764 : 1995 Acct:[id number] Age/Sex: 30 / F ADM Date: 06/20/25 Loc: .ED Attending Dr: Ordering Physician: Herrera Hua Date of Service: 06/20/25 Procedure(s): XR foot LT 2V Accession Number(s): [id number] cc: Herrera Hua; Stephie Ellis NP Reason [...] OV> 06/20/25 1528 DD/ 1526 TD/TT: 06/20/25 152 Architectural Modeler: Procedure Note Wilfridoluzricardorandyter, Image - 06/21/[address] [address] XRay Report Signed Patient: Jordana De LeónMR#: [id number] 1764 : 1995Acct:[id number] Age/Sex: 30 FADM Date: 06/20/25 Loc: HO.ED Attending Dr: Ordering Physician: Herrera Hua Date of Service: 06/20/25 Procedure(s): XR foot LT 2V Accession Number(s): [id number] cc: Herrera Hua; Stephie Ellis NP Reason [...] OV> 06/20/25 1528 DD/ 1526 TD/TT: 06/20/25 152 Architectural Modeler: us [facility] External Provider IMG XR PROCEDURES Edited Result - Final * XR Ankle 3+ Views Left (06/20/2025 3:26 PM EDT) Anatomical Region Laterality Modality Lower Extremities, Ankle Left Radiogr aphic Imaging 06/20/2025 3:26 PM EDT Narrative 06/20/2025 3:27 PM EDT [place] [address] XRay Report Signed Patient: Jordana De León MR#: [id number] 1764 : 1995 Acct:[id number] Age/Sex: 30 / F ADM Date: 06/20/25 Loc: HO.ED Attending Dr: Ordering Physician: Herrera Hua Date of Service: 06/20/25 Procedure(s): XR ankle LT min 3V Accession Number(s): [id number] cc: Herrera Hua; Stephie Ellis POWDERED SUGAR PULVERIZER OPERATOR Reason for Exam: ankle pain CLINICAL HISTORY: [...] 06/20/25 1527 DD/ 1526 TD/TT: 06/20/25 1526 Architectural Modeler: Procedure Note Donotuseinterpreter, Image - 06/21/[address] [address] XRay Report Signed Patient: Jordana De LeónMR#: [id number] 1764 : 1995Acct:[id number] Age/Sex: 30 / FADM Date: 06/20/25 Loc: HO.ED Attending Dr: Ordering Physician: Herrera Hua Date of Service: 06/20/25 Procedure(s): XR ankle LT min 3V Accession Number(s): [id number] cc: Herrera Hua; Stephie Ellis POWDERED SUGAR PULVERIZER OPERATOR Reason for Exam: ankle pain CLINICAL HISTORY: [...] 06/20/25 1527 DD/ 1526 TD/TT: 06/20/25 1526 Architectural Modeler: [facility] External Provider IMG XR PROCEDURES Edited Result - Final * Lower Extremity Venous Duplex (06/20/2025 3:24 PM EDT) 06/20/2025 3:24 PM EDT Narrative [facility] - 06/20/2025 3:26 PM EDT [place] [address] Ultrasound Report Signed Patient: Jordana De León MR#: [id number] 1764 : 1995 Acct:[id number] Age/Sex: 30 / F ADM Date: 06/20/25 Loc: .ED Attending Dr: Ordering Physician: Herrera Hua Date of Service: 06/20/25 Procedure(s): US venous duplex LE LT Accession Number(s): [id number] cc: Herrera Hua; Stephie Ellis NP Reason [...] in OV> 06/20/25 1526 DD/ 1524 TD/TT: 06/20/251523 Architectural Modeler: Procedure Note [place], Image - 06/21/[address] [address] Ultrasound Report Signed Patient: Jordana De LeónMR#: [id number] 1764 : 1995Acct:[id number] Age/Sex: Date: 06/20/25 Loc: HO.ED Attending Dr: Ordering Physician: Herrera Hua Date of Service: 06/20/25 Procedure(s): US venous duplex LE LT Accession Number(s): [id number] cc: Herrera Hua; Stephie Ellis NP Reason [...] 06/20/25 1526 DD/ 1524 TD/TT: 06/20/25 1524 Architectural Modeler: [facility] External Provider CV VASC ULAR PROCEDURES Edited Result - Final [facility] [address] [place] [address] * (ABNORMAL) CBC auto differential (06/20/2025 12:58 PM EDT) White Blood Count 4.8 4.8 - 10.8 X10*3/uL [facility] Red Blood Count 4.77 4.20 - 5.50 X10*6/uL [facility] Hemoglobin 10.6(L) 12.0 - 16.0 g/dl [facility] Hematocrit 33.0(L) 37.0 - 47.0 % [facility] Mean Corpuscular Volume 69.2(L) 80.0 - 98.0 fL [facility] Mean Corpuscular Hemoglobin 22.2(L) 27.0 - 33.0 pg [facility] Mean Corpuscular HGB Conc 32.1 31.0 - 35.0 g/dl [facility] Red Cell Distribution Width 14.6 11.0 - 16.0 % [facility] Platelet Count 288 160 - 400 X10*3/uL [facility] Mean Platelet Volume 11.0 9.4 - 12.3 fL [facility] Neutrophils Percent Auto 42.4(L) 45 - 73 % [facility] Imm Gran Pct Auto 0.4 0.0 - 0.4 % [facility] Lymphocytes Percent Auto 45.9(H) 20 - 40 % [facility] Monocytes Percent Auto 9.4 2 - 11 % [facility] Eosinophils Percent Auto 1.5 0 - 4 % [facility] Basophils Percent Auto 0.4 0 - 2 % [facility] NRBC Pct Auto 0.0 0.0 - 0.2 /100WBC [facility] Neutrophils Absolute Auto 2.0 2.0 - 8.3 x10*3/uL [facility] Imm Gran Abs Auto 0.02 0.00 - 0.03 X10*3/uL [facility] Lymphocytes Absolute Auto 2.2 1.2 - 4.9 X10*3/uL [facility] Monocytes Absolute Auto 0.5 0.1 - 1.2 X10*3/uL [facility] Eosinophils Absolute Auto 0.1 0.0 - 0.4 X10*3/uL [facility] Basophils Absolute Auto 0.0 0.0 - 0.2 X10*3/uL [facility] NRBC Abs Auto 0.000 0.0 - 0.012 X10*3/uL [facility] 06/20/2025 12:5 8 PM EDT 06/20/2025 1:02 PM EDT us Generic External Data Provider LAB BLOOD ORDERAB LES Final Result Performing Organization Address City/[facility]/ZIP Co de Phone Number [facility] [address] [place] [phone] * Partial Thromboplastin Time, Activated (APTT) (06/20/2025 12:58 PM EDT) Partial Thromboplastin Time 31.4 26.7 - 34.1 SEC [facility] 06/20/2025 12:5 8 PM EDT 06/20/2025 1:02 PM EDT us Generic External Data Provider LAB BLOOD ORDERAB LES Final Result Performing Organization Address [facility] Co de Phone Number [facility] [address] [place] [phone] * Prothrombin Time-INR (06/20/2025 12:58 PM EDT) Prothrombin Time 12.0 10.9 - 12.4 SEC [facility] INTERNATIONAL NORM RATIO 1.0 0.9 - 1.1 [facility] Comment:INTERNATIONAL NORMAL IZED RATIO (INR) [...] BLOOD ORDERAB LES Final Result [facility] [address] [place] [address] [phone] * (ABNORMAL) Comprehensive Metabolic Panel (06/20/2025 12:58 PM EDT) Sodium 137 135 - 145 mmol/L [facility] Potassium 4.0 3.3 - 5.1 mmol/L [facility] Chloride 104 96 - 108 mmol/L [facility] Carbon Dioxide 27 22 - 29 mmol/L [facility] Anion Gap 10(L) 12 - 20 [facility] Urea Nitrogen (BUN) 7(L) 9 - 16 mg/dL [facility] Creatinine, Serum 0.64 0.5 - 1.4 mg/dL [facility] Creatinine Clr Calc Pharmacy 131.4 [facility] Comment:Provided height and weight: 147.32 cm,102.058 kg.eGFR (calculated from the MDRD study equation) and eCrCl(calculated from the Cockcroft-Gault equation) are based ondifferent parameters and may not yield comparable results.If eCrCl result is absurd, please check patient'sheight/weight. Estimated Glomerular Filt Rate >60 [facility] Comment:Chronic Kidney Disea se: Estimated GFR < 60 mL/min/[id number] Kidney Disease: Estimated GFR < 15 mL/min/1.73m2 Glucose 231(H) 60 - 115 mg/dL [facility] Calcium 9.4 8.4 - 10.2 mg/dL [facility] Bilirubin, Total 0.4 0.0 - 1.0 mg/dL [facility] Aspartate Amino Transferase 26 5 - 31 U/L [facility] Alanine Aminotransferase 21 0 - 31 U/L [facility] Total Protein 6.9 6.5 - 8.0 g/dL [facility] Albumin Level 4.1 3.5 - 5.0 g/dL [facility] Alkaline Phosphatase 116 39 - 117 U/L [facility] 06/20/2025 12:5 8 PM EDT 06/20/2025 1:02 PM EDT us Generic External Data Provider LAB BLOOD ORDERAB LES Final Result Performing Organization Address [facility] Co de Phone Number [facility] [address] [place] [phone] * Influenza B (ID NOW Rapid Molecular) (05/21/2025 1:14 PM EDT) [facility] Influenza B Negative Negative, Indeterminate [facility] Swab 05/21/2025 1:14 PM EDT us Erum Hernández POWDERED SUGAR PULVERIZER OPERATOR POINT OF CARE TEST ENTER/EDIT OR DERABLES Final Result Performing Organization Address [facility] Phone Number [facility] [address] [place] [phone] * Influenza A (ID NOW Rapid Molecular) (05/21/2025 1:14 PM EDT) [facility] Influenza A Negative Negative, Indeterminate [facility] Swab 05/21/2025 1:14 PM EDT us Erum Hernández POWDERED SUGAR PULVERIZER OPERATOR POINT OF CARE TEST ENTER/EDIT OR DERABLES Final Result Performing Organization Address [facility] de Phone Number [facility] [address] [place] [phone] * POCT Rapid COVID Ag (05/21/2025 1:14 PM EDT) Pathologist [facility] Rapid COVID Ag Negative Swab 05/21/2025 1:14 PM EDT us Erum Hernández POWDERED SUGAR PULVERIZER OPERATOR POINT OF CARE TEST ENTER/EDIT OR DERABLES Final Result * HM PAP/HPV (08/25/2024 12:00 AM EST) us Historical Provider HEALTH MAINTENANCE Final Result from Last 3 Months or Most Recently Relevant to Health Maintenance Insurance [facility] C3 Care Teams Finishing Range Feeder Relationship Specialty Start Date End Date Stephie Ellis CNP PCP - General Family Medicine 10/14/24 Margoth Lo Adjunct Psychology Instructor 09/10/24
--- OUTSIDE RECORDS SUMMARY | 2025-07-14 20:03 | XMS_ITS | Clinical Summary ---
Author Organization [facility] Address [address] [place] [address] Care Team Providers Care Criminal Investigative Agent Name Role Phone Unavailable Primary Care Provider [...] daily 90 Cap 3 6 Active prenat.vits,dennys,mi [id number] per tabletIndications: Missed menses Take 1 Tablet by mouth once daily 90 Tablet 4 4 Active Active Problems Problem Noted Date Diagnosed Date Vitamin D insufficiency 09/14/2016 Chronic 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 09/12/2016 Encounters Date Type Department Care Team Description 05/25/2025 OB Abstract/Interim [facility] [address] [place] [phone] Mamta Tripathi PA-C from Last 3 Months Immunizations Immunization Administration Dates Next Due Flu, Preservative Free 10/08/2016 Hep A, adult 10/08/2016 Hep B, Adult/Adol ([id number]-AD ULT) 10/08/2016 Family History Medical History Relation [...] Plan of Treatment Not on file Insurance [address] [employer]
--- OUTSIDE RECORDS SUMMARY | 2025-07-14 20:03 | XMS_ITS | Encounter Summary ---
Author Organization [employer] Address [address] [place] [address] Care Team Providers Care Hole Filler Name Role Phone Caleb Laureanorehan MELTON Primary Care Provider [phone] Encounter Details Date Type Department Care Team (Late st Contact Info) Description 01/12/2025 Orders Only [facility] [address] [place], [place] [phone] Sujatha Barakat Social History Tobacco Use Types [...] as of this encounter Plan of Treatment Upcoming Encounters Date Type Department Care Team ([facility] st Contact Info) Description 07/16/2025 2:30 PM EDT Office Visit [facility] [address] [place], [place] [phone] Stephie Ellis CNP [address] [place], [place] [phone] documented as of this encounter Procedures Procedure [...] documented as of this encounter Care Teams Hole Filler Relationship Specialty Start Date End Date Stephie Ellis CNP PCP - General Family Medicine 10/14/24 Margoth Lo Pipeline Superintendent Division 09/10/24 documented as of this encounter
--- OUTSIDE RECORDS SUMMARY | 2025-07-14 20:03 | XMS_ITS | Clinical Summary ---
Author Organization [facility] Address [address] [place] [address] Phone Care Team Providers Care Meeting Planner Name Role Phone Austin, Viji Primary Care Provider [phone] Allergies No known active allergies Medications no115/iron/folic [...] She will do this. care, subsequent in [facility] 08/06/2024 Overview (08/06/2024): 1. [facility] site: [facility]: [address] [place] [address] ([phone]) 2. Delivery site: [facility] 3. Mobile Mommas: No 4. Dating criteria: [...] 9. Hospital Course: Obesity, morbid (CMS/[facility] V24, [facility] V28) 08/06 Overview (08/06/2024): HgbA1C [...] 08/06/2024 Overview (08/06/2024): 2017 and 2018 @ [facility] Heart murmur 08/06/2024 Asthma 08/06/2024 Hyperthyroidism [...] intraepithelial lesion or malignancy 09/01/2024 3:14 PM [facility] General Categorization Negative 09/01/2024 3:14 PM [facility] LMP 04/24/2024 09/01/2024 3:14 PM [facility] Specimen Adequacy Satisfactory for evaluation, endocervical/mitchell sformation zone component absent 09/01/2024 3:14 PM [facility] Pap Methodology Liquid Based Pap Test 09/01/2024 3:14 PM [facility] Disclaimer The Pap test is a screening test which carries an inherent false negative rate. These test results should be correlated with the patient's clinical findings and history. This Pap test was processed using an automated screening system. Technical cytopathology services provided by [facility], at [address] [place] [address] (CLIA # [id number]/Clarita Moseley MD, Museum Specialist.) 09/01/2024 3:14 PM [facility] Console Pap Interpretation Reported 09/01/2024 3:14 PM [facility] Brushing/Spatula Cervix uteri structure / Unknown 08/25/2024 9:56 AM EST 08/25/2024 9:56 AM EST us Bonnie Barajas MD LAB CYTOLOGY ORDERABLES Fin al Result [facility] [address] [place] [address], * Hepatitis C antibody (08/06/2024 12:36 PM EST) Hepatitis C Antibody Negative Negative LAB CHEMISTRY METHOD 08/06/2024 6:24 PM [facility] Blood Venous blood specimen / Unknown Venipuncture / Unknown 08/06/2024 12:36 PM EST 08/06/2024 12:36 PM EST Carlee Ordaz [facility] BLOOD ORDERABLES Final Res ult Performing Organization Address [facility]/ZIP Co de Phone Number [facility] [address] [place] [address], [place] [phone] * HIV 1,2 antibody, p24 antigen with reflex to differentiation (08/06/2024 12:36 PM EST) HIV Combo AB/AG Negative Negative LAB CHEMISTRY METHOD 08/06/2024 6:24 PM EST [facility] Blood Venous blood specimen / Unknown Venipuncture / Unknown 08/06/2024 12:36 PM EST 08/06/2024 12:36 PM EST Narrative [facility] - 08/06/2024 6:24 PM EST This assay is a 4th generation assay allowing for earlier detection of HIV infection by detecting the presence of the HIV-1 p24 antigen as well as the traditional antibodies to HIV type 1 (including group O) and type 2. Use of a 4th generation assay is the current CDC recommendation for HIV screening. Carlee Ordaz [facility] BLOOD ORDERABLES Final Res ult Performing Organization Address [facility] [address] [facility] Co de Phone Number [facility] [address] [place] [address], [place] [phone] from Last 3 Months or Most Recently Relevant to Health Maintenance Insurance MEDICAID - [place] Care Teams Meeting Planner Relationship Specialty Start Date End Date Viji Austin [address] [place] [address] PCP - General 09/30/24
== END 2025-07-14 15:55 | disposition home or self-care (01) ==
LOC: HO.US 15:54
PROVIDERS: PCP Pediatrics; Visit Provider Student in an Organized Health Care Education/Training Program
DX: M76.62 Achilles tendinitis, left leg (principal); M72.2 Plantar fascial fibromatosis; S86.119A Strain of other muscle(s) and tendon(s) of posterior muscle group at lower leg level, unspecified leg, initial encounter; X58.XXXA Exposure to other specified factors, initial encounter
CPT/HCPCS: 99212

== ENCOUNTER 2025-07-16 14:53 | Outpatient (REF) | payer MEDICAID, SELFPAY ==
--- OUTSIDE RECORDS SUMMARY | 2025-07-16 15:20 | XMS_ITS | Clinical Summary ---
Author Organization [facility] Address [address] [place] [address] Care Team Providers Care Junior Java Developer Name Role Phone Unavailable Primary Care Provider [...] daily 90 Cap 3 6 Active prenat.vits,dennys,mi [id number] per tabletIndications: Missed menses Take 1 Tablet by mouth once daily 90 Tablet 4 4 Active Active Problems Problem Noted Date Diagnosed Date Vitamin D insufficiency 09/14/2016 Chronic 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 09/12/2016 Encounters Date Type Department Care Team Description 05/25/2025 OB Abstract/Interim [facility] [address] [place] [phone] Mamta Tripathi PA-C from Last 3 Months Immunizations Immunization Administration Dates Next Due Flu, Preservative Free 10/08/2016 Hep A, adult 10/08/2016 Hep B, Adult/Adol ([id number]/[id number]-AD ULT) 10/08/2016 Family History Medical History Relation [...] Plan of Treatment Not on file Insurance [address] [employer]
--- OUTSIDE RECORDS SUMMARY | 2025-07-16 15:20 | XMS_ITS | Clinical Summary ---
Author Organization [facility] Address [address] [place] [address] Phone Care Team Providers Care Card Player Name Role Phone Austin, Viji Primary Care Provider Allergies No known active allergies Medications no115/iron/folic [...] She will do this. care, subsequent in [facility] 08/06/2024 Overview (08/06/2024): 1. [facility] site: [facility]: [address] [place] [address] ([phone]) 2. Delivery site: [facility] 3. Mobile Mommas: No 4. Dating [...] - No 9. Hospital Course: Obesity, morbid (CMS/[facility] V24, [facility] V28) 08/06 Overview (08/06/2024): HgbA1C [...] 08/06/2024 Overview (08/06/2024): 2017 and 2018 @ [facility] Heart murmur 08/06/2024 Asthma 08/06/2024 Hyperthyroidism [...] intraepithelial lesion or malignancy 09/01/2024 3:14 PM [facility] General Categorization Negative 09/01/2024 3:14 PM [facility] LMP 04/24/2024 09/01/2024 3:14 PM [facility] Specimen Adequacy Satisfactory for evaluation, endocervical/mitchell sformation zone component absent 09/01/2024 3:14 PM [facility] Pap Methodology Liquid Based Pap Test 09/01/2024 3:14 PM [facility] Disclaimer The Pap test is a screening test which carries an inherent false negative rate. These test results should be correlated with the patient's clinical findings and history. This Pap test was processed using an automated screening system. Technical cytopathology services provided by [facility], at [address] [place] [address] (CLIA # [id number]/Clarita Moseley MD, Certified Phlebotomist.) 09/01/2024 3:14 PM [facility] Console Pap Interpretation Reported 09/01/2024 3:14 PM [facility] Brushing/Spatula Cervix uteri structure / Unknown 08/25/2024 9:56 AM EST 08/25/2024 9:56 AM EST us Bonnie Barajas MD LAB CYTOLOGY ORDERABLES Fin al Result [facility] [address] [place] [address], * Hepatitis C antibody (08/06/2024 12:36 PM EST) Hepatitis C Antibody Negative Negative LAB CHEMISTRY METHOD 08/06/2024 6:24 PM [facility] Blood Venous blood specimen / Unknown Venipuncture / Unknown 08/06/2024 12:36 PM EST 08/06/2024 12:36 PM EST Carlee Ordaz [facility] LAB BLOOD ORDERABLES Final Res ult Performing Organization Address [facility]/ZIP Co de Phone Number [facility] [address] [place] [address], [place] [phone] * HIV 1,2 antibody, p24 antigen with [...] CDC recommendation for HIV screening. Carlee Ordaz [facility] LAB BLOOD ORDERABLES Final Res ult Performing Organization Address [facility] Co de Phone Number [facility] [address] [place] [address], [place] [phone] from Last 3 Months or Most Recently Relevant to Health Maintenance Insurance MEDICAID - [place] Care Teams Card Player Relationship Specialty Start Date End Date Viji Austin [address] [place] [address] PCP - General 09/30/24
== END 2025-07-16 14:54 | disposition home or self-care (01) ==
LOC: HO.CHCLDS 14:53
DX: R73.9 Hyperglycemia, unspecified (principal)
CPT/HCPCS: 36415; 83036

== ENCOUNTER 2025-07-20 07:57 | Outpatient (AMB) | payer MEDICAID, SELFPAY ==
--- OUTSIDE RECORDS SUMMARY | 2025-07-16 13:30 | XMS_ITS | Encounter Summary ---
Author Organization [employer] Address [address] [place] [address] Care Team Providers Care Financing Analyst Name Role Phone Stephie Ellis CNP Primary Care Provider [phone] Encounter Details Date Type Department Care Team (Late st Contact Info) Description 07/16/2025 2:30 PM EDT Office Visit [facility] [address] [place], [place] [phone] Stephie Ellis CNP [address] [place] [address] Iron deficiency anemia, unspecified iron deficiency anemia type (Primary Dx); Hyperglycemia; Chronic migraine with aura without status migrainosus, not intractable; Chronic otitis media, unspecified otitis media type Social History Tobacco Use Types Packs/Day Years [...] PM EDT documented as of this encounter Last Filed Vital Signs Vital Sign Reading Time Taken Comments Blood Pressure 124/88 07/16/2025 2:20 PM EDT Pulse 72 07/16/2025 2:20 PM EDT Temperature 37.1 C (98.7 F) 07/16/2025 2:20 PM EDT Respiratory Rate 20 07/16/2025 2:20 PM EDT Oxygen Saturation - - Inhaled Oxygen Concentration - - Weight 109 kg (240 lb) 07/16/2025 2:20 PM EDT Height 147.3 cm (4' 10 ) 07/16/2025 2:20 PM EDT Body Mass Index 50.16 07/16/2025 2:20 PM EDT documented in this encounter Progress Notes * Stephie Ellis CNP - 07/16/2025 2:30 PM EDT Subjective Patient ID: Jordana De León is a 30 y.o. adult who presents for ED f/u. HPI Interim history pt reports she has 6 month olb baby girl named Vicenta she is doing very well, she is not BF Pt was seen at [facility] ED on 07/13/25 for left foot pain. She had previous xr that showed a heel spur. At that time she was discharged from ER and advised to f/u with podiatry. Right now she is in orthopedic boot. Duplex US neg for DVT. X-rays of the foot and ankle shows some subtle findings of uncertain significance. No gross findings on x-rays. Pt is to f/u with podiatry and possibly obtain MRI. She reports she is not here for ED f/u, she already has planned surgery on her foot. Instead, she reports she has been feeling weak and attributes this to iron deficiency anemia. In ED her H/H was 10.6/33.0, she has longstanding history of SHARI. She also reports history of chronic migraines but she reports she has been having headaches that feel different compared to her migraines. She reports headaches are daily. She reports blurry vision with CUTLER. She does say she checks her BP at home because when she was she had high blood pressure and since she has given she has noticed her home readings are elevated, reports measurements in 160s/90s. She is not currently on meds for hypertension. She also endorses r ear pain and itching x 2 weeks. Denies recent URI. She is also concerned that her sugar was elevated when she was in the ED she doesn't have confirmeddiagnosis of DM at this time. Review of Systems Objective Vitals: 07/16/25 1420 BP: 124/88 Pulse: 72 Resp: 20 Temp: 98.7 ??F (37.1 ??C) Physical Exam Constitutional: Appearance: Normal appearance. He is normal weight. HENT: Right Ear: Ear canal normal. Left Ear: Ear canal and external ear normal. Ears: Comments: TM slightly retracted in R ear Cardiovascular: Rate and Rhythm: Normal rate and regular rhythm. Pulses: Normal pulses. Heart sounds: Normal heart sounds. No murmur heard. No friction rub. No gallop. Pulmonary: Effort: Pulmonary effort is normal. No respiratory distress. Breath sounds: Normal breath sounds. No wheezing or rales. Neurological: General: No focal deficit present. Mental Status: He is alert and oriented to person, place, and time. Psychiatric: Mood and Affect: Mood normal. Behavior: Behavior normal. Thought Content: Thought content normal. Judgment: Judgment normal. Assessment/Plan Problem List Items Addressed This Visit Migraine headache Relevant Medications ibuprofen 800 MG tablet Neurological exam showed no focal deficits We will trial ibuprofen 800mg for abortive therapy Considering CUTLER 2/2 uncontrolled BP despite normal reading in office today pt reports ongoing high BP at home which could be a cause for CUTLER and blurry vision. BP log given to pt and she was advised to check daily BP for next 2 weeks she will then have f/u for BP check, if persistent elevated readings will add lisinopril 10mg Head imaging not indicated at this time. Other Visit Diagnoses Iron deficiency anemia, unspecified iron deficiency anemia type - Primary Relevant Medications ferrous gluconate (Fergon) 324 (38 Fe) MG tablet ibuprofen 800 MG tablet Will start oral Fe supplement and recheck h/h in 3 months Hyperglycemia Relevant Orders Hemoglobin A1c Based on level of hyperglycemia A1c ordered to r/o T2DM dx Chronic otitis media, unspecified otitis media type Relevant Medications amoxicillin-clavulanate (Augmentin) 875-125 MG tablet acetic acid-hydrocortisone (Vosol-HC) otic solution Pt has had infection x 2 w Will treat for chronic OM with oral antibx and topical steroid for ear canal erythema Rtc for new or worsening sx documented in this encounter Plan of Treatment Upcoming Encounters Date Type Department Care Team (Late st Contact Info) Description 08/06/2025 10:30 AM EST Clinical Support [facility] [address] [place] [address] documented as of this encounter Procedures Procedure Name Priority Date/Time Associated Diagnosis Comments HEMOGLOBIN A1C Routine 07/16/2025 2:59 PM EDT Hyperglycemia documented in this encounter Results * (ABNORMAL) Hemoglobin A1c (07/16/2025 2:59 PM EDT) Hemoglobin A1c 8.6(H) <6.0 % [facility] Comment:Hemoglobin A1C Refer ence Range Adults: 4.8 - 6.0 % Non diabetic: < 6.0 % Goal: < 7.0 %Additional Action Suggested: > 8.0 %Note: Hemoglobin A1c results are invalid for patients with abnormal amounts of HbF. Blood transfusions may impact the HbA1c concentration in the patient sample. Estimated Average Glucose 200 mg/dL [facility] Comment:eAG = Estimated ave rage glucose which is %A1C expressed asaverage glucose, using the formula of the S5Y-DuxfbikBiwsarx Glucose study (ADAG), Diabetes Care, Vol.31,#8,2007 Blood Venous blood specimen / Unknown 07/16/2025 2:59 PM EDT 07/16/2025 5:51 PM EDT us Stephie Ellis CNP LAB BLOOD ORDERABLES Elise l Result [facility] [address] [place] [address] [phone] documented in this encounter Visit Diagnoses Diagnosis Iron deficiency anemia, unspecified iron deficiency anemia type- Primary Hyperglycemia Other abnormal glucose Chronic migraine with aura without status migrainosus, not intractable Chronic otitis media, unspecified otitis media type documented in this encounter Additional Health Concerns Assessment Noted Time PHQ-9 Depression Total Score: 5 10/14/19 25 2:16 PM EST documented as of this encounter Care Teams Financing Analyst Relationship Specialty Start Date End Date Stephie Ellis CNP PCP - General Family Medicine 10/14/24 Margoth Lo Merchandiser Seasonal 09/10/24 documented as of this encounter
--- OUTSIDE RECORDS SUMMARY | 2025-07-20 08:01 | XMS_ITS | Encounter Summary ---
Author Organization [employer] Address [address] [place] [address] Care Team Providers Care Neurology Tech Name Role Phone Stephie Ellis LINH Primary Care Provider [phone] Encounter Details Date Type Department Care Team (Late st Contact Info) Description 01/12/2025 Orders Only [facility] [address] [place], [place] [phone] Sujatha Barakat Social History Tobacco Use Types [...] Description 08/06/2025 10:30 AM EST Clinical Support [facility] [address] [place] [address] documented as of this encounter Procedures Procedure Name Priority Date/Time Associated Diagnosis Comments HM PAP/HPV Routine 08/25/2024 12:00 AM EST documented in this encounter Results * HM PAP/HPV (08/25/2024 12:00 AM EST) Historical Provider HEALTH MAINTENANCE Final Result documented in this encounter Visit Diagnoses Not on filedocumented in this encounter Additional Health Concerns Assessment Noted Time PHQ-9 Depression Total Score: 5 10/14/19 25 2:16 PM EST documented as of this encounter Care Teams Neurology Tech Relationship Specialty Start Date End Date Stephie Ellis CNP PCP - General Family Medicine 10/14/24 Margoth Lo Thread Spinner 09/10/24 documented as of this encounter
--- OUTSIDE RECORDS SUMMARY | 2025-07-20 08:01 | XMS_ITS | Encounter Summary ---
Author Organization [employer] Address [address] [place] [address] Care Team Providers Care Retail Seasonal Specialist Name Role Phone Laureano Ellisrehan MELTON Primary Care Provider [phone] Encounter Details Date Type Department Care Team ([facility] st Contact Info) Description 07/19/2025 Results Follow-Up [facility] [address] [place], [place] [phone] Caleb LaureanoLINH van [address] [place], [place] [phone] Hemoglobin A1c Social History Tobacco Use Types Packs/Day Years [...] Description 08/06/2025 10:30 AM EST Clinical Support [facility] [address] [place] [address] documented as of this encounter Visit Diagnoses Not on filedocumented in this encounter Additional Health Concerns Assessment Noted Time PHQ-9 Depression Total Score: 5 10/14/19 25 2:16 PM EST documented as of this encounter Care Teams Retail Seasonal Specialist Relationship Specialty Start Date End Date Stephie Ellis CNP PCP - General Family Medicine 10/14/24 Margoth Lo Office Support Clerk 09/10/24 documented as of this encounter
--- OUTSIDE RECORDS SUMMARY | 2025-07-20 08:01 | XMS_ITS | Clinical Summary ---
Author Organization [facility] Address [address] [place] [address] Care Team Providers Care Dairy Processing Supervisor Name Role Phone Unavailable Primary Care Provider [...] daily 90 Cap 3 6 Active prenat.vits,dennys,mi [id number]-mvukz per tabletIndications: Missed menses Take 1 Tablet by mouth once daily 90 Tablet 4 4 Active Active Problems Problem Noted Date Diagnosed Date Vitamin D insufficiency 09/14/2016 Chronic 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 09/12/2016 Encounters Date Type Department Care Team Description 05/25/2025 OB Abstract/Interim [facility] [address] [place] [phone] Mamta Tripathi PA-C from Last 3 Months Immunizations Immunization Administration Dates Next Due Flu, Preservative Free 10/08/2016 Hep A, adult 10/08/2016 Hep B, Adult/Adol ([id number]/RECOMBIVAX-AD ULT) 10/08/2016 Family History Medical History Relation [...] Plan of Treatment Not on file Insurance [address] [employer]
--- OUTSIDE RECORDS SUMMARY | 2025-07-20 08:01 | XMS_ITS | Clinical Summary ---
Author Organization [employer] Address [address] [place] [address] Care Team Providers Care Customer Service Specialist Name Role Phone Stephie Ellis COMMUNITY SERVICE TECHNICIAN Primary Care Provider [phone] Allergies Active Allergy Reactions Criticality Noted Date Comments Dexbromphen-Acetaminophen Unknown 09/12/2016 From [facility] records Dizziness, nausea hives Lidocaine Hcl Unknown 07/03/2024 From [facility] records Medications * This document contains [...] not swallow. 30 Inhaler 2 05/21/20 25 Active ferrous gluconate (Fergon) 324 (38 Fe) MG tabletIndications: Iron deficiency anemia, unspecified iron deficiency anemia type Take 1 tablet (324 mg) by mouth with breakfast. 30 tablet 11 07/16/20 25 026 Active ibuprofen 800 MG tabletIndications: Chronic migraine with aura without status migrainosus, not intractable Take 1 tablet (800 mg) by mouth every 6 (six) hours if needed for mild pain or headaches for up to 10 days. 30 tablet 07/16/20 25 Active amoxicillin-clavul anate (Augmentin) 875-125 MG tabletIndications: Chronic otitis media, unspecified otitis media type Take 1 tablet by mouth 2 times daily for 5 days. 10 tablet 07/16/20 25 025 Active acetic acid-hydrocortison e (Vosol-HC) otic solutionIndication s:Chronic otitis media, unspecified otitis media type Administer 3 drops into the right ear 2 times daily for 10 days. 10 mL 07/16/20 25 025 Active Active Problems Problem Noted Date Diagnosed [...] are discrepancies between the two notes from [facility] and [facility], per pt's most recent TSH level of [...] 3:04 PM EST): Will send referrals to [facility] for routine examinations [...] 08/06/2024 Overview (10/12/2024): 2018 and 2019 @ [facility] Morbid obesity ([facility]/HCC) 08/06/2024 Overview (10/12/2024): HgbA1C and 1 [...] BMI of 50 by 28wks transfer to [facility] DVT prophylaxis- Lovenox if CS and BMI >35 Hyperthyroidism 08/06/2024 Heart murmur 08/06/2024 Asthma 08/06/2024 H/O cardiac murmur 07/03/2024 Mild intermittent asthma without complication 07/03/2024 Esotropia of right eye 07/03/2024 Vitamin D insufficiency 09/14/2016 Chronic 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 09/12/2016 Encounters Date Type Department Care Team Description 07/19/2025 Telephone [facility] [address] [facility] [place] [address] Stephie Ellis CNP 07/19/2025 Results Follow-Up [facility] [address] [place] [address] Stephie Ellis CNP Hemoglobin A1c 07/16/2025 2:30 PM EDT Office Visit [facility] [address] [place] [address] Stephie Ellis CNP Iron deficiency anemia, unspecified iron deficiency anemia type (Primary Dx); Hyperglycemia; Chronic migraine with aura without status migrainosus, not intractable; Chronic otitis media, unspecified otitis media type 07/16/2025 Travel 07/14/2025 Telephone [facility] [address] [place] [address] Stephie Ellis CNP Nurse Triage 06/30/2025 Telephone [facility] [address] [place] [address] Stephie Ellis CNP Care Management ([facility] TC #1-lvm) 06/22/2025 Telephone [facility] [address] [place] [address] Stephie Ellis CNP Chart Prep 06/21/2025 Telephone [facility] [address] [place] [address] Stephie Ellis CNP Nurse Triage 06/20/2025 Orders Only GENERIC EXTERNAL DATA DEPARTMENT Provider, Generic External Data 06/02/2025 Telephone [facility] [address] [place] [address] Stephie Ellis CNP 05/26/[address] [address] Stephie Ellis CNP Care Management (C3CM follow up call) 05/21/2025 1:00 PM EDT Office Visit [facility] [address] [place] [address] Erum Hernández NP Mild intermittent allergic asthma with acute exacerbation (Primary Dx); Cough in adult patient 05/21/2025 Travel 04/27/2025 Telephone [facility] [address] [place] [address] Stephie Ellis CNP Care Management (C3CM follow [...] the past 12 months, has t he [employer], gas, oil or water company threatened to [...] 20 07/16/2025 2:20 PM EDT Oxygen Saturation 98% 05/21/2025 1:03 PM EDT Inhaled Oxygen Concentration - - Weight 109 kg (240 lb) 07/16/2025 2:20 PM EDT Height 147.3 cm (4' 10 ) 07/16/2025 2:20 PM EDT Body Mass Index 50.16 07/16/2025 2:20 PM EDT Plan of Treatment Upcoming Encounters Date Type Department Care Team (Late st Contact Info) Description 08/06/2025 10:30 AM EST Clinical Support [facility] [address] [place] [address] Health Maintenance Due Date Last Done Comments Lipid Panel 1994 Family Planning (PISQ) 2009 HPV Vaccines [...] 10/14/2025 10/14/2024, 10/14/2024 Tobacco Screening 05/21/2026 05/21/2025 Disability Screening 07/16/2026 07/16/2025 Cervical Cancer Screening 08/25/2027 HPV/Cotest 08/25/2027 Pap [...] A1C Routine 07/16/2025 2:59 PM EDT Hyperglycemia XR FOOT 1-2 VIEWS LEFT Routine 3:26 [...] Recently Relevant to Health Maintenance Results * (ABNORMAL) Hemoglobin A1c (07/16/2025 2:59 PM EDT) Hemoglobin A1c 8.6(H) <6.0 % [facility] Comment:Hemoglobin A1C Refer ence Range Adults: 4.8 - 6.0 % Non diabetic: < 6.0 % Goal: < 7.0 %Additional Action Suggested: > 8.0 %Note: Hemoglobin A1c results are invalid for patients with abnormal amounts of HbF. Blood transfusions may impact the HbA1c concentration in the patient sample. Estimated Average Glucose 200 mg/dL [facility] Comment:eAG = Estimated ave rage glucose which is %A1C expressed asaverage glucose, using the formula of the V5U-DwdkxjrSmfvwyd Glucose study (ADAG), Diabetes Care, Vol.31,#8,Apr. 2007 Blood Venous blood specimen / Unknown 07/16/2025 2:59 PM EDT 07/16/2025 5:51 PM EDT [facility] LAB BLOOD ORDERABLES Elise l Result [facility] [address] [place] [phone] * XR Foot 1-2 Views Left (06/20/2025 3:26 PM EDT) Anatomical Region Laterality Modality Lower Extremities, Foot Left Radiogra phic Imaging 06/20/2025 3:26 PM EDT Narrative 06/20/2025 3:28 PM EDT [address] [address] XRay Report Signed Patient: Jordana De León MR#: [id number] 1764 : 1995 Acct:[id number] Age/Sex: 30 / F ADM Date: 06/20/25 Loc: HO.ED Attending Dr: Ordering Physician: Herrera Hua Date of Service: 06/20/25 Procedure(s): XR foot LT 2V Accession Number(s): [id number] cc: Herrera Hua; Stephie Ellis WIRE MILL OPERATOR Reason for Exam: ankle pain. CLINICAL HISTORY: [...] 06/20/25 1528 DD/ 1526 TD/TT: 06/20/25 1526 Jewel Hole Gauger: Procedure Note Donotuseinterpreter, Image - 06/21/[address] [address] XRay Report Signed Patient: Liza De León#: [id number] 1764 : 1995Acct:[id number] Age/Sex: 30 / FADM Date: 06/20/25 Loc: HO.ED Attending Dr: Ordering Physician: Herrera Hua Date of Service: 06/20/25 Procedure(s): XR foot LT 2V Accession Number(s): [id number] cc: Herrera Hua; Stephie Ellis WIRE MILL OPERATOR Reason for Exam: ankle pain. CLINICAL HISTORY: [...] in OV> 06/20/25 1528 DD/ 1526 TD/TT: 06/20/251525 Jewel Hole Gauger: [facility] External Provider IMG XR PROCEDURES Edited Result - Final * XR Ankle 3+ Views Left (06/20/2025 3:26 PM EDT) Anatomical Region Laterality Modality Lower Extremities, Ankle Left Radiogr aphic Imaging 06/20/2025 3:26 PM EDT Narrative 06/20/2025 3:27 PM EDT [place] [address] XRay Report Signed Patient: Jordana De León MR#: [id number] 1764 : 1995 Acct:[id number] Age/Sex: 30 / F ADM Date: 06/20/25 Loc: HO.ED Attending Dr: Ordering Physician: Herrera Hua Date of Service: 06/20/25 Procedure(s): XR ankle LT min 3V Accession Number(s): [id number] cc: Herrera Hua; Stephie Ellis NP Reason [...] MD Signed By: <Electronically signed by Amos aGrcia MD in OV> 06/20/25 1527 DD/ 1526 TD/TT: 06/20/25 1526 Jewel Hole Gauger: Procedure Note Declanter, Image - 06/21/[address] [address] XRay Report Signed Patient: Jordana De LeónMR#: [id number] 1764 : 1995Acct:[id number] Age/Sex: 30 / FADM Date: 06/20/25 Loc: HO.ED Attending Dr: Ordering Physician: Herrera Hua Date of Service: 06/20/25 Procedure(s): XR ankle LT min 3V Accession Number(s): [id number] cc: Herrera Hua; Stephie Ellis NP Reason [...] 06/20/25 1527 DD/ 1526 TD/TT: 06/20/25 1526 Jewel Hole Gauger: [facility] External Provider IMG XR PROCEDURES Edited Result - Final * Lower Extremity Venous Duplex (06/20/2025 3:24 PM EDT) 06/20/2025 3:24 PM EDT Narrative [facility] - 06/20/2025 3:26 PM EDT [address] [address] Ultrasound Report Signed Patient: Jordana De León MR#: [id number] 1764 : 1995 Acct:[id number] Age/Sex: 30 / F ADM Date: 06/20/25 Loc: HO.ED Attending Dr: Ordering Physician: Herrera Hua Date of Service: 06/20/25 Procedure(s): US venous duplex LE LT Accession Number(s): [id number] cc: Herrera Hua; Stephie Ellis NP Reason [...] 06/20/25 1526 DD/ 1524 TD/TT: 06/20/25 1524 Jewel Hole Gauger: Procedure Note Donotuseinterpreter, Image - 06/21/2025 [place] [address] Ultrasound Report Signed Patient: Liza De León#: [id number] 1764 : 1995Acct:[id number] Age/Sex: 30 M Date: 06/20/25 Loc: .ED Attending Dr: Ordering Physician: Herrera Hua Date of Service: 06/20/25 Procedure(s): US venous duplex LE LT Accession Number(s): [id number] cc: Herrera Hua; Stephie Ellsi NP Reason for Exam: left ankle pain/swelling. [...] 06/20/25 1526 DD/ 1524 TD/TT: 06/20/25 1524 Jewel Hole Gauger: us [facility] External Provider CV VASC ULAR PROCEDURES Edited Result - Final [facility] [address] [place] [phone] * (ABNORMAL) CBC auto differential (06/20/2025 12:58 PM EDT) White Blood Count 4.8 4.8 - 10.8 X10*3/uL [facility] Red Blood Count 4.77 4.20 - 5.50 X10*6/uL [facility] Hemoglobin 10.6(L) 12.0 - 16.0 g/dl [facility] Hematocrit 33.0(L) 37.0 - 47.0 % [facility] Mean Corpuscular Volume 69.2(L) 80.0 - 98.0 fL [facility] Mean Corpuscular Hemoglobin 22.2(L) 27.0 - 33.0 pg [facility] Mean Corpuscular HGB Conc 32.1 31.0 - 35.0 g/dl [facility] Red Cell Distribution Width 14.6 11.0 - 16.0 % [facility] Platelet Count 288 160 - 400 X10*3/uL [facility] Mean Platelet Volume 11.0 9.4 - 12.3 fL [facility] Neutrophils Percent Auto 42.4(L) 45 - 73 % [facility] Imm Gran Pct Auto 0.4 0.0 - 0.4 % [facility] Lymphocytes Percent Auto 45.9(H) 20 - 40 % [facility] Monocytes Percent Auto 9.4 2 - 11 % [facility] Eosinophils Percent Auto 1.5 0 - 4 % [facility] Basophils Percent Auto 0.4 0 - 2 % [facility] NRBC Pct Auto 0.0 0.0 - 0.2 /100WBC [facility] Neutrophils Absolute Auto 2.0 2.0 - 8.3 x10*3/uL [facility] Imm Gran Abs Auto 0.02 0.00 - 0.03 X10*3/uL [facility] Lymphocytes Absolute Auto 2.2 1.2 - 4.9 X10*3/uL [facility] Monocytes Absolute Auto 0.5 0.1 - 1.2 X10*3/uL [facility] Eosinophils Absolute Auto 0.1 0.0 - 0.4 X10*3/uL [facility] Basophils Absolute Auto 0.0 0.0 - 0.2 X10*3/uL [facility] NRBC Abs Auto 0.000 0.0 - 0.012 X10*3/uL [facility] 06/20/2025 12:5 8 PM EDT 06/20/2025 1:02 PM EDT us Generic External Data Provider LAB BLOOD ORDERAB LES Final Result Performing Organization Address City/[facility]/ZIP Co de Phone Number [facility] [address] [place] [phone] * Partial Thromboplastin Time, Activated (APTT) (06/20/2025 12:58 PM EDT) Partial Thromboplastin Time 31.4 26.7 - 34.1 SEC [facility] 06/20/2025 12:5 8 PM EDT 06/20/2025 1:02 PM EDT us Generic External Data Provider LAB BLOOD ORDERAB LES Final Result Performing Organization Address City/[facility]/ZIP Co de Phone Number [facility] [address] [place] [address] [place] [phone] * Prothrombin Time-INR (06/20/2025 12:58 PM EDT) Pathologist [facility] Prothrombin Time 12.0 10.9 - 12.4 SEC [facility] INTERNATIONAL NORM RATIO 1.0 0.9 - 1.1 [facility] Comment:INTERNATIONAL NORMAL IZED RATIO (INR) [...] Provider LAB BLOOD ORDERAB LES Final Result [facility] [address] [place] [address] [phone] * (ABNORMAL) Comprehensive Metabolic Panel (06/20/2025 12:58 PM EDT) [facility] Sodium 137 135 - 145 mmol/L [facility] Potassium 4.0 3.3 - 5.1 mmol/L [facility] Chloride 104 96 - 108 mmol/L [facility] Carbon Dioxide 27 22 - 29 mmol/L [facility] Anion Gap 10(L) 12 - 20 [facility] Urea Nitrogen (BUN) 7(L) 9 - 16 mg/dL [facility] Creatinine, Serum 0.64 0.5 - 1.4 mg/dL [facility] Creatinine Clr Calc Pharmacy 131.4 [facility] Comment:Provided height and weight: 147.32 cm,102.058 kg.eGFR (calculated from the MDRD study equation) and eCrCl(calculated from the Cockcroft-Gault equation) are based ondifferent parameters and may not yield comparable results.If eCrCl result is absurd, please check patient'sheight/weight. Estimated Glomerular Filt Rate >60 [facility] Comment:Chronic Kidney Disea se: Estimated GFR < 60 mL/min/1.41u9Sfgeob Kidney Disease: Estimated GFR < 15 mL/min/1.73m2 Glucose 231(H) 60 - 115 mg/dL [facility] Calcium 9.4 8.4 - 10.2 mg/dL [facility] Bilirubin, Total 0.4 0.0 - 1.0 mg/dL [facility] Aspartate Amino Transferase 26 5 - 31 U/L [facility] Alanine Aminotransferase 21 0 - 31 U/L [facility] Total Protein 6.9 6.5 - 8.0 g/dL [facility] Albumin Level 4.1 3.5 - 5.0 g/dL [facility] Alkaline Phosphatase 116 39 - 117 U/L [facility] 06/20/2025 12:5 8 PM EDT 06/20/2025 1:02 PM EDT us Generic External Data Provider LAB BLOOD ORDERAB LES Final Result Performing Organization Address [facility]/ZIP Co de Phone Number [facility] [address] [place] [phone] * Influenza B (ID NOW Rapid Molecular) (05/21/2025 1:14 PM EDT) [facility] Influenza B Negative Negative, Indeterminate [facility] Swab 05/21/2025 1:14 PM EDT us Erum Hernández NP POINT OF CARE TEST ENTER/EDIT OR DERABLES Final Result Performing Organization Address [facility] Co de Phone Number [facility] [address] [place] [phone] * Influenza A (ID NOW Rapid Molecular) (05/21/2025 1:14 PM EDT) Influenza A Negative Negative, Indeterminate [facility] Swab 05/21/2025 1:14 PM EDT Erum Hernández WIRE MILL OPERATOR POINT OF CARE TEST ENTER/EDIT OR DERABLES Final Result [facility] [address] [place] [address] [phone] * POCT Rapid COVID Ag (05/21/2025 1:14 PM EDT) Rapid COVID Ag Negative Swab 05/21/2025 1:14 PM EDT Erum Hernández WIRE MILL OPERATOR POINT OF CARE TEST ENTER/EDIT OR DERABLES Final Result * HM PAP/HPV (08/25/2024 12:00 AM EST) Historical Provider HEALTH MAINTENANCE Final Result from Last 3 Months or Most Recently Relevant to Health Maintenance Insurance [facility] C3 Care Teams Customer Service Specialist Relationship Specialty Start Date End Date Stephie Ellis CNP PCP - General Family Medicine 10/14/24 Margoth Lo President And Cmo 09/10/24
--- OUTSIDE RECORDS SUMMARY | 2025-07-20 08:01 | XMS_ITS | Clinical Summary ---
Author Organization [facility] Address [address] [place] [address] Phone Care Team Providers Care Student Counselor Name Role Phone Austin, Viji Primary Care Provider [phone] Allergies No known active allergies Medications no115/iron/folic [...] She will do this. care, subsequent in [facility] 08/06/2024 Overview (08/06/2024): 1. [facility] site: [facility]: [address] [place] [address] ([phone]) 2. Delivery site: [facility] [...] 9. Hospital Course: Obesity, morbid (CMS/[facility] V24, [facility] V28) 08/06 Overview (08/06/2024): HgbA1C and 1 [...] 08/06/2024 Overview (08/06/2024): 2017 and 2018 @ [facility] Heart murmur 08/06/2024 Asthma 08/06/2024 Hyperthyroidism [...] intraepithelial lesion or malignancy 09/01/2024 3:14 PM [facility] General Categorization Negative 09/01/2024 3:14 PM [facility] LMP 04/24/2024 09/01/2024 3:14 PM [facility] Specimen Adequacy Satisfactory for evaluation, endocervical/mitchell sformation zone component absent 09/01/2024 3:14 PM [facility] Pap Methodology Liquid Based Pap Test 09/01/2024 3:14 PM [facility] Disclaimer The Pap test is a screening test which carries an inherent false negative rate. These test results should be correlated with the patient's clinical findings and history. This Pap test was processed using an automated screening system. Technical cytopathology services provided by [facility], at [address] [place] [address] (CLIA # [id number]/Clarita Moseley MD, Flour Mixer.) 09/01/2024 3:14 PM [facility] Console Pap Interpretation Reported 09/01/2024 3:14 PM [facility] Brushing/Spatula Cervix uteri structure / Unknown 08/25/2024 9:56 AM EST 08/25/2024 9:56 AM EST us Bonnie Barajas MD LAB CYTOLOGY ORDERABLES Fin al Result [facility] [address] [place] [address], * Hepatitis C antibody (08/06/2024 12:36 PM EST) Hepatitis C Antibody Negative Negative LAB CHEMISTRY METHOD 08/06/2024 6:24 PM [facility] Blood Venous blood specimen / Unknown Venipuncture / Unknown 08/06/2024 12:36 PM EST 08/06/2024 12:36 PM EST Carlee Ordaz [facility] BLOOD ORDERABLES Final Res ult Performing Organization Address [facility]/ZIP Co de Phone Number [facility] [address] [place] [address], [place] [phone] * HIV 1,2 antibody, p24 antigen with reflex to differentiation (08/06/2024 12:36 PM EST) HIV Combo AB/AG Negative Negative LAB CHEMISTRY METHOD 08/06/2024 6:24 PM EST [facility] Blood Venous blood specimen / Unknown Venipuncture / Unknown 08/06/2024 12:36 PM EST 08/06/2024 12:36 PM EST Narrative [facility] - 08/06/2024 6:24 PM EST This assay is a 4th generation assay allowing for earlier detection of HIV infection by detecting the presence of the HIV-1 p24 antigen as well as the traditional antibodies to HIV type 1 (including group O) and type 2. Use of a 4th generation assay is the current CDC recommendation for HIV screening. Carlee Ordaz [facility] BLOOD ORDERABLES Final Res ult Performing Organization Address [facility] Co de Phone Number [facility] [address] [place] [address], [place] [phone] from Last 3 Months or Most Recently Relevant to Health Maintenance Insurance [place]ICA[place] - [place] Care Teams Student Counselor Relationship Specialty Start Date End Date Viji Austin [address] [place] [address] PCP - General 09/30/24
--- OUTSIDE RECORDS SUMMARY | 2025-07-20 08:01 | XMS_ITS | Encounter Summary ---
Author Organization [employer] Address [address] [place] [address] Care Team Providers Care Plain Clothes Police Officer Name Role Phone Stephie Ellis LINH Primary Care Provider [phone] Encounter Details Date Type Department Care Team (Latest Contact Info) Description 07/16/2025 Travel Social History Tobacco Use Types Packs/Day Years [...] Description 08/06/2025 10:30 AM EST Clinical Support [facility] [address] [place] [address] documented as of this encounter Visit Diagnoses Not on filedocumented in this encounter Additional Health Concerns Assessment Noted Time PHQ-9 Depression Total Score: 5 10/14/19 25 2:16 PM EST documented as of this encounter Care Teams Plain Clothes Police Officer Relationship Specialty Start Date End Date Stephie Ellis CNP PCP - General Family Medicine 10/14/24 Margoth Lo Overhead Cleaner Maintainer 09/10/24 documented as of this encounter
--- OUTSIDE RECORDS SUMMARY | 2025-07-20 08:01 | XMS_ITS | Encounter Summary ---
Author Organization [employer] Address [address] [place] [address] Care Team Providers Care Mechanic Recovery Name Role Phone Laureano Ellisrehan MELTON Primary Care Provider [phone] Encounter Details Date Type Department Care Team ([facility] st Contact Info) Description 07/19/2025 Telephone [facility] [address] [place], [place] [phone] Amaris EllisLINH arzola [address] [place], [place] [phone] Social History Tobacco Use Types Packs/Day Years [...] encounter Miscellaneous Notes * Telephone Encounter - Beverley Wisdom RN - 07/19/2025 9:34 AM EST [employer] message sent in response to triage call over weekend. documented in this encounter Plan of Treatment Upcoming Encounters Date Type Department Care Team (Late st Contact Info) Description 08/06/2025 10:30 AM EST Clinical Support [facility] [address] [place] [address] documented as of this encounter Visit Diagnoses Not on filedocumented in this encounter Additional Health Concerns Assessment Noted Time PHQ-9 Depression Total Score: 5 10/14/19 25 2:16 PM EST documented as of this encounter Care Teams Mechanic Recovery Relationship Specialty Start Date End Date Stephie Ellis CNP PCP - General Family Medicine 10/14/24 Margoth Lo Client Account Representative 09/10/24 documented as of this encounter
--- NOTE | 2025-07-20 11:46 | A.PODSOV ---
Intake Visit Reasons: calcaneal spur/ED referral Allergies phenyltoloxamine (From [facility]) Allergy (Unknown, Verified 07/13/25 13:54) VOMITING [facility] HPI calcaneal spur/ED referral: Details: 30 y/o female past medical history of hypothyroidism returns 1 week for left foot, ankle, and leg pain. She went to the ER and was discharged after testing. She started the flexeril prescribed last visit, which has helped her pain. She is now using her CAM boot only when leaving the house, using a lace-up ankle brace at home. She is no longer experiencing tingling/shooting sensations in her feet/legs. Her calf pain is no longer present, now isolated to the bottom and the back of her heel. [facility] Medical History Hypothyroidism Biliary dyskinesia Gallstones Morbid obesity Surgical History History of 2 sections Social History Household Members: Children Housing: Apartment Do you presently have visiting nurse or other home services: No Alcohol intake: never Patient Tobacco Use Status: Never used Tobacco service: No Review of Systems Const All systems reviewed & are unremarkable except as noted in HPI and below Physical Exam Extrem Other: *Bilateral Lower Extremity Focused Exam Vascular: Left foot DP/PT 2/4 intact. CFT less than 3 seconds all digits. Temperature gradient warm to cool. No pedal edema. Derm: Dry xerosis bilateral feet. No clinical signs of infection. No ecchymosis. Neuro: Protective sensation grossly intact to bilateral lower extremities MSK: Moderate tenderness on palpation of the plantar medial calcaneal tubercle, and radiates to the medial and central bands of the plantar fascia. Moderate tenderness on palpation of the Achilles tendon insertion. No dell/defect along the Achilles tendon. NO tenderness on palpation of the left calf, lateral and anterior muscle compartment of the leg. The left calf is no longer indurated. NO Pain on dorsiflexion and plantar flexion of the ankle. NO pain on flexion of the digits. Results Reviewed Results Reviewed: Podiatry X-ray Read: 07/13/2025 X-ray left tib-fib 2 views (AP, Lateral) reviewed which shows no fractures, dislocations, or gross abnormalities. Mild insertional Achilles spur and plantar calcaneal spur. I personally reviewed the imaging and my findings are listed above. Podiatry X-ray Read: 07/13/2025 X-ray left ankle 3 views (AP, Mortise, Lateral) reviewed which shows no fractures, dislocations, osteochondral defects, or gross abnormalities. Mild insertional Achilles spur and plantar calcaneal spur. I personally reviewed the imaging and my findings are listed above. Date of Service: 07/13/25 Procedure(s): US venous duplex LE LT IMPRESSION: No evidence of acute DVT in the left lower extremity. Nephrology Results: Hgb, (12.0-16.0) 11.3 g/dl L 07/13/25 WBC, (4.8-10.8) 5.5 X10*3/uL 07/13/25 Plt Count, (160-400) 282 X10*3/uL 07/13/25 Sodium, (135-145) 138 mmol/L 07/13/25 Potassium, (3.3-5.1) 4.3 mmol/L 07/13/25 Chloride, (96-108) 105 mmol/L 07/13/25 Carbon Dioxide, (22-29) 29 mmol/L 07/13/25 BUN, (9-16) 7 mg/dL L 07/13/25 Creatinine, (0.5-1.4) 0.65 mg/dL 07/13/25 Calcium, (8.4-10.2) 10.0 mg/dL Δ 07/13/25 Assessment & Plan Assessment & Plan (1) Pain of left calf: Code(s): M79.662 - Pain in left lower leg Category: Medical Plan: Reviewed venous doppler. Symptoms have mostly resolved Continue Flexeril (2) Achilles tendinitis of left lower extremity: Code(s): M76.62 - Achilles tendinitis, left leg Category: Medical Plan: Referred for left ankle MRI Achilles tendon insertional tearing. (3) Plantar fasciitis of left foot: Code(s): M72.2 - Plantar fascial fibromatosis Category: Medical Plan: Dispensed night splint Referred for physical therapy Coding Level of Care Code Est Pt Level 3 (83305) Diagnoses Pain of left calf M79.662 Achilles tendinitis of left lower extremity M76.62 Plantar fasciitis of left foot M72.2 Time Spent (min) 30
== END 2025-07-20 08:25 | disposition home or self-care (01) ==
LOC: HO.HPODS 07:57
PROVIDERS: PCP Pediatrics; Visit Provider Student in an Organized Health Care Education/Training Program
DX: M79.662 Pain in left lower leg (principal); M76.62 Achilles tendinitis, left leg; M72.2 Plantar fascial fibromatosis
CPT/HCPCS: 99213

== ENCOUNTER → 2025-07-20 07:57 | Outpatient (BNVA) | payer MEDICAID, SELFPAY | PROVIDERS: PCP Pediatrics; Visit Provider Student in an Organized Health Care Education/Training Program | DX: M79.662 Pain in left lower leg (principal); M76.62 Achilles tendinitis, left leg; M72.2 Plantar fascial fibromatosis | CPT/HCPCS: 99212 ==

== ENCOUNTER 2025-07-20 12:22 | Outpatient (REF) | payer MEDICAID, SELFPAY ==
--- NOTE | ~2025-07-20 | MR_ITS ---
EXAM: MR Ankle Lt Wo Con TECHNIQUE: Multiplanar multisequence imaging performed through a lower extremity joint without contrast. INDICATION: M76.62 - Achilles tendinitis, left leg PRIOR: X-ray on 07/05/2025 FINDINGS: Achilles tendon / plantar fascia: Achilles tendon is very mildly thickened and there is trace peritenon fluid. The plantar fascia is intact and unremarkable. Lateral ankle ligaments: Syndesmotic ligaments are intact. Talofibular and calcaneofibular ligaments are intact. Deltoid ligament complex: Deltoid ligament complex is intact. Ankle tendons: Peroneus brevis tendon demonstrates a longitudinal split tear in the retromalleolar groove that extends to the region of the distal calcaneus. Peroneus longus tendon is intact. Medial and anterior ankle tendons are intact. Talar Dome: Talar dome is intact without evidence of an osteochondral lesion or other abnormality. Sinus tarsi: The physiologic architecture of sinus tarsi is preserved. Bone marrow: Bone marrow signal is physiologic. Articular cartilage: There are no articular cartilage defects. Soft Tissues: Mild edema is present in the subcutaneous soft tissues superficial to the medial lateral malleoli and in the distal lower leg. MR/MR ankle LT wo con IMPRESSION: Mild tendinopathy or grade 1 strain of Achilles tendon and minimal peritenonitis. There is a longitudinal split tear of peroneus brevis tendon begins in the retromalleolar groove and extends to the distal third of calcaneus. Electronically signed by: Trent Hamilton MD 07/21/2025 11:07 AM GRACY
== END 2025-07-20 12:23 | disposition home or self-care (01) ==
LOC: HO.MRI 12:22
PROVIDERS: Visit Provider Student in an Organized Health Care Education/Training Program
DX: M76.62 Achilles tendinitis, left leg (principal)
CPT/HCPCS: 73721

== ENCOUNTER → 2025-07-20 12:41 | Outpatient (BNV) | payer MEDICAID, SELFPAY | PROVIDERS: Visit Provider Radiology Diagnostic Radiology | DX: S86.312A Strain of muscle(s) and tendon(s) of peroneal muscle group at lower leg level, left leg, initial encounter (principal); M76.62 Achilles tendinitis, left leg | CPT/HCPCS: 73721 ==

== ENCOUNTER 2025-07-22 17:11 | Inpatient (IN) | payer MEDICAID, SELFPAY ==
--- NOTE | ~2025-07-22 | CT_ITS ---
CLINICAL HISTORY: Rt sided abdo pain, ? appy CT abdomen and pelvis with contrast Comparison: None provided Findings: The lung bases are clear. Prior cholecystectomy. The liver and spleen are homogeneous in attenuation. Hepatomegaly, 18 cm. The left and right kidney demonstrate symmetric corticomedullary enhancement. Left renal lower pole cortical low-attenuation lesion, 1.1 cm; renal cysts. Right renal upper pole 0.3 cm nonobstructing nephrolith. The pancreas homogeneous in attenuation. No main pancreatic ductal dilatation identified. The adrenals are within normal limits. No bowel obstruction, pneumoperitoneum, or pneumatosis. Medial of the cecum dilated appendix, 1.2 cm with periappendiceal inflammatory changes, axial image number 54/86 series 2, coronal image number 43 of 124 series 6. No acute fracture. IMPRESSION: 1. Dilated appendix (1.2 cm) with periappendiceal inflammatory changes, consistent with acute appendicitis. 2. Left renal lower pole cortical low-attenuation lesion, 1.1 cm; likely renal cyst. 3. Right renal upper pole 0.3 cm nonobstructing nephrolith. 4. Prior cholecystectomy. This document has been electronically signed by: Misael Hutchison MD on 07/22/2025 22:51:42
[2025-07-22 17:18] VITALS: BP 144/64; PULSE 104; RESP 18; TEMP 36.1; O2SAT 96; BMI 51.1
--- NOTE | 2025-07-22 17:20 | ED.GENADULT ---
HPI - General Adult General Chief complaint: General Medical Stated complaint: migraine, cramping vomiting Time Seen by Provider: 07/22/25 21:01 History of Present Illness ED Provider: Padma DURAND narrative: The patient is a 30-year-old female who says that she has had problems with headaches for a couple of months and has been seeing her PCP. She says that using ibuprofen and other medications for her headaches has not been helpful. She also recently was found to have an elevated hemoglobin A1c. She was prescribed metformin as a new medication for presumed type 2 diabetes. She took her 1st dose yesterday. She subsequently developed abdominal pain which has been bothering her ever since. She tried to eat this evening but she had no appetite and vomited. Her abdominal pain was worse. She feels a primarily in the right lower abdomen. She came to the emergency room for evaluation of the abdominal pain. Related Data Previous Rx's ?Medication ?Instructions ?Recorded oxycodone 5 mg tablet 5 mg PO Q4H PRN pain (scale score 02/12/24 7-10) #24 tabs oxycodone 5 mg tablet 5 mg PO Q6H PRN pain #10 tabs 07/05/24 Medrol (Helder) 4 mg tablets in a 4 mg PO DAILY #21 ea 04/08/25 dose pack (methylprednisolone) diazepam 5 mg tablet (Valium) 5 mg PO TID PRN muscle spasm 3 04/08/25 days #10 tabs ketorolac 10 mg tablet 10 mg PO Q8H PRN pain 3 days #9 06/20/25 tabs methylprednisolone 4 mg tablets in 4 mg PO DAILY achilles tendinitis 07/05/25 a dose pack (Medrol (Helder)) #21 ea acetaminophen 500 mg capsule 1,000 mg (2 x 500 mg) PO Q8H PRN 07/13/25 fever or pain #14 caps ibuprofen 400 mg tablet 400 mg PO Q6H PRN pain #14 tabs 07/13/25 cyclobenzaprine 5 mg tablet 5 mg PO TID PRN muscle spasm #30 07/14/25 tabs Allergies Allergy/AdvReac Type Severity Reaction Status Date / Time phenyltoloxamine (From Allergy Unknown VOMITING Verified 07/22/25 17:19 DOLOGESIC) Review of Systems Review of Systems: Yes all other systems are reviewed and are negative [facility] Past Medical History Medical History Hypothyroidism Biliary dyskinesia Gallstones Morbid obesity Surgical History History of 2 sections Social History Social History Household Members: Children Housing: Apartment Do you presently have visiting nurse or other home services: No Alcohol intake: never Patient Tobacco Use Status: Never used Tobacco Smoked in Last 30 Days: No Use of substances other than those prescribed or required for medical reasons: No Advance Directives: No Advance Directives Information Provided: No Do you have a plan to hurt others: No Plan service: No Physical Exam ED Vital Signs: Vital Signs - 24 hr 07/22/25 17:18 07/22/25 20:22 Temperature 97 F 96.8 F Pulse Rate 104 H 82 Respiratory Rate 18 14 Blood Pressure 144/64 H 132/92 H Pulse Oximetry 96 100 Oxygen Delivery Method Room Air Room Air BMI result Body Mass Index 51.1 Const Other: The patient is a 30-year-old female with a high BMI who was awake, alert, pleasant, cooperative. She does not appear overtly toxic. Orientation/consciousness: patient oriented x3 HENMT Other: The face is symmetrical. ?Mucous membranes moist. Eyes Other: Pupils are round equal, conjunctivae are clear, extraocular movements intact Neck Other: The neck is supple Resp Effort & Inspection: normal respiratory effort Auscultation: clear to auscultation bilaterally Cardio Rate: regular rate Rhythm: regular rhythm Heart sounds: S1 normal heart sound present and S2 normal heart sound present GI Other: The patient is abdomen is soft. She is tender in the right lower quadrant. Skin Other: Skin is dry and unremarkable Neuro General: patient oriented x3, tone normal, moves all extremities, no focal motor deficits and CN's II-XI intact bilaterally Course Course Course Narrative: Rapid medical examination performed in triage by Jayla Augustine PA-C: Patient is a 30 year old assigned female at presenting to the emergency department with a headache + abdominal pain + nausea + vomiting. Detailed physical exam and review of systems are deferred to the scheduler maintenance. Labs ordered. Patient placed back in the waiting room pending room availability and results. Medications Administered Generic Name Dose Route Start Last Admin Trade Name Madhuri PRN Reason Stop Dose Admin Lactated Ringer's 1,000 mls @ 100 mls/hr 07/22/25 23:15 07/23/25 00:05 Lr IVCONT 100 mls/hr .Q10H JAMILAH Administration Sodium Chloride 3 ml 07/23/25 00:00 07/23/25 01:01 0.9 % Sodium Chloride Flush 3 Ml Syringe IVFLUSH Not Given QSHIFT JAMILAH Discontinued Medications Generic Name Dose Route Start Last Admin Trade Name Madhuri PRN Reason Stop Dose Admin Diphenhydramine HCl 25 mg 07/22/25 21:10 07/22/25 21:43 Diphenhydramine Hcl 50 Mg/Ml Vial IVPUSH 07/22/25 21:11 25 mg ONCE ONE Administration Sodium Chloride 1,000 mls @ 999 mls/hr 07/22/25 21:15 07/22/25 22:50 Ns IV 07/22/25 22:15 Infused .Q1H1M JAMILAH Infusion Piperacillin Sod/Tazobactam 50 mls @ 100 mls/hr 07/22/25 23:02 07/23/25 00:04 Sod 3.375 gm/ Sodium Chloride IV 07/22/25 23:31 Infused ONCE ONE Infusion Iohexol 100 ml 07/22/25 21:24 07/22/25 21:24 Iohexol 350 Mg/Ml 100 Ml Infus..Btl IV 07/22/25 21:25 85 ml ONCE ONE Administration Ketorolac Tromethamine 15 mg 07/22/25 21:10 07/22/25 21:43 Ketorolac Tromethamine 15 Mg/Ml Vial IVPUSH 07/22/25 21:11 15 mg ONCE ONE Administration Metoclopramide HCl 10 mg 07/22/25 21:10 07/22/25 21:40 Metoclopramide Hcl 10 Mg/2 Ml Vial IVPUSH 07/22/25 21:11 10 mg ONCE ONE Administration Medical Decision Making Medical Decision Making [facility] Narrative: The patient is a 30-year-old female who has 2 complaints but I think her primary complaint is abdominal pain that started yesterday. She has a history of a cholecystectomy. She indicates that she is having pain in her right lower abdomen. She does not appear toxic but she is mildly tender in her right lower quadrant. She has a normal CBC and differential. Nevertheless a CT scan of the abdomen and pelvis was done which shows findings consistent with acute appendicitis. I contacted Dr. Hernandez of General surgery. The patient was given IV antibiotics with piperacillin/tazobactam. She will be admitted to the surgical service. Lab Data 07/22/25 17:37 07/22/25 17:37 Labs: Lab Results 07/22/25 07/22/25 Range/Units 17:37 17:43 WBC 9.8 (4.8-10.8) X10*3/uL RBC 5.11 (4.20-5.50) X10*6/uL Hgb 11.2 L (12.0-16.0) g/dl Hct 37.0 (37.0-47.0) % MCV 72.4 L (80.0-98.0) fL MCH 21.9 L (27.0-33.0) pg MCHC 30.3 L (31.0-35.0) g/dl RDW 15.9 (11.0-16.0) % Plt Count 312 (160-400) X10*3/uL MPV 11.4 (9.4-12.3) fL Immature Gran % (Auto) 0.3 (0.0-0.4) % Neut % (Auto) 63.7 (45-73) % Lymph % (Auto) 27.1 (20-40) % Luce % (Auto) 8.0 (2-11) % Eos % (Auto) 0.5 (0-4) % Baso % (Auto) 0.4 (0-2) % Lymph # (Auto) 2.6 (1.2-4.9) X10*3/uL Luce # (Auto) 0.8 (0.1-1.2) X10*3/uL Eos # (Auto) 0.1 (0.0-0.4) X10*3/uL Baso # (Auto) 0.0 (0.0-0.2) X10*3/uL Abs Immat Gran (auto) 0.03 (0.00-0.03) X10*3/uL Absolute Neuts (auto) 6.2 (2.0-8.3) x10*3/uL Absolute Nucleated RBC 0.000 (0.0-0.012) X10*3/uL Nucleated RBC % (auto) 0.0 (0.0-0.2) /100WBC Sodium 138 (135-145) mmol/L Potassium 4.1 (3.3-5.1) mmol/L Chloride 103 (96-108) mmol/L Carbon Dioxide 27 (22-29) mmol/L Anion Gap 12 (12-20) BUN 8 L (9-16) mg/dL Creatinine 0.69 (0.5-1.4) mg/dL Estim Creat Clear Calc 128.4 Estimated GFR > 60 Random Glucose 219 H (60-115) mg/dL Calcium 9.9 (8.4-10.2) mg/dL Magnesium 1.9 (1.6-2.6) mg/dL Total Bilirubin 0.7 (0.0-1.0) mg/dL AST 21 (5-31) U/L ALT 23 (0-31) U/L Alkaline Phosphatase 101 (39-117) U/L Total Protein 7.5 (6.5-8.0) g/dL Albumin 4.5 (3.5-5.0) g/dL Urine Color Dark Yellow Urine Appearance Cloudy Urine pH 5.5 (5.0-9.0) Ur Specific Bigler >= 1.030 H (1.005-1.025) Urine Protein 30 (1+) H (Neg-Trace) mg/dL Urine Glucose (UA) Negative (Negative) mg/dL Urine Ketones Trace (Negative) mg/dL Urine Blood Negative (Negative) Urine Nitrite Negative (Negative) Ur Leukocyte Esterase Trace H (Negative) Urine RBC 0-2 (0-2) /HPF Urine WBC 6-10 H (0-5) /HPF Ur Squamous Epith Cells 11-20 (0-2) /HPF Urine Bacteria None Seen (None Seen) Hyaline Casts 0-2 (0-2) /LPF Urine Test NEGATIVE (NEGATIVE) Discharge Plan Discharge Clinical Impression: Acute appendicitis Patient Disposition: Admitted As Inpatient
[2025-07-22 17:41] LABS: MANUAL DIFF FLAG NO
[2025-07-22 17:49] LABS: Hematocrit 37.0 % (37.0-47.0); Hemoglobin 11.2 g/dl (12.0-16.0); Imm Gran Abs Auto 0.03 X10*3/uL (0.00-0.03); Imm Gran Pct Auto 0.3 % (0.0-0.4); Lymphocytes Absolute Auto 2.6 X10*3/uL (1.2-4.9); Mean Corpuscular HGB Conc 30.3 g/dl (31.0-35.0); Mean Corpuscular Hemoglobin 21.9 pg (27.0-33.0); Mean Corpuscular Volume 72.4 fL (80.0-98.0); NRBC Abs Auto 0.000 X10*3/uL (0.0-0.012); NRBC Pct Auto 0.0 /100WBC (0.0-0.2); Platelet Count 312 X10*3/uL (160-400); Red Blood Count 5.11 X10*6/uL (4.20-5.50); White Blood Count 9.8 X10*3/uL (4.8-10.8)
[2025-07-22 17:57] LABS: Appearance Urine Cloudy; Glucose Urine UA Negative (Negative); PH 5.5 (5.0-9.0); Specific Gravity - Urine >= 1.030 (1.005-1.025); UMIC TRIGGER UACC YES
[2025-07-22 17:58] LABS: Alanine Aminotransferase 23 U/L (0-31); Albumin Level 4.5 g/dL (3.5-5.0); Alkaline Phosphatase 101 U/L (39-117); Anion Gap 12 (12-20); Aspartate Amino Transferase 21 U/L (5-31); Blood Urea Nitrogen 8 mg/dL (9-16); Calcium 9.9 mg/dL (8.4-10.2); Carbon Dioxide 27 mmol/L (22-29); Chloride 103 mmol/L (96-108); Creatinine Clr Calc Pharmacy 128.4; Estimated Glomerular Filt Rate > 60; Magnesium 1.9 mg/dL (1.6-2.6); Potassium 4.1 mmol/L (3.3-5.1); Sodium 138 mmol/L (135-145); Total Protein 7.5 g/dL (6.5-8.0)
[2025-07-22 18:02] LABS: UACC Culture Trigger YES
--- OUTSIDE RECORDS SUMMARY | 2025-07-22 19:26 | XMS_ITS | Encounter Summary ---
Author Organization [employer] Address [address] [place] [address] Care Team Providers Care Sanitation Worker Name Role Phone Stephie Ellis LINH Primary Care Provider [phone] Encounter Details Date Type Department Care Team (Late st Contact Info) Description 01/12/2025 Orders Only [facility] [address] [place], [place] [id number] Sujatha Barakat Social History Tobacco Use Types [...] Description 08/06/2025 10:30 AM EST Clinical Support [facility] [address] [place] [address] documented as of this encounter Procedures Procedure [...] documented as of this encounter Care Teams Sanitation Worker Relationship Specialty Start Date End Date Stephie Ellis CNP PCP - General Family Medicine 10/14/24 Margoth Lo Broadband Engineer 09/10/24 documented as of this encounter
--- OUTSIDE RECORDS SUMMARY | 2025-07-22 19:26 | XMS_ITS | Clinical Summary ---
Author Organization [facility] Address [address] [place] [address] Phone Care Team Providers Care Ingredient Scaler Name Role Phone Austin, Viji Primary Care Provider [phone] Allergies No known active allergies Medications no115/iron/folic [...] She will do this. care, subsequent in [facility] 08/06/2024 Overview (08/06/2024): 1. [facility] site: [facility]: [address] [place] [address] ([phone]) 2. Delivery site: [facility] 3. Mobile Mommas: No 4. Dating [...] - No 9. Hospital Course: Obesity, morbid (CMS/[facility] V24, [facility] V28) 08/06 Overview (08/06/2024): HgbA1C [...] 08/06/2024 Overview (08/06/2024): 2017 and 2018 @ [facility] Heart murmur 08/06/2024 Asthma 08/06/2024 Hyperthyroidism [...] intraepithelial lesion or malignancy 09/01/2024 3:14 PM [facility] General Categorization Negative 09/01/2024 3:14 PM [facility] LMP 04/24/2024 09/01/2024 3:14 PM [facility] Specimen Adequacy Satisfactory for evaluation, endocervical/mitchell sformation zone component absent 09/01/2024 3:14 PM [facility] Pap Methodology Liquid Based Pap Test 09/01/2024 3:14 PM [facility] Disclaimer The Pap test is a screening test which carries an inherent false negative rate. These test results should be correlated with the patient's clinical findings and history. This Pap test was processed using an automated screening system. Technical cytopathology services provided by [facility], at [address] [place] [address] (CLIA # [id number]/Clarita Moseley MD, [employer].) 09/01/2024 3:14 PM [facility] Console Pap Interpretation Reported 09/01/2024 3:14 PM [facility] Brushing/Spatula Cervix uteri structure / Unknown 08/25/2024 9:56 AM EST 08/25/2024 9:56 AM EST us Bonnie Barajas MD LAB CYTOLOGY ORDERABLES Fin al Result [facility] [address] [place] [address], * Hepatitis C antibody (08/06/2024 12:36 PM EST) Hepatitis C Antibody Negative Negative LAB CHEMISTRY METHOD 08/06/2024 6:24 PM [facility] Blood Venous blood specimen / Unknown Venipuncture / Unknown 08/06/2024 12:36 PM EST 08/06/2024 12:36 PM EST Carlee Ordaz [facility] BLOOD ORDERABLES Final Res ult Performing Organization Address [facility]/ZIP Co de Phone Number [facility] [address] [place] [address], [place] [phone] * HIV 1,2 antibody, p24 antigen with reflex to differentiation (08/06/2024 12:36 PM EST) HIV Combo AB/AG Negative Negative LAB CHEMISTRY METHOD 08/06/2024 6:24 PM EST [facility] Blood Venous blood specimen / Unknown Venipuncture / Unknown 08/06/2024 12:36 PM EST 08/06/2024 12:36 PM EST Narrative [facility] - 08/06/2024 6:24 PM EST This assay is a 4th generation assay allowing for earlier detection of HIV infection by detecting the presence of the HIV-1 p24 antigen as well as the traditional antibodies to HIV type 1 (including group O) and type 2. Use of a 4th generation assay is the current CDC recommendation for HIV screening. Carlee Ordaz [facility] BLOOD ORDERABLES Final Res ult Performing Organization Address [facility] Co de Phone Number [facility] [address] [place] [address], [place] [phone] from Last 3 Months or Most Recently Relevant to Health Maintenance Insurance MEDICAID - [place] Care Teams Ingredient Scaler Relationship Specialty Start Date End Date Viji Austin [address] [place] [address] PCP - General 09/30/24
--- OUTSIDE RECORDS SUMMARY | 2025-07-22 19:26 | XMS_ITS | Encounter Summary ---
Author Organization [employer] Address [address] [facility] [address] [place] [address] Care Team Providers Care Mailing Machine Operator Name Role Phone Stephie Ellis CNP Primary Care Provider [phone] Reason for Visit * Reason Onset Date Comments Medication Question 07/22/2025 Encounter Details Date Type Department Care Team ([facility] st Contact Info) Description 07/22/2025 Telephone C [facility] [address] [place], [place] [phone] Stephie Ellis CNP [address] [place], [place] [phone] Medication Question Social History Tobacco Use Types Packs/Day Years [...] encounter Miscellaneous Notes * Telephone Encounter - Katelyn Colby RN - 07/22/2025 11:03 AM EST TC to patient. Informed her to discontinue taking the metformin per Stephie Ellis. They will discuss the use of GLP-1 medications. Patient agreed with the plan. * Telephone Encounter - Enrique Fletcher - 07/22/2025 10:19 AM EST Tc from pt stating she is experiencing stomach cramps and vomiting since star of taking Metformin ,would like to discuss alternatives. Pt not taking medication at the moment Contact pt at [phone] documented in this encounter Plan of Treatment Upcoming Encounters Date Type Department Care Team (Late st Contact Info) Description 08/06/2025 10:30 AM EST Clinical Support [facility] [address] [place] [address] documented as of this encounter Visit Diagnoses Not on filedocumented in this encounter Additional Health Concerns Assessment Noted Time PHQ-9 Depression Total Score: 5 10/14/19 25 2:16 PM EST documented as of this encounter Care Teams Mailing Machine Operator Relationship Specialty Start Date End Date Stephie Ellis CNP PCP - General Family Medicine 10/14/24 Margoth Lo Ip Counsel 09/10/24 documented as of this encounter
--- OUTSIDE RECORDS SUMMARY | 2025-07-22 19:26 | XMS_ITS | Encounter Summary ---
Author Organization [employer] Address [address] [place] [address] Care Team Providers Care Local Company Refrigerated Truck Driver Name Role Phone Laureano Ellisrehan MELTON Primary Care Provider [phone] Encounter Details Date Type Department Care Team ([facility] st Contact Info) Description 07/20/2025 Orders Only [facility] MED & PEDS [address] [place], [place] [phone] Amaris EllisLINH arzola [address] [place], [place] [phone] Chronic migraine with aura without status migrainosus, not intractable (Primary Dx) Social History Tobacco Use Types Packs/Day Years [...] 10:30 AM EST Clinical Support [facility] MED & PEDS [address] [place] [address] documented as of this encounter Procedures Procedure Name Priority Date/Time Associated Diagnosis Comments MR ANKLE WO CONTRAST LEFT Routine 07/20/2025 1:05 PM EST documented in this encounter Results * MR Ankle w/o Contrast Left (07/20/2025 1:05 PM EST) Anatomical Region Laterality Modality Lower Extremities, Ankle Left Magneti c Resonance 07/20/2025 1:05 PM EST Narrative 07/21/2025 11:10 AM EST [address] [address] Magnetic Resonance Report Signed Patient: Jordana De León MR#: [id number] : 1995 Acct:[id number] Age/Sex: 30 / F ADM Date: 07/20/25 Loc: HO.MRI Attending Dr: Marcio Hebert DPM Ordering Physician: Marcio Hebert DPM Date of Service: 07/20/25 Procedure(s): MR ankle LT wo con Accession Number(s): [id number] cc: Marcio Hebert DPM; Ellis,[employer] NETWORK TECHNICIAN Reason for Exam: M76.62 - Achilles tendinitis, left leg EXAM: MR Ankle Lt Wo Con TECHNIQUE: Multiplanar multisequence imaging performed through a lower extremity joint without contrast. INDICATION: M76.62 - Achilles tendinitis, left leg PRIOR: X-ray on 07/05/2025 FINDINGS: Achilles tendon / plantar fascia: Achilles tendon is very mildly thickened and there is trace peritenon fluid. The plantar fascia is intact and unremarkable. Lateral ankle ligaments: Syndesmotic ligaments are intact. Talofibular and calcaneofibular ligaments are intact. Deltoid ligament complex: Deltoid ligament complex is intact. Ankle tendons: Peroneus brevis tendon demonstrates a longitudinal split tear in the retromalleolar groove that extends to the region of the distal calcaneus. Peroneus longus tendon is intact. Medial and anterior ankle tendons are intact. Talar Dome: Talar dome is intact without evidence of an osteochondral lesion or other abnormality. Sinus tarsi: The physiologic architecture of sinus tarsi is preserved. Bone marrow: Bone marrow signal is physiologic. Articular cartilage: There are no articular cartilage defects. Soft Tissues: Mild edema is present in the subcutaneous soft tissues superficial to the medial lateral malleoli and in the distal lower leg. MR/MR ankle LT wo con IMPRESSION: Mild tendinopathy or grade 1 strain of Achilles tendon and minimal peritenonitis. There is a longitudinal split tear of peroneus brevis tendon begins in the retromalleolar groove and extends to the distal third of calcaneus. Electronically signed by: Trent Hamilton MD 07/21/2025 11:07 AM [facility] Dictated By: Trent Hamilton MD Signed By: <Electronically signed by Trent Hamilton MD in OV> 07/21/25 1107 DD/ 1305 TD/TT: 07/20/25 1330 Wrecker Driver: Procedure Note Donotuseinterpreter, Image - 07/21/2025 [place] [id number] Magnetic Resonance Report Signed Patient: Jordana De León#: [id number] : 1995Acct:[id number] Age/Sex: 30 / FADM Date: 07/20/25 Loc: HO.MRI Attending Dr: Marcio Hebert DPM Ordering Physician: Marcio Hebert DPM Date of Service: 07/20/25 Procedure(s): MR ankle LT wo con Accession Number(s): [id number] cc: Marcio Hebert DPM; Stephie Ellis NP Reason for Exam: M76.62 - Achilles tendinitis, left leg EXAM: MR Ankle Lt Wo Con TECHNIQUE: Multiplanar multisequence imaging performed through a lower extremity joint without contrast. INDICATION: M76.62 - Achilles tendinitis, left leg PRIOR: X-ray on 07/05/2025 FINDINGS: Achilles tendon / plantar fascia: Achilles tendon is very mildly thickened and there is trace peritenon fluid. The plantar fascia is intact and unremarkable. Lateral ankle ligaments: Syndesmotic ligaments are intact. Talofibular and calcaneofibular ligaments are intact. Deltoid ligament complex: Deltoid ligament complex is intact. Ankle tendons: Peroneus brevis tendon demonstrates a longitudinal split tear in the retromalleolar groove that extends to the region of the distal calcaneus. Peroneus longus tendon is intact. Medial and anterior ankle tendons are intact. Talar Dome: Talar dome is intact without evidence of an osteochondral lesion or other abnormality. Sinus tarsi: The physiologic architecture of sinus tarsi is preserved. Bone marrow: Bone marrow signal is physiologic. Articular cartilage: There are no articular cartilage defects. Soft Tissues: Mild edema is present in the subcutaneous soft tissues superficial to the medial lateral malleoli and in the distal lower leg. MR/MR ankle LT wo con IMPRESSION: Mild tendinopathy or grade 1 strain of Achilles tendon and minimal peritenonitis. There is a longitudinal split tear of peroneus brevis tendon begins in the retromalleolar groove and extends to the distal third of calcaneus. Electronically signed by: Trent Hamilton MD 07/21/2025 11:07 AM [facility] [place] Dictated By: Trent Hamilton MD Signed By: <Electronically signed by Trent Hamilton MD in OV> 07/21/25 1107 DD/ 1305 TD/TT: 07/20/25 1330 Wrecker Driver: [facility] External Provider IMG MRI PROCEDURES Final Result documented in this encounter Visit Diagnoses Diagnosis Chronic migraine with aura without status migrainosus, not intractable- Primary documented in this encounter Additional Health Concerns Assessment Noted Time PHQ-9 Depression Total Score: 5 10/14/19 25 2:16 PM EST documented as of this encounter Care Teams Local Company Refrigerated Truck Driver Relationship Specialty Start Date End Date Stephie Ellis CNP PCP - General Family Medicine 10/14/24 [facility] Lo Behavioral Pediatrician 09/10/24 documented as of this encounter
--- OUTSIDE RECORDS SUMMARY | 2025-07-22 19:26 | XMS_ITS | Encounter Summary ---
Author Organization [employer] Address [address] [place] [address] Care Team Providers Care Candy Bar Attendant Name Role Phone Laureano Ellisrehan MELTON Primary Care Provider [phone] Encounter Details Date Type Department Care Team ([facility] st Contact Info) Description 07/19/2025 Telephone C [facility] MED [facility]EDS [address] [place], [place] [phone] Amaris EllisLINH arzola [address] [place], [place] [phone] Social History Tobacco Use Types Packs/Day Years [...] t he electric, gas, oil or water [employer] threatened to shut off services in your [...] encounter Miscellaneous Notes * Telephone Encounter - Stephie Ellis CNP - 07/22/2025 11:15 AM EST Sounds good ill start PA process, thanks! * Telephone Encounter - Katelyn Colby RN - 07/22/2025 11:05 AM EST TC to patient with medical interpreter. Instructed patient to to the ER to get urgent imagining since the medication is not working and the need for urgent imagining. Patient agreed with this and stated she would go this afternoon after work. Instructed patient to discontinue the use of metformin d/t patient not being able to tolerate. Patient stated she is willing to try GLP-1 medication for DM2 management. Will route to provider to begin PA process for GLP-1. * Telephone Encounter - Stephie Ellis CNP - 07/22/2025 10:28 AM EST Hi so I would say go to ED for more urgent imaging then instead of awaiting MRI, as for metformin she can discontinue since she cannot tolerate it. We can try for a GLP 1 injectable for management ofher DM if she is willing, I can start PA process. Thanks! * Telephone Encounter - Katelyn Colby RN - 07/20/2025 1:09 PM EST . * Telephone Encounter - Stephie Ellis CNP - 07/20/2025 11:44 AM EST I did send med to [facility] since it is closer to her home, thanks * Telephone Encounter - Stephie Ellis CNP - 07/20/2025 11:42 AM EST Are her headaches increasing in frequency or severity? If so I will obtain head imaging. In meantime I will trial imitrex instead of ibuprofen for her CUTLER, I will send this to her pharmacy now.Thanks! * Telephone Encounter - Beverley Wisdom RN - 07/19/2025 9:34 AM EST [employer] message sent in response to triage call over weekend. documented in this encounter Plan of Treatment Upcoming Encounters Date Type Department Care Team (Late st Contact Info) Description 08/06/2025 10:30 AM EST Clinical Support [facility] MED & PEDS [address] [place] [address] documented as of this encounter Visit Diagnoses Not on filedocumented in this encounter Additional Health Concerns Assessment Noted Time PHQ-9 Depression Total Score: 5 10/14/19 25 2:16 PM EST documented as of this encounter Care Teams Candy Bar Attendant Relationship Specialty Start Date End Date Stephie Ellis CNP PCP - General Family Medicine 10/14/24 Margoth Lo Tag Marker 09/10/24 documented as of this encounter
--- OUTSIDE RECORDS SUMMARY | 2025-07-22 19:26 | XMS_ITS | Clinical Summary ---
Author Organization [facility] Address [address] [place] [address] Care Team Providers Care Graphic Art Technician Name Role Phone Unavailable Primary Care Provider [...] daily 90 Cap 3 6 Active prenat.vits,dennys,mi [id number] per tabletIndications: Missed menses Take 1 Tablet by mouth once daily 90 Tablet 4 4 Active Active Problems Problem Noted Date Diagnosed Date Vitamin D insufficiency 09/14/2016 Chronic 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 09/12/2016 Encounters Date Type Department Care Team Description 05/25/2025 OB Abstract/Interim [facility] [address] [place] [phone] Mamta Tripathi PA-C from Last 3 Months Immunizations Immunization Administration Dates Next Due Flu, Preservative Free 10/08/2016 Hep A, adult 10/08/2016 Hep B, Adult/Adol ([id number]/RECOMBIVAX-AD ULT) 10/08/2016 Family History Medical History Relation [...] Plan of Treatment Not on file Insurance [address] [employer]
--- OUTSIDE RECORDS SUMMARY | 2025-07-22 19:26 | XMS_ITS | Encounter Summary ---
Author Organization [employer] Address [address] [place] [address] Care Team Providers Care Water Treatment Plant Engineer Name Role Phone Laureano Ellisrehan MELTON Primary Care Provider [phone] Encounter Details Date Type Department Care Team ([facility] st Contact Info) Description 07/22/2025 Orders Only [facility] CHC MED & PEDS [address] [place], [place] [phone] Amaris EllisLINH arzola [address] [place], [place] [phone] Type 2 diabetes mellitus without complication, without long-term current use of insulin (HCC) (Primary Dx) Social History Tobacco Use Types [...] 10:30 AM EST Clinical Support [facility] MED & PEDS [address] [place] [phone] documented as of this encounter Procedures Procedure Name Priority Date/Time Associated Diagnosis Comments URINALYSIS, COMPLETE, WITH REFLEX TO CULTURE Routine 07/22/2025 5:43 PM EST Type 2 diabetes mellitus without complication, without long-term current use of insulin (HCC) CBC WITH AUTO DIFFERENTIAL Routine 07/22/2025 5:37 PM EST Type 2 diabetes mellitus without complication, without long-term current use of insulin (HCC) MAGNESIUM Routine 07/22/2025 5:37 PM EST Type 2 diabetes mellitus without complication, without long-term current use of insulin (HCC) COMPREHENSIVE METABOLIC PANEL Routine 07/22/2025 5:37 PM EST Type 2 diabetes mellitus without complication, without long-term current use of insulin (HCC) documented in this encounter Results * (ABNORMAL) Urinalysis, Complete, with Reflex to Culture (07/22/2025 5:43 PM EST) Color Urine Dark Yellow [facility] Appearance Urine Cloudy [facility] PH 5.5 5.0 - 9.0 [facility] Glucose Urine UA Negative Negative mg/dL [facility] Urine Blood Negative Negative [facility] Specific [place] - Urine >=1.030(H) 1.005 - 1.025 [facility] Urine Protein 30 (1+)(A) Neg-Trace mg/dL [facility] Urine Ketones Trace Negative mg/dL [facility] Nitrite Urine Negative Negative [facility] Leukocyte Esterase Urine Trace(A) Negative [facility] RBC Urine 0-2 0 - 2 /HPF [facility] Urine WBC 6-10(A) 0 - 5 /HPF [facility] Urine Squamous Epithelial Cell 11-20 0 - 2 /HPF [facility] Urine Bacteria None Seen None Seen [facility] Hyaline Casts, Urine 0-2 0 - 2 /LPF [facility] 07/22/2025 5:43 PM EST 07/22/2025 5:53 PM EST Narrative [facility] - 07/22/2025 6:05 PM EST [id number], Clean Catch Generic External Data Provider LAB URINE ORDERAB LES Final Result Performing Organization Address [facility]/ZIP Co de Phone Number [facility] [address] [place] [phone] * Magnesium (07/22/2025 5:37 PM EST) Magnesium 1.9 1.6 - 2.6 mg/dL [facility] 07/22/2025 5:37 PM EST 07/22/2025 5:40 PM EST Generic External Data Provider LAB BLOOD ORDERAB LES Final Result Performing Organization Address [facility] Co de Phone Number [facility] [address] [place] [phone] * (ABNORMAL) Comprehensive Metabolic Panel (07/22/2025 5:37 PM EST) Sodium 138 135 - 145 mmol/L [facility] Potassium 4.1 3.3 - 5.1 mmol/L [facility] Chloride 103 96 - 108 mmol/L [facility] Carbon Dioxide 27 22 - 29 mmol/L [facility] Anion Gap 12 12 - 20 [facility] Urea Nitrogen (BUN) 8(L) 9 - 16 mg/dL [facility] Creatinine, Serum 0.69 0.5 - 1.4 mg/dL [facility] Creatinine Clr Calc Pharmacy 128.4 [facility] Comment:Provided height and weight: 147.32 cm,110.9 kg.eGFR (calculated from the MDRD study equation) and eCrCl(calculated from the Cockcroft-Gault equation) are based ondifferent parameters and may not yield comparable results.If eCrCl result is absurd, please check patient'sheight/weight. Estimated Glomerular Filt Rate >60 [facility] Comment:Chronic Kidney Disea se: Estimated GFR < 60 mL/min/1.40r4Mscyrs Kidney Disease: Estimated GFR < 15 mL/min/1.73m2 Glucose 219(H) 60 - 115 mg/dL [facility] Calcium 9.9 8.4 - 10.2 mg/dL [facility] Bilirubin, Total 0.7 0.0 - 1.0 mg/dL [facility] Aspartate Amino Transferase 21 5 - 31 U/L [facility] Alanine Aminotransferase 23 0 - 31 U/L [facility] Total Protein 7.5 6.5 - 8.0 g/dL [facility] Albumin Level 4.5 3.5 - 5.0 g/dL [facility] Alkaline Phosphatase 101 39 - 117 U/L [facility] 07/22/2025 5:37 PM EST 07/22/2025 5:40 PM EST us Generic External Data Provider LAB BLOOD ORDERAB LES Final Result [facility] [address] [place] [phone] * (ABNORMAL) CBC auto differential (07/22/2025 5:37 PM EST) White Blood Count 9.8 4.8 - 10.8 X10*3/uL [facility] Red Blood Count 5.11 4.20 - 5.50 X10*6/uL [facility] Hemoglobin 11.2(L) 12.0 - 16.0 g/dl [facility] Hematocrit 37.0 37.0 - 47.0 % [facility] Mean Corpuscular Volume 72.4(L) 80.0 - 98.0 fL [facility] Mean Corpuscular Hemoglobin 21.9(L) 27.0 - 33.0 pg [facility] Mean Corpuscular HGB Conc 30.3(L) 31.0 - 35.0 g/dl [facility] Red Cell Distribution Width 15.9 11.0 - 16.0 % [facility] Platelet Count 312 160 - 400 X10*3/uL [facility] Mean Platelet Volume 11.4 9.4 - 12.3 fL [facility] Neutrophils Percent Auto 63.7 45 - 73 % [facility] Imm Gran Pct Auto 0.3 0.0 - 0.4 % [facility] Lymphocytes Percent Auto 27.1 20 - 40 % [facility] Monocytes Percent Auto 8.0 2 - 11 % [facility] Eosinophils Percent Auto 0.5 0 - 4 % [facility] Basophils Percent Auto 0.4 0 - 2 % [facility] NRBC Pct Auto 0.0 0.0 - 0.2 /100WBC [facility] Neutrophils Absolute Auto 6.2 2.0 - 8.3 x10*3/uL [facility] Imm Gran Abs Auto 0.03 0.00 - 0.03 X10*3/uL [facility] Lymphocytes Absolute Auto 2.6 1.2 - 4.9 X10*3/uL [facility] Monocytes Absolute Auto 0.8 0.1 - 1.2 X10*3/uL [facility] Eosinophils Absolute Auto 0.1 0.0 - 0.4 X10*3/uL [facility] Basophils Absolute Auto 0.0 0.0 - 0.2 X10*3/uL [facility] NRBC Abs Auto 0.000 0.0 - 0.012 X10*3/uL [facility] 07/22/2025 5:37 PM EST 07/22/2025 5:40 PM EST us Generic External Data Provider LAB BLOOD ORDERAB LES Final Result [facility] [address] [place] [phone] documented in this encounter Visit Diagnoses Diagnosis Type 2 diabetes mellitus without complication, without long-term current use of insulin (HCC)- Primary documented in this encounter Additional Health Concerns Assessment Noted Time PHQ-9 Depression Total Score: 5 10/14/19 25 2:16 PM EST documented as of this encounter Care Teams Water Treatment Plant Engineer Relationship Specialty Start Date End Date Stephie Ellis CNP PCP - General Family Medicine 10/14/24 Margoth Lo Maritime Guard 09/10/24 documented as of this encounter
--- OUTSIDE RECORDS SUMMARY | 2025-07-22 19:26 | XMS_ITS | Clinical Summary ---
Author Organization [employer] Address [address] [place] [address] Care Team Providers Care Financial Planning Consultant Name Role Phone Stephie Ellis QUALITY LAB TECHNICIAN Primary Care Provider [phone] Allergies Active Allergy Reactions Criticality Noted Date Comments Dexbromphen-Acetaminophen Unknown 09/12/2016 From [facility] records Dizziness, nausea hives Lidocaine Hcl Unknown 07/03/2024 From [facility] records Medications * This document contains [...] to 10 days. 30 tablet 07/16/20 25 025 Active acetic acid-hydrocortison e (Vosol-HC) otic solutionIndication s:Chronic otitis media, unspecified otitis media type Administer 3 drops into the right ear 2 times daily for 10 days. 10 mL 07/16/20 25 025 Active SUMAtriptan (Imitrex) 25 MG tabletIndications: Chronic migraine with aura without status migrainosus, not intractable Take 1 tablet (25 mg) by mouth 1 (one) time if needed for migraine for up to 1 dose. May repeat dose once in 2 hours if no relief. Do not exceed 2 doses in 24 hours. 9 tablet 07/20/20 25 Active metFORMIN (Glucophage) 500 MG tablet Take 1 tablet once daily with evening meal for 1 week. If tolerated, increase to one tablet in the morning with breakfast and one tablet in the evening with meal. 60 tablet 11 07/20/20 25 Active Dulaglutide (Trulicity) 0.75 MG/0.5ML solution auto-injectorIndic ations:Type 2 diabetes mellitus without complication, without long-term current use of insulin (HCC) Inject 0.5 mL under the skin 1 (one) time per week. 2 mL 07/22/20 25 Active amoxicillin-clavul anate (Augmentin) 875-125 MG tabletIndications: Chronic otitis media, unspecified otitis media type Take 1 tablet by mouth 2 times daily for 5 days. 10 tablet 07/16/20 25 025 Active Problems Problem Noted Date [...] are discrepancies between the two notes from [facility] and [facility], per pt's most recent TSH level of [...] 08/06/2024 Overview (10/12/2024): 2018 and 2019 @ [facility] Morbid obesity ([facility]/HCC) 08/06/2024 Overview (10/12/2024): HgbA1C and 1 [...] Encounters Date Type Department Care Team Description 07/22/2025 Orders Only [facility] [address] [place] [address] Stephie Ellis CNP Type 2 diabetes mellitus without complication, without long-term current use of insulin (HCC) (Primary Dx) 07/22/2025 Telephone [facility] [address] [place] [address] Stephie Ellis CNP Medication Question 07/20/2025 Orders Only [facility] [address] [place] [address] Stephie Ellis CNP Chronic migraine with aura without status migrainosus, not intractable (Primary Dx) 07/19/2025 Telephone [facility] [address] [place] [address] Stephie Elils CNP 07/19/2025 Results Follow-Up [facility] [address] [place] [address] Stephie Ellis CNP Hemoglobin A1c 07/16/2025 2:30 PM EDT Office Visit [facility] [address] [place] [address] Stephie Ellis CNP Iron deficiency anemia, unspecified iron deficiency anemia type (Primary Dx); Hyperglycemia; Chronic migraine with aura without status migrainosus, not intractable; Chronic otitis media, unspecified otitis media type 07/16/2025 Travel 07/14/2025 Telephone [facility] [address] [place] [address] Stephie Ellis CNP Nurse Triage 06/30/[address] [address] Stephie Ellis CNP Care Management (C3 TC #[id number]) 06/22/2025 Telephone [facility] [address] [place] [address] Stephie Ellis CNP Chart Prep 06/21/2025 Telephone [facility] [address] [place] [address] Stephie Ellis CNP Nurse Triage 06/20/2025 Orders Only GENERIC EXTERNAL DATA DEPARTMENT Provider, Generic External Data 06/02/2025 Telephone [facility] [address] [place] [address] Stephie Ellis CNP 05/26/2025 Telephone [facility] [address] [place] [address] Stephie Ellis CNP Care Management (C3CM follow up call) 05/21/2025 1:00 PM EDT Office Visit [facility] [address] [place] [address] Erum Hernández NP Mild intermittent allergic asthma with acute exacerbation (Primary Dx); Cough in adult patient 05/21/2025 Travel 04/27/2025 Telephone [facility] [address] [place] [address] Stephie Ellis CNP Care Management (C3CM follow [...] Description 08/06/2025 10:30 AM EST Clinical Support [facility] [address] [facility] [place] [address] Health Maintenance Due Date Last Done Comments Lipid Panel 1994 Diabetes: Foot Exam 2004 Family Planning (PISQ) 2009 HPV Vaccines (1 - 3-dose series) 2009 Diabetes: Urine Protein Screening 2013 Pneumococcal Vaccine: Pediatrics (0 to 5 Years) and At-Risk Patients (6 to 49) Years (1 of 2 - PCV) 2013 Hepatitis B Vaccines (2 of 3 - 19+ 3-dose series) 11/05/2016 10/08/2016 COVID-19 Vaccine (1 - 2023- season) 2025 Influenza Vaccine (#1) 2025 07/08/2024, 2016 SDOH Screening 09/08/2025 09/08/2024 Alcohol/Substance Use Screening 10/14/2025 10/14/2024 Depression Screening 10/14/2025 10/14/2024, 10/14/19 Diabetes: Hemoglobin A1C 10/16/2025 07/16/2025 Tobacco Screening 05/21/2026 05/21/2025 Disability Screening 07/16/2026 07/16/2025 Eye Exam 10/20/2026 10/20/2024, 02/0 12/2024, 10/20/2024, Additional history exists Cervical Cancer Screening 08/25/2027 HPV/Cotest 08/25/2027 Pap Smear 08/25/2027 08/25/2024 DTaP/Tdap/Td Vaccines (3 - Td or Tdap) 11/17/2034 11/17/2024, 10/04/2017 Zoster Vaccines [...] without long-term current use of insulin (HCC) MR ANKLE WO CONTRAST LEFT Routine 07/20/2025 1:05 PM EST HEMOGLOBIN A1C Routine 07/16/2025 2:59 PM EDT [...] Relevant to Health Maintenance Results * (ABNORMAL) Urinalysis, Complete, with Reflex to Culture (07/22/2025 5:43 PM EST) Color Urine Dark Yellow [facility] Appearance Urine Cloudy [facility] PH 5.5 5.0 - 9.0 [facility] Glucose Urine UA Negative Negative mg/dL [facility] Urine Blood Negative Negative [facility] Specific [place] - Urine >=1.030(H) 1.005 - 1.025 [facility] Urine Protein 30 (1+)(A) Neg-Trace mg/dL [facility] Urine Ketones Trace Negative mg/dL [facility] Nitrite Urine Negative Negative [facility] Leukocyte Esterase Urine Trace(A) Negative [facility] RBC Urine 0-2 0 - 2 /HPF [facility] Urine WBC 6-10(A) 0 - 5 /HPF [facility] Urine Squamous Epithelial Cell 11-20 0 - 2 /HPF [facility] Urine Bacteria None Seen None Seen [facility] Hyaline Casts, Urine 0-2 0 - 2 /LPF [facility] 07/22/2025 5:43 PM EST 07/22/2025 5:53 PM EST Narrative [facility] - 07/22/2025 6:05 PM EST [id number], Clean Catch us Generic External Data Provider LAB URINE ORDERAB LES Final Result [facility] [address] [place] [address] [phone] * (ABNORMAL) CBC auto differential (07/22/2025 5:37 PM EST) Only the most recent of2 resultswithin the time period is included. White Blood Count 9.8 4.8 - 10.8 X10*3/uL [facility] Red Blood Count 5.11 4.20 - 5.50 X10*6/uL [facility] Hemoglobin 11.2(L) 12.0 - 16.0 g/dl [facility] Hematocrit 37.0 37.0 - 47.0 % [facility] Mean Corpuscular Volume 72.4(L) 80.0 - 98.0 fL [facility] Mean Corpuscular Hemoglobin 21.9(L) 27.0 - 33.0 pg [facility] Mean Corpuscular HGB Conc 30.3(L) 31.0 - 35.0 g/dl [facility] Red Cell Distribution Width 15.9 11.0 - 16.0 % [facility] Platelet Count 312 160 - 400 X10*3/uL [facility] Mean Platelet Volume 11.4 9.4 - 12.3 fL [facility] Neutrophils Percent Auto 63.7 45 - 73 % [facility] Imm Gran Pct Auto 0.3 0.0 - 0.4 % [facility] Lymphocytes Percent Auto 27.1 20 - 40 % [facility] Monocytes Percent Auto 8.0 2 - 11 % [facility] Eosinophils Percent Auto 0.5 0 - 4 % [facility] Basophils Percent Auto 0.4 0 - 2 % [facility] NRBC Pct Auto 0.0 0.0 - 0.2 /100WBC [facility] Neutrophils Absolute Auto 6.2 2.0 - 8.3 x10*3/uL [facility] Imm Gran Abs Auto 0.03 0.00 - 0.03 X10*3/uL [facility] Lymphocytes Absolute Auto 2.6 1.2 - 4.9 X10*3/uL [facility] Monocytes Absolute Auto 0.8 0.1 - 1.2 X10*3/uL [facility] Eosinophils Absolute Auto 0.1 0.0 - 0.4 X10*3/uL [facility] Basophils Absolute Auto 0.0 0.0 - 0.2 X10*3/uL [facility] NRBC Abs Auto 0.000 0.0 - 0.012 X10*3/uL [facility] 07/22/2025 5:37 PM EST 07/22/2025 5:40 PM EST us Generic External Data Provider LAB BLOOD ORDERAB LES Final Result Performing Organization Address [facility]/ZIP Co de Phone Number [facility] [address] [place] [phone] * Magnesium (07/22/2025 5:37 PM EST) Pathologist [facility] Magnesium 1.9 1.6 - 2.6 mg/dL [facility] 07/22/2025 5:37 PM EST 07/22/2025 5:40 PM EST [employer] External Data Provider LAB BLOOD ORDERAB LES Final Result Performing Organization Address [facility] Co de Phone Number [facility] [address] [place] [phone] * (ABNORMAL) Comprehensive Metabolic Panel (07/22/2025 5:37 PM EST) Only the most recent of2 resultswithin the time period is included. Sodium 138 135 - 145 mmol/L [facility] Potassium 4.1 3.3 - 5.1 mmol/L [facility] Chloride 103 96 - 108 mmol/L [facility] Carbon Dioxide 27 22 - 29 mmol/L [facility] Anion Gap 12 12 - 20 [facility] Urea Nitrogen (BUN) 8(L) 9 - 16 mg/dL [facility] Creatinine, Serum 0.69 0.5 - 1.4 mg/dL [facility] Creatinine Clr Calc Pharmacy 128.4 [facility] Comment:Provided height and weight: 147.32 cm,110.9 kg.eGFR (calculated from the MDRD study equation) and eCrCl(calculated from the Cockcroft-Gault equation) are based ondifferent parameters and may not yield comparable results.If eCrCl result is absurd, please check patient'sheight/weight. Estimated Glomerular Filt Rate >60 [facility] Comment:Chronic Kidney Disea se: Estimated GFR < 60 mL/min/[id number] Kidney Disease: Estimated GFR < 15 mL/min/1.73m2 Glucose 219(H) 60 - 115 mg/dL [facility] Calcium 9.9 8.4 - 10.2 mg/dL [facility] Bilirubin, Total 0.7 0.0 - 1.0 mg/dL [facility] Aspartate Amino Transferase 21 5 - 31 U/L [facility] Alanine Aminotransferase 23 0 - 31 U/L [facility] Total Protein 7.5 6.5 - 8.0 g/dL [facility] Albumin Level 4.5 3.5 - 5.0 g/dL [facility] Alkaline Phosphatase 101 39 - 117 U/L [facility] 07/22/2025 5:37 PM EST 07/22/2025 5:40 PM EST us Generic External Data Provider LAB BLOOD ORDERAB LES Final Result [facility] [address] [place] [address] [phone] * MR Ankle w/o Contrast Left (07/20/2025 1:05 PM EST) Anatomical Region Laterality Modality Lower Extremities, Ankle Left Magneti c Resonance 07/20/2025 1:05 PM EST Narrative 07/21/2025 11:10 AM EST [address] [address] Magnetic Resonance Report Signed Patient: Jordana De León MR#: [id number] 1764 : 1995 Acct:[id number] Age/Sex: 30 / F ADM Date: 07/20/25 Loc: HO.MRI Attending Dr: Marcio Hebert DPM Ordering Physician: Marcio Hebert DPM Date of Service: 07/20/25 Procedure(s): MR ankle LT wo con Accession Number(s): [id number] cc: Marcio Hebert DPM; Stephie Ellis NP [...] by: Trent Hamilton MD 07/21/2025 11:07 AM EST Dictated By: Trent Hamilton MD Signed By: <Electronically signed by Trent Hamilton MD in OV> 07/21/25 1107 DD/ 1305 TD/TT: 07/20/25 1330 Team Assembler: Procedure Note Donotuseinterpreter, Image - 07/21/2025 [place] [address] Magnetic Resonance Report Signed Patient: Liza De León#: [id number] 1764 : 1995Acct:[id number] Age/Sex: Date: 07/20/25 Loc: HO.MRI Attending Dr: Marcio Hebert DPM Ordering Physician: Marcio Hebert DPM Date of Service: 07/20/25 Procedure(s): MR ankle LT wo con Accession Number(s): [id number] cc: Marcio Hebert DPM; Stephie Ellis NP [...] by: Trent Hamilton MD 07/21/2025 11:07 AM EST Dictated By: Trent Hamilton MD Signed By: <Electronically signed by Trent Hamilton MD in OV> 07/21/25 1107 DD/ 1305 TD/TT: 07/20/25 1330 Team Assembler: us [facility] External Provider IMG MRI PROCEDURES Final Result * (ABNORMAL) Hemoglobin A1c (07/16/2025 2:59 PM EDT) Hemoglobin A1c 8.6(H) <6.0 % [facility] Comment:Hemoglobin A1C Refer ence Range Adults: 4.8 - 6.0 % Non diabetic: < 6.0 % Goal: < 7.0 %Additional Action Suggested: > 8.0 %Note: Hemoglobin A1c results are invalid for patients with abnormal amounts of HbF. Blood transfusions may impact the HbA1c concentration in the patient sample. Estimated Average Glucose 200 mg/dL [facility] Comment:eAG = Estimated ave rage glucose which is %A1C expressed asaverage glucose, using the formula of the Z0L-VdzomyyBcsqukx Glucose study (ADAG), Diabetes Care, Vol.31,#8,2007 Blood Venous blood specimen / Unknown 07/16/2025 2:59 PM EDT 07/16/2025 5:51 PM EDT Stephie Ellis QUALITY LAB TECHNICIAN LAB BLOOD ORDERABLES Elise l Result [facility] [address] [place] [phone] * XR Foot 1-2 Views Left (06/20/2025 3:26 PM EDT) Anatomical Region Laterality Modality Lower Extremities, Foot Left Radiogra phic Imaging 06/20/2025 3:26 PM EDT Narrative 06/20/2025 3:28 PM EDT [address] [address] XRay Report Signed Patient: Jordana De León MR#: [id number] 1764 : 1995 Acct:[id number] Age/Sex: 30 / F ADM Date: 06/20/25 Loc: HO.ED Attending Dr: Ordering Physician: Herrera Hua Date of Service: 06/20/25 Procedure(s): XR foot LT 2V Accession Number(s): [id number] cc: Herrera Hua; Stephie Ellis NP Reason [...] 06/20/25 1528 DD/ 1526 TD/TT: 06/20/25 1526 Team Assembler: Procedure Note Donotuseinterpreter, Image - 06/21/[address] [address] XRay Report Signed Patient: Jordana De LeónMR#: [id number] 1764 : 1995Acct:[id number] Age/Sex: 30 / FADM Date: 06/20/25 Loc: HO.ED Attending Dr: Ordering Physician: Herrera Hua Date of Service: 06/20/25 Procedure(s): XR foot LT 2V Accession Number(s): [id number] cc: Herrera Hua; Stephie Ellis NP Reason [...] 06/20/25 1528 DD/ 1526 TD/TT: 06/20/25 1526 Team Assembler: [facility] External Provider IMG XR PROCEDURES Edited Result - Final * XR Ankle 3+ Views Left (06/20/2025 3:26 PM EDT) Anatomical Region Laterality Modality Lower Extremities, Ankle Left Radiogr aphic Imaging 06/20/2025 3:26 PM EDT Narrative 06/20/2025 3:27 PM EDT [address] [address] XRay Report Signed Patient: Jordana De León MR#: [id number] 1764 : 1995 Acct:[id number] Age/Sex: 30 / F ADM Date: 06/20/25 Loc: HO.ED Attending Dr: Ordering Physician: Herrera Hua Date of Service: 06/20/25 Procedure(s): XR ankle LT min 3V Accession Number(s): [id number] cc: Herrera Hua; Stehpie Ellis NP Reason for Exam: ankle pain [...] Garcia MD in OV> 06/20/25 1527 DD/ 152 TD/TT: 06/20/25 152 Team Assembler: Procedure Note Donotuseinterpreter, Image - 06/21/2025 [place] [address] XRay Report Signed Patient: Liza De León#: [id number] 1764 : 1995Acct:[id number] Age/Sex: Date: 06/20/25 Loc: HO.ED Attending Dr: Ordering Physician: Herrera Hua Date of Service: 06/20/25 Procedure(s): XR ankle LT min 3V Accession Number(s): [id number] cc: Herrera Hua; Stephie Ellis NP Reason [...] Garcia MD in OV> 06/20/25 1527 DD/ 152 TD/TT: 06/20/251525 Team Assembler: [facility] External Provider IMG XR PROCEDURES Edited Result - Final * Lower Extremity Venous Duplex (06/20/2025 3:24 PM EDT) 06/20/2025 3:2 4 PM EDT Narrative [facility] - 06/20/2025 3:26 PM EDT [address] [address] Ultrasound Report Signed Patient: Jordana De León MR#: [id number] 1764 : 1995 Acct:[id number] Age/Sex: 30 / F ADM Date: 06/20/25 Loc: .ED Attending Dr: Ordering Physician: Herrera Hua Date of Service: 06/20/25 Procedure(s): US venous duplex LE LT Accession Number(s): [id number] cc: Herrera Hua; Stephie Ellis NP Reason [...] OV> 06/20/25 1526 DD/ 152 TD/TT: 06/20/251523 Team Assembler: Procedure Note Eddieinterpreter, Image - 06/21/[address] [address] Ultrasound Report Signed Patient: Jordana De LeónMR#: [id number] 1764 : 1995Acct:[id number] Age/Sex: 30 / FADM Date: 06/20/25 Loc: HO.ED Attending Dr: Ordering Physician: Herrera Hua Date of Service: 06/20/25 Procedure(s): US venous duplex LE LT Accession Number(s): [id number] cc: Herrera Hua; Stephie Ellis NP Reason [...] 06/20/25 1526 DD/ 1524 TD/TT: 06/20/25 1524 Team Assembler: [facility] External Provider CV VASC ULAR PROCEDURES Edited Result - Final Performing Organization Address City/[facility] Co de Phone Number [facility] [address] [place] [phone] * Partial Thromboplastin Time, Activated (APTT) (06/20/2025 12:58 PM EDT) Partial Thromboplastin Time 31.4 26.7 - 34.1 SEC [facility] 06/20/2025 12:5 8 PM EDT 06/20/2025 1:02 PM EDT Generic External Data Provider LAB BLOOD ORDERAB LES Final Result [facility] [address] [place] [phone] * Prothrombin Time-INR (06/20/2025 12:58 PM EDT) [facility] Prothrombin Time 12.0 10.9 - 12.4 SEC [facility] INTERNATIONAL NORM RATIO 1.0 0.9 - 1.1 [facility] Comment:INTERNATIONAL NORMAL IZED RATIO (INR) [...] Organization Address [facility] Co de Phone Number [facility] [address] [place] [phone] * Influenza B (ID NOW Rapid Molecular) (05/21/2025 1:14 PM EDT) [facility] Influenza B Negative Negative, Indeterminate [facility] Swab 05/21/2025 1:14 PM EDT us Erum Hernández NP POINT OF CARE TEST ENTER/EDIT OR DERABLES Final Result Performing Organization Address [facility] Co de Phone Number [facility] [address] [place] [phone] * Influenza A (ID NOW Rapid Molecular) (05/21/2025 1:14 PM EDT) [facility] Influenza A Negative Negative, Indeterminate [facility] Swab 05/21/2025 1:14 PM EDT Erum Hernández NP POINT OF CARE TEST ENTER/EDIT OR DERABLES Final Result [facility] [address] [place] [phone] * POCT Rapid COVID Ag (05/21/2025 1:14 PM EDT) Rapid COVID Ag Negative Swab 05/21/2025 1:14 PM EDT us Erum Hernández DISPLAYER MERCHANDISE POINT OF CARE TEST ENTER/EDIT OR DERABLES Final Result * HM PAP/HPV (08/25/2024 12:00 AM EST) Historical Provider HEALTH MAINTENANCE Final Result from Last 3 Months or Most Recently Relevant to Health Maintenance [facility] [employer] C3 Care Teams Financial Planning Consultant Relationship Specialty Start Date End Date Stephie Ellis CNP PCP - General Family Medicine 10/14/24 Margoth Lo Child'S Nurse 09/10/24
--- OUTSIDE RECORDS SUMMARY | 2025-07-22 19:27 | XMS_ITS | Encounter Summary ---
Author Organization [employer] Address [address] [place] [address] Care Team Providers Care Payloader Machine Operator Name Role Phone Ricardo Ellis CNP Primary Care Provider [phone] Reason for Referral * Imaging (Urgent) - Authorized Specialty Diagnoses / Procedures Referred By Erick lopez Referred To Contact Radiology Diagnoses Chronic migraine with aura without status migrainosus, not intractable Procedures Mr Brain w/ and w/o Contrast Ricardo Ellis CNP [address] [place] [address] Phone: tel: fax: [address] Phone: tel: fax: Referral ID Status Reason Start Date Expiration Date V isits Requested Visits Authorized [id number] Authorized 07/20/2025 07/20/2026 1 1 Encounter Details Date Type Department Care Team ([facility] st Contact Info) Description 07/19/2025 Results Follow-Up [facility] [address] [place] [address] Ricardo Ellis CNP [address] [place] [address] Hemoglobin A1c Social History Tobacco Use Types [...] PM EDT documented as of this encounter Progress Notes * Ricardo Ellis CNP - 07/20/2025 1:00 PM EST Placed t/c to pt regarding A1c level consistent with type 2 DM. Unable to reach pt, I did leave a voicemail offering a f/u appointment to discuss new diagnosis. In the meantime, I sent metformin 500mg to her pharmacy to be taken once daily x 1 w and then increase to 500mg BID. documented in this encounter Miscellaneous Notes * Addendum Note - Ricardo Ellis CNP - 07/20/2025 3:29 PM ESTAddended by: RICARDO ELLIS on: 07/20/2025 03:29 PM Modules accepted: Orders documented in this encounter Plan of Treatment Upcoming Encounters Date Type Department Care Team (Late st Contact Info) Description 08/06/2025 10:30 AM EST Clinical Support [facility] [address] [place] [address] Scheduled Orders Name Type Priority Associated Diagnoses Orde r Schedule Mr Brain w/ and w/o Contrast Imaging Urgent Chronic migraine with aura without status migrainosus, not intractable Expected: 07/20/2025, Expires: 07/20/2026 documented as of this encounter Visit Diagnoses Diagnosis Chronic migraine with aura without status migrainosus, not intractable- Primary documented in this encounter Additional Health Concerns Assessment Noted Time PHQ-9 Depression Total Score: 5 10/14/19 25 2:16 PM EST documented as of this encounter Care Teams Payloader Machine Operator Relationship Specialty Start Date End Date Ricardo Ellis CNP PCP - General Family Medicine 10/14/24 Margoth Lo Shank Stapler 09/10/24 documented as of this encounter
[2025-07-22 20:22] VITALS: BP 132/92; PULSE 82; RESP 14; TEMP 36; O2SAT 100
[2025-07-22 21:14] LABS: UPreg QC Valid YES
[2025-07-22] MEDS: iohexoL 350 MG/ML 100 ML INFUS..BTL IV (21:24)
--- NOTE | 2025-07-22 21:48 | PC.NURSE ---
medicated per mar.
[2025-07-22 23:36] VITALS: BP 117/86; PULSE 88; RESP 16; TEMP 36.8; O2SAT 99
--- NOTE | 2025-07-22 23:37 | PC.NURSE ---
pt change into hospital attire, medicated per nov, vitals taken by painter ski edgekatherine Cleaning.
[2025-07-23] VITALS (14 sets, daily range): BP systolic 102–127; BP diastolic 56–80; PULSE 74–86; RESP 14–19; TEMP 36.3–36.9; O2SAT 92–99; BMI 55.0
--- NOTE | 2025-07-23 | MHC.EDTECH ---
This tech took over care of pt at 2300, rounds,vitals, and belongings list completed, copy placed in chart, patient is resting quietly, warm blanket given, call lea in reach
[2025-07-23] MEDS: Lactated Ringers 1,000 ML 100 ML IVCONT ×2 (00:05→13:24)
--- NOTE | 2025-07-23 00:09 | PC.NURSE ---
medicated per jac, pt call lea at bedside.
[2025-07-23 03:41] LABS: Hematocrit 35.3 % (37.0-47.0); Hemoglobin 10.8 g/dl (12.0-16.0); Imm Gran Abs Auto 0.01 X10*3/uL (0.00-0.03); Imm Gran Pct Auto 0.1 % (0.0-0.4); Lymphocytes Absolute Auto 2.5 X10*3/uL (1.2-4.9); MANUAL DIFF FLAG NO; Mean Corpuscular HGB Conc 30.6 g/dl (31.0-35.0); Mean Corpuscular Hemoglobin 21.9 pg (27.0-33.0); Mean Corpuscular Volume 71.5 fL (80.0-98.0); NRBC Abs Auto 0.000 X10*3/uL (0.0-0.012); NRBC Pct Auto 0.0 /100WBC (0.0-0.2); Platelet Count 277 X10*3/uL (160-400); Red Blood Count 4.94 X10*6/uL (4.20-5.50); White Blood Count 6.8 X10*3/uL (4.8-10.8)
--- NOTE | 2025-07-23 06:48 | HO.NURTONUR ---
pt presents to ED c/o headache, weakness, and RLQ pain w/ n/v. ADMIT: Acute appendicitis. pt NPO. 20g IV RAC, LR infusing 100mls/hr. IV ABX given. pt A/O x4, calm and cooperative with care, ambulates independently.
[2025-07-23 07:12] LABS: Glucose, Whole Blood 168 mg/dL (60-115)
--- NOTE | 2025-07-23 07:21 | PM.HPGS ---
History of Present Illness History of Present Illness Date of Service: 07/23/25 <Mitchell Hernandez MD - Last Filed: 07/23/25 16:46> 07/23/25 <Jennyfer De Leon MD - Last Filed: 07/23/25 09:24> Chief complaint: appendicitis <Mitchell Hernandez MD - Last Filed: 07/23/25 16:46> Narrative: Jordana De León is a 30 year old female morbid obesity, diabetes, here in the ER because of abdominal pain She says that this started about 36 hours ago. She says that this started as some pain in the umbilical area which was mild. However, she says that the pain was more on the right lower quadrant all day yesterday. She describes multiple episodes of vomiting as well. She describes some watery stools She eventually came to the ER last night because of the persistent pain. She denies any fever or chills She had undergone laparoscopic cholecystectomy last Jan, 2024. <Mitchell Hernandez MD - Last Filed: 07/23/25 16:46> Review of Systems Constitutional: Constitutional: Denies chills and Denies fever(s) <Mitchell Hernandez MD - Last Filed: 07/23/25 16:46> Cardiovascular: Cardiovascular: Denies chest pain, Denies dyspnea and Denies dyspnea on exertion <Mitchell Hernandez MD - Last Filed: 07/23/25 16:46> Respiratory: Respiratory: Denies cough, Denies dyspnea and Denies dyspnea on exertion <Mitchell Hernandez MD - Last Filed: 07/23/25 16:46> Gastrointestinal: Gastrointestinal: Denies hematochezia and Denies change in bowel habits <Mitchell Hernandez MD - Last Filed: 07/23/25 16:46> Genitourinary: Genitourinary: Denies hematuria <Mitchell Hernandez MD - Last Filed: 07/23/25 16:46> Musculoskeletal: Musculoskeletal: Denies back pain and Denies limited range of motion <Mitchell Hernandez MD - Last Filed: 07/23/25 16:46> Neurologic: Denies focal weakness and Denies convulsions <Mitchell Hernandez MD - Last Filed: 07/23/25 16:46> Psychiatric: Psychiatric: Denies depression and Denies mood swings <Mitchell Hernandez MD - Last Filed: 07/23/25 16:46> PMFSH Past Medical History Medical History: Medical History Diabetes Hypothyroidism Biliary dyskinesia Gallstones Morbid obesity <Mitchell Hernandez MD - Last Filed: 07/23/25 16:46> Surgical History Surgical History: Surgical History History of 2 sections <Mitchell Hernandez MD - Last Filed: 07/23/25 16:46> Social History Social History: Social History Household Members: Spouse, Family and Children Housing: House Do you presently have visiting nurse or other home services: No Alcohol intake: never Patient Tobacco Use Status: Never used Tobacco service: No <Mitchell Hernandez MD - Last Filed: 07/23/25 16:46> Meds Allergies/Adverse reactions: Allergies Allergy/AdvReac Type Severity Reaction Status Date / Time phenyltoloxamine (From Allergy Unknown VOMITING Verified 07/23/25 09:33 DOLOGESIC) <Mitchell Hernandez MD - Last Filed: 07/23/25 16:46> Active Medications: Current Medications Acetaminophen (Acetaminophen 325 Mg Tablet) 650 mg PO Q6H PRN PRN Reason: Pain, Mild 1-3,fever,headache Calcium Carbonate (Calcium Carbonate 750 Mg Tab.Chew) 750 mg PO Q4H PRN PRN Reason: Heartburn Lactated Ringer's (Lr) 1,000 mls @ 100 mls/hr IVCONT .Q10H [facility] Last Admin: 07/23/25 00:05 Dose: 100 mls/hr Piperacillin Sod/Tazobactam (Sod 3.375 gm/ Sodium Chloride) 50 mls @ 100 mls/hr IV Q6H [facility] Last Infusion: 07/23/25 06:24 Dose: Infused Melatonin (Melatonin 3 Mg Tablet) 6 mg PO BEDTIME PRN PRN Reason: Insomnia Morphine Sulfate (Morphine Sulfate 4 Mg/Ml Cartridge) 3 mg IVPUSH Q4H PRN; Protocol PRN Reason: Pain, Severe (Pain Scale 7-10) Sodium Chloride (0.9 % Sodium Chloride Flush 3 Ml Syringe) 3 ml IVFLUSH QSHIFT [facility] Last Admin: 07/23/25 06:58 Dose: Not Given <Mitchell Hernandez MD - Last Filed: 07/23/25 16:46> Home medications: Home Medications ?Medication ?Instructions ?Recorded ?Confirmed ?Last Taken ?Type ferrous gluconate 324 mg (37.5 mg 324 mg PO DAILY 07/23/25 07/23/25 07/22/25 History iron) tablet ibuprofen 800 mg tablet (IBU) 800 mg PO Q6H PRN headache 07/23/25 07/23/25 Unknown History metformin 500 mg tablet 500 mg PO DAILY@1700 07/23/25 07/23/25 07/22/25 History <Mitchell Hernandez MD - Last Filed: 07/23/25 16:46> Physical Exam Vital Signs: Vital Signs: Last Vital Signs Temp 97.8 F 07/23/25 05:20 Pulse 86 07/23/25 05:20 Resp 16 07/23/25 05:20 BP 102/56 L 07/23/25 05:20 Pulse Ox 92 07/23/25 05:20 O2 Del Method Room Air 07/23/25 05:20 BMI result Body Mass Index 51.1 <Mitchell Hernandez MD - Last Filed: 07/23/25 16:46> Const: Other: Morbidly obese <Mitchell Hernandez MD - Last Filed: 07/23/25 16:46> General: comfortable and no acute distress <Mitchell Hernandez MD - Last Filed: 07/23/25 16:46> Orientation/consciousness: patient oriented x3 <Mitchell Hernandez MD - Last Filed: 07/23/25 16:46> Neck: Neck: Yes no lymphadenopathy <Mitchell Hernandez MD - Last Filed: 07/23/25 16:46> Resp: Auscultation: clear to auscultation bilaterally <Mitchell Hernandez MD - Last Filed: 07/23/25 16:46> Cardio: Rhythm: regular rhythm <Mitchell Hernandez MD - Last Filed: 07/23/25 16:46> GI: Other: Tender on the right lower quadrant <Mitchell Hernandez MD - Last Filed: 07/23/25 16:46> Palpation (GI): Soft to palpation, Tenderness to palpation present (GI), no guarding and not rigid <MD Sae Shah Last Filed: 07/23/25 16:46> Neuro: General: patient oriented x3 <Mitchell Hernandez MD - Last Filed: 07/23/25 16:46> Results Results Labs: Short CBC 07/22/25 07/23/25 Range/Units 17:37 03:36 WBC 9.8 6.8 (4.8-10.8) X10*3/uL Hgb 11.2 L 10.8 L (12.0-16.0) g/dl Hct 37.0 35.3 L (37.0-47.0) % Plt Count 312 277 (160-400) X10*3/uL BMP 07/22/25 17:37 Sodium 138 Potassium 4.1 Chloride 103 Carbon Dioxide 27 BUN 8 L Creatinine 0.69 Calcium 9.9 Liver Function 07/22/25 Range/Units 17:37 Total Bilirubin 0.7 (0.0-1.0) mg/dL AST 21 (5-31) U/L ALT 23 (0-31) U/L Alkaline Phosphatase 101 (39-117) U/L Albumin 4.5 (3.5-5.0) g/dL Urine 07/22/25 Range/Units 17:43 Urine Color Dark Yellow Urine Appearance Cloudy Urine pH 5.5 (5.0-9.0) Ur Specific [place] >= 1.030 H (1.005-1.025) Urine Protein 30 (1+) H (Neg-Trace) mg/dL Urine Glucose (UA) Negative (Negative) mg/dL Urine Test NEGATIVE (NEGATIVE) <Mitchell Hernandez MD - Last Filed: 07/23/25 16:46> Abdomen CT scan report/results: report reviewed and image reviewed <Mitchell Hernandez MD - Last Filed: 07/23/25 16:46> CT scan - pelvis: report reviewed and image reviewed <Mitchell Hernandez MD - Last Filed: 07/23/25 16:46> Additional studies: IMPRESSION: 1. Dilated appendix (1.2 cm) with periappendiceal inflammatory changes, consistent with acute appendicitis. 2. Left renal lower pole cortical low-attenuation lesion, 1.1 cm; likely renal cyst. 3. Right renal upper pole 0.3 cm nonobstructing nephrolith. 4. Prior cholecystectomy. This document has been electronically signed by: Misael Hutchison MD on 07/22/2025 22:51:42 <Mitchell Hernandez MD - Last Filed: 07/23/25 16:46> Assessment and Plan (1) Acute appendicitis: Status: Acute <Mitchell Hernandez MD - Last Filed: 07/23/25 16:46> 50 year female with diabetes and morbid obesity, admitted for abdominal pain. He has a CAT scan showing inflammatory changes surrounding the appendix consistent with the acute appendicitis I therefore explained to the technique of laparoscopic appendectomy and possible open appendectomy. I reviewed the risks including but not limited to bleeding, infections, staple line leak, injury to other organs including bowel and the urinary tract, as well as the benefits and alternatives. I explained the option of nonoperative treatment with antibiotics. She wants to proceed with laparoscopic appendectomy and possible open appendectomy She does understand that her perioperative risks are higher in view of her morbid obesity and diabetes <Mitchell Hernandez MD - Last Filed: 07/23/25 16:46> Quality Stroke Does the patient have a stroke diagnosis?: No <Mitchell Hernandez MD - Last Filed: 07/23/25 16:46> VTE Prior VTE?: No <Mitchell Hernandez MD - Last Filed: 07/23/25 16:46> VTE Risk Level:: Medical - low <Mitchell Hernandez MD - Last Filed: 07/23/25 16:46> VTE Device Contraindication: N/A - Device Ordered <Mitchell Hernandez MD - Last Filed: 07/23/25 16:46> VTE Drug Contraindication: Treatment Not Indicated <Mitchell Hernandez MD - Last Filed: 07/23/25 16:46> Procedures Date of Service Date of Service: 07/23/25 <Mitchell Hernandez MD - Last Filed: 07/23/25 16:46> 07/23/25 <Jennyfer De Leon MD - Last Filed: 07/23/25 09:24>
--- NOTE | 2025-07-23 07:59 | P.CONHOSP_ITS ---
History of Present Illness Data of Consult Service Date: 07/23/25 Requesting physician: Mitchell Hernandez Primary Care Provider: Stephie Ellis NP HPI Reason for consult: DM This is a 30-year-old female with a history of recently diagnosed diabetes who presents to the emergency department with abdominal pain. Patient began having lower abdominal pain on the day prior to arrival associated with multiple episodes of nonbloody emesis and loose stools. In the emergency department imaging studies were concerning for acute appendicitis. She was admitted to the surgical service with plan for appendectomy. In the hospitalists were asked to see the patient in consultation for assistance in managing diabetes. HbA1c was 8.6 the end of June, Patient was recently started on metformin which she has been taking consistently. Abdominal pain she has no specific complaints at this time. She denies any chest pain, palpitations, shortness of breath, cough, fever. Review of Systems 2 Review of Systems: Yes all other systems are reviewed and are negative Constitutional: Constitutional: Denies chills and Denies fever(s) Cardiovascular: Cardiovascular: Denies chest pain, Denies palpitations and Denies dyspnea Respiratory: Respiratory: Denies cough and Denies dyspnea Gastrointestinal: Gastrointestinal: Reports abdominal pain Endocrine: Endocrine: Denies palpitations [facility] Medical History (Updated 07/23/25 @ 08:03 by SHARONA Estrada) Diabetes Hypothyroidism Biliary dyskinesia Gallstones Morbid obesity Surgical History History of 2 sections Social History Household Members: Children Housing: Apartment Do you presently have visiting nurse or other home services: No Alcohol intake: never Patient Tobacco Use Status: Never used Tobacco Smoked in Last 30 Days: No Use of substances other than those prescribed or required for medical reasons: No Advance Directives: No Advance Directives Information Provided: No Do you have a plan to hurt others: No Plan Nutrition Risks: No Nutritional Risk service: No Meds Allergies Allergy/AdvReac Type Severity Reaction Status Date / Time phenyltoloxamine (From Allergy Unknown VOMITING Verified 07/22/25 17:19 DOLOGESIC) Active Medications: Current Medications Acetaminophen (Acetaminophen 325 Mg Tablet) 650 mg PO Q6H PRN PRN Reason: Pain, Mild 1-3,fever,headache Calcium Carbonate (Calcium Carbonate 750 Mg Tab.Chew) 750 mg PO Q4H PRN PRN Reason: Heartburn Dextrose (Dextrose 50 % 25 Gm/50 Ml Syringe) 25 gm IVPUSH Q15M PRN; Protocol PRN Reason: per Hypoglycemia Standing Ord. Glucose (Glucose Gel 15 Gm Gel..Gram.) 15 gm PO Q15M PRN; Protocol PRN Reason: per Hypoglycemia Standing Ord. Lactated Ringer's (Lr) 1,000 mls @ 100 mls/hr IVCONT .Q10H [facility] Last Admin: 07/23/25 00:05 Dose: 100 mls/hr Piperacillin Sod/Tazobactam (Sod 3.375 gm/ Sodium Chloride) 50 mls @ 100 mls/hr IV Q6H [facility] Last Infusion: 07/23/25 06:24 Dose: Infused Insulin Human Lispro (Insulin Lispro 100 Unit/Ml 3 Ml Vial) 0 unit SUBCUT QIDACHS [facility]; Protocol Melatonin (Melatonin 3 Mg Tablet) 6 mg PO BEDTIME PRN PRN Reason: Insomnia Morphine Sulfate (Morphine Sulfate 4 Mg/Ml Cartridge) 3 mg IVPUSH Q4H PRN; Protocol PRN Reason: Pain, Severe (Pain Scale 7-10) Sodium Chloride (0.9 % Sodium Chloride Flush 3 Ml Syringe) 3 ml IVFLUSH QSHIFT [facility] Last Admin: 07/23/25 06:58 Dose: Not Given Home Medications ?Medication ?Instructions ?Recorded ?Confirmed ?Last Taken ?Type ferrous gluconate 324 mg (37.5 mg 324 mg PO DAILY 04/09 Unknown History iron) tablet hydrocortisone-acetic acid 1 %-2 % 3 drp otic (ear) ri ght BID 07/23/25 Unknown History ear drops ibuprofen 800 mg tablet (IBU) 800 mg PO Q6H PRN headac he 07/23/25 Unknown History Physical Exam 2 Vital Signs and Narrative: Vital Signs: Last Vital Signs Temp 97.8 F 07/23/25 05:20 Pulse 86 07/23/25 05:20 Resp 16 07/23/25 05:20 BP 102/56 L 07/23/25 05:20 Pulse Ox 92 07/23/25 05:20 O2 Del Method Room Air 07/23/25 05:20 BMI result Body Mass Index 51.1 Const: General: cooperative, comfortable, alert and awake Nutritional Appearance: obese Orientation/consciousness: patient oriented x3 Resp: Effort & Inspection: normal respiratory effort, able to speak in complete sentences, no respiratory distress and no use of accessory muscles Cardio: Rate: regular rate GI: Inspection: No distended and Yes obesity Neuro: General: patient oriented x3, moves all extremities and CN's II-XI intact bilaterally Results Labs 07/23/25 03:36 07/22/25 17:37 Labs: Laboratory Results - last 24 hr 07/22/25 07/22/25 07/23/25 17:37 17:43 03:36 MCV 72.4 L 71.5 L MCH 21.9 L 21.9 L MCHC 30.3 L 30.6 L RDW 15.9 16.2 H Plt Count 312 277 MPV 11.4 11.2 Immature Gran % (Auto) 0.3 0.1 Neut % (Auto) 63.7 52.2 Lymph % (Auto) 27.1 37.6 [place] % (Auto) 8.0 8.7 Eos % (Auto) 0.5 1.0 Baso % (Auto) 0.4 0.4 Lymph # (Auto) 2.6 2.5 [place] # (Auto) 0.8 0.6 Eos # (Auto) 0.1 0.1 Baso # (Auto) 0.0 0.0 Abs Immat Gran (auto) 0.03 0.01 Absolute Neuts (auto) 6.2 3.5 Absolute Nucleated RBC 0.000 0.000 Nucleated RBC % (auto) 0.0 0.0 Anion Gap 12 Estim Creat Clear Calc 128.4 Estimated GFR > 60 POC Glucose Random Glucose 219 H Calcium 9.9 Magnesium 1.9 Total Bilirubin 0.7 AST 21 ALT 23 Alkaline Phosphatase 101 Total Protein 7.5 Albumin 4.5 Urine Color Dark Yellow Urine Appearance Cloudy Urine pH 5.5 Ur Specific [place] >= 1.030 H Urine Protein 30 (1+) H Urine Glucose (UA) Negative Urine Ketones Trace Urine Blood Negative Urine Nitrite Negative Ur Leukocyte Esterase Trace H Urine RBC 0-2 Urine WBC 6-10 H Ur Squamous Epith Cells 11-20 Urine Bacteria None Seen Hyaline Casts 0-2 Urine Test NEGATIVE 07/23/25 07:07 MCV MCH MCHC RDW Plt Count MPV Immature Gran % (Auto) Neut % (Auto) Lymph % (Auto) [place] % (Auto) Eos % (Auto) Baso % (Auto) Lymph # (Auto) [place] # (Auto) Eos # (Auto) Baso # (Auto) Abs Immat Gran (auto) Absolute Neuts (auto) Absolute Nucleated RBC Nucleated RBC % (auto) Anion Gap Estim Creat Clear Calc Estimated GFR POC Glucose 168 H Random Glucose Calcium Magnesium Total Bilirubin AST ALT Alkaline Phosphatase Total Protein Albumin Urine Color Urine Appearance Urine pH Ur Specific [place] Urine Protein Urine Glucose (UA) Urine Ketones Urine Blood Urine Nitrite Ur Leukocyte Esterase Urine RBC Urine WBC Ur Squamous Epith Cells Urine Bacteria Hyaline Casts Urine Test Assessment and Plan (1) Acute appendicitis: Status: Acute Plan This is a 30-year-old female with a history of diabetes, hypothyroidism, morbid obesity, mild intermittent asthma who presents to the emergency department with abdominal pain found to have acute appendicitis Acute appendicitis Patient NPO for planned appendectomy today T2DM Hba1c 8.6 on 07/16 reports taking metformin although no fill history available; there is a previous rx for lantus from November which she didn't mention but she doesn't seem to be taking. med rec pending at this time hold metformin follow POCs and cover with SSI for now advance to diabetic diet when able hypothyroidism Follows with endocrinology, not currently on medication. Last TSH was normal Mild intermittent asthma No acute exacerbation at this time Morbid obesity BMI 51.1 Weight loss encouraged Thank you for allowing us to participate in the care of this patient, we will follow along with you
--- NOTE | 2025-07-23 09:17 | PC.NURSE ---
#20G IV noted to present in patients left AC. Dressing clean dry intact. Flushes without difficulty, + blood return.
--- NOTE | 2025-07-23 09:31 | HO.ANESPROP2 ---
[facility] Active Problems Active Problems: All Active Problems (Updated 07/23/25 @ 08:03 by SHARONA Estrada) Acute appendicitis (Acute) Gastrocnemius strain (Acute) Pain of left calf (Acute) Plantar fasciitis of left foot (Acute) Achilles tendinitis of left lower extremity (Acute) Hypothyroidism (Acute) COVID-19 (Acute) Morbid obesity (Acute) Past Medical History Medical History Diabetes Hypothyroidism Biliary dyskinesia Gallstones Morbid obesity Family History Family history of problems with anesthesia: No Surgical History Surgical History History of 2 sections History of Problems with Anesthesia: No Social History Social History Household Members: Children Housing: Apartment Do you presently have visiting nurse or other home services: No Alcohol intake: never Patient Tobacco Use Status: Never used Tobacco service: No Meds Allergies Allergy/AdvReac Type Severity Reaction Status Date / Time phenyltoloxamine (From Allergy Unknown VOMITING Verified 07/23/25 09:33 DOLOGESIC) Active Medications: Current Medications Acetaminophen (Acetaminophen 325 Mg Tablet) 650 mg PO Q6H PRN PRN Reason: Pain, Mild 1-3,fever,headache Calcium Carbonate (Calcium Carbonate 750 Mg Tab.Chew) 750 mg PO Q4H PRN PRN Reason: Heartburn Dextrose (Dextrose 50 % 25 Gm/50 Ml Syringe) 25 gm IVPUSH Q15M PRN; Protocol PRN Reason: per Hypoglycemia Standing Ord. Glucose (Glucose Gel 15 Gm Gel..Gram.) 15 gm PO Q15M PRN; Protocol PRN Reason: per Hypoglycemia Standing Ord. Lactated Ringer's (Lr) 1,000 mls @ 100 mls/hr IVCONT .Q10H [facility] Last Infusion: 07/23/25 09:07 Dose: 0 mls/hr Piperacillin Sod/Tazobactam (Sod 3.375 gm/ Sodium Chloride) 50 mls @ 100 mls/hr IV Q6H [facility] Last Infusion: 07/23/25 06:24 Dose: Infused Insulin Human Lispro (Insulin Lispro 100 Unit/Ml 3 Ml Vial) 0 unit SUBCUT QIDACHS [facility]; Protocol Melatonin (Melatonin 3 Mg Tablet) 6 mg PO BEDTIME PRN PRN Reason: Insomnia Morphine Sulfate (Morphine Sulfate 4 Mg/Ml Cartridge) 3 mg IVPUSH Q4H PRN; Protocol PRN Reason: Pain, Severe (Pain Scale 7-10) Sodium Chloride (0.9 % Sodium Chloride Flush 3 Ml Syringe) 3 ml IVFLUSH QSHIFT [facility] Last Admin: 07/23/25 06:58 Dose: Not Given q Home Medications ?Medication ?Instructions ?Recorded ?Confirmed ?Last Taken ?Type ferrous gluconate 324 mg (37.5 mg 324 mg PO DAILY 07/23/25 07/23/25 07/22/25 History iron) tablet ibuprofen 800 mg tablet (IBU) 800 mg PO Q6H PRN headache 07/23/25 07/23/25 Unknown History metformin 500 mg tablet 500 mg PO DAILY@1700 07/23/25 07/23/25 07/22/25 History Exam Height,Weight and Vital Signs: Height 4 ft 10 in Weight 110.9 kg Last Vital Signs Temp 97.9 F 07/23/25 09:29 Pulse 78 07/23/25 09:29 Resp 17 07/23/25 09:29 BP 112/62 07/23/25 09:29 Pulse Ox 99 07/23/25 09:29 O2 Del Method Room Air 07/23/25 09:29 Pertinent Lab Results Pertinent Lab Results: Laboratory Tests 07/22/25 07/22/25 07/23/25 17:37 17:43 03:36 WBC 9.8 6.8 RBC 5.11 4.94 Hgb 11.2 L 10.8 L Hct 37.0 35.3 L MCV 72.4 L 71.5 L MCH 21.9 L 21.9 L MCHC 30.3 L 30.6 L RDW 15.9 16.2 H Plt Count 312 277 MPV 11.4 11.2 Immature Gran % (Auto) 0.3 0.1 Neut % (Auto) 63.7 52.2 Lymph % (Auto) 27.1 37.6 [place] % (Auto) 8.0 8.7 Eos % (Auto) 0.5 1.0 Baso % (Auto) 0.4 0.4 Lymph # (Auto) 2.6 2.5 [place] # (Auto) 0.8 0.6 Eos # (Auto) 0.1 0.1 Baso # (Auto) 0.0 0.0 Abs Immat Gran (auto) 0.03 0.01 Absolute Neuts (auto) 6.2 3.5 Absolute Nucleated RBC 0.000 0.000 Nucleated RBC % (auto) 0.0 0.0 Sodium 138 Potassium 4.1 Chloride 103 Carbon Dioxide 27 Anion Gap 12 BUN 8 L Creatinine 0.69 Estim Creat Clear Calc 128.4 Estimated GFR > 60 POC Glucose Random Glucose 219 H Calcium 9.9 Magnesium 1.9 Total Bilirubin 0.7 AST 21 ALT 23 Alkaline Phosphatase 101 Total Protein 7.5 Albumin 4.5 Urine Color Dark Yellow Urine Appearance Cloudy Urine pH 5.5 Ur Specific [place] >= 1.030 H Urine Protein 30 (1+) H Urine Glucose (UA) Negative Urine Ketones Trace Urine Blood Negative Urine Nitrite Negative Ur Leukocyte Esterase Trace H Urine RBC 0-2 Urine WBC 6-10 H Ur Squamous Epith Cells 11-20 Urine Bacteria None Seen Hyaline Casts 0-2 Urine Test NEGATIVE 07/23/25 07:07 WBC RBC Hgb Hct MCV MCH MCHC RDW Plt Count MPV Immature Gran % (Auto) Neut % (Auto) Lymph % (Auto) [place] % (Auto) Eos % (Auto) Baso % (Auto) Lymph # (Auto) [place] # (Auto) Eos # (Auto) Baso # (Auto) Abs Immat Gran (auto) Absolute Neuts (auto) Absolute Nucleated RBC Nucleated RBC % (auto) Sodium Potassium Chloride Carbon Dioxide Anion Gap BUN Creatinine Estim Creat Clear Calc Estimated GFR POC Glucose 168 H Random Glucose Calcium Magnesium Total Bilirubin AST ALT Alkaline Phosphatase Total Protein Albumin Urine Color Urine Appearance Urine pH Ur Specific [place] Urine Protein Urine Glucose (UA) Urine Ketones Urine Blood Urine Nitrite Ur Leukocyte Esterase Urine RBC Urine WBC Ur Squamous Epith Cells Urine Bacteria Hyaline Casts Urine Test Airway Mallampati Class: III TM Dist: >3cm Neck ROM: Full Loose/Missing/Broken Teeth: No Heart: RRR Lungs: CTA Assessment and Plan Assessment Anesthesia Assessment: Anesthesia Plan Discussed and Chart Reviewed Final Anesthetic Review Family History of Problems with Anesthesia: No History of Problems with Anesthesia: No NPO: Yes ASA Class: III Final Preanesthetic Review: Meds/Allgs Chart Reviewed, Consent Obtained/Reviewed and Anes Risks/Benef Reviewed Patient Risk: Intermediate Procedure Risk: Intermediate Anesthetic Plan Anesthetic Plan: GA Disposition: Standard PACU
[2025-07-23 09:40] LABS: Glucose, Whole Blood 153 mg/dL (60-115)
--- NOTE | 2025-07-23 09:46 | PHA.MEDREC ---
Addendum entered by Dwight Skaggs, PharmD 07/23/25 11:15: MED REC CHECKED BY [facility] Original Note: Pharmacy Consult ? Medication Reconciliation Pharmacy has completed the medication reconciliation. Spoke with pt and she confirmed her medications. Pt confirmed she just started Metformin and states she just got it from [facility] ([facility]); I called [facility] and they confirmed pt just got Metformin 500mg 07/20 and is taking 1 tablet po qd for 7 days then increasing to 1 tab BID there after and pt finished the Hydrocortisone-Acetic Acid ear drop regimen yesterday.
--- NOTE | 2025-07-23 11:48 | P.OP_ITS ---
Operative Note Operative Note Date of Service: 07/23/25 Narrative: Preop diagnosis: Acute appendicitis Postop diagnosis: Acute appendicitis, with severe induration, with the appendix curled up on itself Procedure: Laparoscopic appendectomy Surgeon: Mitchell Hernandez MD critical care physician assistant: SHARONA Pickett The patient is a 30 year old female admitted early this morning because of right lower quadrant pain. She had a CAT scan showing findings consistent with the acute appendicitis. She wanted to proceed with laparoscopic appendectomy. She understood the technique of the planned procedure as well as the risks, benefits, and alternatives She was brought to the operating room. She was placed supine under general anesthesia via endotracheal tube. A Smith catheter was inserted. The patient was receiving scheduled IV antibiotics. The abdomen was prepped and draped in the usual sterile fashion. A surgical time-out was done. I made a short supraumbilical incision with a blade 15. This was carried down through the full-thickness of the skin and subcutaneous fat. The fascia was visualized. The fascia was incised. The peritoneum was entered. It was noted that the patient was very morbidly obese and thick amount of subcutaneous fat so it was challenging to achieve good exposure of the fascia We positioned a Bill port into the peritoneal cavity and insufflated the pressure of 15 mm Hg. From here on the rest of procedure was done under vision with the 10 mm 30 degree scope. With laparoscopic visualization, we inserted the 10 mm port and left lower quadrant. A 5 mm port was introduced a small incision in the suprapubic margin. The patient is placed in a steep head-down and [id number] position There was note of a an adhesion in the left side of the abdomen but we are able to achieve good visualization without having to lyse this. The bowel loops were reflected away from the right lower quadrant. I was eventually able to visualize the cecum. We carefully examined the cecum and initially we could not see the appendix itself. We reflected the terminal ileum to expose the underside of the cecum and we found the tip of the appendix. This was very indurated and inflamed. I applied a grasper at this area and attempted to put the appendix on stretch. It however appeared that the appendix was coiled upon itself. We had to do a lot of lysis of adhesions to divide adhesions causing this coiling of the appendix upon itself. With careful dissection using the LigaSure, we were eventually able to straighten the appendix. We are able to visualize the base of the appendix at the cecum. The mesoappendix was also clearly seen and we divided this to continue to straighten the appendix. This was done with the LigaSure We then had the entire appendix on stretch. We had good exposure of the base. I used an Endo-ALISHA 30 mm stapler to divide the base of the appendix. The appendix was then retrieved through an endobag through the left lower quadrant incision. I reinserted all ports and we re-insufflated. I examined all 4 q uadrants. There was no evidence of any other pathology. This was no evidence of any bowel injury I examined the area of dissection. The staple line was intact. There was no evidence of any bleeding. Once hemostasis was confirmed, I proceeded to then desufflated the port sites. We then removed all ports under vision with the laparoscope. The umbilical port was removed last. The fascia of the umbilical incision was closed with a [id number] Polysorb 0 stitch Skin closure was achieved on all incisions with Polysorb 4-0 subcuticular sutures Dressings were applied. All incisions were infiltrated with Marcaine 0.5% for postop analgesia. The procedure was completed The patient tolerated the procedure well. There were no immediate complications. Initial and final counts of sponges and instruments were correct. Estimated blood loss was about 25 cc. The patient has was extubated without difficulty and transferred to the recovery room with stable vital signs
[2025-07-23 14:03] LABS: Glucose, Whole Blood 155 mg/dL (60-115)
[2025-07-23 16:05] LABS: Glucose, Whole Blood 179 mg/dL (60-115)
--- NOTE | 2025-07-23 16:22 | MHC.CM.PN ---
PT REPORTS SHE LIVES WITH HER , 3 CHILDREN (7Y, 6Y, 6M) AND HER MOTHER SHE IS INDEPENDENT WITH CARE AND USES A NEBULIZER PRN PT SAYS SHE WAS ALSO PRESCRIBED DM SUPPLIES RIGHT BEFORE ADMISSION DECLINES A HCP PCP: RICARDO CLAUDIO DCP: HOME VIA PRIVATE TRANSPORT
--- NOTE | 2025-07-23 16:32 | PM.EVENT ---
Event Note Date of Service: 07/23/25 Event Note: Seen on afternoon rounds Underwent uneventful laparoscopic appendectomy earlier Ambulating Tolerating diet Says she is not ready to be discharged tonight Plan DC home tomorrow Pain managed Umbilical Band-Aid with blood so this was changed with gauze Time Spent With Patient Time: Total time managing care of this patient today ____ minutes.
[2025-07-23] MEDS: oxyCODONE HCl Immed Release 5 MG TABLET PO (17:36)
[2025-07-23 20:51] LABS: Glucose, Whole Blood 132 mg/dL (60-115)
[2025-07-23] MEDS: Lactated Ringers 1,000 ML 80 ML IVCONT (23:24)
[2025-07-24 03:33] VITALS: BP 124/74; PULSE 95; RESP 20; TEMP 36; O2SAT 93
[2025-07-24 07:45] VITALS: BP 117/74; PULSE 94; RESP 16; TEMP 36.7; O2SAT 91
[2025-07-24 07:49] LABS: Glucose, Whole Blood 151 mg/dL (60-115)
[2025-07-24] MEDS: Ferrous Sulfate 324 MG TABLET.DR PO (08:00)
--- NOTE | 2025-07-24 08:56 | MHC.CM.PN ---
PT CLEARED TO DC HOME TODAY WITH NO SERVICES VIA PRIVATE TRANSPORT
[2025-07-24 09:24] VITALS: BP 107/62; PULSE 104; RESP 16; TEMP 36.1; O2SAT 99
--- NOTE | 2025-07-24 10:01 | P.PNGS_ITS ---
Subjective Subjective Date of Service: 07/24/25 Interval history: Patient reports having a good night, tolerated a regular diet without nausea or vomiting. Feels ready for discharge to home. Physical Exam 2 Vital Signs: Vital Signs: Last Vital Signs Temp 97.0 F 07/24/25 09:24 Pulse 104 H 07/24/25 09:24 Resp 16 07/24/25 09:24 BP 107/62 07/24/25 09:24 Pulse Ox 99 07/24/25 09:24 O2 Del Method Room Air 07/24/25 09:24 O2 Flow Rate 4 07/23/25 11:58 BMI result Body Mass Index 55.0 Const: General: no acute distress Nutritional Appearance: well nourished Orientation/consciousness: patient oriented x3 Resp: Effort & Inspection: normal respiratory effort, no audible wheezes, no cough and no respiratory distress GI: Other: Trocar incisions are clean, dry, and intact, no ecchymosis or erythema. Skin: General skin exam: no rashes or lesions noted Neuro: General: patient oriented x3 Extrem: General: Yes no clubbing, cyanosis or edema Objective Data Labs 07/23/25 03:36 07/22/25 17:37 Labs: Laboratory Results - last 24 hr 07/23/25 07/23/25 07/23/25 13:56 15:56 20:33 POC Glucose 155 H 179 H 132 H 07/24/25 07:44 POC Glucose 151 H Microbiology Microbiology Results: Microbiology 07/22/25 18:06 Urine Culture - Preliminary Urine clean catch No growth to date. Procedures Date of Service Date of Service: 07/24/25 Progress Note: A&P Assessment and plan (1) Acute appendicitis: Status: Resolved Plan POD 1 following laparoscopic appendectomy for acute appendicitis. She tolerated the procedure well and feels much improved. Abdominal wounds are clean and intact, abdomen soft. Plan discharge to home with follow up in [address] Hernandez. She should call for fever, chills, nausea, vomiting, increased abdominal pain, or other concerns. Time Spent With Patient Time: Total time managing care of this patient today ____ minutes. Quality Stroke Does the patient have a stroke diagnosis?: No VTE Prior VTE?: No VTE Risk Level:: Medical - low VTE Device Contraindication: N/A - Device Ordered VTE Drug Contraindication: Treatment Not Indicated
--- NOTE | 2025-07-24 12:46 | PM.DS ---
DS: Providers Provider Date of Service: 07/24/25 Date of admission: 07/22/25 23:11 Date of discharge: 07/24/25 Primary care physician: Stephie Ellis NP Attending physician on admission: Mitchell Hernandez Consults: 07/23/25 07:31 Consult to Hospitalist Routine Comment: Consulting Provider: [facility] Hospitalists Reason For Exam: DM Attending physician on discharge: Domenic Chu DS: Diagnosis Discharge Diagnosis (1) Acute appendicitis: Status: Resolved DS: Summary Hospital Course Hospital Course: HPI AT ADMISSION: Jordana De León is a 30 year old female morbid obesity, diabetes, here in the ER because of abdominal pain. She says that this started about 36 hours ago. She says that this started as some pain in the umbilical area which was mild. However, she says that the pain was more on the right lower quadrant all day yesterday. She describes multiple episodes of vomiting as well. She describes some watery stools. She eventually came to the ER last night because of the persistent pain. She denies any fever or chills. She had undergone laparoscopic cholecystectomy last Jan, 2024. CAT scan showing inflammatory changes surrounding the appendix consistent with the acute appendicitis. HOSPITAL COURSE: The patient was admitted to the surgical service for further treatment of the acute appendicitis. She elected to proceed with laparoscopic appendectomy. She was added onto the OR schedule for that day. On 07/23/25, a laparoscopic appendectomy was performed by Dr. Hernandez without complication. The patient tolerated the procedure well. She had an uncomplicated recovery course. On POD #1, she felt well and was tolerating a solid diet without nausea or vomiting, had good pain control and was ambulating without difficulty. She was hemodynamically stable. Her abdomen was benign with appropriate post op tenderness and clean and intact dressings. She felt ready for discharge. She was discharged to home on 07/24/25 in stable condition. She is to follow up in the office in 2 weeks. Status at Discharge Functional status at discharge: independent ambulation Overall status at discharge: patient is progressing back to baseline Time Attestation Discharge Coordination Time (in mins): 25 Quality: Safe Use of Opioids Does Pt have an Active Cancer Diagnosis on the Problem List?: No Quality: Stroke Does the patient have a stroke diagnosis?: No Physical Exam Vital Signs: Vital Signs: Last Vital Signs Temp 97.0 F 07/24/25 09:24 Pulse 104 H 07/24/25 09:24 Resp 16 07/24/25 09:24 BP 107/62 07/24/25 09:24 Pulse Ox 99 07/24/25 09:24 O2 Del Method Room Air 07/24/25 09:24 O2 Flow Rate 4 07/23/25 11:58 BMI result Body Mass Index 55.0 Const: General: comfortable, no acute distress and alert Orientation/consciousness: patient oriented x3 Resp: Effort & Inspection: normal respiratory effort GI: Other: Trocar incisions are clean, dry, and intact, no ecchymosis or erythema Neuro: General: patient oriented x3 DS: Data Data Completed and Pending Completed studies during hospitalization [Text1]: 07/23/25 11:21 Surgical [PTH] Routine Appendix, appendectomy: Acute appendicitis, extending to the proximal margin Procedures Resection of Appendix, Percutaneous Endoscopic Approach (07/22/25) Resection of Gallbladder, Percutaneous Endoscopic Approach (02/10/24) Discharge Plan Discharge Anticipated Discharge Date/Time: 07/24/25 09:53 Patient Disposition: Home, Self-Care Discharge Diagnosis: Acute appendicitis, s/p laparascopic appendectomy Referrals: Mitchell Hernandez MD [Physician, General Surgery] - 2 Weeks Stephie Ellis NP [Primary Care Provider, Primary Care] - 1 Week Discharge Medications: New docusate sodium [Colace] 100 mg capsule 100 mg PO BID Qty: 30 0RF oxycodone 5 mg tablet 5 mg PO Q6H PRN (Reason: pain) Qty: 15 0RF Rx Instructions: Partial Fill upon patient request. Continued cyclobenzaprine 5 mg tablet 5 mg PO TID PRN (Reason: muscle spasm) Qty: 30 1RF ibuprofen [IBU] 800 mg tablet 800 mg PO Q6H PRN (Reason: headache) ferrous gluconate 324 mg (37.5 mg iron) tablet 324 mg PO DAILY metformin 500 mg Tablet 500 mg PO DAILY@1700 Rx Instructions: 500mg qd for 7 days then increase to 1 BID. Discharge Orders: Discharge Order (Routine); Ordered 07/24/25 Ordered By: Domenic Chu Diet: Advance to usual diet Activity on Discharge: No heavy lifting Stand Alone Forms: Patient Portal Discharge page, Work/School Release Print Language: Latvian Activity Restrictions/Additional Instructions: If your incision site is sore, you may apply ice to the area for short periods of time (no more than 20 minutes at a time, followed by 20 minutes off). You were prescribed oxycodone to assist with pain management as needed. You can additionally use OTC ibuprofen or acetaminophen as needed for pain. You can remove the dressings at home, they do not need to be redressed. Steri strips can remain in place and will likely fall on their own or in the shower. No heavy lifting >20 pounds No strenuous activity. Do not use creams, lotion, ointment on the incision sites You will follow up with Dr. Hernandez in the office in 2 week, you can call the office to schedule the appointment ) Please reach out to the office or be seen at the emergency department if you develop: -Fever >101.5 -Increasing pain or swelling of the area -Increased bleeding from the incision site or the incision begins to separate -If you are concerned for incision site infection such as redness, warmth, discharge. Some yellow/pink tinged discharge is normal -You develop nausea or vomiting Care Plan Goals: return to baseline Health Concerns: post op pain obesity Plan of Treatment: follow up in office in 2 weeks Assessment: patient doing well Patient Instructions: Laparoscopic Appendectomy (DC) Discharge Date/Time: 07/24/25 09:35
== END 2025-07-24 09:35 | disposition home or self-care (01) | DRG 234 ==
LOC: HO.ED 23:05 → HO.EDOVER 23:19 → HO.SSSA 07-23 11:15 → HO.S3 07-23 12:41
PROVIDERS: Physician Assistant Medical; Admitting Provider Surgery; Emergency Provider Emergency Medicine; Visit Provider Surgery
PROC: 0DTJ4ZZ Resection of Appendix, Percutaneous Endoscopic Approach (ICD-10-PCS; CPT 44970; principal; 2025-07-23 10:30)
DX: K35.80 Unspecified acute appendicitis (principal); Z68.43 Body mass index [BMI] 50.0-59.9, adult; E03.9 Hypothyroidism, unspecified; E11.9 Type 2 diabetes mellitus without complications; E66.01 Morbid (severe) obesity due to excess calories; Z71.3 Dietary counseling and surveillance; Z90.49 Acquired absence of other specified parts of digestive tract; J45.20 Mild intermittent asthma, uncomplicated; Z79.84 Long term (current) use of oral hypoglycemic drugs; Z79.899 Other long term (current) drug therapy
CPT/HCPCS: 36415; 74177; 80053; 81001; 81025; 82947; 83735; 85025; 87086; 88304; 99285; J0131; J1171; J1200; J1885; J2003; J2270; J2405; J2543; J2704; J2765; J2795; J3010; J7120; Q9967

== ENCOUNTER → 2025-07-22 21:09 | Outpatient (BNV) | payer MEDICAID, SELFPAY | PROVIDERS: Emergency Provider Emergency Medicine; Visit Provider Radiology Diagnostic Radiology | DX: N20.0 Calculus of kidney (principal); K38.8 Other specified diseases of appendix; N28.89 Other specified disorders of kidney and ureter | CPT/HCPCS: 74177 ==

== ENCOUNTER → 2025-07-22 23:11 | Outpatient (BNV) | payer MEDICAID, SELFPAY | PROVIDERS: Admitting Provider Surgery; Emergency Provider Emergency Medicine; Visit Provider Surgery | DX: K35.80 Unspecified acute appendicitis (principal) | CPT/HCPCS: 44970; 99024; 99499 ==

== ENCOUNTER → 2025-07-22 23:11 | Outpatient (BNV) | payer MEDICAID, SELFPAY | PROVIDERS: Admitting Provider Surgery; Emergency Provider Emergency Medicine; Visit Provider Physician Assistant Medical | DX: K35.80 Unspecified acute appendicitis (principal) | CPT/HCPCS: 99223 ==

== ENCOUNTER 2025-08-15 15:25 | Outpatient (REF) | payer MEDICAID, SELFPAY ==
--- NOTE | ~2025-08-15 | MR_ITS ---
CLINICAL HISTORY: persistent CUTLER despite tx and blurry vision MR Brain without gadolinium Comparison: None provided Findings: No restricted diffusion. No intra-axial mass or hemorrhage. No midline shift. No hydrocephalus. Vascular flow voids are intact. Orbital contents are unremarkable. The sinuses and mastoid air cells are clear. No focal bone lesion. IMPRESSION: No acute findings. This document has been electronically signed by: Misael Hutchison MD on 08/15/2025 17:01:10
--- OUTSIDE RECORDS SUMMARY | 2025-08-15 15:29 | XMS_ITS | Clinical Summary ---
Author Organization [facility] Address [address] [place] [address] Phone Care Team Providers Care Rural Mail Contractor Name Role Phone Austin, Vjii Primary Care Provider [phone] Allergies No known active allergies Medications no115/iron/folic [...] She will do this. care, subsequent in [facility] 08/06/2024 Overview (08/06/2024): 1. [facility] site: [facility]: [address] [place] [address] ([phone]) 2. Delivery site: [facility] 3. Mobile Mommas: No 4. Dating [...] 9. Hospital Course: Obesity, morbid (CMS/[facility] V24, [facility] V28) 08/06 Overview (08/06/2024): HgbA1C and [...] 08/06/2024 Overview (08/06/2024): 2017 and 2018 @ [facility] Heart murmur 08/06/2024 Asthma 08/06/2024 Hyperthyroidism 08/06/2024 [...] Screening 09/16/2024 08/04/2024 COVID-19 Vaccine (1 - 2024-2 6 season) 2025 Influenza Vaccine (#1) 2025 , [...] lesion or malignancy 09/01/2024 3:[address] [facility] at 1514 EST General Categorization Negative 09/01/2024 3:14 PM [facility] LMP 04/24/2024 09/01/2024 3:14 PM [facility] Specimen Adequacy Satisfactory for evaluation, endocervical/mitchell sformation zone component absent 09/01/2024 3:14 PM [facility] Pap Methodology Liquid Based Pap Test 09/01/2024 3:14 PM [facility] Disclaimer The Pap test is a screening test which carries an inherent false negative rate. These test results should be correlated with the patient's clinical findings and history. This Pap test was processed using an automated screening system. Technical cytopathology services provided by [facility], at [address] [place] [address] (CLIA # [id number]/Clarita Moseley MD, Sports Athletic Trainer.) 09/01/2024 3:14 PM [facility] Console Pap Interpretation Reported 09/01/2024 3:14 PM [facility] Brushing/Spatula Cervix uteri structure / Unknown 08/25/2024 9:56 AM EST 08/25/2024 9:56 AM EST us Bonnie Braajas MD LAB CYTOLOGY ORDERABLES Fin al Result [facility] [address] [place] [address], * Hepatitis C antibody (08/06/2024 12:36 PM EST) Hepatitis C Antibody Negative Negative LAB CHEMISTRY METHOD 08/06/2024 6:24 PM [facility] Blood Venous blood specimen / Unknown Venipuncture / Unknown 08/06/2024 12:36 PM EST 08/06/2024 12:36 PM EST Carlee Ordaz [facility] BLOOD ORDERABLES Final Res ult Performing Organization Address [facility]/ZIP Co de Phone Number [facility] [address] [place] [address], [place] [phone] * HIV 1,2 antibody, p24 antigen with [...] CDC recommendation for HIV screening. Carlee Ordaz [facility] BLOOD ORDERABLES Final Res ult Performing Organization Address [facility]/ZIP Co de Phone Number [facility] [address] [place] [address], [place] [phone] from Last 3 Months or Most Recently Relevant to Health Maintenance Insurance MEDICAID - [place] Care Teams Rural Mail Contractor Relationship Specialty Start Date End Date Viji Austin [address] [place] [address] PCP - General 09/30/24
--- OUTSIDE RECORDS SUMMARY | 2025-08-15 15:29 | XMS_ITS | Encounter Summary ---
Author Organization [employer] Address [address] [place] [address] Care Team Providers Care Pewter Caster Name Role Phone Stephie Ellis LINH Primary Care Provider [phone] Encounter Details Date Type Department Care Team (Late st Contact Info) Description 01/12/2025 Orders Only [facility] [address] [place], [place] [id number] Sujatha Barakat Social History Tobacco Use Types [...] Care Team (Late st Contact Info) Description 12/07/2025 9:00 AM EDT Office Visit [facility] OPTOMETRY [address] [place], [place] [phone] TarEllen power, OD [address] [place] [address] documented as of this encounter Procedures Procedure [...] documented as of this encounter Care Teams Pewter Caster Relationship Specialty Start Date End Date Stephie Ellis CNP PCP - General Family Medicine 10/14/24 Margoth Lo Sewer Hand 09/10/24 documented as of this encounter
--- OUTSIDE RECORDS SUMMARY | 2025-08-15 15:29 | XMS_ITS | Clinical Summary ---
Author Organization [employer] Address [address] [place] [address] Care Team Providers Care Chucker Name Role Phone Stephie Ellis FITTER HELPER Primary Care Provider [phone] Allergies Active Allergy Reactions Criticality Noted Date Comments Dexbromphen-Acetaminophen Unknown 09/12/2016 From [facility] records Dizziness, nausea hives Lidocaine Hcl Unknown 07/03/2024 From [facility] records Medications * This document contains information [...] 02/13/20 24 Active doxylamine (Unisom) 25 MG tabletIndications :Nausea and vomiting, unspecified vomiting type Take 1 tablet (25 mg) by mouth if needed at bedtime for sleep. 30 tablet 10/14/19 25 Active pyridoxine (Vitamin B-6) 25 MG tablet Take 25 mg by mouth if needed in the morning, at noon, in the evening, and at bedtime (before meals). Active baclofen (Lioresal) 10 MG tabletIndications :Neck pain Take one tablet TID PRN 30 tablet 04/12/20 25 Active hydrocortisone 2.5 % creamIndications: Rash Apply topically 2 times daily. 30 g 1 04/12/20 25 Active budesonide-formot cheryl (Symbicort) 160-4.5 MCG/ACT inhaler Inhale 2 puffs in the morning and at bedtime. Rinse mouth with water after use to reduce aftertaste and incidence of candidiasis. Do not swallow. 30 Inhaler 2 05/21/20 25 Active ferrous gluconate (Fergon) 324 (38 Fe) MG tabletIndications :Iron deficiency anemia, unspecified iron deficiency anemia type Take 1 tablet (324 mg) by mouth with breakfast. 30 tablet 11 07/16/20 25 026 Active SUMAtriptan (Imitrex) 25 MG tabletIndications :Chronic migraine with aura without status migrainosus, not [...] meal. 60 tablet 11 07/20/20 25 Active Acetaminophen Extra Strength 500 MG tablet TAKE 2 TABLETS BY MOUTH EVERY 8 HOURS NEEDED FOR PAIN OR FEVER 07/14/20 25 Active cyclobenzaprine (Flexeril) 5 MG tablet Take 5 mg by mouth if needed in the morning, at noon, and at bedtime for muscle spasms. 07/14/20 25 Active diazePAM (Valium) 5 MG tablet TAKE 1 TABLET BY MOUTH THREE TIMES A DAY NEEDED FOR MUSCLE SPASM FOR 3 DAYS 04/08/20 25 Active ketorolac (Toradol) 10 MG tablet TAKE 1 TABLET BY MOUTH EVERY 8 HOURS NEEDED FOR PAIN FOR 3 DAYS 06/21/20 25 Active ferrous gluconate (Fergon) 324 (37.5 Fe) MG tablet Take 1 tablet by mouth with breakfast. 07/16/20 25 Active ibuprofen 400 MG tablet Take 1 tablet by mouth every 6 (six) hours if needed for pain. 07/14/20 25 Active Tirzepatide (Mounjaro) 2.5 MG/0.5ML solution auto-injectorIndi cations:Class 3 severe obesity with body mass index (BMI) of 45.0 to 49.9 in adult, unspecified obesity type, unspecified whether serious comorbidity present (HCC),Type 2 diabetes mellitus with other specified complication, without long-term current use of insulin ([facility]) Inject 0.5 mL under the skin 1 (one) time per week. 2 mL 07/27/20 25 Active Tirzepatide (Mounjaro) 2.5 MG/0.5ML solution auto-injectorIndi cations:Type 2 diabetes mellitus with other specified complication, without long-term current use of insulin ([facility]) Inject 2.5 mg under the skin 1 (one) time per week. 2 mL 1 08/04/20 25 Active ibuprofen 800 MG tabletIndications :Chronic migraine with aura without status migrainosus, not intractable Take 1 tablet (800 mg) by mouth every 6 (six) hours if needed for mild pain or headaches for up to 10 days. 30 tablet 07/16/20 25 025 amoxicillin-clavu lanate (Augmentin) 875-125 MG tabletIndications :Chronic otitis media, unspecified otitis media type Take 1 tablet by mouth 2 times daily for 5 days. 10 tablet 07/16/20 25 025 acetic acid-hydrocortiso ne (Vosol-HC) otic solutionIndicatio ns:Chronic otitis media, unspecified otitis media type Administer 3 drops into the right ear 2 times daily for 10 days. 10 mL 07/16/20 25 025 Dulaglutide (Trulicity) 0.75 MG/0.5ML solution auto-injectorIndi cations:Type 2 diabetes mellitus without complication, without long-term current use of insulin (HCC) Inject 0.5 mL under the skin 1 (one) time per week. 2 mL 07/22/20 25 025 Discontinu ed(Cost of medication ) Active Problems Problem Noted Date Diagnosed Date Anemia 07/26/2025 History of gestational diabetes 07/26/2025 History of gestational hypertension 07/26/2025 care following delivery 07/17 Cough in adult patient 05/21/2025 Assessment & [...] are discrepancies between the two notes from [facility] and [facility], per pt's most recent TSH level [...] PM EST): Will send referrals to [facility] for routine examinations Dietary [...] 2018 and 2019 @ [facility] Morbid obesity ([facility]/HCC) 08/06/2024 Overview (10/12/2024): HgbA1C and 1 [...] BMI of 50 by 28wks transfer to [facility] DVT prophylaxis- Lovenox if CS and BMI >35 Hyperthyroidism 08/06/2024 Heart murmur 08/06/2024 Asthma 08/06/2024 H/O cardiac murmur 07/03/2024 Mild intermittent asthma without complication 07/03/2024 Esotropia of right eye 07/03/2024 Vitamin D insufficiency 09/14/2016 Chronic 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 09/12/2016 Encounters Date Type Department Care Team Description 08/04/2025 3:30 PM EST Office Visit [facility] [address] [place] [address] Stephie Ellis CNP Type 2 diabetes mellitus with other specified complication, without long-term current use of insulin (HCC) (Primary Dx) 08/04/2025 Travel 08/02/[address] [facility] [address] [place] [address] Stephie Ellis CNP Prior Authorization 07/29/2025 Travel 07/27/[address] [facility] [address] [place] [address] Stephie Ellis CNP Chronic migraine with aura without status migrainosus, not intractable (Primary Dx) 07/27/2025 Telephone [employer] [employer] [address] [place] [address] [phone] Stephie Ellis CNP MRI BRAIN ORDER 07/27/2025 Telephone [facility] [address] [place] [phone] Stephie Ellis CNP Care Management ([facility] TC #2-lvm) 07/27/[address] [facility] [address] [place] [address] Stephie Ellis CNP Class 3 severe obesity with body mass index (BMI) of 45.0 to 49.9 in adult, unspecified obesity type, unspecified whether serious comorbidity present (HCC) (Primary Dx); Type 2 diabetes mellitus with other specified complication, without long-term current use of insulin (HCC) 07/26/[address] [facility] [address] [place] [address] Stephie Ellis CNP chart prep 07/22/[address] [facility] [address] [place] [address] Stephie Ellis CNP Type 2 diabetes mellitus without complication, without long-term current use of insulin (HCC) (Primary Dx) 07/22/[address] [facility] [address] [place] [address] Stephie Ellis CNP Medication Question 07/20/[address] [facility] [address] [place] [address] Stephie Ellis CNP Chronic migraine with aura without status migrainosus, not intractable (Primary Dx) 07/19/[address] [facility] [address] [place] [address] Stephie Ellis CNP 07/19/2025 Results Follow-Up [facility] [address] [place] [address] Stephie Ellis CNP Hemoglobin A1c 07/16/2025 2:30 PM EDT Office Visit [facility] [address] [place] [address] Stephie Ellis CNP Iron deficiency anemia, unspecified iron deficiency anemia type (Primary Dx); Hyperglycemia; Chronic migraine with aura without status migrainosus, not intractable; Chronic otitis media, unspecified otitis media type 07/16/2025 Travel 07/14/[address] [facility] [address] [place] [address] Stephie Ellis CNP Nurse Triage 06/30/[address] [address] Stephie Ellis CNP Care Management ([facility] TC #1-lvm) 06/22/[address] [facility] [address] [place] [address] Stephie Ellis CNP Chart Prep 06/21/[address] [facility] [address] [place] [address] Stephie Ellis CNP Nurse Triage 06/20/2025 Orders Only GENERIC EXTERNAL DATA DEPARTMENT Provider, Generic External Data 06/02/[address] [facility] [address] [place] [address] Stephie Ellis CNP 05/26/[address] [place] [address] Stephie Ellis CNP Care Management ([facility] follow up call) 05/21/2025 1:00 PM EDT Office Visit [facility] [address] [place] [address] Erum Hernández NP Mild intermittent allergic asthma with acute exacerbation (Primary Dx); Cough in adult patient 05/21/2025 Travel from Last 3 Months Immunizations Immunization [...] Sign Reading Time Taken Comments Blood Pressure 106/50 08/04/2025 2:29 PM EST Pulse 100 08/04/2025 2:29 PM EST Temperature 37.1 C (98.7 F) 08/04/2025 2:29 PM EST Respiratory Rate 14 08/04/2025 2:29 PM EST Oxygen Saturation 99% 08/04/2025 2:29 PM EST Inhaled Oxygen Concentration - - Weight 112 kg (247 lb) 08/04/2025 2:29 PM EST Height 147.3 cm (4' 10 ) 08/04/2025 2:29 PM EST Body Mass Index 51.62 08/04/2025 2:29 PM EST Plan of Treatment Upcoming Encounters Date Type Department Care Team (Late st Contact Info) Description 12/07/2025 9:00 AM EDT Office Visit [facility] [address] [place], [place] [phone] Ellen Robles, OD [address] [place] [address] Health Maintenance Due Date Last Done Comments [...] 3-dose series) 11/05/2016 10/08/2016 COVID-19 Vaccine ( season) 2025 Influenza Vaccine (#1) 2025 07/08/2024, 2016 SDOH Screening 09/08/2025 09/08/2024 Alcohol/Substance Use Screening 10/14/2025 10/14/2024 Depression Screening 10/14/2025 10/14/2024, 10/14/19 Diabetes: Hemoglobin A1C 10/16/2025 07/16/2025 Tobacco Screening 05/21/2026 05/21/2025 Disability Screening 07/16/2026 07/16/2025 Eye Exam 10/20/2026 10/20/2024, 12/2024, 10/20/2024, Additional history exists Cervical Cancer [...] on patient's age to complete this topic Goals Goal Patient Goal Type Associated Problems Recent Progress Patient-Stated? Author Help patients manage their type 2 diabetes Care Plan Help patients manage their type 2 diabetes No Stephie Ellis CNP Patient has chronic kidney disease Care Plan Patient has chronic kidney disease No Stephie Ellis CNP Procedures Procedure Name Priority Date/Time Associated Diagnosis Comments POCT GLUCOSE Routine 08/04/2025 4:24 PM EST Type 2 diabetes mellitus with other specified complication, without long-term current use of insulin (HCC) CT ABDOMEN PELVIS W CONTRAST Routine 07/22/2025 10:51 PM EST HCG, QL, URINE Routine 07/22/2025 5:43 PM EST Type 2 diabetes mellitus without complication, without long-term current use of insulin (HCC) URINALYSIS, COMPLETE, WITH REFLEX TO CULTURE Routine [...] Hyperglycemia XR FOOT 1-2 VIEWS LEFT Routine 5 [...] Relevant to Health Maintenance Results * (ABNORMAL) POCT glucose manually resulted (08/04/2025 4:24 PM EST) [facility] Glucose Blood, POC 204(A) 60 - 200 mg/dL QC Media Lot # Comment:[id number] Lot# Expiration Date Comment:10/24/2025 Blood Capillary blood specimen / Unknown 08/04/2025 4:24 PM EST [facility] POINT OF CARE TEST ENTER/ EDIT ORDERABLES Final Result * CT Abdomen Pelvis w/ Contrast (07/22/2025 10:51 PM EST) Anatomical Region Laterality Modality Body, Pelvis, Abdomen Computed T omography 07/22/2025 10:5 1 PM EST Narrative 07/22/2025 10:53 PM EST [address] [address] [address] Scan Report Signed with Parviz Patient: Jordana De León MR#: [id number] 1764 : 1995 Acct:[id number] Age/Sex: 30 / F ADM Date: 07/22/25 Loc: HO.ED Attending Dr: Ordering Physician: Elliot Rouse MD Date of Service: 07/22/25 Procedure(s): CT abdomen pelvis w IV con Accession Number(s): [id number] cc: Elliot Rouse MD; Stephie Ellis ANIMAL HOSPITAL OFFICE SUPERVISOR Report Number: [id number]: Total DLP = 0.00 mGy-cm Reason for Exam: Rt sided abdo pain, ? appy ADDENDUM This document has been electronically signed by: Misael Hutchison MD on 07/22/2025 22:51:42 ADDENDUM: This report was discussed with dr Padma Zarate on Jul 22, 2025 22:54:00 EST. This document has been electronically signed by: Patricia Byrne on 07/22/2025 22:54:59 Addendum Dictated By: Misael Hutchison MD Addendum Signed By: <Electronically signed by Misael Hutchison MD in OV> 07/22/252255 Addendum Cosigned By: DD/ /10/2251 TD/TT: 07/22/2503/10/2254 CLINICAL HISTORY: Rt sided abdo pain, ? appy CT abdomen and pelvis with contrast Comparison: None provided Findings: The lung bases are clear. Prior cholecystectomy. The liver and spleen are homogeneous in attenuation. Hepatomegaly, 18 cm. The left and right kidney demonstrate symmetric corticomedullary enhancement. Left renal lower pole cortical low-attenuation lesion, 1.1 cm; renal cysts. Right renal upper pole 0.3 cm nonobstructing nephrolith. The pancreas homogeneous in attenuation. No main pancreatic ductal dilatation identified. The adrenals are within normal limits. No bowel obstruction, pneumoperitoneum, or pneumatosis. Medial of the cecum dilated appendix, 1.2 cm with periappendiceal inflammatory changes, axial image number 54/86 series 2, coronal image number 43 of 124 series 6. No acute fracture. IMPRESSION: 1. Dilated appendix (1.2 cm) with periappendiceal inflammatory changes, consistent with acute appendicitis. 2. Left renal lower pole cortical low-attenuation lesion, 1.1 cm; likely renal cyst. 3. Right renal upper pole 0.3 cm nonobstructing nephrolith. 4. Prior cholecystectomy. This document has been electronically signed by: Misael Hutchison MD on 07/22/2025 22:51:42 Dictated By: Misael Hutchison MD Signed By: <Electronically signed by Misael Hutchison MD in OV> 07/22/252251 DD/ 50 TD/TT: 07/22/252250 Applied Psychology Professor: Procedure Note Donotuseinterpreter, Image - 07/22/[address] [address] [address] Scan Report Signed with Addenda Patient: Jordana De LeónMR#: [id number] 1764 : 1995Acct:[id number] Age/Sex: Date: 07/22/25 Loc: HO.ED Attending Dr: Ordering Physician: Elliot Rouse MD Date of Service: 07/22/25 Procedure(s): CT abdomen pelvis w IV con Accession Number(s): [id number] cc: Elliot Rouse MD; Stephie Ellis ANIMAL HOSPITAL OFFICE SUPERVISOR Report Number: [id number]: Total DLP = 0.00 mGy-cm Reason for Exam: Rt sided abdo pain, ? appy ADDENDUM This document has been electronically signed by: Misael Hutchison MD on 07/22/2025 22:51:42 ADDENDUM: This report was discussed with dr Padma Zarate on Jul 22, 2025 22:54:00 EST. This document has been electronically signed by: Patricia Byrne on 07/22/2025 22:54:59 Addendum Dictated By: Misael Hutchison MD Addendum Signed By: <Electronically signed by MD Jeremie in OV> 07/22/252255 Addendum Cosigned By: DD/ /10/2251 TD/TT: 07/22/2503/10/2254 CLINICAL HISTORY: Rt sided abdo pain, ? appy CT abdomen and pelvis with contrast Comparison: None provided Findings: The lung bases are clear. Prior cholecystectomy. The liver and spleen are homogeneous in attenuation. Hepatomegaly, 18 cm. The left and right kidney demonstrate symmetric corticomedullary enhancement. Left renal lower pole cortical low-attenuation lesion, 1.1 cm; renal cysts. Right renal upper pole 0.3 cm nonobstructing nephrolith. The pancreas homogeneous in attenuation. No main pancreatic ductal dilatation identified. The adrenals are within normal limits. No bowel obstruction, pneumoperitoneum, or pneumatosis. Medial of the cecum dilated appendix, 1.2 cm with periappendiceal inflammatory changes, axial image number 54/86 series 2, coronal image number 43 of 124 series 6. No acute fracture. IMPRESSION: 1. Dilated appendix (1.2 cm) with periappendiceal inflammatory changes, consistent with acute appendicitis. 2. Left renal lower pole cortical low-attenuation lesion, 1.1 cm; likely renal cyst. 3. Right renal upper pole 0.3 cm nonobstructing nephrolith. 4. Prior cholecystectomy. This document has been electronically signed by: Misael Hutchison MD on 07/22/2025 22:51:42 Dictated By: Misael Hutchison MD Signed By: <Electronically signed by Misael Hutchison MD in OV> 07/22/252251 DD/ 50 TD/TT: 07/22/252250 Applied Psychology Professor: us [facility] External Provider IMG CT PROCEDURES Edited Result - Final * (ABNORMAL) Urinalysis, Complete, with Reflex to Culture (07/22/2025 5:43 PM EST) Color Urine Dark Yellow [facility] Appearance Urine Cloudy [facility] PH 5.5 5.0 - 9.0 [facility] Glucose Urine UA Negative Negative mg/dL [facility] Urine Blood Negative Negative [facility] Specific Walker - Urine >=1.030(H) 1.005 - 1.025 [facility] Urine Protein 30 (1+)(A) Neg-Trace mg/dL [facility] Urine Ketones Trace Negative mg/dL [facility] Nitrite Urine Negative Negative [facility] Leukocyte Esterase Urine Trace(A) Negative [facility] RBC Urine 0-2 0 - 2 /HPF [facility] Urine WBC 6-10(A) 0 - 5 /HPF [facility] Urine Squamous Epithelial Cell 11-20 0 - 2 /HPF [facility] Urine Bacteria None Seen None Seen [facility] Hyaline Casts, Urine 0-2 0 - 2 /LPF [facility] 07/22/2025 5:43 PM EST 07/22/2025 5:53 PM EST Narrative [facility] - 07/22/2025 6:05 PM EST [id number], Clean Catch us Generic External Data Provider LAB URINE ORDERAB LES Final Result Performing Organization Address City/[facility]/ZIP Co de Phone Number [facility] [address] [place] [phone] * HCG, Qualitative, Urine (07/22/2025 5:43 PM EST) Urine NEGATIVE NEGATIVE [facility] Comment:This test was develo ped to detect early . Falsenegative results may occur after the 5th - 7th week ofpregnancy when using this test method. If clinicallyindicated, consider a serum hCG. 07/22/2025 5:43 PM EST 07/22/2025 9:10 PM EST us Generic External Data Provider LAB URINE ORDERAB LES Final Result Performing Organization Address City/[facility]/ZIP Co de Phone Number [facility] [address] [place] [phone] * (ABNORMAL) CBC auto differential (07/22/2025 5:37 PM EST) Only the most recent of2 resultswithin the time period is included. White Blood Count 9.8 4.8 - 10.8 X10*3/uL [facility] Red Blood Count 5.11 4.20 - 5.50 X10*6/uL [facility] Hemoglobin 11.2(L) 12.0 - 16.0 g/dl [facility] Hematocrit 37.0 37.0 - 47.0 % [facility] Mean Corpuscular Volume 72.4(L) 80.0 - 98.0 fL [facility] Mean Corpuscular Hemoglobin 21.9(L) 27.0 - 33.0 pg [facility] Mean Corpuscular HGB Conc 30.3(L) 31.0 - 35.0 g/dl [facility] Red Cell Distribution Width 15.9 11.0 - 16.0 % [facility] Platelet Count 312 160 - 400 X10*3/uL [facility] Mean Platelet Volume 11.4 9.4 - 12.3 fL [facility] Neutrophils Percent Auto 63.7 45 - 73 % [facility] Imm Gran Pct Auto 0.3 0.0 - 0.4 % [facility] Lymphocytes Percent Auto 27.1 20 - 40 % [facility] Monocytes Percent Auto 8.0 2 - 11 % [facility] Eosinophils Percent Auto 0.5 0 - 4 % [facility] Basophils Percent Auto 0.4 0 - 2 % [facility] NRBC Pct Auto 0.0 0.0 - 0.2 /100WBC [facility] Neutrophils Absolute Auto 6.2 2.0 - 8.3 x10*3/uL [facility] Imm Gran Abs Auto 0.03 0.00 - 0.03 X10*3/uL [facility] Lymphocytes Absolute Auto 2.6 1.2 - 4.9 X10*3/uL [facility] Monocytes Absolute Auto 0.8 0.1 - 1.2 X10*3/uL [facility] Eosinophils Absolute Auto 0.1 0.0 - 0.4 X10*3/uL [facility] Basophils Absolute Auto 0.0 0.0 - 0.2 X10*3/uL [facility] NRBC Abs Auto 0.000 0.0 - 0.012 X10*3/uL [facility] 07/22/2025 5:37 PM EST 07/22/2025 5:40 PM EST us Generic External Data Provider LAB BLOOD ORDERAB LES Final Result Performing Organization Address City/[facility]/ZIP Co de Phone Number [facility] [address] [place] [phone] * Magnesium (07/22/2025 5:37 PM EST) Pathologist [facility] Magnesium 1.9 1.6 - 2.6 mg/dL [facility] 07/22/2025 5:37 PM EST 07/22/2025 5:40 PM EST Generic External Data Provider LAB BLOOD ORDERAB LES Final Result Performing Organization Address [facility] Co de Phone Number [facility] [address] [place] [address] [phone] * (ABNORMAL) Comprehensive Metabolic Panel (07/22/2025 5:37 PM EST) Only the most recent of2 resultswithin the time period is included. Pathologist [facility] Sodium 138 135 - 145 mmol/L [facility] Potassium 4.1 3.3 - 5.1 mmol/L [facility] Chloride 103 96 - 108 mmol/L [facility] Carbon Dioxide 27 22 - 29 mmol/L [facility] Anion Gap 12 12 - 20 [facility] Urea Nitrogen (BUN) 8(L) 9 - 16 mg/dL [facility] Creatinine, Serum 0.69 0.5 - 1.4 mg/dL [facility] Creatinine Clr Calc Pharmacy 128.4 [facility] Comment:Provided height and weight: 147.32 cm,110.9 kg.eGFR (calculated from the MDRD study equation) and eCrCl(calculated from the Cockcroft-Gault equation) are based ondifferent parameters and may not yield comparable results.If eCrCl result is absurd, please check patient'sheight/weight. Estimated Glomerular Filt Rate >60 [facility] Comment:Chronic Kidney Disea se: Estimated GFR < 60 mL/min/[id number] Kidney Disease: Estimated GFR < 15 mL/min/1.73m2 Glucose 219(H) 60 - 115 mg/dL [facility] Calcium 9.9 8.4 - 10.2 mg/dL [facility] Bilirubin, Total 0.7 0.0 - 1.0 mg/dL [facility] Aspartate Amino Transferase 21 5 - 31 U/L [facility] Alanine Aminotransferase 23 0 - 31 U/L [facility] Total Protein 7.5 6.5 - 8.0 g/dL [facility] Albumin Level 4.5 3.5 - 5.0 g/dL [facility] Alkaline Phosphatase 101 39 - 117 U/L [facility] 07/22/2025 5:37 PM EST 07/22/2025 5:40 PM EST us Generic External Data Provider LAB BLOOD ORDERAB LES Final Result Performing Organization Address City/State/RUST de Phone Number [facility] [address] [place] [address] [phone] * MR Ankle w/o Contrast Left (07/20/2025 1:05 PM EST) Anatomical Region Laterality Modality Lower Extremities, Ankle Left Magneti c Resonance 07/20/2025 1:05 PM EST Narrative 07/21/2025 11:10 AM EST [place] [address] Magnetic Resonance Report Signed Patient: Jordana De León MR#: [id number] 1764 : 1995 Acct:[id number] Age/Sex: 30 / F ADM Date: 07/20/25 Loc: HO.MRI Attending Dr: Marcio Hebert DPM Ordering Physician: Marcio Hebert DPM Date of Service: 07/20/25 Procedure(s): MR ankle LT wo con Accession Number(s): [id number] cc: Marcio Hebert DPM; Stephie Ellis NP [...] by: Trent Hamilton MD 07/21/2025 11:07 AM [facility] Dictated By: Trent Hamilton MD Signed By: <Electronically signed by Trent Hamilton MD in OV> 07/21/25 1107 DD/ 1305 TD/TT: 07/20/25 1330 Applied Psychology Professor: Procedure Note Donotuseinterpreter, Image - 07/21/[address] [address] Magnetic Resonance Report Signed Patient: Jordana De LeónMR#: [id number] 1764 : 1995Acct:[id number] Age/Sex: 30 / FADM Date: 07/20/25 Loc: HO.MRI Attending : Marcio Hebert DPM Ordering Physician: Marcio Hebert DPM Date of Service: 07/20/25 Procedure(s): MR ankle LT wo con Accession Number(s): [id number] cc: Marcio Hebert DPM; Stephei Ellis NP Reason for Exam: M76.62 - [...] 07/21/25 1107 DD/ 1305 TD/TT: 07/20/25 1330 Applied Psychology Professor: us [facility] External Provider IMG MRI PROCEDURES Final Result * (ABNORMAL) Hemoglobin A1c (07/16/2025 2:59 PM EDT) Hemoglobin A1c 8.6(H) <6.0 % [facility] Comment:Hemoglobin A1C Refer ence Range Adults: 4.8 - 6.0 % Non diabetic: < 6.0 % Goal: < 7.0 %Additional Action Suggested: > 8.0 %Note: Hemoglobin A1c results are invalid for patients with abnormal amounts of HbF. Blood transfusions may impact the HbA1c concentration in the patient sample. Estimated Average Glucose 200 mg/dL [facility] Comment:eAG = Estimated ave rage glucose which is %A1C expressed asaverage glucose, using the formula of the V7Z-BvjrbptUvirlua Glucose study (ADAG), Diabetes Care, Vol.31,#8,2007 Blood Venous blood specimen / Unknown 07/16/2025 2:59 PM EDT 07/16/2025 5:51 PM EDT [facility] FITTER HELPER LAB BLOOD ORDERABLES Elise l Result [facility] [address] [place] [phone] * XR Foot 1-2 Views Left (06/20/2025 3:26 PM EDT) Anatomical Region Laterality Modality Lower Extremities, Foot Left Radiogra phic Imaging 06/20/2025 3:26 PM EDT Narrative 06/20/2025 3:28 PM EDT [address] [address] XRay Report Signed Patient: Jordana De León MR#: [id number] 1764 : 1995 Acct:[id number] Age/Sex: 30 / F ADM Date: 06/20/25 Loc: HO.ED Attending Dr: Ordering Physician: Herrera Hua Date of Service: 06/20/25 Procedure(s): XR foot LT 2V Accession Number(s): [id number] cc: Herrera Hua; Stephie Ellis NP Reason [...] Garcia MD in OV> 06/20/25 1528 DD/ 152 TD/TT: 06/20/25 1526 Applied Psychology Professor: Procedure Note Donotuseinterpreter, Image - 06/21/2025 [place] [address] XRay Report Signed Patient: Jordana De LeónMR#: [id number] 1764 : 1995Acct:[id number] Age/Sex: M Date: 06/20/25 Loc: .ED Attending Dr: Ordering Physician: Herrera Hua Date of Service: 06/20/25 Procedure(s): XR foot LT 2V Accession Number(s): [id number] cc: Herrera Hua; Stephie Ellis NP Reason [...] Garcia MD in OV> 06/20/25 1528 DD/ 25 TD/TT: 06/20/251525 Applied Psychology Professor: [facility] External Provider IMG XR PROCEDURES Edited Result - Final * XR Ankle 3+ Views Left (06/20/2025 3:26 PM EDT) Anatomical Region Laterality Modality Lower Extremities, Ankle Left Radiogr aphic Imaging 06/20/2025 3:26 PM EDT Narrative 06/20/2025 3:27 PM EDT [address] [address] XRay Report Signed Patient: Jordana De León MR#: [id number] 1764 : 1995 Acct:[id number] Age/Sex: 30 / F ADM Date: 06/20/25 Loc: .ED Attending Dr: Ordering Physician: Herrera Hua Date of Service: 06/20/25 Procedure(s): XR ankle LT min 3V Accession Number(s): [id number] cc: Herrera Hua; Stephie Ellis NP Reason [...] OV> 06/20/25 1527 DD/ 152 TD/TT: 06/20/251525 Applied Psychology Professor: Procedure Note Donotuseinterpreter, Image - 06/21/[address] [place] [address] XRay Report Signed Patient: Jordana De LeónMR#: [id number] 1764 : 1995Acct:[id number] Age/Sex: 30 / FADM Date: 06/20/25 Loc: HO.ED Attending Dr: Ordering Physician: Herrera Hua Date of Service: 06/20/25 Procedure(s): XR ankle LT min 3V Accession Number(s): [id number] cc: Herrera Hua; Stephie Ellis NP Reason [...] 06/20/25 1527 DD/ 1526 TD/TT: 06/20/25 1526 Applied Psychology Professor: [facility] External Provider IMG XR PROCEDURES Edited Result - Final * Lower Extremity Venous Duplex (06/20/2025 3:24 PM EDT) 06/20/2025 3:24 PM EDT Narrative [facility] - 06/20/2025 3:26 PM EDT [address] [address] Ultrasound Report Signed Patient: Jordana De León MR#: [id number] 1764 : 1995 Acct:[id number] Age/Sex: 30 / F ADM Date: 06/20/25 Loc: HO.ED Attending Dr: Ordering Physician: Herrera Hua Date of Service: 06/20/25 Procedure(s): US venous duplex LE LT Accession Number(s): [id number] cc: Herrera Hua; Stephie Ellis NP Reason [...] 06/20/25 1526 DD/ 1524 TD/TT: 06/20/25 1524 Applied Psychology Professor: Procedure Note Donotuseinterpreter, Image - 06/21/2025 [place] [address] Ultrasound Report Signed Patient: Jordana De LeónMR#: [id number] 1764 : 1995Acct:[id number] Age/Sex: Date: 06/20/25 Loc: .ED Attending Dr: Ordering Physician: Herrera Hua Date of Service: 06/20/25 Procedure(s): US venous duplex LE LT Accession Number(s): [id number] cc: Herrera Hua; Stephie Ellis NP Reason [...] Garcia MD in OV> 06/20/25 1526 DD/ 23 TD/TT: 06/20/251523 Applied Psychology Professor: [facility] External Provider CV VASC ULAR PROCEDURES Edited Result - Final Performing Organization Address [facility]/ZIP Co de Phone Number [facility] [address] [place] [address] * Partial Thromboplastin Time, Activated (APTT) (06/20/2025 12:58 PM EDT) Partial Thromboplastin Time 31.4 26.7 - 34.1 SEC [facility] 06/20/2025 12:5 8 PM EDT 06/20/2025 1:02 PM EDT Generic External Data Provider LAB BLOOD ORDERAB LES Final Result Performing Organization Address [facility]/ZIP Co de Phone Number [facility] [address] [place] [phone] * Prothrombin Time-INR (06/20/2025 12:58 PM EDT) Prothrombin Time 12.0 10.9 - 12.4 SEC [facility] INTERNATIONAL NORM RATIO 1.0 0.9 - 1.1 [facility] Comment:INTERNATIONAL NORMAL IZED RATIO (INR) [...] ORDERAB LES Final Result Performing Organization Address [facility] Co de Phone Number [facility] [address] [place] [phone] * Influenza B (ID NOW Rapid Molecular) (05/21/2025 1:14 PM EDT) [facility] Influenza B Negative Negative, Indeterminate [facility] Swab 05/21/2025 1:14 PM EDT Erum Hernández [facility] OFFICE SUPERVISOR POINT OF CARE TEST ENTER/EDIT OR DERABLES Final Result Performing Organization Address [facility] Co de Phone Number [facility] [address] [place] [phone] * Influenza A (ID NOW Rapid Molecular) (05/21/2025 1:14 PM EDT) [facility] Influenza A Negative Negative, Indeterminate [facility] Swab 05/21/2025 1:14 PM EDT us Erum Hernández [facility] HOSPITAL OFFICE SUPERVISOR POINT OF CARE TEST ENTER/EDIT OR DERABLES Final Result Performing Organization Address [facility] Co de Phone Number [facility] [address] [place] [phone] * POCT Rapid COVID Ag (05/21/2025 1:14 PM EDT) [facility] Rapid COVID Ag Negative Swab 05/21/2025 1:14 PM EDT us Erum Hernández [facility] OFFICE SUPERVISOR POINT OF CARE TEST ENTER/EDIT OR DERABLES Final Result * HM PAP/HPV (08/25/2024 12:00 AM EST) us Historical Provider MD HEALTH MAINTENANCE Final Result from Last 3 Months or Most Recently Relevant to Health Maintenance Additional Health Concerns Active Problems Noted Date Diagnosed Date Help patients manage their type 2 diabetes 08/04 Patient has chronic kidney disease 08/04/2025 Insurance [facility] C3 Care Teams Chucker Relationship Specialty Start Date End Date Stephie Ellis CNP PCP - General Family Medicine 10/14/24 Margoth Lo Supervisor Front 09/10/24
== END 2025-08-15 15:26 | disposition home or self-care (01) ==
LOC: HO.MRI 15:25
DX: G43.E09 Chronic migraine with aura, not intractable, without status migrainosus (principal)
CPT/HCPCS: 70551

== ENCOUNTER → 2025-08-15 15:30 | Outpatient (BNV) | payer MEDICAID, SELFPAY | PROVIDERS: Visit Provider Radiology Diagnostic Radiology | DX: H53.8 Other visual disturbances (principal); R51.9 Headache, unspecified | CPT/HCPCS: 70551 ==

== ENCOUNTER 2025-08-17 08:23 | Outpatient (AMB) | payer MEDICAID, SELFPAY ==
--- OUTSIDE RECORDS SUMMARY | 2025-08-17 08:27 | XMS_ITS | Clinical Summary ---
Author Organization [employer] Address [address] [place] [address] Care Team Providers Care Mis Specialist Name Role Phone Stephie Ellis [employer]ANT SUPERVISOR Primary Care Provider [phone] Allergies Active Allergy Reactions Criticality Noted Date Comments Dexbromphen-Acetaminophen Unknown 09/12/2016 From [facility] records Dizziness, nausea hives Lidocaine Hcl Unknown 07/03/2024 From [facility] records Medications * This document contains [...] complication, without long-term current use of insulin ([facility]) Inject 0.5 mL under the skin 1 (one) time per week. 2 mL 07/27/20 25 Active Tirzepatide (Mounjaro) 2.5 MG/0.5ML solution auto-injectorIndi cations:Type 2 diabetes mellitus with other specified complication, without long-term current use of insulin ([facility]) Inject 2.5 mg under the skin 1 [...] are discrepancies between the two notes from [facility] and [facility], per pt's most recent TSH [...] 3:04 PM EST): Will send referrals to [facility] for routine examinations [...] 08/06/2024 Overview (10/12/2024): 2018 and 2019 @ [facility] Morbid obesity ([facility]/HCC) 08/06/2024 Overview (10/12/2024): HgbA1C and 1 hour [...] BMI of 50 by 28wks transfer to [facility] DVT prophylaxis- Lovenox if CS and BMI >35 Hyperthyroidism 08/06/2024 Heart murmur 08/06/2024 Asthma 08/06/2024 H/O cardiac murmur 07/03/2024 Mild intermittent asthma without complication 07/03/2024 Esotropia of right eye 07/03/2024 Vitamin D insufficiency 09/14/2016 Chronic 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 09/12/2016 Encounters Date Type Department Care Team Description 08/16/2025 Results Follow-Up [facility] [address] [place] [address] Stephie Ellis CNP MR Brain w/o Contrast 08/04/2025 3:30 PM EST Office Visit [facility] [address] [place] [address] Stephei Ellis CNP Type 2 diabetes mellitus with other specified complication, without long-term current use of insulin (HCC) (Primary Dx) 08/04/2025 Travel 08/02/2025 Telephone [facility] [address] [place] [address] Stephie Ellis CNP Prior Authorization 07/29/2025 Travel 07/27/2025 Orders Only [facility] [address] [place] [address] Stephie Ellis CNP Chronic migraine with aura without status migrainosus, not intractable (Primary Dx) 07/27/2025 Telephone [facility] [address] [place] [phone] Stephie Ellis CNP MRI BRAIN ORDER 07/27/2025 Telephone [facility] [address] [place], [place] [phone] Stephie Ellis CNP Care Management ([facility] TC #2-lvm) 07/27/2025 Orders Only [facility] [address] [place] [address] Stephie Ellis CNP Class 3 severe obesity with body mass index (BMI) of 45.0 to 49.9 in adult, unspecified obesity type, unspecified whether serious comorbidity present (HCC) (Primary Dx); Type 2 diabetes mellitus with other specified complication, without long-term current use of insulin (HCC) 07/26/2025 Telephone [facility] [address] [place] [address] Stephie Ellis CNP chart prep 07/22/2025 Orders Only [facility] [address] [place] [address] Stephie Ellis CNP Type 2 diabetes mellitus without complication, without long-term current use of insulin (HCC) (Primary Dx) 07/22/2025 Telephone [facility] [address] [place] [address] Stephie Ellis CNP Medication Question 07/20/2025 Orders Only [facility] [address] [place] [address] Stephie Ellis CNP Chronic migraine with aura without status migrainosus, not intractable (Primary Dx) 07/19/2025 Telephone [facility] [address] [place] [address] Stephie Ellis CNP 07/19/2025 Results Follow-Up [facility] [address] [place] [address] Stephie Ellis CNP Hemoglobin A1c 07/16/2025 2:30 PM EDT Office Visit [facility] [address] [place] [address] Stephie Ellis CNP Iron deficiency anemia, unspecified iron deficiency anemia type (Primary Dx); Hyperglycemia; Chronic migraine with aura without status migrainosus, not intractable; Chronic otitis media, unspecified otitis media type 07/16/2025 Travel 07/14/2025 Telephone [facility] [address] [place] [address] Stephie Ellis CNP Nurse Triage 06/30/[address] [address] Stephie Ellis CNP Care Management ([facility] TC #1-lvm) 06/22/2025 Telephone [facility] [address] [place] [address] Stephie Ellis CNP Chart Prep 06/21/2025 Telephone [facility] [address] [place] [address] Stephie Ellis CNP Nurse Triage 06/20/2025 Orders Only GENERIC EXTERNAL DATA DEPARTMENT Provider, Generic External Data 06/02/2025 Telephone [facility] [address] [place] [address] Stephie Ellis CNP 05/26/2025 Telephone [facility] [address] [place] [address] Stephie Ellis CNP Care Management ([facility] follow up call) 05/21/2025 1:00 PM EDT Office Visit [facility] [address] [place], [place] [phone] Erum Hernández NP Mild intermittent allergic asthma [...] Description 12/07/2025 9:00 AM EDT Office Visit [facility] OPTOMETRY [address] [place] [address] Ellen Robles, OD [address] [place] [address] Health Maintenance Due Date Last Done Comments [...] series) 11/05/2016 10/08/2016 COVID-19 Vaccine (1 - season) 2025 Influenza Vaccine (#1) 2025 07/08/2024, [...] Name Priority Date/Time Associated Diagnosis Comments MR BRAIN WO CONTRAST Routine 08/15/2025 5:01 PM EST Chronic migraine with aura without status migrainosus, not intractable POCT GLUCOSE Routine 08/04/2025 4:24 PM EST [...] Recently Relevant to Health Maintenance Results * MR Brain w/o Contrast (08/15/2025 5:01 PM EST) Anatomical Region Laterality Modality Brain Magnetic Resonan ce 08/15/2025 5:01 PM EST Narrative 08/15/2025 5:02 PM EST [place] [address] Magnetic Resonance Report Signed Patient: Jordana De León MR#: [id number] 1764 : 1995 Acct:[id number] Age/Sex: 30 / F ADM Date: 08/15/25 Loc: HO.MRI Attending Dr: Stephie Ellis AIRPLANE PILOT PHOTOGRAMMETRY Ordering Physician: Stephie Ellis NP Date of Service: 08/15/25 Procedure(s): MR head/brain wo con Accession Number(s): [id number] cc: Stephie Ellis NP Reason for Exam: persistent CUTLER despite tx and blurry vision CLINICAL HISTORY: persistent CUTLER despite tx and blurry vision MR Brain without gadolinium Comparison: None provided Findings: No restricted diffusion. No intra-axial mass or hemorrhage. No midline shift. No hydrocephalus. Vascular flow voids are intact. Orbital contents are unremarkable. The sinuses and mastoid air cells are clear. No focal bone lesion. IMPRESSION: No acute findings. This document has been electronically signed by: Misael Hutchison MD on 08/15/2025 17:01:10 Dictated By: Misael Hutchison MD Signed By: <Electronically signed by Misael Hutchison MD in OV> 08/15/251701 DD/ 00 TD/TT: 08/15/251700 Drywall Hanger Framer: Procedure Note Donotuseinterpreter, Image - 08/15/2025 [place] [address] Magnetic Resonance Report Signed Patient: Jordana De León#: [id number] 1764 : 1995Acct:[id number] Age/Sex: 30 FADM Date: 08/15/25 Loc: HO.MRI Attending Dr: Stephie Ellis NP Ordering Physician: Stephie Ellis NP Date of Service: 08/15/25 Procedure(s): MR head/brain wo con Accession Number(s): [id number] cc: Stephie Ellis NP Reason for Exam: persistent CUTLER despite tx and blurry vision CLINICAL HISTORY: persistent CUTLER despite tx and blurry vision MR Brain without gadolinium Comparison: None provided Findings: No restricted diffusion. No intra-axial mass or hemorrhage. No midline shift. No hydrocephalus. Vascular flow voids are intact. Orbital contents are unremarkable. The sinuses and mastoid air cells are clear. No focal bone lesion. IMPRESSION: No acute findings. This document has been electronically signed by: Misael Hutchison MD on 08/15/2025 17:01:10 Dictated By: Misael Hutchison MD Signed By: <Electronically signed by Misael Hutchison MD in OV> 08/15/251701 DD/ 00 TD/TT: 08/15/25 170 Drywall Hanger Framer: [facility] [employer] SUPERVISOR IMG MRI PROCEDURES Edited Result - Final * (ABNORMAL) POCT glucose manually resulted (08/04/2025 4:24 PM EST) Glucose Blood, POC 204(A) 60 - 200 mg/dL QC Media Lot # Comment:[id number] Lot# Expiration Date Comment:10/24/2025 Blood Capillary blood specimen / Unknown 08/04/2025 4:24 PM EST [facility] [employer] SUPERVISOR POINT OF CARE TEST ENTER/ EDIT ORDERABLES Final Result * CT Abdomen Pelvis w/ Contrast (07/22/2025 10:51 PM EST) Anatomical Region Laterality Modality Body, Pelvis, Abdomen Computed T omography 07/22/2025 10:5 1 PM EST Narrative 07/22/2025 10:53 PM EST [place] [address] CT Scan Report Signed with Parviz Patient: Jordana De León MR#: [id number] 1764 : 1995 Acct:[id number] Age/Sex: 30 / F ADM Date: 07/22/25 Loc: .ED Attending Dr: Ordering Physician: Elliot Rouse MD Date of Service: 07/22/25 Procedure(s): CT abdomen pelvis w IV con Accession Number(s): [id number] cc: Elliot Rouse MD; Stephie Ellis AIRPLANE PILOT PHOTOGRAMMETRY Report Number: [id number]: Total DLP = 0.00 mGy-cm Reason for [...] This document has been electronically signed by: Misale Hutchison MD on 07/22/2025 22:51:42 Dictated By: Misael Hutchison MD Signed By: <Electronically signed by Misael Hutchison MD in OV> 07/22/252251 DD/ 50 TD/TT: 07/22/252250 Drywall Hanger Framer: Procedure Note Donotuseinterpreter, Image - 07/22/[address] [address] [address] Scan Report Signed with Addenda Patient: Liza De León#: [id number] 1764 : 1995Acct:[id number] Age/Sex: 30 FADM Date: 07/22/25 Loc: HO.ED Attending Dr: Ordering Physician: Elliot Rouse MD Date of Service: 07/22/25 Procedure(s): CT abdomen pelvis w IV con Accession Number(s): [id number] cc: Elliot Rouse MD; EllisStephie AIRPLANE PILOT PHOTOGRAMMETRY Report Number: [id number]: Total DLP = 0.00 mGy-cm Reason for [...] in OV> 07/22/252251 DD/ 50 TD/TT: 07/22/252250 Drywall Hanger Framer: us [facility] External Provider IMG CT PROCEDURES Edited Result - Final * (ABNORMAL) Urinalysis, Complete, with Reflex to Culture (07/22/2025 5:43 PM EST) Color Urine Dark Yellow [facility] Appearance Urine Cloudy [facility] PH 5.5 5.0 - 9.0 [facility] Glucose Urine UA Negative Negative mg/dL [facility] Urine Blood Negative Negative [facility] Specific Gurley - Urine >=1.030(H) 1.005 - 1.025 [facility] Urine Protein 30 (1+)(A) Neg-Trace mg/dL [facility] Urine Ketones Trace Negative mg/dL [facility] Nitrite Urine Negative Negative [facility] Leukocyte Esterase Urine Trace(A) Negative [facility] RBC Urine 0-2 0 - 2 /HPF [facility] Urine WBC 6-10(A) 0 - 5 /HPF [facility] Urine Squamous Epithelial Cell 11-20 0 - 2 /HPF [facility] Urine Bacteria None Seen None Seen [facility] Hyaline Casts, Urine 0-2 0 - 2 /LPF [facility] 07/22/2025 5:43 PM EST 07/22/2025 5:53 PM EST Narrative [facility] - 07/22/2025 6:05 PM EST [id number], Clean Catch us Generic External Data Provider LAB URINE ORDERAB LES Final Result [facility] [address] [place] [phone] * HCG, Qualitative, Urine (07/22/2025 5:43 PM EST) Pathologist [facility] Urine NEGATIVE NEGATIVE [facility] Comment:This test was develo ped to detect early . Falsenegative results may occur after the 5th - 7th week ofpregnancy when using this test method. If clinicallyindicated, consider a serum hCG. 07/22/2025 5:43 PM EST 07/22/2025 9:10 PM EST us Generic External Data Provider LAB URINE ORDERAB LES Final Result [facility] [address] [place] [phone] * (ABNORMAL) CBC auto differential (07/22/2025 5:37 PM EST) Only the most recent of2 resultswithin the time period is included. Pathologist [facility] White Blood Count 9.8 4.8 - 10.8 X10*3/uL [facility] Red Blood Count 5.11 4.20 - 5.50 X10*6/uL [facility] Hemoglobin 11.2(L) 12.0 - 16.0 g/dl [facility] Hematocrit 37.0 37.0 - 47.0 % [facility] Mean Corpuscular Volume 72.4(L) 80.0 - 98.0 fL [facility] Mean Corpuscular Hemoglobin 21.9(L) 27.0 - 33.0 pg [facility] Mean Corpuscular HGB Conc 30.3(L) 31.0 - 35.0 g/dl [facility] Red Cell Distribution Width 15.9 11.0 - 16.0 % [facility] Platelet Count 312 160 - 400 X10*3/uL [facility] Mean Platelet Volume 11.4 9.4 - 12.3 fL [facility] Neutrophils Percent Auto 63.7 45 - 73 % [facility] Imm Gran Pct Auto 0.3 0.0 - 0.4 % [facility] Lymphocytes Percent Auto 27.1 20 - 40 % [facility] Monocytes Percent Auto 8.0 2 - 11 % [facility] Eosinophils Percent Auto 0.5 0 - 4 % [facility] Basophils Percent Auto 0.4 0 - 2 % [facility] NRBC Pct Auto 0.0 0.0 - 0.2 /100WBC [facility] Neutrophils Absolute Auto 6.2 2.0 - 8.3 x10*3/uL [facility] Imm Gran Abs Auto 0.03 0.00 - 0.03 X10*3/uL [facility] Lymphocytes Absolute Auto 2.6 1.2 - 4.9 X10*3/uL [facility] Monocytes Absolute Auto 0.8 0.1 - 1.2 X10*3/uL [facility] Eosinophils Absolute Auto 0.1 0.0 - 0.4 X10*3/uL [facility] Basophils Absolute Auto 0.0 0.0 - 0.2 X10*3/uL [facility] NRBC Abs Auto 0.000 0.0 - 0.012 X10*3/uL [facility] 07/22/2025 5:37 PM EST 07/22/2025 5:40 PM EST us Generic External Data Provider LAB BLOOD ORDERAB LES Final Result Performing Organization Address City/[facility] Co de Phone Number [facility] [address] [place] [phone] * Magnesium (07/22/2025 5:37 PM EST) Magnesium 1.9 1.6 - 2.6 mg/dL [facility] 07/22/2025 5:37 PM EST 07/22/2025 5:40 PM EST Generic External Data Provider LAB BLOOD ORDERAB LES Final Result Performing Organization Address City/[facility]/ZIP Co de Phone Number [facility] [address] [place] [phone] * (ABNORMAL) Comprehensive Metabolic Panel (07/22/2025 5:37 PM EST) Only the most recent of2 resultswithin the time period is included. Sodium 138 135 - 145 mmol/L [facility] Potassium 4.1 3.3 - 5.1 mmol/L [facility] Chloride 103 96 - 108 mmol/L [facility] Carbon Dioxide 27 22 - 29 mmol/L [facility] Anion Gap 12 12 - 20 [facility] Urea Nitrogen (BUN) 8(L) 9 - 16 mg/dL [facility] Creatinine, Serum 0.69 0.5 - 1.4 mg/dL [facility] Creatinine Clr Calc Pharmacy 128.4 [facility] Comment:Provided height and weight: 147.32 cm,110.9 kg.eGFR (calculated from the MDRD study equation) and eCrCl(calculated from the Cockcroft-Gault equation) are based ondifferent parameters and may not yield comparable results.If eCrCl result is absurd, please check patient'sheight/weight. Estimated Glomerular Filt Rate >60 [facility] Comment:Chronic Kidney Disea se: Estimated GFR < 60 mL/min/1.52a4Wpfbtl Kidney Disease: Estimated GFR < 15 mL/min/1.73m2 Glucose 219(H) 60 - 115 mg/dL [facility] Calcium 9.9 8.4 - 10.2 mg/dL [facility] Bilirubin, Total 0.7 0.0 - 1.0 mg/dL [facility] Aspartate Amino Transferase 21 5 - 31 U/L [facility] Alanine Aminotransferase 23 0 - 31 U/L [facility] Total Protein 7.5 6.5 - 8.0 g/dL [facility] Albumin Level 4.5 3.5 - 5.0 g/dL [facility] Alkaline Phosphatase 101 39 - 117 U/L [facility] 07/22/2025 5:37 PM EST 07/22/2025 5:40 PM EST us Generic External Data Provider LAB BLOOD ORDERAB LES Final Result [facility] [address] [place] [phone] * MR Ankle w/o Contrast Left (07/20/2025 1:05 PM EST) Anatomical Region Laterality Modality Lower Extremities, Ankle Left Magneti c Resonance 07/20/2025 1:05 PM EST Narrative 07/21/2025 11:10 AM EST [address] [address] Magnetic Resonance Report Signed Patient: Jordana De León MR#: [id number] 1764 : 1995 Acct:[id number] Age/Sex: 30 / F ADM Date: 07/20/25 Loc: HO.MRI Attending Dr: Marcio Hebert DPM Ordering Physician: Marcio Hebert DPM Date of Service: 07/20/25 Procedure(s): MR ankle LT wo con Accession Number(s): [id number] cc: Marcio Hebert DPM; Stephie Ellis NP [...] by: Trent Hamilton MD 07/21/2025 11:07 AM [facility] Dictated By: Trent Hamilton MD Signed By: <Electronically signed by Trent Hamilton MD in OV> 07/21/25 1107 DD/ 1305 TD/TT: 07/20/25 1330 Drywall Hanger Framer: Procedure Note Donotuseinterpreter, Image - 07/21/2025 [place] [address] Magnetic Resonance Report Signed Patient: Jordana De LeónMR#: [id number] 1764 : 1995Acct:[id number] Age/Sex: 30 FADM Date: 07/20/25 Loc: HO.MRI Attending Dr: Marcio Hebert DPM Ordering Physician: Marcio Hebert DPM Date of Service: 07/20/25 Procedure(s): MR ankle LT wo con Accession Number(s): [id number] cc: Marcio Hebert DPM; Stephie Ellis NP [...] by: Trent Hamilton MD 07/21/2025 11:07 AM [facility] Dictated By: Trent Hamilton MD Signed By: <Electronically signed by Trent Hamilton MD in OV> 07/21/25 1107 DD/ 1305 TD/TT: 07/20/25 1330 Drywall Hanger Framer: [facility] External Provider IMG MRI PROCEDURES Final Result * (ABNORMAL) Hemoglobin A1c (07/16/2025 2:59 PM EDT) Hemoglobin A1c 8.6(H) <6.0 % [facility] Comment:Hemoglobin A1C Refer ence Range Adults: 4.8 - 6.0 % Non diabetic: < 6.0 % Goal: < 7.0 %Additional Action Suggested: > 8.0 %Note: Hemoglobin A1c results are invalid for patients with abnormal amounts of HbF. Blood transfusions may impact the HbA1c concentration in the patient sample. Estimated Average Glucose 200 mg/dL [facility] Comment:eAG = Estimated ave rage glucose which is %A1C expressed asaverage glucose, using the formula of the I4A-OewnxikDafzmju Glucose study (ADAG), Diabetes Care, Vol.31,#8,2007 Blood Venous blood specimen / Unknown 07/16/2025 2:59 PM EDT 07/16/2025 5:51 PM EDT Stephie Ellis [facility] LAB BLOOD ORDERABLES Elise l Result Performing Organization Address City/State/[facility] Co de Phone Number [facility] [address] [place] [phone] * XR Foot 1-2 Views Left (06/20/2025 3:26 PM EDT) Anatomical Region Laterality Modality Lower Extremities, Foot Left Radiogra phic Imaging 06/20/2025 3:26 PM EDT Narrative 06/20/2025 3:28 PM EDT [address] [address] XRay Report Signed Patient: Jordana De León MR#: [id number] 1764 : 1995 Acct:[id number] Age/Sex: 30 / F ADM Date: 06/20/25 Loc: HO.ED Attending Dr: Ordering Physician: Herrera Hua Date of Service: 06/20/25 Procedure(s): XR foot LT 2V Accession Number(s): [id number] cc: Herrera Hua; Stephie Ellis NP Reason [...] OV> 06/20/25 1528 DD/ 1526 TD/TT: 06/20/251525 Drywall Hanger Framer: Procedure Note Donotricardointerpreter, Image - 06/21/[address] [address] XRay Report Signed Patient: Jordana De LeónMR#: [id number] 1764 : 1995Acct:[id number] Age/Sex: 30 / FADM Date: 06/20/25 Loc: HO.ED Attending Dr: Ordering Physician: Herrera Hua Date of Service: 06/20/25 Procedure(s): XR foot LT 2V Accession Number(s): [id number] cc: Herrera Hua; Stephie Ellis NP Reason [...] 06/20/25 1528 DD/ 1526 TD/TT: 06/20/25 152 Drywall Hanger Framer: us [facility] External Provider IMG XR PROCEDURES Edited Result - Final * XR Ankle 3+ Views Left (06/20/2025 3:26 PM EDT) Anatomical Region Laterality Modality Lower Extremities, Ankle Left Radiogr aphic Imaging 06/20/2025 3:26 PM EDT Narrative 06/20/2025 3:27 PM EDT [address] [address] XRay Report Signed Patient: Jordana De León MR#: [id number] 1764 : 1995 Acct:[id number] Age/Sex: 30 / F ADM Date: 06/20/25 Loc: HO.ED Attending Dr: Ordering Physician: Herrera Hua Date of Service: 06/20/25 Procedure(s): XR ankle LT min 3V Accession Number(s): [id number] cc: Herrera Hua; Stephie Ellis AIRPLANE PILOT PHOTOGRAMMETRY Reason for Exam: ankle pain CLINICAL HISTORY: [...] 06/20/25 1527 DD/ 1526 TD/TT: 06/20/25 1526 Drywall Hanger Framer: Procedure Note Donotuseinterpreter, Image - 06/21/2025 [place] [address] XRay Report Signed Patient: Jordana De LeónMR#: [id number] 1764 : 1995Acct:[id number] Age/Sex: 30 / FADM Date: 06/20/25 Loc: HO.ED Attending Dr: Ordering Physician: Herrera Hua Date of Service: 06/20/25 Procedure(s): XR ankle LT min 3V Accession Number(s): [id number] cc: Herrera Hua; Stephie Elils AIRPLANE PILOT PHOTOGRAMMETRY Reason for Exam: ankle pain CLINICAL HISTORY: [...] 06/20/25 1527 DD/ 1526 TD/TT: 06/20/25 1526 Drywall Hanger Framer: [facility] External Provider IMG XR PROCEDURES Edited Result - Final * Lower Extremity Venous Duplex (06/20/2025 3:24 PM EDT) 06/20/2025 3:24 PM EDT Narrative [facility] - 06/20/2025 3:26 PM EDT [place] [address] Ultrasound Report Signed Patient: Jordana De León MR#: [id number] 1764 : 1995 Acct:[id number] Age/Sex: 30 / F ADM Date: 06/20/25 Loc: HO.ED Attending Dr: Ordering Physician: Herrera Hua Date of Service: 06/20/25 Procedure(s): US venous duplex LE LT Accession Number(s): [id number] cc: Herrera Hua; Stephie Ellis NP Reason [...] OV> 06/20/25 1526 DD/ 1524 TD/TT: 06/20/25 152 Drywall Hanger Framer: Procedure Note Galina, Image - 06/21/[address] [address] Ultrasound Report Signed Patient: Jordana De LeónMR#: [id number] 1764 : 1995Acct:[id number] Age/Sex: 30 FADM Date: 06/20/25 Loc: HO.ED Attending Dr: Ordering Physician: Herrera Hua Date of Service: 06/20/25 Procedure(s): US venous duplex LE LT Accession Number(s): [id number] cc: Herrera Hua; Stephie Ellis NP Reason [...] 06/20/25 1526 DD/ 1524 TD/TT: 06/20/25 1524 Drywall Hanger Framer: [facility] External Provider CV VASC ULAR PROCEDURES Edited Result - Final [facility] [address] [place] [phone] * Partial Thromboplastin Time, Activated (APTT) (06/20/2025 12:58 PM EDT) Partial Thromboplastin Time 31.4 26.7 - 34.1 SEC [facility] 06/20/2025 12:5 8 PM EDT 06/20/2025 1:02 PM EDT us Generic External Data Provider LAB BLOOD ORDERAB LES Final Result Performing Organization Address [facility] Co de Phone Number [facility] [address] [place] [phone] * Prothrombin Time-INR (06/20/2025 12:58 PM EDT) Prothrombin Time 12.0 10.9 - 12.4 SEC [facility] INTERNATIONAL NORM RATIO 1.0 0.9 - 1.1 [facility] Comment:INTERNATIONAL NORMAL IZED RATIO (INR) [...] ORDERAB LES Final Result Performing Organization Address [facility] Co de Phone Number [facility] [address] [place] [phone] * Influenza B (ID NOW Rapid Molecular) (05/21/2025 1:14 PM EDT) Influenza B Negative Negative, Indeterminate [facility] Swab 05/21/2025 1:14 PM EDT Erum Hernández NP POINT OF CARE TEST ENTER/EDIT OR DERABLES Final Result Performing Organization Address City/[facility] Co de Phone Number [facility] [address] [place] [address] [phone] * Influenza A (ID NOW Rapid Molecular) (05/21/2025 1:14 PM EDT) [facility] Influenza A Negative Negative, Indeterminate [facility] Swab 05/21/2025 1:14 PM EDT Erum Hernández [employer] PHOTOGRAMMETRY POINT OF CARE TEST ENTER/EDIT OR DERABLES Final Result [facility] [address] [place] [address] [phone] * POCT Rapid COVID Ag (05/21/2025 1:14 PM EDT) [facility] Rapid COVID Ag Negative Swab 05/21/2025 1:14 PM EDT Erum Hernández [employer]PL[employer] PIL[employer] PHOTOGRAMMETRY POINT OF CARE TEST ENTER/EDIT OR DERABLES Final Result * HM PAP/HPV (08/25/2024 12:00 AM EST) Historical Provider HEALTH MAINTENANCE Final Result from Last 3 Months or Most Recently Relevant to Health Maintenance Additional Health Concerns Active Problems Noted Date Diagnosed Date Help patients manage their type 2 diabetes 08/04 Patient has chronic kidney disease 08/04/2025 Insurance [facility] C3 Care Teams Mis Specialist Relationship Specialty Start Date End Date Stephie Ellis CNP PCP - General Family Medicine 10/14/24 Margoth Lo Laborer Rags 09/10/24
--- OUTSIDE RECORDS SUMMARY | 2025-08-17 08:27 | XMS_ITS | Clinical Summary ---
Author Organization [facility] Address [address] [place] [address] Phone Care Team Providers Care Pouako Kura Ka[place]apa Maori Name Role Phone Austin, Viji Primary Care Provider [phone] Allergies No known active allergies Medications no115/iron/folic [...] She will do this. care, subsequent [facility] 08/06/2024 Overview (08/06/2024): 1. [facility] site: [facility]: [address] [place] [address] ([phone]) 2. Delivery site: [facility] 3. Mobile Mommas: No 4. [...] No 9. Hospital Course: Obesity, morbid (CMS/[facility] V24, [facility] V28) 08/06 Overview (08/06/2024): HgbA1C [...] 08/06/2024 Overview (08/06/2024): 2017 and 2018 @ [facility] Heart murmur 08/06/2024 Asthma 08/06/2024 Hyperthyroidism [...] lesion or malignancy 09/01/2024 3:14 PM EST [facility] at 1514 EST General Categorization Negative 09/01/2024 3:14 PM [place] [...] cytopathology services provided by [facility], at [address] [place] [address] (CLIA # [id number]/Clarita Moseley MD, Commercial [employer] Software Developer.) 09/01/2024 3:14 PM [facility] Console Pap Interpretation Reported 09/01/2024 3:14 PM [facility] Brushing/Spatula Cervix uteri structure / Unknown 08/25/2024 9:56 AM EST 08/25/2024 9:56 AM EST us Bonnie Barajas MD LAB CYTOLOGY ORDERABLES Fin al Result [facility] [address] [place] [address], * Hepatitis C antibody (08/06/2024 12:36 PM EST) Hepatitis C Antibody Negative Negative LAB CHEMISTRY METHOD 08/06/2024 6:24 PM [facility] Blood Venous blood specimen / Unknown Venipuncture / Unknown 08/06/2024 12:36 PM EST 08/06/2024 12:36 PM EST Carlee Ordaz [facility] BLOOD ORDERABLES Final Res ult Performing Organization Address [facility]/ZIP Co de Phone Number [facility] [address] [place] [address], [place] [phone] * HIV 1,2 antibody, p24 antigen with [...] CDC recommendation for HIV screening. Carlee Ordaz [facility] BLOOD ORDERABLES Final Res ult Performing Organization Address [facility]/ZIP Co de Phone Number [facility] [address] [place] [address], [place] [phone] from Last 3 Months or Most Recently Relevant to Health Maintenance Insurance MEDICA[place] - [place] Care Teams Pouako Kura [place] Maori Relationship Specialty Start Date End Date Viji Austin [address] [place] [address] PCP - General 09/30/24
--- OUTSIDE RECORDS SUMMARY | 2025-08-17 08:27 | XMS_ITS | Encounter Summary ---
Author Organization [employer] Address [address] [place] [address] Care Team Providers Care Vice President Payment Name Role Phone Laureano Ellisrehan MELTON Primary Care Provider [phone] Encounter Details Date Type Department Care Team ([facility] st Contact Info) Description 08/16/2025 Results Follow-Up [facility] [address], [place] [phone] Caleb LaureanoLINH van [address] [place], [place] [phone] MR Brain w/o Contrast Social History Tobacco Use Types Packs/Day Years [...] Description 12/07/2025 9:00 AM EDT Office Visit [facility] [address] [place], [place] [phone] TarkaEllen, OD [address] [place] [address] documented as of this encounter Goals Goal Patient Goal Type Associated Problems Recent Progress Patient-Stated? Author Help patients manage their type 2 diabetes Care Plan Help patients manage their type 2 diabetes No Stephie Ellis CNP Patient has chronic kidney disease Care Plan Patient has chronic kidney disease No Stephie Ellis CNP documented as of this encounter Visit Diagnoses Not on filedocumented in this encounter Additional Health Concerns Active Problems Noted Date Diagnosed Date Help patients manage their type 2 diabetes 08/04 Patient has chronic kidney disease 08/04/2025 Assessment Noted Time PHQ-9 Depression Total Score: 5 10/14/19 25 2:16 PM EST documented as of this encounter Care Teams Vice President Payment Relationship Specialty Start Date End Date Stephie Ellis CNP PCP - General Family Medicine 10/14/24 Margoth Lo Mortgage Coordinator 09/10/24 documented as of this encounter
--- OUTSIDE RECORDS SUMMARY | 2025-08-17 08:27 | XMS_ITS | Encounter Summary ---
Author Organization [employer] Address [address] [place] [address] Care Team Providers Care Movie Shot Cameraman Name Role Phone Stephie Ellis LINH Primary Care Provider [phone] Encounter Details Date Type Department Care Team (Late st Contact Info) Description 01/12/2025 Orders Only [facility] [address] [place], [place] [phone] Sujatha Barakat Social History Tobacco Use Types [...] Description 12/07/2025 9:00 AM EDT Office Visit [facility] [address] [place], [place] [phone] TarEllen power, OD [address] [place] [address] documented as of this encounter Procedures Procedure [...] documented as of this encounter Care Teams Movie Shot Cameraman Relationship Specialty Start Date End Date Stephie Ellis CNP PCP - General Family Medicine 10/14/24 Margoth Lo School Health Assistant 09/10/24 documented as of this encounter
--- NOTE | 2025-08-17 08:32 | A.OFFVIS_ITS ---
Vital Signs 08/17/25 08:33 Height 4 ft 10 in Weight 263 lb BMI 55.0 Intake Visit Reasons: fu Intake Note: Jordana is a 30 year old female who presents today for a follow up on her left Achilles tendonitis. At her last Visit she was provided with night splints and referral to PT and MRI orders where placed. Patient reports she is still having pain at this time however she notes it gravitates towards the back of her ankle. She states due to being in the hospital she will be rescheduling her appointment with PT. MRI results are all set in patients chart, Allergies phenyltoloxamine (From [facility]) Allergy (Unknown, Verified 08/17/25 08:34) VOMITING HPI HPI fu: Details: 30 y/o female past medical history of hypothyroidism returns 1 month follow up for left foot and ankle pain. She is using the night splint which helps. She is also taking the Flexeril as needed every few days. She notes overall improvement in her pain and ability to walk however still has some persistent pain, worse to the heel. She has recently admitted for appendicitis and underwent laparoscopic surgery. [facility] Medical History (Updated 07/28/25 @ 00:01 by Drew Saravia) Diabetes Hypothyroidism Biliary dyskinesia Gallstones Morbid obesity Surgical History (Updated 08/03/25 @ 08:42 by KODAK Trejo) History of laparoscopic appendectomy (~07/23/25) History of 2 sections Social History Household Members: Spouse, Family and Children Housing: House Do you presently have visiting nurse or other home services: No Alcohol intake: never Patient Tobacco Use Status: Never used Tobacco service: No Review of Systems Const All systems reviewed & are unremarkable except as noted in HPI and below Physical Exam Vital Signs: BMI result Body Mass Index 55.0 Extrem Other: *Bilateral Lower Extremity Focused Exam Vascular: Left foot DP/PT 2/4 intact. CFT less than 3 seconds all digits. Temperature gradient warm to cool. No pedal edema. Derm: Dry xerosis bilateral feet. No clinical signs of infection. No ecchymosis. Neuro: Protective sensation grossly intact to bilateral lower extremities MSK: Mild tenderness on palpation of the plantar medial calcaneal tubercle, and radiates to the medial and central bands of the plantar fascia. Mild tenderness on palpation of the Achilles tendon insertion. No dell/defect along the Achilles tendon. No tenderness on palpation of the left calf, lateral and anterior muscle compartment of the leg. The left calf is no longer indurated. Mild pain on maximum dorsiflexion of the ankle, to the Achilles tendon. No pain on flexion of the digits. Results Reviewed Results Reviewed: MRI left ankle 07/20/2025: IMPRESSION: Mild tendinopathy or grade 1 strain of Achilles tendon and minimal peritenonitis. There is a longitudinal split tear of peroneus brevis tendon begins in the retromalleolar groove and extends to the distal third of calcaneus. Venous duplex 06/20/2025: Negative for left lower extremity deep vein thrombosis. X-ray Read: 06/20/2025 X-ray left foot 3 views (AP, MO, Lateral) reviewed which shows mild plantar calcaneal spur, no fractures, dislocations, or gross abnormalities. Bone density is within normal limits. Normal anatomy. No evidence of swelling, foreign body, or calcifications. I personally reviewed the imaging and my findings are listed above. X-ray Read: 06/20/2025 X-ray left ankle 3 views (AP, Mortise, Lateral) reviewed which shows we will circumscribed ossicle over the dorsal aspect of the navicular. no fractures, dislocations, osteochondral defects, or gross abnormalities. Anatomic alignment of the tibiotalar joint. Bone density is within normal limits. No evidence of swelling, foreign body, or calcifications. I personally reviewed the imaging and my findings are listed above. Assessment & Plan Assessment & Plan (1) Achilles tendinitis of left lower extremity: Code(s): M76.62 - Achilles tendinitis, left leg Category: Medical Plan: * Reviewed left ankle MRI which shows some thickening of the Achilles tendon, but no intertendinous tearing. * Recommend completing physical therapy course. May require surgical debridement in the future if she fails PT. * Follow up in 1 month (2) Plantar fasciitis of left foot: Code(s): M72.2 - Plantar fascial fibromatosis Category: Medical Plan: * Continue night splint * Discussed cortisone injection which the patient deferred today. She may opt for the injection at the next visit. (3) Pain of left calf: Code(s): M79.662 - Pain in left lower leg Category: Medical Plan: * Continue flexeril as needed for spasms Coding Level of Care Code Est Pt Level 4 (09713) Diagnoses Achilles tendinitis of left lower extremity M76.62 Plantar fasciitis of left foot M72.2 Pain of left calf M79.662 Time Spent (min) 30 Comment MRI review
[2025-08-17 08:33] VITALS: BMI 55.0
== END 2025-08-17 08:41 | disposition home or self-care (01) ==
LOC: HO.HPODS 08:24
PROVIDERS: Visit Provider Student in an Organized Health Care Education/Training Program
DX: M76.62 Achilles tendinitis, left leg (principal); M72.2 Plantar fascial fibromatosis; M79.662 Pain in left lower leg
CPT/HCPCS: 99214

== ENCOUNTER → 2025-08-17 08:23 | Outpatient (BNVA) | payer MEDICAID, SELFPAY | PROVIDERS: Visit Provider Student in an Organized Health Care Education/Training Program | DX: M76.62 Achilles tendinitis, left leg (principal); M72.2 Plantar fascial fibromatosis; M79.662 Pain in left lower leg | CPT/HCPCS: 99212 ==